=== PATIENT | female | born 1955 | race Caucasian/White ===

== ENCOUNTER 2017-10-09 14:00 | Outpatient (RCR) | payer OTHER, SELFPAY | END 2017-10-09 14:01 | disposition home or self-care (01) | LOC: PT 14:00 | PROVIDERS: Family Provider Family Medicine; Visit Provider Orthopaedic Surgery | DX: M54.2 Cervicalgia (principal) | CPT/HCPCS: 97010; 97014; 97110; 97140; G0283 ==

== ENCOUNTER → 2017-10-16 07:53 | Outpatient (CLI) | payer OTHER, SELFPAY ==
--- NOTE | 2017-10-16 08:00 | MR_ITS ---
MR cervical spine wo con, MR 3-d myelogram/MRCP HISTORY: Prior hx neck surgery X4 months. Neck pain when turning head from side to side. Loss of balance. ITS.REASON: CERVICALGIA ORDERING PHYSICIAN: Thomas Sultana PATIENT AGE: 62 years COMPARISON: 01/01/2017 TECHNIQUE: Standard multiplanar multiecho sequences are performed without contrast. 3-D MIP and myelographic images are also rendered and reviewed FINDINGS: The craniocervical junction has an unremarkable appearance. Extensive artifact is present from prior anterior cervical disc fusion from C3 to C7. There is straightening of the cervical lordosis which may be due to patient positioning or muscle spasm. There is extensive artifact on the axial images at every level. C2-C3: Unremarkable. C3-C4: Minimal bulging disc. C4-C5: Mild bulging disc with narrowing of the canal as before. No cord impingement or effacement. C5-C6: Narrowing of the canal slightly accentuated by the mild hypertrophic changes along the posterior arch of C6. Not significant change. C6-C7: Artifact. C7-T1: Unremarkable. T1-T2: Minimal bulging disc. No extruded herniated disc apparent. IMPRESSION: 1. Prior anterior cervical disc fusion from C3 to C7. The areas of diffusion are present at C3 and C4 compared to the previous exam. 2. Mild cervical spondylosis with borderline canal stenosis at C4-5 and C5-C6. No cord impingement or flattening. 3. Minimal bulging disc at T1-T2 4. No extruded herniated disc evident
== END ==
PROVIDERS: Family Provider Family Medicine; PCP Family Medicine; Visit Provider Orthopaedic Surgery
DX: M54.2 Cervicalgia (principal)
CPT/HCPCS: 72141; 76376

== ENCOUNTER → 2017-11-25 10:20 | Outpatient (POV) | payer OTHER, SELFPAY ==
[2017-11-25 10:36] VITALS: BP 131/75; PULSE 71; RESP 20; TEMP 36.8; O2SAT 99; BMI 28.0
--- NOTE | 2017-11-25 11:21 | HMH.PAINSOAP ---
[facility] Pain Management SOAP Note Subjective:: Is a pleasant 62-year-old white female who presents today for evaluation for neurostimulator. Patient had been receiving cervical epidural steroid injections from our office and then was referred to Dr. Sultana. Patient was seen by Dr. Sultana who had done cervical surgery on her. Dr. Sultana then referred her to Dr. Bonilla for neurostimulator evaluation. Patient would prefer to have her neurostimulator evaluation here. Patient states that most of her pain is in her neck radiating up into her occipital region and then radiating into her bilateral shoulders. Patient is interested in neurostimulator. Describes her pain is constant and shooting-like in nature at times. ROS General: no recent weight change, no fever, no sleep disturbances Respiratory: no cough, no shortness of air, no recurring pulmonary infections Cardiovascular/Peripheral Vascular: No chest pain, No palpitations, no edema, no shortness of breath. Gastrointestinal: no incontinence, normal bowel movements reported Genitourinary: no incontinence Musculoskeletal: Neck pain, bilateral shoulder pain, headache Psychiatric: normal mood/ affect Neurological: [denies weakness in extremities], [denies balance issues] Objective:: Physical Exam General: Alert and oriented x3, no acute distress, pleasant and cooperative, [on room air] Lungs: Resps E/U, Symmetrical chest expansion, Eyes: PERRL Musculoskeletal: Flexion and extension of cervical spine somewhat guarded secondary to pain, deep tendon reflexes normal, strength in upper and lower extremities [5/5], normal gait noted Neurological: speech clear, feltmaker equal, no gross sensory deficits Assessment:: Degenerative disc disease of the cervical spine with cervical radiculopathy and cervical postlaminectomy syndrome Plan:: We will plan on a nuvectra stimulator trial. Patient is not on any anticoagulation therapy. We will get a psychological evaluation. Patient and I had a long discussion about the trial and implantation process along with realistic goals and expectations. I believe the patient will be a good candidate for cervical neurostimulator trial. She has tried and failed physical therapy, surgery, medications, anti-inflammatories, injection therapy. This note was dictated using voice recognition software and may contain errors or omissions
--- NOTE | 2017-11-25 11:27 | P.CONS_ITS ---
[facility] Pain Management SOAP Note Subjective:: Is a pleasant 62-year-old white female who presents today for evaluation for neurostimulator. Patient had been receiving cervical epidural steroid injections from our office and then was referred to Dr. Sultana. Patient was seen by Dr. Sultana who had done cervical surgery on her. Dr. Sultana then referred her to Dr. Bonilla for neurostimulator evaluation. Patient would prefer to have her neurostimulator evaluation here. Patient states that most of her pain is in her neck radiating up into her occipital region and then radiating into her bilateral shoulders. Patient is interested in neurostimulator. Describes her pain is constant and shooting-like in nature at times. ROS General: no recent weight change, no fever, no sleep disturbances Respiratory: no cough, no shortness of air, no recurring pulmonary infections Cardiovascular/Peripheral Vascular: No chest pain, No palpitations, no edema, no shortness of breath. Gastrointestinal: no incontinence, normal bowel movements reported Genitourinary: no incontinence Musculoskeletal: Neck pain, bilateral shoulder pain, headache Psychiatric: normal mood/ affect Neurological: [denies weakness in extremities], [denies balance issues] Objective:: Physical Exam General: Alert and oriented x3, no acute distress, pleasant and cooperative, [ on room air] Lungs: Resps E/U, Symmetrical chest expansion, Eyes: PERRL Musculoskeletal: Flexion and extension of cervical spine somewhat guarded secondary to pain, deep tendon reflexes normal, strength in upper and lower extremities [5/5], normal gait noted Neurological: speech clear, multimedia engineer equal, no gross sensory deficits Assessment:: Degenerative disc disease of the cervical spine with cervical radiculopathy and cervical postlaminectomy syndrome Plan:: We will plan on a nuvectra stimulator trial. Patient is not on any anticoagulation therapy. We will get a psychological evaluation. Patient and I had a long discussion about the trial and implantation process along with realistic goals and expectations. I believe the patient will be a good candidate for cervical neurostimulator trial. She has tried and failed physical therapy, surgery, medications, anti-inflammatories, injection therapy. This note was dictated using voice recognition software and may contain errors or omissions
== END ==
PROVIDERS: Family Provider Family Medicine; PCP Family Medicine; Visit Provider Clinical Nurse Specialist Family Health
DX: M54.12 Radiculopathy, cervical region (principal)
CPT/HCPCS: 99212

== ENCOUNTER → 2017-12-11 08:56 | Outpatient (POV) | payer OTHER, SELFPAY ==
--- NOTE | 2017-12-11 09:01 | HMH.PMCON ---
Assessment and Plan - Assessment and plan all Dx Assessment and Plan for all problems:: Impression-degenerative disc disease of the cervical spine at multiple levels. Cervical radiculopathy symptoms. Cervical postlaminectomy syndrome Plan-epidural pain stimulator trial on 12/27/2017. If successful will be considered for placement permanently of an epidural pain stimulator system HPI - Data of Consult Consult date: 12/11/17 Requesting Physician: Rufus Vargas MD Primary Care Provider: Kiko Sanderson MD Family Provider: Kiko Sanderson MD - Consult Narrative Reason for consult: Degenerative disc disease of the cervical spine at multiple level History of present illness: Ms. Edgar is a 62 year old female with history of cervical disc disease. She is status post cervical disc surgery and states that her pain is worse postop. She has had multiple efforts for pain management without success. She has been seen by who has recommended a epidural pain stimulator trial. She is referred to me in anticipation of placement of an pain stimulator system CC: Rufus Vargas MD [facility] History I have reviewed the patient's past medical history: Yes Medical History: Reports:: Cancer (right breast), Coronary Artery Disease, Hyperlipidemia Denies:: Diabetes Mellitus Type 1, Diabetes Mellitus Type 2, MRSA Other Medical History: Reports: Arthritis Comment: Irregular heartbeat, coronary artery disease with one blockage, hyperlipidemia, history of right breast cancer, cervical disc disease Laterality Cases: Right: Mastectomy Other Surgeries: Yes: Cancer Surgery (right mastectomy with reconstruction), Cholecystectomy, Hysterectomy-Partial, Other (bladder/rectum repair) Amputation: No Fractures: No Comment: ACDF cervical disc surgery 2013, hysterectomy, right mastectomy with TRAM flap reconstruction, cholecystectomy, exploratory lap with removal of bowel hematoma following trauma, bladder and rectal repair - *Social History Alcohol Intake: never Occupational Status: employed - Psychiatric History Expresses thoughts of harming self/others: None Suicide Plan Description: No Plan Review of Systems - Review of Systems Review of systems:: pertinent systems reviewed and negative unless documented below Meds Home Medications Medication Instructions Recorded Confirmed Type Atorvastatin Calcium [Atorvastatin 40 mg PO DAILY 11/25/17 11/25/17 History 40mg Tab] Baclofen [Lioresal 10mg tablet] 10 mg PO Q6 11/25/17 11/25/17 History Divalproex Sodium 125 mg PO HS 11/25/17 11/25/17 History Ibuprofen [Ibuprofen 800mg Tab] 800 mg PO Q8HP PRN 11/25/17 11/25/17 History Mirtazapine 15 mg PO HS 11/25/17 11/25/17 History Montelukast Sodium [Montelukast 10 mg PO DAILY 11/25/17 11/25/17 History 10mg Tab] Omeprazole [Omeprazole 40mg 40 mg PO DAILY 11/25/17 11/25/17 History Capsule] Ropinirole HCl 0.5 mg PO HS 11/25/17 11/25/17 History Tizanidine HCl 4 mg PO Q8 11/25/17 11/25/17 History Allergies Allergy/AdvReac Type Severity Reaction Status Date / Time codeine [CODEINE] Allergy Unknown Unverified 07/09/17 14:34 hydrocodone [HYDROCODONE] Allergy Unknown Unverified 07/09/17 14:34 morphine [MORPHINE] Allergy Unknown Unverified 07/09/17 14:34 oxycodone [OXYCODONE] Allergy Unknown Unverified 07/09/17 14:34 Objective Comments: Healthy white female in no distress - *Routine Respiratory Exam Comments: Normal breath sounds - *Routine Cardiovascular Exam Present: RRR - *Routine Abdominal Exam Comments: Soft and nontender
--- NOTE | 2017-12-11 09:26 | P.CONS_ITS ---
Assessment and Plan - Assessment and plan all Dx Assessment and Plan for all problems:: Impression-degenerative disc disease of the cervical spine at multiple levels. Cervical radiculopathy symptoms. Cervical postlaminectomy syndrome Plan-epidural pain stimulator trial on 12/27/2017. If successful will be considered for placement permanently of an epidural pain stimulator system HPI - Data of Consult Consult date: 12/11/17 Requesting Physician: Rufus Vargas MD Primary Care Provider: Kiko Sanderson MD Family Provider: Kiko Sanderson MD - Consult Narrative Reason for consult: Degenerative disc disease of the cervical spine at multiple level History of present illness: Ms. Edgar is a 62 year old female with history of cervical disc disease. She is status post cervical disc surgery and states that her pain is worse postop. She has had multiple efforts for pain management without success. She has been seen by who has recommended a epidural pain stimulator trial. She is referred to me in anticipation of placement of an pain stimulator system CC: Rufus Vargas MD [facility] History I have reviewed the patient's past medical history: Yes Medical History: Reports:: Cancer (right breast), Coronary Artery Disease, Hyperlipidemia Denies:: Diabetes Mellitus Type 1, Diabetes Mellitus Type 2, MRSA Other Medical History: Reports: Arthritis Comment: Irregular heartbeat, coronary artery disease with one blockage, hyperlipidemia, history of right breast cancer, cervical disc disease Laterality Cases: Right: Mastectomy Other Surgeries: Yes: Cancer Surgery (right mastectomy with reconstruction), Cholecystectomy, Hysterectomy-Partial, Other (bladder/rectum repair) Amputation: No Fractures: No Comment: ACDF cervical disc surgery 2013, hysterectomy, right mastectomy with TRAM flap reconstruction, cholecystectomy, exploratory lap with removal of bowel hematoma following trauma, bladder and rectal repair - *Social History Alcohol Intake: never Occupational Status: employed - Psychiatric History Expresses thoughts of harming self/others: None Suicide Plan Description: No Plan Review of Systems - Review of Systems Review of systems:: pertinent systems reviewed and negative unless documented below Meds Home Medications Medication Instructions Recorded Confirmed Type Atorvastatin Calcium [Atorvastatin 40 mg PO DAILY 11/25/17 11/25/17 History 40mg Tab] Baclofen [Lioresal 10mg tablet] 10 mg PO Q6 11/25/17 11/25/17 History Divalproex Sodium 125 mg PO HS 11/25/17 11/25/17 History Ibuprofen [Ibuprofen 800mg Tab] 800 mg PO Q8HP PRN 11/25/17 11/25/17 History Mirtazapine 15 mg PO HS 11/25/17 11/25/17 History Montelukast Sodium [Montelukast 10 mg PO DAILY 11/25/17 11/25/17 History 10mg Tab] Omeprazole [Omeprazole 40mg 40 mg PO DAILY 11/25/17 11/25/17 History Capsule] Ropinirole HCl 0.5 mg PO HS 11/25/17 11/25/17 History Tizanidine HCl 4 mg PO Q8 11/25/17 11/25/17 History Allergies Allergy/AdvReac Type Severity Reaction Status Date / Time codeine [CODEINE] Allergy Unknown Unverified 07/09/17 14:34 hydrocodone [HYDROCODONE] Allergy Unknown Unverified 07/09/17 14:34 morphine [MORPHINE] Allergy Unknown Unverified 07/09/17 14:34 oxycodone [OXYCODONE] Allergy Unknown Unverified 07/09/17 14:34 Objective Comments: Healthy white female in no distress
[2017-12-11 13:16] VITALS: BP 112/78; PULSE 74; RESP 18; TEMP 36.5; O2SAT 98; BMI 28.0
== END ==
PROVIDERS: Family Provider Family Medicine; PCP Family Medicine; Visit Provider Surgery
DX: M54.12 Radiculopathy, cervical region (principal)
CPT/HCPCS: 99212

== ENCOUNTER → 2017-12-19 09:26 | Outpatient (CLI) | payer OTHER, SELFPAY ==
[2017-12-19 09:47] LABS: Basophils % 0.6 % (0.1-2.0); Eosinophils # 0.2 K/mm3 (0.0-0.4); Eosinophils % 2.9 % (0.1-12.0); Hematocrit 41.3 % (37.0-47.0); Hemoglobin 13.5 g/dL (12.2-16.2); Lymphocytes # 1.6 K/mm3 (0.7-4.5); Lymphocytes % 29.5 K/mm3 (10-50); Mean Corpuscular HGB Conc 32.7 g/dL (31.8-35.4); Mean Corpuscular Hemoglobin 31.3 pg (27.0-31.2); Mean Corpuscular Volume 95.7 fl (81-99); Mean Platelet Volume 9.1 fl (7.4-10.4); Monocytes # 0.3 K/mm3 (0.1-1.0); Monocytes % 6.1 % (1.7-9.3); Neutrophils # 3.2 K/mm3 (1.8-7.8); Neutrophils % 60.9 % (37.0-80.0); Platelet Count 235 K/mm3 (142-424); Red Blood Count 4.32 M/mm3 (4.20-5.40); Red Cell Distribution Width 12.3 % (11.5-17.5); White Blood Count 5.2 K/mm3 (4.8-10.8)
[2017-12-19 10:14] LABS: Anion Gap 13.4 mEq/L (5-15); Blood Urea Nitrogen 22 mg/dL (7-18); Carbon Dioxide 28 mmol/L (21.0-32.0); Chloride 106 mmol/L (98-107); Creatinine,Serum 0.86 mg/dL (0.55-1.02); Estimated Glomerular Filt Rate 66 ml/min (>60); GFR (African American) 80 ML/MIN (>60); Glucose 121 mg/dL (74-106); Potassium 4.4 mmoL/L (3.5-5.1); Sodium 143 mmol/L (136-145)
== END ==
PROVIDERS: Visit Provider Anesthesiology
DX: Z01.818 Encounter for other preprocedural examination (principal)
CPT/HCPCS: 36415; 80048; 85025

== ENCOUNTER → 2018-01-14 12:06 | Outpatient (POV) | payer OTHER, SELFPAY ==
[2018-01-14 12:26] VITALS: BP 126/81; PULSE 73; RESP 18; O2SAT 97; BMI 28.0
--- NOTE | 2018-01-14 12:46 | HMH.PAINSOAP ---
[facility] Pain Management SOAP Note Subjective:: Patient is a pleasant 62-year-old white female who presents today for follow-up after neurostimulator trial lead removal. Patient is doing very well at this time. Patient is being treated for pain secondary to cervical postlaminectomy syndrome and cervical radiculopathy. Patient states that the stimulator trial provided 70-80% relief of her pain symptoms. Patient did have some stiffness in her muscles however she did have an improvement as time went on. Patient will be seen Dr. Harrison for permanent implant. Patient leads were placed at C3-C4-C5-C6 vertebral bodies. Patient has pain in her neck radiating to both shoulders and some radiating into the occipital region. ROS General: no recent weight change, no fever, no sleep disturbances Respiratory: no cough, no shortness of air, no recurring pulmonary infections Cardiovascular/Peripheral Vascular: No chest pain, No palpitations, no edema, no shortness of breath. Gastrointestinal: no incontinence, normal bowel movements reported Genitourinary: no incontinence Musculoskeletal: Neck pain, arm pain Psychiatric: normal mood/ affect Neurological: [denies weakness in extremities], [denies balance issues] Objective:: Physical Exam General: Alert and oriented x3, no acute distress, pleasant and cooperative, [on room air] Lungs: Resps E/U, Symmetrical chest expansion, Eyes: PERRL Musculoskeletal: Flexion and extension of cervical spine somewhat guarded secondary to pain, deep tendon reflexes normal, strength in upper and lower extremities [5/5], normal gait noted Neurological: speech clear, drafter (cad) electronic equal, no gross sensory deficits Assessment:: Degenerative disc disease of the cervical spine with cervical radiculopathy symptoms and cervical postlaminectomy syndrome with previous ACDF Plan:: We will send the patient for consultation with Dr. Harrison patient will follow up with us after implantation. Patient has tried and failed conservative therapies and surgical options. Patient has multiple allergies to medication and is unable to take pain medicine. Patient has been instructed to call our office if she has any issues prior to her next appointment. This note was dictated using voice recognition software and may contain errors or omissions
--- NOTE | 2018-01-14 12:49 | P.CONS_ITS ---
[facility] Pain Management SOAP Note Subjective:: Patient is a pleasant 62-year-old white female who presents today for follow-up after neurostimulator trial lead removal. Patient is doing very well at this time. Patient is being treated for pain secondary to cervical postlaminectomy syndrome and cervical radiculopathy. Patient states that the stimulator trial provided 70-80% relief of her pain symptoms. Patient did have some stiffness in her muscles however she did have an improvement as time went on. Patient will be seen Dr. Harrison for permanent implant. Patient leads were placed at C3- C4-C5-C6 vertebral bodies. Patient has pain in her neck radiating to both shoulders and some radiating into the occipital region. ROS General: no recent weight change, no fever, no sleep disturbances Respiratory: no cough, no shortness of air, no recurring pulmonary infections Cardiovascular/Peripheral Vascular: No chest pain, No palpitations, no edema, no shortness of breath. Gastrointestinal: no incontinence, normal bowel movements reported Genitourinary: no incontinence Musculoskeletal: Neck pain, arm pain Psychiatric: normal mood/ affect Neurological: [denies weakness in extremities], [denies balance issues] Objective:: Physical Exam General: Alert and oriented x3, no acute distress, pleasant and cooperative, [ on room air] Lungs: Resps E/U, Symmetrical chest expansion, Eyes: PERRL Musculoskeletal: Flexion and extension of cervical spine somewhat guarded secondary to pain, deep tendon reflexes normal, strength in upper and lower extremities [5/5], normal gait noted Neurological: speech clear, industrial electrician journeyman equal, no gross sensory deficits Assessment:: Degenerative disc disease of the cervical spine with cervical radiculopathy symptoms and cervical postlaminectomy syndrome with previous ACDF Plan:: We will send the patient for consultation with Dr. Harrison patient will follow up with us after implantation. Patient has tried and failed conservative therapies and surgical options. Patient has multiple allergies to medication and is unable to take pain medicine. Patient has been instructed to call our office if she has any issues prior to her next appointment. This note was dictated using voice recognition software and may contain errors or omissions
== END ==
PROVIDERS: Family Provider Family Medicine; PCP Family Medicine; Visit Provider Clinical Nurse Specialist Family Health
DX: M54.12 Radiculopathy, cervical region (principal)
CPT/HCPCS: 99212

== ENCOUNTER → 2018-01-28 10:46 | Outpatient (POV) | payer OTHER, SELFPAY ==
[2018-01-28 10:48] VITALS: BP 149/88; PULSE 70; RESP 18; O2SAT 97; BMI 28.1
--- NOTE | 2018-01-28 11:24 | XR_ITS ---
EXAM: XR cervical spine 5V HISTORY: ITS.REASON: NECK PAIN ORDERING PHYSICIAN: Rosalina Cherry PATIENT AGE: 62 years COMPARISON: 10/16/2017, 10/19/2016 FINDINGS: There is straightening of the cervical lordosis. Extensive postsurgical changes are present. Status post anterior cervical disc fusion at C3-C4 with a bone plate anteriorly. Disc spacer is also present at this level. There is mild anterolisthesis of C3 on C4 2 mm An anterior bone plate is present at C5. A single screw is present in the right aspect of the bone plate and is directed superiorly to the inferior endplate of C4. A single screw is present on the left aspect of the bone plate and is directed inferiorly. There is an older anterior bone plate with screws in the C5, C6, and C7 vertebra with disc spacers at C5-C6 and C6-C7 Mild foraminal narrowing is noted on the right at C5-C6 and C6-C7. No acute fracture or dislocation. IMPRESSION: Extensive postsurgical changes as described above with normal alignment and straightening of the cervical lordosis with mild right-sided foraminal narrowing at C5-6 and C6-C7
--- NOTE | 2018-01-28 11:29 | HMH.PAINSOAP ---
[facility] Pain Management SOAP Note Subjective:: Patient is a pleasant 62-year-old white female who presents today for follow-up due to increased cervical pain. Patient has had a successful neurostimulator trial. Patient wanted to hold off on implantation due to a vacation coming up. Patient's being treated for pain secondary to cervical postlaminectomy syndrome and cervical radiculopathy. Patient states the week before her neurostimulator trial she fell and hit the back of her next with the garden hoe. Patient was seen by PCP last week due to increased pain and states that she was pulled on Relafen. Patient states she has no relief from this. Patient is continuing to take ibuprofen. Patient states that she feels like there is something wrong with her neck. Rates her pain 9 out of 10 today. ROS General: no recent weight change, no fever, no sleep disturbances Respiratory: no cough, no shortness of air, no recurring pulmonary infections Cardiovascular/Peripheral Vascular: No chest pain, No palpitations, no edema, no shortness of breath. Gastrointestinal: no incontinence, normal bowel movements reported Genitourinary: no incontinence Musculoskeletal:neck Pain Psychiatric: normal mood/ affect Neurological: [denies weakness in extremities], [denies balance issues] Objective:: Physical Exam General: Alert and oriented x3, no acute distress, pleasant and cooperative, [on room air] Lungs: Resps E/U, Symmetrical chest expansion, Eyes: PERRL Musculoskeletal: Flexion and extension of cervical spine somewhat guarded secondary to pain, deep tendon reflexes normal, strength in upper and lower extremities [5/5], normal gait noted Neurological: speech clear, assembler erector equal, no gross sensory deficits Assessment:: Post laminectomy syndrome of the cervical spine with degenerative disc disease of the cervical spine, cervical radiculopathy Plan:: We will call in a [employer] Dosepak for the patient. Patient has had this before with no side effects. I will get an x-ray of her cervical spine. We will follow-up with her on Saturday. This note was dictated using voice recognition software and may contain errors or omissions
--- NOTE | 2018-01-28 11:32 | P.CONS_ITS ---
[facility] Pain Management SOAP Note Subjective:: Patient is a pleasant 62-year-old white female who presents today for follow-up due to increased cervical pain. Patient has had a successful neurostimulator trial. Patient wanted to hold off on implantation due to a vacation coming up. Patient's being treated for pain secondary to cervical postlaminectomy syndrome and cervical radiculopathy. Patient states the week before her neurostimulator trial she fell and hit the back of her next with the garden hoe. Patient was seen by PCP last week due to increased pain and states that she was pulled on Relafen. Patient states she has no relief from this. Patient is continuing to take ibuprofen. Patient states that she feels like there is something wrong with her neck. Rates her pain 9 out of 10 today. ROS General: no recent weight change, no fever, no sleep disturbances Respiratory: no cough, no shortness of air, no recurring pulmonary infections Cardiovascular/Peripheral Vascular: No chest pain, No palpitations, no edema, no shortness of breath. Gastrointestinal: no incontinence, normal bowel movements reported Genitourinary: no incontinence Musculoskeletal:neck Pain Psychiatric: normal mood/ affect Neurological: [denies weakness in extremities], [denies balance issues] Objective:: Physical Exam General: Alert and oriented x3, no acute distress, pleasant and cooperative, [ on room air] Lungs: Resps E/U, Symmetrical chest expansion, Eyes: PERRL Musculoskeletal: Flexion and extension of cervical spine somewhat guarded secondary to pain, deep tendon reflexes normal, strength in upper and lower extremities [5/5], normal gait noted Neurological: speech clear, chair and couch maker equal, no gross sensory deficits Assessment:: Post laminectomy syndrome of the cervical spine with degenerative disc disease of the cervical spine, cervical radiculopathy Plan:: We will call in a [employer] Dosepak for the patient. Patient has had this before with no side effects. I will get an x-ray of her cervical spine. We will follow-up with her on Saturday. This note was dictated using voice recognition software and may contain errors or omissions
== END ==
PROVIDERS: Family Provider Family Medicine; PCP Family Medicine; Visit Provider Clinical Nurse Specialist Family Health
DX: M96.1 Postlaminectomy syndrome, not elsewhere classified (principal); M54.12 Radiculopathy, cervical region
CPT/HCPCS: 72050; 99212

== ENCOUNTER → 2018-01-31 14:44 | Outpatient (POV) | payer OTHER, SELFPAY ==
[2018-01-31 14:57] VITALS: BP 144/82; PULSE 78; RESP 18; TEMP 36.9; O2SAT 97; BMI 25.0
--- NOTE | 2018-01-31 15:01 | HMH.PAINSOAP ---
[facility] Pain Management SOAP Note Subjective:: This patient is a pleasant 62-year-old white female who presents after neurostimulator trial with increased pain in her neck since her trial. She did very well with her neurostimulator trial it was a successful trial with 80-90% relief in her pain symptoms. She had fallen and hit the back of her head prior to the trial. She did get a cervical spine x-ray after she was seen in the office by my nurse practitioner. Cervical spine x-ray was unremarkable. There did not seem to be any changes. There is no fractures or changes in hardware. I believe most of her pain is myofascial and it subjectively seems worse after she got great benefit from her spinal cord stimulator trial. I will place her on Zanaflex 4 mg 3 times a day. She was unable to take the methylprednisolone ordered by my nurse practitioner. Objective:: Alert and oriented ?3 in no acute distress. Motor strength of the upper extremities is 5/5. She does have reduced range of motion of the cervical spine. She does have tenderness over the midline of the cervical spine. Also there is myofascial pain of the cervical paraspinous muscles bilaterally. Assessment:: Degenerative disc disease of the cervical spine with cervical radiculopathy symptoms and postlaminectomy syndrome of the cervical spine Plan:: We will order her Zanaflex 4 mg 1 tablet 3 times a day. We will call this in to [facility]. She does not have to take the methylprednisolone. She is scheduled to see Dr. Harrison for permanent placement of spinal cord stimulator in February.
== END ==
PROVIDERS: Family Provider Family Medicine; PCP Family Medicine; Visit Provider Anesthesiology
DX: M54.12 Radiculopathy, cervical region (principal)
CPT/HCPCS: 99212

== ENCOUNTER → 2018-05-30 10:45 | Outpatient (POV) | payer OTHER, SELFPAY ==
[2018-05-30 11:45] VITALS: BP 124/95; PULSE 80; RESP 18; BMI 28.0
--- NOTE | 2018-05-30 15:09 | HMH.PAINSOAP ---
[facility] Pain Management SOAP Note Subjective:: Patient is a pleasant 62-year-old white female who underwent permanent placement of spinal cord stimulator by Dr. Harrison. She is almost 2 months postop. She did have some neurological issues to me 3. She was evaluated by neurology at [facility] and had a constellation of symptoms which is very confusing. She may have had some nerve root irritation with increased pain. She underwent physical therapy and occupational therapy and now she is walking with a walker however reporting some balance issues and her right leg giving way. She also does have some pain in her thumb and forefinger. We did adjust her stimulator today. I have some nerve irritation from her paddle lead. She does seem to be improving based on her physical therapy and neurological symptoms. We will have her stimulator reprogrammed today. I will also refer her to Dr. Vital for evaluation. We will also keep her off work for an additional 30 days as she is unable to go back to work at this time. She is to continue with home therapy. Objective:: Alert and oriented x3. She does have an antalgic gait. She is walking with a walker. Motor strength of the lower extremities seems to be 4 out of 5. Motor strength of the upper extremities is 5 out of 5. There is no gross sensory deficit at this time. Assessment:: Degenerative disc disease of cervical spine with cervical radiculopathy symptoms and postlaminectomy syndrome of the cervical spine with neurological issues after permanent placement of her spinal cord stimulator. Plan:: We will have her stimulator reprogrammed today. I will also refer her to Dr. Vital for evaluation. We will also keep her off work for an additional 30 days as she is unable to go back to work at this time. She is to continue with home therapy. We will follow-up with her in [address] Vital's evaluation and recommendations.
== END ==
PROVIDERS: PCP Family Medicine; Visit Provider Anesthesiology
DX: M50.10 Cervical disc disorder with radiculopathy, unspecified cervical region (principal); M96.1 Postlaminectomy syndrome, not elsewhere classified; T85.192D Other mechanical complication of implanted electronic neurostimulator of spinal cord electrode (lead), subsequent encounter
CPT/HCPCS: 99212

== ENCOUNTER → 2018-06-20 14:37 | Outpatient (CLI) | payer OTHER, SELFPAY ==
--- NOTE | 2018-06-20 14:41 | XR_ITS ---
EXAM: XR lumbar spine 2-3V HISTORY: ITS.REASON: weakness, pain ORDERING PHYSICIAN: Gayle Vital MD PATIENT AGE: 62 years COMPARISON: None FINDINGS: There is 6 mm anterolisthesis of L4 on L5. There is decrease in the disc space at L5-S1 is consistent with degenerative disc disease. Mild facet arthritic changes are present at L4-5 and L5-S1. No fracture or dislocation. There is epidural stimulator device present. The power pack overlies the left upper quadrant. IMPRESSION: Mild anterolisthesis of L4 on L5 which disc disease at L4-L5 and mild facet arthritic change at L4-L5 and L5-S1
--- NOTE | 2018-06-20 14:41 | CT_ITS ---
CT head/brain wo con HISTORY: Right-sided weakness ITS.REASON: right lower/upper extremity weakness/pain ORDERING PHYSICIAN: Gayle Vital MD PATIENT AGE: 62 years COMPARISON: 12/13/2016 TECHNIQUE: Axial images obtained without contrast. Brain and bone windows reviewed. All CT scans at the facility use one or more dose reduction, viz: automated exposure control, ma/kV adjustment per patient size (including targeted exams where dose is matched to indication, i.e. head), or iterative reconstruction technique. FINDINGS: No midline shift, mass effect, intracranial hemorrhage, hydrocephalus, or extra-axial fluid collection is evident. The calvarium has an unremarkable appearance. There is moderate opacification of the right maxillary sinus as well as opacification of the right anterior and left posterior ethmoid air cells. IMPRESSION: 1. No acute intracranial findings. 2. Paranasal sinus disease
== END ==
PROVIDERS: PCP Family Medicine; Visit Provider Specialist
DX: M79.601 Pain in right arm (principal); M79.604 Pain in right leg; R29.898 Other symptoms and signs involving the musculoskeletal system; R53.1 Weakness; Z85.3 Personal history of malignant neoplasm of breast
CPT/HCPCS: 70450; 72100

== ENCOUNTER → 2018-07-21 08:02 | Outpatient (POV) | payer OTHER, SELFPAY | PROVIDERS: Visit Provider Specialist | DX: R29.898 Other symptoms and signs involving the musculoskeletal system (principal); M79.604 Pain in right leg; M79.601 Pain in right arm; R53.1 Weakness; Z85.3 Personal history of malignant neoplasm of breast | CPT/HCPCS: 95886; 95911 ==

== ENCOUNTER 2018-07-25 10:53 | Outpatient (RCR) | payer OTHER, SELFPAY ==
--- NOTE | 2018-07-25 13:23 | HMH.OTOPEV ---
OT Inpatient Evaluation Rehab OT Outpatient Eval Start: 07/25/18 13:09 Freq: Status: Active Protocol: Document 07/25/18 13:09 TFRY (Rec: 07/25/18 13:23 TFRY [id number]) Electronically Signed By Ирина Polo OT 07/25/18 13:09 Outpatient Therapy Subjective History Subjective History This is a 62 year old left handed female referred to occupational therapy for cervical post-laminectomy syndrome and cervical radiculopathy due to degenerative joint disease of spine. Patient reports that she had a neuro stimulator placement on 04/03/18 to assist with decrease pain in her neck but when she woke up from the procedure she had right arm pain extending all the way into her hand and weakness as well as right leg weakness. 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 Work/Reading Driving Sleeping Recreation Activity Symptom Description Constant and Continuous Level of pain today (0-10) 4 Pain scale - at its best (0-10) 4 Pain scale - at its worst (0-10) 9 Shoulder/Elbow Eval Shoulder Objective Measurements Shoulder ROM Right Shoulder Abduction Active Range of WFL Motion (degrees) Shoulder Flexion Active Range of Motion WFL (degrees) Query Text: Shoulder External Rotation Active Range WFL of Motion (degrees) Shoulder Internal Rotation Active Range WFL of Motion (degrees) Shoulder Extension Active Range of WFL Motion (degrees) pain with active ROM shoulder exam right standard Shoulder MMT Shoulder Abduction Strength Grade 3+ Fair+ Shoulder Extension Strength Grade 3+ Fair+ Shoulder Flexion Strength Grade 3+ Fair+ Shoulder Horizontal Abduction Strength 3+ Fair+ Grade Shoulder Horizontal Adduction Strength
== END 2018-07-25 10:59 | disposition home or self-care (01) ==
LOC: OT 10:53
PROVIDERS: Visit Provider Family Medicine
DX: M96.1 Postlaminectomy syndrome, not elsewhere classified (principal); M47.22 Other spondylosis with radiculopathy, cervical region
CPT/HCPCS: 97166

== ENCOUNTER → 2018-09-08 14:13 | Outpatient (POV) | payer MEDICARE, OTHER, SELFPAY ==
--- NOTE | 2018-09-08 15:00 | HMH.PAINSOAP ---
[facility] Pain Management SOAP Note Subjective:: Patient is a pleasant 63-year-old white female who presents today for follow-up. Patient is doing much better. Patient underwent permanent placement of spinal cord stimulator by Dr. Harrison patient had some neurological issues postop. Patient is continuing to work with neurology area patient states that she does have a raspy hoarse voice that has never gone away she is also having some difficulty swallowing we will send her to an ENT for evaluation. Patient rates her pain a 7 out of 10. Patient has not been on any anti-inflammatories lately. She is interested in trying something different. Patient states that her right arm is what gives her most of the pain. Patient has had a recent nerve conduction study that was normal. ROS General: no recent weight change, no fever, no sleep disturbances Respiratory: no cough, no shortness of air, no recurring pulmonary infections Cardiovascular/Peripheral Vascular: No chest pain, No palpitations, no edema, no shortness of breath. Gastrointestinal: no incontinence, normal bowel movements reported Genitourinary: no incontinence Musculoskeletal: Neck pain, right arm pain Psychiatric: normal mood/ affect Neurological: [denies weakness in extremities], [denies balance issues] Objective:: Physical Exam General: Alert and oriented x3, no acute distress, pleasant and cooperative, [on room air] Lungs: Resps E/U, Symmetrical chest expansion, Eyes: PERRL Musculoskeletal: Flexion and extension of cervical spine somewhat guarded secondary to pain, deep tendon reflexes normal, strength in upper and lower extremities [5/5], slightly antalgic gait noted Neurological: speech clear, intermission coordinator equal, no gross sensory deficits Assessment:: Degenerative disc disease cervical spine with cervical radiculopathy symptoms and postlaminectomy syndrome cervical spine Plan:: We will send to the ENT for determination on her issues with swallowing along with her voice being hoarse at all times. We will also get her some compounding cream to help with any kind of irritation on her right arm. We will also call in Mobic 15 mg 1 p.o. daily to see if this is beneficial for the patient. See the patient back in 1 month and reassess her symptoms at that time. Dr. Pizarro has reviewed this note and agrees with this plan of care. This note was dictated using voice recognition software and may contain errors or omissions
[2018-09-08 15:06] VITALS: BP 117/67; PULSE 97; RESP 18; O2SAT 98; BMI 28.3
== END ==
PROVIDERS: PCP Family Medicine; Visit Provider Clinical Nurse Specialist Family Health
DX: M50.10 Cervical disc disorder with radiculopathy, unspecified cervical region (principal); M96.1 Postlaminectomy syndrome, not elsewhere classified
CPT/HCPCS: 99213

== ENCOUNTER 2018-09-09 11:00 | Outpatient (RCR) | payer MEDICARE, OTHER, SELFPAY ==
--- NOTE | 2018-07-11 10:06 | HMH.PTOPEV ---
PT Outpatient Evaluation Rehab PT Outpatient Evaluation Start: 07/11/18 09:51 Freq: Status: Active Protocol: Document 07/11/18 09:51 CONCHITA (Rec: 07/11/18 10:06 CONCHITA [id number]) Electronically Signed By Gianfranco Salas, PT 07/11/18 09:51 Outpatient Therapy Subjective History Subjective History Pt reports h/o chronic neck pain/cervical radicular s/s and underwent sx. for cervical neurostimulator placement on 04/03/18. Following procedure, pt reports inability to use R LE d/t severe weakness, severe R UE pain, levi. in R thumb and index finger. Pt reports R LE and R UE s/s have improved since sx. w/extension HHOT and HHPT. Pt presents today with ambulation using RW, reports SC w/amb. at home or no AD. Pt reports no falls since sx., however, reports R LE becomes fatigued rapidly w/ wt. bearing activities. Chief Complaint Pain Paresthesia Weakness Symptom Type Ache Throb Sharp Dull Burning Numbness Tingling Shooting Symptoms Relieved By Rest/Positioning Symptoms Aggravated By Standing Physical Activity Walking Prior Functional Limitations Reaching Lifting Housework Current Functional Limitations Reaching Lifting Housework Driving Standing Squatting Walking Stairs Balance Symptom Description Constant but Variable Level of pain today (0-10) 4 Pain scale - at its best (0-10) 3 Pain scale - at its worst (0-10) 8 Hip/Knee Eval Gait Observation General Gait Pattern Observation Ataxic Gait Assistive Device Assistive Devices Straight Cane Rolling / Wheeled Walker MMT
--- NOTE | 2018-08-13 13:36 | HMH.RHREAS ---
Rehab Reassessment Rehab OP Re-assessment Start: 08/13/18 13:26 Freq: Status: Active Protocol: Document 08/13/18 13:27 BALTANICOLEJUANITO (Rec: 08/13/18 13:35 CONCHITA [id number]) Electronically Signed By Gianfranco Salas, PT 08/13/18 13:27 Rehab Re-assessment Subjective Subjective PT REPORTS IMPROVED AMBULATION AND STRENGTH OVERALL SINCE I EVAL, REPORTS 0/10 R LE PAIN AND 6-7/10 R UE PAIN ON VAS, AND FEELS 80% BETTER OVERALL SINCE I EVAL Objective Objective Notes GAIT: PT AMBULATES 500+ FT W/O AD, INTERMITTENT LOB D/T R LE WEAKNESS, SBA TO I MMT: R HIP FLX 4/5, R KNEE EXT 4-4+/5, R KNEE FLX 4/5, R DF 4/5, R HIP IR AND ER 4/5 Assessment Progress Assessment Progressing as Expected Assessment Notes PT W/IMPROVED STRENGTH AND GAIT Patient goals met STG'S 12/26 LTG'S 09/30 Goals Not Met STG'S 07/28 LTG'S 04/02 Plan Plan PT TO CONT. W/SKILLED P.T. TO MAKE FURTHER IMPROVEMENTS IN GAIT, ENDURANCE, AND STRENGTH TO ALLOW OPTIMAL FUNCTION Frequency of Therapy 1-2X/WK Duration of therapy 3-4 WKS Time and Billing Re-Eval Time 15 Re-Eval Billing Units 1 PHYSICIAN CERTIFICATION: I certify the specified therapy services for Mago Edgar are required, authorized, and reviewed every 30 days.
== END 2018-09-09 11:05 | disposition home or self-care (01) ==
LOC: PT 11:00
PROVIDERS: Visit Provider Family Medicine
DX: R29.898 Other symptoms and signs involving the musculoskeletal system (principal); R26.89 Other abnormalities of gait and mobility
CPT/HCPCS: 97110; 97112; 97163; 97164

== ENCOUNTER → 2018-09-24 07:55 | Outpatient (CLI) | payer MEDICARE, OTHER, SELFPAY ==
--- NOTE | 2018-09-24 07:57 | CT_ITS ---
CT sinus wo con CLINICAL INDICATION: Chronic sinusitis ITS.REASON: sinusitis ORDERING PHYSICIAN: Castillo Hunt MD PATIENT AGE: 63 years COMPARISON: None TECHNIQUE:Axial images obtained with sagittal and coronal reformats. All CT scans at the facility use one or more dose reduction, viz: automated exposure control, ma/kV adjustment per patient size (including targeted exams where dose is matched to indication, i.e. head), or iterative reconstruction technique. FINDINGS: Minimal mucosal thickening ethmoid sinuses and bilateral maxillary sinuses. No air-fluid levels are evident. The right maxillary sinus smaller than the left side with a prominent Clarissa cell superiorly. The ostiomeatal complexes are patent on both sides. There is moderate leftward nasal septal deviation. The orbits have an unremarkable appearance. The TMJs are unremarkable. No mastoid effusion. Middle ears are well aerated IMPRESSION: 1. Minimal inflammatory changes in the paranasal sinuses 2. Prominent right Clarissa cell 3. Moderate leftward nasal septal deviation
--- NOTE | 2018-09-24 07:57 | FL_ITS ---
EXAM: Barium swallow/esophagram. INDICATION: Dysphagia, difficulty swallowing ITS.REASON: sinus pressure ORDERING PHYSICIAN: Castillo Hunt MD PATIENT AGE: 63 years COMPARISON: None TECHNIQUE: In the upright position the patient was observed to swallow barium in both the AP and lateral view. The cervical esophagus was examined under fluoroscopy with images obtained. The patient was then placed prone in the right anterior oblique position and was observed to swallow barium with Valsalva technique . FLUOROSCOPY TIME: 1 minute and 14 seconds FINDINGS: There are multiple bone plate present along the or cervical spine. Prior anterior cervical disc fusion with a bone plate stabilizing C3-C4 and additional bone plate at the 5 with an additional bone plate at C5-C6 and C7. There is a an epidural stimulator device present posteriorly. The esophagus has an unremarkable appearance. No annular constricting lesions, polypoid filling defects, or mucosal abnormalities are evident. No evidence of hiatal hernia. IMPRESSION: Unremarkable barium swallow. Prior anterior cervical disc fusion as described above
== END ==
PROVIDERS: PCP Family Medicine; Visit Provider Otolaryngology
DX: J32.0 Chronic maxillary sinusitis (principal); J32.2 Chronic ethmoidal sinusitis; R13.10 Dysphagia, unspecified
CPT/HCPCS: 70486; 74220

== ENCOUNTER → 2018-10-07 11:46 | Outpatient (POV) | payer MEDICARE, OTHER, SELFPAY ==
--- NOTE | 2018-10-07 12:24 | HMH.PAINSOAP ---
[facility] Pain Management SOAP Note Subjective:: She is a pleasant 63-year-old white female who presents today for follow-up. She rates her pain a 4 out of 10 which is much better than her typical. 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 Patient will be seen the packaging sales representative today for additional reprogramming. Patient was unable to take the Mobic due to side effects. ROS General: no recent weight change, no fever, no sleep disturbances Respiratory: no cough, no shortness of air, no recurring pulmonary infections Cardiovascular/Peripheral Vascular: No chest pain, No palpitations, no edema, no shortness of breath. Gastrointestinal: no incontinence, normal bowel movements reported Genitourinary: no incontinence Musculoskeletal: Neck pain, right arm pain Psychiatric: normal mood/ affect Neurological: [denies weakness in extremities], [denies balance issues] Objective:: Physical Exam General: Alert and oriented x3, no acute distress, pleasant and cooperative, [on room air] Lungs: Resps E/U, Symmetrical chest expansion, Eyes: PERRL Musculoskeletal: Flexion and extension of cervical spine somewhat guarded secondary to pain, deep tendon reflexes normal, strength in upper and lower extremities [5/5], normal gait noted Neurological: speech clear, icu registered nurse equal, no gross sensory deficits Assessment:: Degenerative disc disease cervical spine with cervical radiculopathy symptoms and postlaminectomy syndrome cervical spine Plan:: We will follow-up the patient in 1 month and reassess her symptoms at that time. She is been instructed to call the office if she has any issues prior to her next appointment. Dr. Pizarro has reviewed this note and agrees with this plan of care. This note was dictated using voice recognition software and may contain errors or omissions
--- NOTE | 2018-10-07 12:27 | P.CONS_ITS ---
[facility] Pain Management SOAP Note Subjective:: She is a pleasant 63-year-old white female who presents today for follow-up. She rates her pain a 4 out of 10 which is much better than her typical. 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 Patient will be seen the financial sales representative today for additional reprogramming. Patient was unable to take the Mobic due to side effects. ROS General: no recent weight change, no fever, no sleep disturbances Respiratory: no cough, no shortness of air, no recurring pulmonary infections Cardiovascular/Peripheral Vascular: No chest pain, No palpitations, no edema, no shortness of breath. Gastrointestinal: no incontinence, normal bowel movements reported Genitourinary: no incontinence Musculoskeletal: Neck pain, right arm pain Psychiatric: normal mood/ affect Neurological: [denies weakness in extremities], [denies balance issues] Objective:: Physical Exam General: Alert and oriented x3, no acute distress, pleasant and cooperative, [on room air] Lungs: Resps E/U, Symmetrical chest expansion, Eyes: PERRL Musculoskeletal: Flexion and extension of cervical spine somewhat guarded secondary to pain, deep tendon reflexes normal, strength in upper and lower extremities [5/5], normal gait noted Neurological: speech clear, desk operator equal, no gross sensory deficits Assessment:: Degenerative disc disease cervical spine with cervical radiculopathy symptoms and postlaminectomy syndrome cervical spine Plan:: We will follow-up the patient in 1 month and reassess her symptoms at that time. She is been instructed to call the office if she has any issues prior to her next appointment. Dr. Pizarro has reviewed this note and agrees with this plan of care. This note was dictated using voice recognition software and may contain errors or omissions
[2018-10-07 12:54] VITALS: BP 117/80; PULSE 88; RESP 18; O2SAT 98; BMI 28.1
== END ==
PROVIDERS: PCP Family Medicine; Visit Provider Clinical Nurse Specialist Family Health
DX: M50.10 Cervical disc disorder with radiculopathy, unspecified cervical region (principal); M96.1 Postlaminectomy syndrome, not elsewhere classified
CPT/HCPCS: 99213

== ENCOUNTER → 2018-10-20 13:09 | Outpatient (CLI) | payer MEDICARE, OTHER, SELFPAY | PROVIDERS: PCP Family Medicine; Visit Provider Family Medicine | DX: R06.83 Snoring (principal); R53.83 Other fatigue; G47.33 Obstructive sleep apnea (adult) (pediatric) | CPT/HCPCS: G0399 ==

== ENCOUNTER → 2018-10-30 16:03 | Outpatient (CLI) | payer MEDICARE, OTHER, SELFPAY ==
--- NOTE | 2018-10-30 16:07 | MM_ITS ---
MM Dig screening mamm BI w/CAD ORDERING PHYSICIAN : Kiko Sanderson MD PATIENT AGE: 63 years GENDER: Female COMPARISON: Left mammogram studies from March 2017, August 2015, September 2014, March 2014 HISTORY Routine screening left breast. Right breast cancer with mastectomy. No hormones no new complaints Family history: paternal grandmother age 80 TECHNIQUE. CC, axillary cc and MLO images were left breast only obtained. R2 CAD reviewed. FINDINGS: Average fibroglandular tissue. Mild heterogeneous Moderate density breast with moderate residual fibroglandular elements most evident towards deep upper outer quadrant its superior retroareolar region... No new findings of significant concern when compared to multiple studies.. No suspicious nor dominant mass. No suspicious calcifications. LEFT BREAST:The minimal density at the retroareolar region on initial cc view dissipates on axillary cc view. Tissue at the superior retroareolar region is similar to studies from 2015 IMPRESSION: Stable Left Mammogram. No new areas of significant concern on left.. (Right mastectomy) Left mammogram follow-up in one year recommended BI-RADS Category: 2 Benign Finding(s) RECOMMENDED FOLLOW-UP: 1YR 1 YEAR FOLLOW-UP (A letter has been sent to the patient regarding results of the study.)
== END ==
PROVIDERS: PCP Family Medicine; Visit Provider Family Medicine
DX: Z12.31 Encounter for screening mammogram for malignant neoplasm of breast (principal)
CPT/HCPCS: 77067

== ENCOUNTER → 2018-11-04 11:14 | Outpatient (POV) | payer MEDICARE, OTHER, SELFPAY ==
[2018-11-04 12:04] VITALS: BP 113/82; PULSE 79; RESP 18; O2SAT 98; BMI 28.3
--- NOTE | 2018-11-04 12:49 | HMH.PAINSOAP ---
[facility] Pain Management SOAP Note Subjective:: Patient is a pleasant 63-year-old white female who presents today for follow-up. She is doing well rating her pain a 4 out of 10. She states she is getting much better. Patient has been started on Cymbalta and is doing well with this. Patient utilizes her stimulator every day. ROS General: no recent weight change, no fever, no sleep disturbances Respiratory: no cough, no shortness of air, no recurring pulmonary infections Cardiovascular/Peripheral Vascular: No chest pain, No palpitations, no edema, no shortness of breath. Gastrointestinal: no incontinence, normal bowel movements reported Genitourinary: no incontinence Musculoskeletal: Neck pain, arm pain Psychiatric: normal mood/ affect Neurological: [denies weakness in extremities], [denies balance issues] Objective:: Physical Exam General: Alert and oriented x3, no acute distress, pleasant and cooperative, [on room air] Lungs: Resps E/U, Symmetrical chest expansion, Eyes: PERRL Musculoskeletal: Flexion and extension of cervical spine somewhat guarded secondary to pain, deep tendon reflexes normal, strength in upper and lower extremities [5/5], slightly antalgic gait noted Neurological: speech clear, high school business teacher 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 Patient's can call the office if she has any issues prior to her next appointment. Dr. Pizarro has reviewed this note and agrees with this plan of care. This note was dictated using voice recognition software and may contain errors or omissions
--- NOTE | 2018-11-04 12:52 | P.CONS_ITS ---
[facility] Pain Management SOAP Note Subjective:: Patient is a pleasant 63-year-old white female who presents today for follow-up. She is doing well rating her pain a 4 out of 10. She states she is getting much better. Patient has been started on Cymbalta and is doing well with this. Patient utilizes her stimulator every day. ROS General: no recent weight change, no fever, no sleep disturbances Respiratory: no cough, no shortness of air, no recurring pulmonary infections Cardiovascular/Peripheral Vascular: No chest pain, No palpitations, no edema, no shortness of breath. Gastrointestinal: no incontinence, normal bowel movements reported Genitourinary: no incontinence Musculoskeletal: Neck pain, arm pain Psychiatric: normal mood/ affect Neurological: [denies weakness in extremities], [denies balance issues] Objective:: Physical Exam General: Alert and oriented x3, no acute distress, pleasant and cooperative, [on room air] Lungs: Resps E/U, Symmetrical chest expansion, Eyes: PERRL Musculoskeletal: Flexion and extension of cervical spine somewhat guarded secondary to pain, deep tendon reflexes normal, strength in upper and lower extremities [5/5], slightly antalgic gait noted Neurological: speech clear, 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 Patient's can call the office if she has any issues prior to her next appointment. Dr. Pizarro has reviewed this note and agrees with this plan of care. This note was dictated using voice recognition software and may contain errors or omissions
== END ==
PROVIDERS: PCP Family Medicine; Visit Provider Clinical Nurse Specialist Family Health
DX: M50.10 Cervical disc disorder with radiculopathy, unspecified cervical region (principal); M96.1 Postlaminectomy syndrome, not elsewhere classified
CPT/HCPCS: 99212

== ENCOUNTER 2018-12-02 17:25 | Observation (INO) | payer MEDICARE, OTHER, SELFPAY ==
[2018-12-02] VITALS (7 sets, daily range): BP systolic 117–131; BP diastolic 67–76; PULSE 70–93; RESP 15–18; TEMP 36.6–36.8; O2SAT 92–98; BMI 28.3; BMI 28.0
--- NOTE | 2018-12-02 | CT_ITS ---
CT thoracic spine wo con INDICATION: Severe neck and upper back pain following injury/fall with injury and pain ITS.REASON: FALL ORDERING PHYSICIAN: Nakul Mcnamara MD PATIENT AGE: 63 years COMPARISON: None TECHNIQUE: Axial images are obtained without contrast. Sagittal and coronal reformatted images are reviewed as well. All CT scans at the facility use one or more dose reduction, viz: automated exposure control, ma/kV adjustment per patient size (including targeted exams where dose is matched to indication, i.e. head), or iterative reconstruction technique. FINDINGS: Normal alignment. No fracture or dislocation. There are mild degenerative changes with small anterior osteophytes in the mid and lower thoracic spine. There is mild mediastinal adenopathy with AP window node measuring up to 2 x 1.5 cm. Spinal stimulator lower cervical spine with artifact. IMPRESSION: 1. No acute fracture. 2. Thoracic spondylosis. 3. Mild mediastinal adenopathy
--- NOTE | 2018-12-02 17:51 | CT_ITS ---
CT CERVICAL SPINE WITHOUT CONTRAST CT RECONSTRUCTIONS HISTORY:Neck pain following injury, blunt trauma, ORDERING PHYSICIAN: Nakul Mcnamara MD PATIENT AGE: 63 years COMPARISON: None Technique: All CT scans at the facility use one or more dose reduction, viz: automated exposure control, ma/kV adjustment per patient size (including targeted exams where dose is matched to indication, i.e. head), or iterative reconstruction technique PROCEDURE: Axial spiral CT scanning performed of the cervical spine beginning at the base of the skull and continuing to the upper T-spine. 3-D multiplanar reconstruction with 3-D manipulation of volumetric data set in image rendering was completed by the radiologist and/or technologist with the supervision of the radiologist on independent workstation. FINDINGS: No acute fracture or dislocation. Spinal stimulator in the lower cervical spine with resultant artifact. Prior anterior cervical disc fusion from C3 to C7 also with artifact. Slight reversal of the cervical lordosis. Uncovertebral hypertrophy with right-sided foraminal narrowing at C4-C5 and C5-C6 left foraminal narrowing at C6-C7. Right paratracheal enlarged lymph node is present at 18 x 16 mm previously 15 x 13 mm. Lung apices are clear. IMPRESSION: 1. Postsurgical changes with hardware and artifact with cervical spondylosis 2. No acute fracture. 3. Mild mediastinal adenopathy
--- NOTE | 2018-12-02 17:52 | CT_ITS ---
CT facial bones wo con CLINICAL INDICATION: Pain and bruising swelling about right from trauma, blunt trauma with contusion or hematoma ITS.REASON: fall ORDERING PHYSICIAN: Nakul Mcnamara MD PATIENT AGE: 63 years COMPARISON: None TECHNIQUE:Axial images obtained with sagittal and coronal reformats. All CT scans at the facility use one or more dose reduction, viz: automated exposure control, ma/kV adjustment per patient size (including targeted exams where dose is matched to indication, i.e. head), or iterative reconstruction technique. FINDINGS: No fracture or dislocation. No sinus air-fluid level. There is moderate leftward nasal septal deviation and there is mild mucosal thickening of the ethmoid sinuses. IMPRESSION: No acute fracture
--- NOTE | 2018-12-02 17:52 | CT_ITS ---
CT head/brain wo con HISTORY: Blunt trauma, contusion or hematoma, headache, loss of consciousness, syncope ITS.REASON: fall ORDERING PHYSICIAN: Nakul Mcnamara MD PATIENT AGE: 63 years COMPARISON: None TECHNIQUE: Axial images obtained without contrast. Brain and bone windows reviewed. All CT scans at the facility use one or more dose reduction, viz: automated exposure control, ma/kV adjustment per patient size (including targeted exams where dose is matched to indication, i.e. head), or iterative reconstruction technique. FINDINGS: No midline shift, mass effect, intracranial hemorrhage, hydrocephalus, or extra-axial fluid collection is evident. The calvarium has an unremarkable appearance. No mastoid effusion. No sinus air-fluid levels.. IMPRESSION: Negative CT head without contrast. No acute finding
--- NOTE | 2018-12-02 18:54 | PC.NURSE ---
PT WITH X RAY AT THIS TIME
[2018-12-02 18:55] LABS: Basophils % 0.2 % (0.1-2.0); Eosinophils # 0.1 K/mm3 (0.0-0.4); Eosinophils % 1.1 % (0.1-12.0); Hematocrit 39.4 % (37.0-47.0); Hemoglobin 13.3 g/dL (12.2-16.2); Lymphocytes # 0.8 K/mm3 (0.7-4.5); Lymphocytes % 12.5 % (10-50); Mean Corpuscular HGB Conc 33.7 g/dL (31.8-35.4); Mean Corpuscular Hemoglobin 31.9 pg (27.0-31.2); Mean Corpuscular Volume 94.5 fl (81-99); Mean Platelet Volume 8.3 fl (7.4-10.4); Monocytes # 0.3 K/mm3 (0.1-1.0); Monocytes % 5.5 % (1.7-9.3); Neutrophils # 4.8 K/mm3 (1.8-7.8); Neutrophils % 80.7 % (37.0-80.0); Platelet Count 217 K/mm3 (142-424); Red Blood Count 4.17 M/mm3 (4.20-5.40); Red Cell Distribution Width 12.8 % (11.5-17.5)
[2018-12-02 19:01] LABS: Alanine Aminotransferase 34 U/L (12-78); Albumin Level 3.9 gm/dL (3.4-5.0); Albumin/Globulin Ratio 1.1 (1.1-1.8); Alkaline Phosphatase 102 U/L (46-116); Anion Gap 14.7 mEq/L (5-15); Aspartate Amino Transferase 15 U/L (15-37); Bilirubin,Total 0.8 mg/dL (0.2-1.0); Blood Urea Nitrogen 13 mg/dL (7-18); Calcium 8.5 mg/dL (8.5-10.1); Carbon Dioxide 24 mmol/L (21.0-32.0); Chloride 103 mmol/L (98-107); Creatinine Clearance Estimated 64 mL/min (50-200); Creatinine,Serum 0.99 mg/dL (0.55-1.02); Estimated Glomerular Filt Rate 56 ml/min (>60); GFR (African American) 68 ML/MIN (>60); Globulin 3.7 gm/dl (1.3-3.2); Glucose 125 mg/dL (74-106); Potassium 3.7 mmoL/L (3.5-5.1); Sodium 138 mmol/L (136-145); Total Protein,Serum 7.6 gm/dL (6.4-8.2)
--- NOTE | 2018-12-02 20:09 | PC.NURSE ---
Pt c/o pain at IV site, checked site, noted to be bruised, but has + blood return, and flushes well. Slowed down IVF per patient request and patient stated the site is no longer hurting. Pt also states she feels much better at this time other than neck pain, notified md.
--- NOTE | 2018-12-02 20:17 | PC.NURSE ---
spoke to patient to see if she wanted something for pain, she declined, stated that she took her home meds at home prior.
--- NOTE | 2018-12-02 20:27 | HMH.EDSYNC ---
ED Disposition Clinical Impression: Enteritis Syncope Qualifiers: Syncope type: vasovagal syncope Qualified Code(s): R55 - Syncope and collapse Concussion with loss of consciousness Qualifiers: Encounter type: initial encounter Qualified Code(s): S06.0X9A - Concussion with loss of consciousness of unspecified duration, initial encounter Facial contusion Qualifiers: Encounter type: initial encounter Qualified Code(s): S00.83XA - Contusion of other part of head, initial encounter Disposition: Admitted as Observation Condition on Discharge: Good Referrals: Kiko Sanderson MD [Primary Care Provider] - - Critical Care Critical Care Time: No Attestation: On 12/02/18, the high probability of a clinically significant, sudden or life threatening deterioration of the following system(s) required my full and direct attention, intervention and personal management. The time I documented below is in addition to time spent performing reported procedures but includes the following listed in this critical care notation. Medical Decision Making - Medical Records Medical records reviewed: Yes: I reviewed the patient's medical records. - Pj Inquiry Pt receiving controlled substance: No Vital Signs: 12/02/18 17:42 12/02/18 19:57 Temperature 97.8 F Temperature Source Oral Pulse Rate [Left Radial] 71 84 Respiratory Rate 18 15 Blood Pressure [Right Arm] 127/73 124/67 Blood Pressure Mean [Right Arm] 91 86 Blood Pressure Source [Right Arm] Automatic Cuff Blood Pressure Position [Right Arm] Sitting 02 Sat by Pulse Oximetry 98 98 Oxygen Delivery Method Room Air Room Air - Lab Data Lab results reviewed: Yes: I reviewed the patient's lab results. Lab Results 12/02/18 18:41: WBC 6.0, RBC 4.17 L, Hgb 13.3, Hct 39.4, MCV 94.5, MCH 31.9 H, MCHC 33.7, RDW 12.8, Plt Count 217, MPV 8.3, Neut % (Auto) 80.7 H, Lymph % (Auto) 12.5, Baca % (Auto) 5.5, Eos % (Auto) 1.1, Baso % (Auto) 0.2, Neut # (Auto) 4.8, Lymph # (Auto) 0.8, Baca # (Auto) 0.3, Eos # (Auto) 0.1, Baso # (Auto) 0.0 12/02/18 18:41: Sodium 138, Potassium 3.7, Chloride 103, Carbon Dioxide 24, Anion Gap 14.7, BUN 13, Creatinine 0.99, Estimated Creat Clear 64, Estimated GFR 56 L, Est GFR ( Amer) 68, Glucose 125 H, Calcium 8.5, Total Bilirubin 0.8, AST 15, ALT 34, Alkaline Phosphatase 102, Total Protein 7.6, Albumin 3.9, Globulin 3.7 H, Albumin/Globulin Ratio 1.1 Result diagrams: 12/02/18 18:41 12/02/18 18:41 Orders (Tests/Meds): ED MEDICATIONS Generic Name Dose Route Start Last Admin Trade Name Freq PRN Reason Stop Dose Admin Sodium Chloride 1,000 mls @ 999 mls/hr 12/02/18 18:00 12/02/18 18:32 Sod Chlor 0.9% 1000ml Bag IV 12/02/18 19:00 999 mls/hr .Q1H1M TORSTEN Administration ORDERS Category Date Time Status CT cervical spine wo con Stat Cat Scan 12/02/18 17:[address] facial bones wo con Stat Cat Scan 12/02/18 17:[address] head/brain wo con Stat Cat Scan 12/02/18 17:[address] thoracic spine wo con Routine Cat Scan 12/02/18 Taken - CT Data CT Scan: Head, C-Spine, T-Spine, Sinus Time Received: 20:[address] Reviewed: Yes: I have viewed the radiologist's interpretation Preliminary Findings: No Fracture Seen - ECG Data Tracing #1 Normal Sinus Rhythm: Yes Ischemic changes: non-specific ST-T wave changes - Physician Consults Physician Consulted: ghada Reason -: Admission Syncope HPI - General Chief Complaint: Fall Stated Complaint: Ao [id number] Fainted hit head Time Seen by Provider: 12/02/18 20:00 Mode of Arrival: Ambulatory Source of Information: Patient, Spouse, Medical Record Limitations: No Limitations Description of Symptoms (Recalled from ER Triage Doc. by RN): PT states she was sitting on the commond and passed out and hit the cabinet in the bathroom and woke up on the bathroom floor. c/o neck pain, states she has a neuro stimulator in her neck and hit her eye on the counter. State she thinks s
--- NOTE | 2018-12-02 21:09 | PC.NURSE ---
Called to give report - receiving nurse stated she would call me back
[2018-12-02 23:19] LABS: Campylobacter Not Detected (NotDetected); Clostridium Difficile A/B, PCR Not Detected (NotDetected); Cryptosporidium Not Detected (NotDetected); Enteroaggregative E coli Not Detected (NotDetected); Enteropathogenic E coli Not Detected (NotDetected); Enterotoxigenic E coli Not Detected (NotDetected); Plesimonas Shigalloides, PCR Not Detected (NotDetected); Shiga-like toxin E coli Not Detected (NotDetected); Shigella Enterovasive E coli Not Detected (NotDetected); Vibrio Cholerae Not Detected (NotDetected); Vibrio, PCR Not Detected (NotDetected); Yersinia Entercolitica, PCR Not Detected (NotDetected)
[2018-12-02 23:20] LABS: Adenovirus F 40/41, stool Not Detected (NotDetected); Astrovirus Not Detected (NotDetected); Cyclospora Cayetanesis Not Detected (NotDetected); Entamoeba histolytica Not Detected (NotDetected); Giardia lamblia Not Detected (NotDetected); Norovirus Not Detected (NotDetected); Rotavirus A Not Detected (NotDetected); Sapovirus Not Detected (NotDetected)
[2018-12-03] VITALS (7 sets, daily range): BP systolic 108–131; BP diastolic 62–72; PULSE 84–96; RESP 15–18; TEMP 36.7–37.1; O2SAT 95–98; BMI 27.8
[2018-12-03 01:00] LABS: Troponin I < 0.02 ng/ml (0.00-0.06)
[2018-12-03 01:10] LABS: Salmonella, PCR Detected (NotDetected)
[2018-12-03 04:09] LABS: Basophils % 0.2 % (0.1-2.0); Eosinophils # 0.1 K/mm3 (0.0-0.4); Eosinophils % 1.8 % (0.1-12.0); Hematocrit 34.8 % (37.0-47.0); Lymphocytes # 0.6 K/mm3 (0.7-4.5); Lymphocytes % 15.2 % (10-50); Mean Corpuscular HGB Conc 33.6 g/dL (31.8-35.4); Mean Corpuscular Volume 95.1 fl (81-99); Mean Platelet Volume 8.5 fl (7.4-10.4); Monocytes # 0.3 K/mm3 (0.1-1.0); Monocytes % 7.4 % (1.7-9.3); Neutrophils # 2.8 K/mm3 (1.8-7.8); Neutrophils % 75.4 % (37.0-80.0); Platelet Count 162 K/mm3 (142-424); Red Blood Count 3.66 M/mm3 (4.20-5.40); Red Cell Distribution Width 12.7 % (11.5-17.5); White Blood Count 3.6 K/mm3 (4.8-10.8)
[2018-12-03 04:16] LABS: Anion Gap 15.2 mEq/L (5-15); Blood Urea Nitrogen 11 mg/dL (7-18); Calcium 8.1 mg/dL (8.5-10.1); Carbon Dioxide 23 mmol/L (21.0-32.0); Chloride 107 mmol/L (98-107); Creatinine Clearance Estimated 63 mL/min (50-200); Creatinine,Serum 0.81 mg/dL (0.55-1.02); Estimated Glomerular Filt Rate 71 ml/min (>60); GFR (African American) 86 ML/MIN (>60); Glucose 198 mg/dL (74-106); Potassium 3.2 mmoL/L (3.5-5.1); Sodium 142 mmol/L (136-145)
[2018-12-03 04:17] LABS: Troponin I < 0.02 ng/ml (0.00-0.06)
[2018-12-03 04:20] LABS: Hemoglobin 11.8 g/dL (12.2-16.2)
--- NOTE | 2018-12-03 04:32 | PC.NURSE ---
PT CONT. TO FEEL WEAK WHEN STANDING, AND MORE SO WHEN SHE IS ON THE TOILET. EDUCATED PT ON NOT TO BEAR DOWN WHEN USING THE BATHROOM. PT DID NOT REST WELL D/T OFF AND ON NAUSEA, AND DIARRHEA. PRN MEDS ADMIN. SPOKE WITH MD GUAN WHOM IS TRANSMISSION REBUILDER ABOUT PT HAVING MORE NAUSEA. STATED AND READ ORDER BACK, PHENERGAN 12.5 IV PRN Q6H FOR NAUSEA. VSS. WILL CONT. TO MONITOR .
--- NOTE | 2018-12-03 07:22 | HMH.PHAVTE ---
[facility] Pharmacy VTE Monitoring - Patient Demographics Admission date: 12/02/18 Report Date: 12/03/18 Time: 07:22 Allergies/Adverse Reactions: Patient Allergies codeine [CODEINE] Allergy (Unknown, Verified 09/18/18 12:39) vomiting/hives hydrocodone [HYDROCODONE] Allergy (Unknown, Verified 09/18/18 12:39) vomiting/hives morphine [MORPHINE] Allergy (Unknown, Verified 09/18/18 12:39) vomiting/hives oxycodone [OXYCODONE] Allergy (Unknown, Verified 09/18/18 12:39) hives/vomiting methylprednisolone Allergy (Verified 09/18/18 12:39) tingling/weakness/anxiety Height: 1.6 m Weight: 71.214 kg Patient Problems: Current Active Problems (Updated 12/02/18 @ 20:57 by Dustin Sandhu MD) Syncope (Acute) Enteritis (Acute) Concussion with loss of consciousness (Acute) Facial contusion (Acute) - VTE Risk Labs: VTE Related Lab Results Hgb 11.8 g/dL (12.2-16.2) L D 12/03/18 03:40 Hct 34.8 % (37.0-47.0) L 12/03/18 03:40 Plt Count 162 K/mm3 (142-424) D 12/03/18 03:40 BUN 11 mg/dL (7-18) 12/03/18 03:40 Creatinine 0.81 mg/dL (0.55-1.02) 12/03/18 03:40 Estimated Creat Clear 63 mL/min (50-200) 12/03/18 03:40 Was VTE Risk Assessment Performed: Yes VTE Score: 3 VTE Risk Level: Low Risk Clinical Trial Participant: No - Prophylaxis VTE Prophylaxis Ordered?: Yes Types of VTE Prophylaxis: TEDS Knee High
--- NOTE | 2018-12-03 08:27 | HMH.HP ---
*Admission Date: 12/02/18 <Merlene Copeland 12/03/18 08:46> *Chief complaint: diarrhea, nausea, syncope <Merlene Copeland 12/03/18 08:46> *History of present illness: Ms. Edgar is a 63-year-old female who states she began having diarrhea multiple times every few hours on Saturday. She has not had anything to eat or drink and her diarrhea has continued. She states she had no vomiting but was nauseated. She tried to go to work yesterday and was only able to stay for 3 hours. She became very weak and went home. She states she was sitting on the toilet and became very sweaty and passed out. She states she hit the cabinet in the bathroom and the towel rack and ended up on the floor. She states when she woke up she was unable to move and had pain along her right orbit and all along her neck. She called her and he transported her to the emergency room. She was evaluated and admitted for further evaluation and treatment. Of note she did just have a neurostimulator placed in her neck in March 2018. She has also been having issues with balance for the past few weeks. She thinks it is d/t her sinuses and she has seen Dr. Hunt. <Merlene Copeland 12/03/18 08:46> [facility] History Medical History: Reports:: Cancer (Breast (1999)), Coronary Artery Disease, Gastroesophageal Reflux Disease(GERD), Hyperlipidemia Denies:: Diabetes Mellitus Type 1, Diabetes Mellitus Type 2, Internal Pacemaker, MRSA, Seizures <Merlene Copeland 12/03/18 08:46> *Have you ever received a pneumonia vaccine?: Yes <Merlene Copeland 12/03/18 08:46> *Have you received a flu vaccine this season?: Yes <Merlene Copeland 12/03/18 08:46> Other Medical History: Reports: Arthritis, Other (Hemorrhoids, occipital neuralgia, Cervical Disc Disease, mastoiditis). Denies: Blood Transfusion Reaction <Merlene Copeland 12/03/18 08:46> Laterality Cases: Right: Mastectomy, Bilateral: Myringotomy (Ear Tubes) <Merlene Copeland 12/03/18 08:46> Other Surgeries: Yes: Cancer Surgery, Cardiac Catheterization, Cholecystectomy, Colonoscopy, Hysterectomy-Partial, Other (Bladder/Rectal Reconstruction, Anterior Cervical Discectomy with fusion). No: Pacemaker <Merlene Copeland 12/03/18 08:46> Amputation: No <Merlene Copeland 12/03/18 08:46> Fractures: No <Merlene Copeland 12/03/18 08:46> Comment: C3-C5 discectomy with fusion, cervical spine neurostimulator <Merlene Copeland 12/03/18 08:46> - *Social History Educational Level: Attended College <Merlene Copeland 12/03/18 08:46> Smoking Status: Never smoker <Merlene Copeland 12/03/18 08:46> Alcohol Intake: never <Merlene Copeland 12/03/18 08:46> Alcohol Intake Frequency:: other <Merlene Copeland 12/03/18 08:46> Substance Use Type: denies use <Merlene Copeland 12/03/18 08:46> *Occupational Status:: employed <Merlene Copeland 12/03/18 08:46> Housing: house <Merlene Copeland 12/03/18 08:46> Household Members: spouse <Merlene Copeland 12/03/18 08:46> *Travel in the last 8 weeks: None <Merlene Copeland 12/03/18 08:46> - Psychiatric History Expresses thoughts of harming self/others: None <Merlene Copeland 12/03/18 08:46> Suicide Plan Description: No Plan <Merlene Copeland 12/03/18 08:46> Family Hx:: Coronary Artery Disease, Diabetes, Stroke, Other <Merlene Copeland 12/03/18 08:46> Review of Systems - Constitutional Reports body ache(s), Reports fatigue, Reports malaise, Reports weakness, Denies fever(s) <Merlene Copeland 12/03/18 08:46> - Eyes Denies blurry vision, Denies double vision <Merlene Copeland 12/03/18 08:46> - ENT Reports sinus pressure, Denies sore throat <Merlene Copeland 12/03/18 08:46> - *Cardiovascular Denies chest pain, Denies shortness of breath <Merlene Copeland 12/03/18 08:46> - *Respiratory Denies cough, Denies shortness of breath <Merlene Copeland 12/03/18 08:46> - *Gastrointestinal Reports abdominal pain, Reports bloating, Reports loose stools, Reports nausea, Denies vomiting <Merlene Copeland 12/03/18 08:46> - *
--- NOTE | 2018-12-03 08:32 | P.HP_ITS ---
*Admission Date: 12/02/18 <Merlene Copeland 12/03/18 08:46> *Chief complaint: diarrhea, nausea, syncope <Merlene Copeland 12/03/18 08:46> *History of present illness: Ms. Edgar is a 63-year-old female who states she began having diarrhea multiple times every few hours on Saturday. She has not had anything to eat or drink and her diarrhea has continued. She states she had no vomiting but was nauseated. She tried to go to work yesterday and was only able to stay for 3 hours. She became very weak and went home. She states she was sitting on the toilet and became very sweaty and passed out. She states she hit the cabinet in the bathroom and the towel rack and ended up on the floor. She states when she woke up she was unable to move and had pain along her right orbit and all along her neck. She called her and he transported her to the emergency room. She was evaluated and admitted for further evaluation and treatment. Of note she did just have a neurostimulator placed in her neck in March 2018. She has also been having issues with balance for the past few weeks. She thinks it is d/t her sinuses and she has seen Dr. Hunt. <Merlene Copeland 12/03/18 08:46> [facility] History Medical History: Reports:: Cancer (Breast (1999)), Coronary Artery Disease, Gastroesophageal Reflux Disease(GERD), Hyperlipidemia Denies:: Diabetes Mellitus Type 1, Diabetes Mellitus Type 2, Internal Pacemaker, MRSA, Seizures <Merlene Copeland 12/03/18 08:46> *Have you ever received a pneumonia vaccine?: Yes <Merlene Copeland 12/03/18 08:46> *Have you received a flu vaccine this season?: Yes <Merlene Copeland 12/03/18 08:46> Other Medical History: Reports: Arthritis, Other (Hemorrhoids, occipital neuralgia, Cervical Disc Disease, mastoiditis). Denies: Blood Transfusion Reaction <Merlene Copeland 12/03/18 08:46> Laterality Cases: Right: Mastectomy, Bilateral: Myringotomy (Ear Tubes) <Merlene Copeland 12/03/18 08:46> Other Surgeries: Yes: Cancer Surgery, Cardiac Catheterization, Cholecystectomy, Colonoscopy, Hysterectomy-Partial, Other (Bladder/Rectal Reconstruction, Anterior Cervical Discectomy with fusion). No: Pacemaker <Merlene Copeland 12/03/18 08:46> Amputation: No <Merlene Copeland 12/03/18 08:46> Fractures: No <Merlene Copeland 12/03/18 08:46> Comment: C3-C5 discectomy with fusion, cervical spine neurostimulator <Merlene Copeland 12/03/18 08:46> - *Social History Educational Level: Attended College <Merlene Copeland 12/03/18 08:46> Smoking Status: Never smoker <Merlene Copeland 12/03/18 08:46> Alcohol Intake: never <Merlene Copeland 12/03/18 08:46> Alcohol Intake Frequency:: other <Merlene Copeland 12/03/18 08:46> Substance Use Type: denies use <Merlene Copeland 12/03/18 08:46> *Occupational Status:: employed <Merlene Copeland 12/03/18 08:46> Housing: house <Merlene Copeland 12/03/18 08:46> Household Members: spouse <Merlene Copeland 12/03/18 08:46> *Travel in the last 8 weeks: None <Merlene Copeland 12/03/18 08:46> - Psychiatric History Expresses thoughts of harming self/others: None <Merlene Copeland 12/03/18 08:46> Suicide Plan Description: No Plan <Merlene Copeland 12/03/18 08:46> Family Hx:: Coronary Artery Disease, Diabetes, Stroke, Other <Merlene Copeland 12/03/18 08:46> Review of Systems - Constitutional Reports body ache(s), Reports fatigue, Reports malaise, Reports weakness, Denies fever(s) <Merlene Copeland 12/03/18 08:46> - Eyes Denies blurry vision, Denies double vision <Merlene Copeland 12/03/18 08:46> - ENT Reports sinus pressure, Denies sore throat <Merlene Copeland 12/03/18 08:46> - *Cardiovascular Denies chest pain, Denies shortness of breath <Robydy
--- NOTE | 2018-12-03 10:47 | HMH.PHAINT ---
HOME MEDICATION RECONCILIATION COMPLETED USING MEDICATION LIST FROM DR WOODSON'S OFFICE.
--- NOTE | 2018-12-03 15:39 | PC.NURSE ---
COURTESY ROUND; ICE WATER WAS GIVEN & TRASH WAS TAKEN OUT PATIENT ALSO ASSISTED TO BSC AT THIS TIME
--- NOTE | 2018-12-03 16:27 | PC.NURSE ---
NO ACUTE CHANGES SINCE MORNING ASSESSMENT, WEAKNESS CONTINUES, BEDSIDE IN PLACE AND PATIENT USES IT WITH ASSISTANCES, PATIENT STATED THAT SHE IS FEELING SOMEWHAT BETTER THROUGHOUT THE DAY THAN SHE DID LAST NIGHT. VSS, WILL CONTINUE TO MONITOR.
--- NOTE | 2018-12-03 16:48 | PC.NURSE ---
RN paged referral management liaison MD regarding patient wanting some medication for hemorrhoids, RN waiting for call back at this time, will continue to monitor.
--- NOTE | 2018-12-03 17:08 | PC.NURSE ---
MD ordered anusol supp prn for hemorrhoids, RN contacted pharmacy non acoustic operator for correct time frame and Farzana from pharmacy stated that it could be used, TID PRN noted. will continue to monitor.
--- NOTE | 2018-12-03 19:18 | PC.NURSE ---
report given to corinne
[2018-12-04] VITALS (7 sets, daily range): BP systolic 107–151; BP diastolic 70–80; PULSE 72–100; RESP 15–19; TEMP 36.7–37.2; O2SAT 93–97; BMI 27.4
--- NOTE | 2018-12-04 06:09 | PC.NURSE ---
PT MAINTAINED HER BASELINE ASSESSMENT THROUGHOUT MY SHIFT. PT HAD ONE COMPLAINT OF NECK/SHOULDER PAIN AT 0200 WHICH SHE RECEIVED TORADOL FOR. PTS FLUID RUNNING AND NO NEW COMPLAINTS OR CONCERNS. PT SLEPT THROUGHOUT THE NIGHT. PT NOW SLEEPING [facility] CALL [facility]U IN REACH.
[2018-12-04 08:15] LABS: Anion Gap 13.4 mEq/L (5-15); Blood Urea Nitrogen 8 mg/dL (7-18); Calcium 7.8 mg/dL (8.5-10.1); Carbon Dioxide 23 mmol/L (21.0-32.0); Chloride 111 mmol/L (98-107); Creatinine Clearance Estimated 62 mL/min (50-200); Creatinine,Serum 0.57 mg/dL (0.55-1.02); Estimated Glomerular Filt Rate 106 ml/min (>60); GFR (African American) 129 ML/MIN (>60); Glucose 120 mg/dL (74-106); Sodium 143 mmol/L (136-145)
[2018-12-04 08:17] LABS: Potassium 4.4 mmoL/L (3.5-5.1)
--- NOTE | 2018-12-04 08:28 | HMH.ACPN2 ---
<Merlene Copeland - Last Filed: 12/04/18 08:28> Internal Medicine - PN: Subj *Date: 12/04/18 *Time: 08:28 Interval history: Patient states she is feeling poorly this morning. She is continuing to have diarrhea with no warning. There is no blood in her stool. She is having diffuse abdominal pain. She is still having pain in her neck. She did try to eat some toast this morning. She is nauseated. Exam Vital signs and Labs for Last 24 Hours: Temp Pulse Resp BP Pulse Ox 98.9 F 93 H 16 107/72 L 97 12/04/18 08:00 12/04/18 08:00 12/04/18 08:00 12/04/18 08:00 12/04/18 08:00 Laboratory Results - last 24 hr 12/04/18 07:24: Sodium 143, Potassium 4.4 D, Chloride 111 H, Carbon Dioxide 23, Anion Gap 13.4, BUN 8 D, Creatinine 0.57 D, Estimated Creat Clear 62, Estimated GFR 106, Est GFR ( Amer) 129 D, Glucose 120 H, Calcium 7.8 L I & O for Last 24 hours: Intake & Output 12/01/18 12/02/18 12/03/18 12/04/18 11:59 11:59 11:59 11:59 Intake Total 2309 / 2309 1792 / 1792 Output Total 600 / 600 600 / 600 Balance 1709 / 1709 1192 / 1192 Weight 157 lb 155 lb - Constitutional no acute distress - *Routine Respiratory Exam Present: CTA bilaterally - *Routine Cardiovascular Exam Present: RRR - *Routine Abdominal Exam Present: soft, normoactive bowel sounds, tenderness (diffuse) - *Routine Extremities Exam Absent: cyanosis, clubbing, edema Assessment and Plan (1) Salmonella enteritis Current visit: Yes Status: Acute Category: Medical Code(s): A02.0 - Salmonella enteritis (2) Syncope Current visit: Yes Status: Acute Qualifiers: Syncope type: vasovagal syncope Qualified Code(s): R55 - Syncope and collapse Category: Medical Code(s): R55 - Syncope and collapse (3) Facial contusion Current visit: Yes Status: Acute Qualifiers: Encounter type: initial encounter Qualified Code(s): S00.83XA - Contusion of other part of head, initial encounter Category: Medical Code(s): S00.83XA - Contusion of other part of head, initial encounter (4) Hypokalemia Current visit: Yes Status: Acute Category: Medical Code(s): E87.6 - Hypokalemia (5) Chronic neck pain Current visit: Yes Status: Chronic Category: Medical Code(s): M54.2 - Cervicalgia; G89.29 - Other chronic pain - Assessment and plan all Dx Assessment and Plan for all problems:: Potassium has normalized. We will continue IV fluids and anti-emetics. We will get an ice pack for the patient's neck. <Kiko Sanderson - Last Filed: 12/04/18 08:45> Internal Medicine - PN: Subj *Date: 12/04/18 *Time: 08:45 Exam Vital signs and Labs for Last 24 Hours: Temp Pulse Resp BP Pulse Ox 98.9 F 93 H 16 107/72 L 97 12/04/18 08:00 12/04/18 08:00 12/04/18 08:00 12/04/18 08:00 12/04/18 08:00 Laboratory Results - last 24 hr 12/04/18 07:24: Sodium 143, Potassium 4.4 D, Chloride 111 H, Carbon Dioxide 23, Anion Gap 13.4, BUN 8 D, Creatinine 0.57 D, Estimated Creat Clear 62, Estimated GFR 106, Est GFR ( Amer) 129 D, Glucose 120 H, Calcium 7.8 L I & O for Last 24 hours: Intake & Output 12/01/18 12/02/18 12/03/18 12/04/18 23:59 23:59 23:59 23:59 Intake Total 1000 / 1000 2861 / 2861 240 / 240 Output Total 600 / 1200 600 / 600 Balance 1000 / 700 2261 / 1661 -360 / -360 Weight 158 lb 157 lb 155 lb Assessment and Plan (1) Salmonella enteritis Current visit: Yes Status: Acute Category: Medical Code(s): A02.0 - Salmonella enteritis (2) Syncope Current visit: Yes Status: Acute Qualifiers: Syncope type: vasovagal syncope Qualified Code(s): R55 - Syncope and collapse Category: Medical Code(s): R55 - Syncope and collapse (3) Facial contusion Current visit: Yes Status: Acute Qualifiers: Encounter type: initial encounter Qualified Code(s): S00.83XA - Contusion of other part of head, initial encounter Category: Med
--- NOTE | 2018-12-04 08:31 | P.PN_ITS ---
<Merlene Copeland - Last Filed: 12/04/18 08:28> Internal Medicine - PN: Subj *Date: 12/04/18 *Time: 08:28 Interval history: Patient states she is feeling poorly this morning. She is continuing to have diarrhea with no warning. There is no blood in her stool. She is having diffuse abdominal pain. She is still having pain in her neck. She did try to eat some toast this morning. She is nauseated. Exam Vital signs and Labs for Last 24 Hours: Temp Pulse Resp BP Pulse Ox 98.9 F 93 H 16 107/72 L 97 12/04/18 08:00 12/04/18 08:00 12/04/18 08:00 12/04/18 08:00 12/04/18 08:00 Laboratory Results - last 24 hr 12/04/18 07:24: Sodium 143, Potassium 4.4 D, Chloride 111 H, Carbon Dioxide 23, Anion Gap 13.4, BUN 8 D, Creatinine 0.57 D, Estimated Creat Clear 62, Estimated GFR 106, Est GFR ( Amer) 129 D, Glucose 120 H, Calcium 7.8 L I & O for Last 24 hours: Intake & Output 12/01/18 12/02/18 12/03/18 12/04/18 11:59 11:59 11:59 11:59 Intake Total 2309 / 2309 1792 / 1792 Output Total 600 / 600 600 / 600 Balance 1709 / 1709 1192 / 1192 Weight 157 lb 155 lb - Constitutional no acute distress - *Routine Respiratory Exam Present: CTA bilaterally - *Routine Cardiovascular Exam Present: RRR - *Routine Abdominal Exam Present: soft, normoactive bowel sounds, tenderness (diffuse) - *Routine Extremities Exam Absent: cyanosis, clubbing, edema Assessment and Plan (1) Salmonella enteritis Current visit: Yes Status: Acute Category: Medical Code(s): A02.0 - Salmonella enteritis (2) Syncope Current visit: Yes Status: Acute Qualifiers: Syncope type: vasovagal syncope Qualified Code(s): R55 - Syncope and collapse Category: Medical Code(s): R55 - Syncope and collapse (3) Facial contusion Current visit: Yes Status: Acute Qualifiers: Encounter type: initial encounter Qualified Code(s): S00.83XA - Contusion of other part of head, initial encounter Category: Medical Code(s): S00.83XA - Contusion of other part of head, initial encounter (4) Hypokalemia Current visit: Yes Status: Acute Category: Medical Code(s): E87.6 - Hypokalemia (5) Chronic neck pain Current visit: Yes Status: Chronic Category: Medical Code(s): M54.2 - Cervicalgia; G89.29 - Other chronic pain - Assessment and plan all Dx Assessment and Plan for all problems:: Potassium has normalized. We will continue IV fluids and anti-emetics. We will get an ice pack for the patient's neck. <Kiko Sanderson - Last Filed: 12/04/18 08:45> Internal Medicine - PN: Subj *Date: 12/04/18 *Time: 08:45 Exam Vital signs and Labs for Last 24 Hours: Temp Pulse Resp BP Pulse Ox 98.9 F 93 H 16 107/72 L 97 12/04/18 08:00 12/04/18 08:00 12/04/18 08:00 12/04/18 08:00 12/04/18 08:00 Laboratory Results - last 24 hr 12/04/18 07:24: Sodium 143, Potassium 4.4 D, Chloride 111 H, Carbon Dioxide 23, Anion Gap 13.4, BUN 8 D, Creatinine 0.57 D, Estimated Creat Clear 62, Estimated GFR 106, Est GFR ( Amer) 129 D, Glucose 120 H, Calcium 7.8 L I & O for Last 24 hours: Intake & Output 12/01/18
[2018-12-04 08:36] LABS: Basophils % 0.7 % (0.1-2.0); Eosinophils # 0.1 K/mm3 (0.0-0.4); Eosinophils % 4.1 % (0.1-12.0); Hematocrit 31.7 % (37.0-47.0); Hemoglobin 12.4 g/dL (12.2-16.2); Lymphocytes % 33.7 % (10-50); Mean Corpuscular HGB Conc 39.3 g/dL (31.8-35.4); Mean Corpuscular Hemoglobin 36.1 pg (27.0-31.2); Mean Corpuscular Volume 91.8 fl (81-99); Mean Platelet Volume 7.9 fl (7.4-10.4); Monocytes # 0.4 K/mm3 (0.1-1.0); Monocytes % 11.7 % (1.7-9.3); Neutrophils # 1.5 K/mm3 (1.8-7.8); Neutrophils % 49.8 % (37.0-80.0); Platelet Count 163 K/mm3 (142-424); Red Blood Count 3.45 M/mm3 (4.20-5.40); Red Cell Distribution Width 12.8 % (11.5-17.5); White Blood Count 3.1 K/mm3 (4.8-10.8)
[2018-12-05] VITALS (8 sets, daily range): BP systolic 112–138; BP diastolic 62–81; PULSE 75–100; RESP 16–18; TEMP 36.4–37; O2SAT 92–97; BMI 27.5
--- NOTE | 2018-12-05 05:24 | PC.NURSE ---
Pt is A&Ox4 and has ambulated OOB several times this shift, pt tolerated well with staff SBA & independently. Pt has c/o pain to head, neck, and shoulders this shift, medicated per SEP. Pt had 1 episode of nausea and abd cramping, relief noted after 1 dose of zofran. Pt has continued to have diarrhea this shift, however the frequency is decreased to just 2x this shift. Lungs CTA, no edema noted. ABD soft, tender to palpation and active BS noted. VSS, call light within reach, will continue to monitor.
--- NOTE | 2018-12-05 07:42 | SW/DCPLANNER ---
PATIENT ADMITTED TO [facility] ON 12/02 TO AN OBSERVATION STATUS WITH NAUSEA, VOMITING AND DIARRHEA....SHE STATED SHE ATE SOMETHING THAT MADE HER DEATHLY ILL...SHE WILL DISCHARGE BACK HOME ONCE MEDICALLY READY AND I DON'T THINK SHE IS GOING TO NEED ANYTHING ONCE DISCHARGED..
--- NOTE | 2018-12-05 08:32 | HMH.ACPN2 ---
<Merlene Copeland - Last Filed: 12/05/18 08:32> Internal Medicine - PN: Subj *Date: 12/05/18 *Time: 08:32 Interval history: Patient states she has a horrible headache this morning. Her diarrhea has slowed and she has not actually had a stool for the past 5 hours. Her abdominal pain is improving. She states she can eat this morning due to her headache. Exam Vital signs and Labs for Last 24 Hours: Temp Pulse Resp BP Pulse Ox 98.6 F 84 16 129/71 96 12/05/18 04:00 12/05/18 04:00 12/05/18 04:00 12/05/18 04:00 12/05/18 04:00 Laboratory Results - last 24 hr 12/04/18 08:26: WBC 3.1 L, RBC 3.45 L, Hgb 12.4, Hct 31.7 L, MCV 91.8, MCH 36.1 H, MCHC 39.3 H, RDW 12.8, Plt Count 163, MPV 7.9, Neut % (Auto) 49.8, Lymph % (Auto) 33.7, [place] % (Auto) 11.7 H, Eos % (Auto) 4.1, Baso % (Auto) 0.7, Neut # (Auto) 1.5 L, Lymph # (Auto) 1.0, [place] # (Auto) 0.4, Eos # (Auto) 0.1, Baso # (Auto) 0.0 I & O for Last 24 hours: Intake & Output 12/02/18 12/03/18 12/04/18 12/05/18 11:59 11:59 11:59 11:59 Intake Total 2309 / 2309 1792 / 1792 840 / 840 Output Total 600 / 600 600 / 600 500 / 500 Balance 1709 / 1709 1192 / 1192 340 / 340 Weight 157 lb 155 lb 155 lb 7 oz - Constitutional no acute distress - *Routine Respiratory Exam Present: CTA bilaterally - *Routine Cardiovascular Exam Present: RRR - *Routine Abdominal Exam Present: soft, normoactive bowel sounds, tenderness (diffuse) - *Routine Extremities Exam Absent: cyanosis, clubbing, edema Assessment and Plan (1) Salmonella enteritis Current visit: Yes Status: Acute Category: Medical Code(s): A02.0 - Salmonella enteritis (2) Syncope Current visit: Yes Status: Acute Qualifiers: Syncope type: vasovagal syncope Qualified Code(s): R55 - Syncope and collapse Category: Medical Code(s): R55 - Syncope and collapse (3) Facial contusion Current visit: Yes Status: Acute Qualifiers: Encounter type: initial encounter Qualified Code(s): S00.83XA - Contusion of other part of head, initial encounter Category: Medical Code(s): S00.83XA - Contusion of other part of head, initial encounter (4) Hypokalemia Current visit: Yes Status: Acute Category: Medical Code(s): E87.6 - Hypokalemia (5) Chronic neck pain Current visit: Yes Status: Chronic Category: Medical Code(s): M54.2 - Cervicalgia; G89.29 - Other chronic pain - Assessment and plan all Dx Assessment and Plan for all problems:: We will continue current treatment and increase Toradol dose today. <Kiko Sanderson - Last Filed: 12/05/18 08:37> Internal Medicine - PN: Subj *Date: 12/05/18 *Time: 08:36 Exam Vital signs and Labs for Last 24 Hours: Temp Pulse Resp BP Pulse Ox 97.8 F 80 18 130/69 94 L 12/05/18 08:00 12/05/18 08:00 12/05/18 08:00 12/05/18 08:00 12/05/18 08:00 Laboratory Results - last 24 hr 12/04/18 08:26: WBC 3.1 L, RBC 3.45 L, Hgb 12.4, Hct 31.7 L, MCV 91.8, MCH 36.1 H, MCHC 39.3 H, RDW 12.8, Plt Count 163, MPV 7.9, Neut % (Auto) 49.8, Lymph % (Auto) 33.7, [place] % (Auto) 11.7 H, Eos % (Auto) 4.1, Baso % (Auto) 0.7, Neut # (Auto) 1.5 L, Lymph # (Auto) 1.0, [place] # (Auto) 0.4, Eos # (Auto) 0.1, Baso # (Auto) 0.0 I & O for Last 24 hours: Intake & Output 12/02/18 12/03/18 12/04/18 12/05/18 23:59 23:59 23:59 23:59 Intake Total 1000 / 1000 2861 / 2861 1080 / 1080 240 / 240 Output Total 600 / 1200 600 / 1100 500 / 500 Balance 1000 / 700 2261 / 1661 480 / -20 -260 / -260 Weight 158 lb 157 lb 155 lb 155 lb 7 oz Assessment and Plan (1) Salmonella enteritis Current visit: Yes Status: Acute Category: Medical Code(s): A02.0 - Salmonella enteritis (2) Syncope Current visit: Yes Status: Acute Qualifiers: Syncope type: vasovagal syncope Qualified Code(s): R55 - Syncope and collapse Category: Medical Code(s): R55 - Syncope and collapse (3) Facial contusion Current visit: Yes St
--- NOTE | 2018-12-05 11:47 | XR_ITS ---
EXAM: XR cervical spine 2V HISTORY: ITS.REASON: acute injury, verify neurostimular lead placement ORDERING PHYSICIAN: Kiko Sanderson MD PATIENT AGE: 63 years COMPARISON: 12/02/2018 FINDINGS: There is normal alignment. Bone plate is present anteriorly at C3-C4 with a bone plate also at C5 and an additional bone plate and C6-C7 and T1. This is similar when compared to the C-spine CT of 12/02/2018. There is an epidural neurostimulator device present. The metallic markers of this device are along the dorsal epidural region at C4 C5 C6 and C7. No fracture or dislocation. IMPRESSION: Postsurgical changes with epidural stimulator device present as described above
--- NOTE | 2018-12-05 13:37 | PC.NURSE ---
1300 patient removed from isolation precautions per infection control policy. standard precautions to be followed. patient taken to radiology via wheelchair. no distress noted upon return to room
--- NOTE | 2018-12-05 14:37 | HMH.PMCON ---
Assessment and Plan (1) Salmonella enteritis Current visit: Yes Status: Acute Category: Medical Code(s): A02.0 - Salmonella enteritis (2) Syncope Current visit: Yes Status: Acute Qualifiers: Syncope type: vasovagal syncope Qualified Code(s): R55 - Syncope and collapse Category: Medical Code(s): R55 - Syncope and collapse (3) Facial contusion Current visit: Yes Status: Acute Qualifiers: Encounter type: initial encounter Qualified Code(s): S00.83XA - Contusion of other part of head, initial encounter Category: Medical Code(s): S00.83XA - Contusion of other part of head, initial encounter (4) Hypokalemia Current visit: Yes Status: Acute Category: Medical Code(s): E87.6 - Hypokalemia (5) Chronic neck pain Current visit: Yes Status: Chronic Category: Medical Code(s): M54.2 - Cervicalgia; G89.29 - Other chronic pain (6) Headache Current visit: Yes Status: Acute Category: Medical Code(s): R51 - Headache - Assessment and plan all Dx Assessment and Plan for all problems:: We have reviewed her cervical spine x-rays and all hardware seems to be in proper position. Her stimulator seems to be functioning appropriately. We have recommended that she continue using her stimulator. Her neck pain may be myofascial in origin. HPI - Data of Consult Patient: known to practice within the last 3 years Requesting Physician: Kiko Sanderson MD Primary Care Provider: Kiko Sanderson MD - Consult Narrative Reason for consult: Patient status post fall with spinal cord stimulator in place History of present illness: Ms. Edgar is a 63 year old female who has paddle leads of a cervical spinal cord stimulator for neck pain with cervical radicular symptoms. This patient had Salmonella poisoning and GI distress. She has had a recent fall. She has increasing neck pain. Her stimulator continues to be on and she has had no change in stimulation. She underwent cervical spine x-rays and all hardware seems to be in proper position. CC: Kiko Sanderson MD [facility] History I have reviewed the patient's past medical history: Yes Medical History: Reports:: Cancer (Breast (1999)), Coronary Artery Disease, Gastroesophageal Reflux Disease(GERD), Hyperlipidemia Denies:: Diabetes Mellitus Type 1, Diabetes Mellitus Type 2, Internal Pacemaker, MRSA, Seizures *Have you ever received a pneumonia vaccine?: Yes *Have you received a flu vaccine this season?: Yes Other Medical History: Reports: Arthritis, Other (Hemorrhoids, occipital neuralgia, Cervical Disc Disease, mastoiditis). Denies: Blood Transfusion Reaction Laterality Cases: Right: Mastectomy, Bilateral: Myringotomy (Ear Tubes) Other Surgeries: Yes: Cancer Surgery, Cardiac Catheterization, Cholecystectomy, Colonoscopy, Hysterectomy-Partial, Other (Bladder/Rectal Reconstruction, Anterior Cervical Discectomy with fusion). No: Pacemaker Amputation: No Fractures: No - *Social History Educational Level: Attended College Smoking Status: Never smoker Alcohol Intake: never Alcohol Intake Frequency:: other Substance Use Type: denies use *Occupational Status:: employed Housing: house Household Members: spouse *Travel in the last 8 weeks: None - Psychiatric History Expresses thoughts of harming self/others: None Suicide Plan Description: No Plan Family Hx:: Coronary Artery Disease, Diabetes, Stroke, Other Review of Systems - *Neurologic Reports dizziness, Reports lack of coordination, Reports fainting, Reports dizziness, Reports weakness, Denies abnormal speech, Denies headache(s) Meds Home Medications Medication Instructions Recorded Confirmed Type Atorvastatin Calcium [Atorvastatin 40 mg PO HS 11/25/17 12/03/18 History 40mg Tab] Ibuprofen [Ibuprofen 800mg Tab] 800 mg PO Q8HP PRN 11/25/17 12/02/18 History Montelukast Sodium [Montelukast 10 mg PO DAILY 11/25/17 12/02/18 History 10mg Tab] Omeprazole [Omeprazole 40mg 40 mg
--- NOTE | 2018-12-05 19:11 | PC.NURSE ---
report given to tj. womack
[2018-12-06] VITALS: BP 108/62; PULSE 80; PULSE 82; RESP 18; TEMP 36.7; O2SAT 94
[2018-12-06 03:51] VITALS: BP 127/86; PULSE 80; RESP 18; TEMP 36.6; O2SAT 94
--- NOTE | 2018-12-06 03:52 | PC.NURSE ---
pt rested well this shift. c/o of head and neck pain x1, in between scheduled toradol doses, prn tylenol given with relief. pt up to bsc with standby assist. tolerates well. VSS will cont to monitor
[2018-12-06 04:00] VITALS: PULSE 60
[2018-12-06 06:42] LABS: Basophils % 0.5 % (0.1-2.0); Eosinophils # 0.2 K/mm3 (0.0-0.4); Eosinophils % 5.3 % (0.1-12.0); Hematocrit 29.9 % (37.0-47.0); Lymphocytes # 1.4 K/mm3 (0.7-4.5); Lymphocytes % 42.1 % (10-50); Mean Corpuscular HGB Conc 36.8 g/dL (31.8-35.4); Mean Corpuscular Hemoglobin 33.1 pg (27.0-31.2); Mean Platelet Volume 7.7 fl (7.4-10.4); Monocytes # 0.4 K/mm3 (0.1-1.0); Monocytes % 11.3 % (1.7-9.3); Neutrophils # 1.3 K/mm3 (1.8-7.8); Neutrophils % 40.8 % (37.0-80.0); Platelet Count 193 K/mm3 (142-424); Red Blood Count 3.32 M/mm3 (4.20-5.40); Red Cell Distribution Width 12.6 % (11.5-17.5); White Blood Count 3.3 K/mm3 (4.8-10.8)
[2018-12-06 06:46] VITALS: BMI 28.5
[2018-12-06 06:58] LABS: Anion Gap 11.8 mEq/L (5-15); Blood Urea Nitrogen 7 mg/dL (7-18); Calcium 7.9 mg/dL (8.5-10.1); Carbon Dioxide 27 mmol/L (21.0-32.0); Chloride 108 mmol/L (98-107); Creatinine Clearance Estimated 65 mL/min (50-200); Creatinine,Serum 0.52 mg/dL (0.55-1.02); Estimated Glomerular Filt Rate 118 ml/min (>60); GFR (African American) 143 ML/MIN (>60); Glucose 119 mg/dL (74-106); Potassium 3.8 mmoL/L (3.5-5.1); Sodium 143 mmol/L (136-145)
[2018-12-06 08:00] VITALS: BP 130/88; PULSE 78; RESP 18; TEMP 36.6; O2SAT 99
[2018-12-06 08:10] VITALS: O2SAT 98
--- NOTE | 2018-12-06 08:29 | HMH.ACPN2 ---
Internal Medicine - PN: Subj *Date: 12/06/18 *Time: 08:29 Interval history: Pt feels better this morning, wants to go home. Exam Vital signs and Labs for Last 24 Hours: Temp Pulse Resp BP Pulse Ox 97.9 F 60 18 127/86 94 L 12/06/18 03:51 12/06/18 04:00 12/06/18 03:51 12/06/18 03:51 12/06/18 03:51 Laboratory Results - last 24 hr 12/06/18 06:36: WBC 3.3 L, RBC 3.32 L, Hgb 11.0 L, Hct 29.9 L, MCV 90.0, MCH 33.1 H, MCHC 36.8 H, RDW 12.6, Plt Count 193, MPV 7.7, Neut % (Auto) 40.8, Lymph % (Auto) 42.1, [place] % (Auto) 11.3 H, Eos % (Auto) 5.3, Baso % (Auto) 0.5, Neut # (Auto) 1.3 L, Lymph # (Auto) 1.4, [place] # (Auto) 0.4, Eos # (Auto) 0.2, Baso # (Auto) 0.0 12/06/18 06:36: Sodium 143, Potassium 3.8, Chloride 108 H, Carbon Dioxide 27, Anion Gap 11.8, BUN 7, Creatinine 0.52 L, Estimated Creat Clear 65, Estimated GFR 118, Est GFR ( Amer) 143, Glucose 119 H, Calcium 7.9 L Vital Signs - 24 hr 12/05/18 12:00 12/05/18 16:00 12/05/18 16:12 Temperature 97.8 F 97.5 F L Pulse Rate 80 80 Pulse Rate [Left Radial] 75 88 Respiratory Rate 16 18 Blood Pressure [Left Arm] 112/70 138/81 02 Sat by Pulse Oximetry 92 L 97 12/05/18 19:52 12/05/18 20:00 12/06/18 00:00 Temperature 98.1 F 98.1 F Pulse Rate 90 80 Pulse Rate [Left Radial] 92 H 82 Respiratory Rate 18 18 Blood Pressure [Left Arm] 114/62 108/62 L 02 Sat by Pulse Oximetry 97 97 94 L 12/06/18 03:51 12/06/18 04:00 Temperature 97.9 F Pulse Rate 60 Pulse Rate [Left Radial] 80 Respiratory Rate 18 Blood Pressure [Left Arm] 127/86 02 Sat by Pulse Oximetry 94 L I & O for Last 24 hours: Intake & Output 12/03/18 12/04/18 12/05/18 12/06/18 23:59 23:59 23:59 23:59 Intake Total 2861 / 2861 1080 / 1080 1576 / 1576 898 / 898 Output Total 600 / 1200 600 / 1100 950 / 950 Balance 2261 / 1661 480 / -20 626 / 626 898 / 898 Weight 157 lb 155 lb 155 lb 7 oz 161 lb - Constitutional no acute distress - *Routine HEENT Exam Head: Present: normocephalic Eye: Present: EOMI ENT: Present: mucous membranes moist - *Routine Neck Exam Present: supple. Absent: lymphadenopathy - *Routine Respiratory Exam Present: CTA bilaterally - *Routine Cardiovascular Exam Present: RRR - *Routine Abdominal Exam Present: soft, normoactive bowel sounds. Absent: tenderness - *Routine Extremities Exam Absent: cyanosis, clubbing, edema - *Routine Skin Exam Present: warm. Absent: rash - *Routine Neurological Exam Present: alert, oriented X3 Assessment and Plan (1) Salmonella enteritis Current visit: Yes Status: Acute Category: Medical Code(s): A02.0 - Salmonella enteritis (2) Syncope Current visit: Yes Status: Acute Qualifiers: Syncope type: vasovagal syncope Qualified Code(s): R55 - Syncope and collapse Category: Medical Code(s): R55 - Syncope and collapse (3) Facial contusion Current visit: Yes Status: Acute Qualifiers: Encounter type: initial encounter Qualified Code(s): S00.83XA - Contusion of other part of head, initial encounter Category: Medical Code(s): S00.83XA - Contusion of other part of head, initial encounter (4) Hypokalemia Current visit: Yes Status: Acute Category: Medical Code(s): E87.6 - Hypokalemia (5) Chronic neck pain Current visit: Yes Status: Chronic Category: Medical Code(s): M54.2 - Cervicalgia; G89.29 - Other chronic pain (6) Headache Current visit: Yes Status: Acute Category: Medical Code(s): R51 - Headache - Assessment and plan all Dx Assessment and Plan for all problems:: OK to discharge home today.
--- NOTE | 2018-12-06 09:22 | HMH.PHAINT ---
DISCHARGE COUNSELING COMPLETED ON PATIENT. ONLY NEW MEDICATION IS ZOFRAN PO EVERY 8 HOURS NEEDED FOR NAUSEA. THIS PRESCRIPTION WAS SENT TO [facility] IN [place]. PATIENT VERBALIZED UNDERSTANDING. -JOON SHAFFER, RAFYD
--- NOTE | 2018-12-06 21:42 | HMH.DCSUM ---
General - General Admission date:: 12/02/18 Discharge date: 12/06/18 HPI HPI: Ms. Edgar is a 63-year-old female who states she began having diarrhea multiple times every few hours on Saturday. She has not had anything to eat or drink and her diarrhea has continued. She states she had no vomiting but was nauseated. She tried to go to work yesterday and was only able to stay for 3 hours. She became very weak and went home. She states she was sitting on the toilet and became very sweaty and passed out. She states she hit the cabinet in the bathroom and the towel rack and ended up on the floor. She states when she woke up she was unable to move and had pain along her right orbit and all along her neck. She called her and he transported her to the emergency room. She was evaluated and admitted for further evaluation and treatment. Of note she did just have a neurostimulator placed in her neck in March 2018. She has also been having issues with balance for the past few weeks. She thinks it is d/t her sinuses and she has seen Dr. Hunt. Hospital Course Hospital Course: The patient's imaging all showed nothing acute. Her diarrhea panel was positive for Salmonella. It is not recommended to treat Salmonella with antibiotics, therefore the patient was kept for monitoring and hydration as well as antiemetics. Most of her home medications were restarted. She was also started on potassium due to hypokalemia. Her potassium normalized. Her diarrhea began slowing and her abdominal pain started improving, but she developed a very bad headache. She was started on toradol, which helped, and an x-ray was ordered of the neck. Dr. Pizarro was also consulted. The x-ray showed nothing acute and the spinal stimulator was in place. Dr. Pizarro also felt all the hardware seemed to be in proper position. The patient began feeling better and wanted to be discharged home. Objective Vital signs: Temp Pulse Resp BP Pulse Ox 97.9 F 78 18 130/88 98 12/06/18 08:00 12/06/18 08:00 12/06/18 08:00 12/06/18 08:00 12/06/18 08:10 Narrative: - Constitutional Comments: Does not appear to feel well - *Routine HEENT Exam Head: Present: normocephalic Eye: Present: EOMI, PERRL, periorbital tenderness (on the right) ENT: Present: mucous membranes dry - *Routine Neck Exam Present: supple, tenderness (along trapezius muscle on the right). Absent: lymphadenopathy - *Routine Respiratory Exam Present: CTA bilaterally - *Routine Cardiovascular Exam Present: RRR - *Routine Abdominal Exam Present: soft, normoactive bowel sounds. Absent: tenderness - *Routine Extremities Exam Absent: cyanosis, clubbing, edema - *Routine Skin Exam Present: warm. Absent: rash - *Routine Neurological Exam Present: alert, oriented X3 Results Labs on day of discharge: Labs from last 24 hours 12/06/18 12/06/18 06:36 06:36 WBC 3.3 L RBC 3.32 L Hgb 11.0 L Hct 29.9 L MCV 90.0 MCH 33.1 H MCHC 36.8 H RDW 12.6 Plt Count 193 MPV 7.7 Neut % (Auto) 40.8 Lymph % (Auto) 42.1 [place] % (Auto) 11.3 H Eos % (Auto) 5.3 Baso % (Auto) 0.5 Neut # (Auto) 1.3 L Lymph # (Auto) 1.4 [place] # (Auto) 0.4 Eos # (Auto) 0.2 Baso # (Auto) 0.0 Sodium 143 Potassium 3.8 Chloride 108 H Carbon Dioxide 27 Anion Gap 11.8 BUN 7 Creatinine 0.52 L Estimated Creat Clear 65 Estimated GFR 118 Est GFR ( Amer) 143 Glucose 119 H Calcium 7.9 L DS: Diagnosis - Discharge Diagnosis (1) Salmonella enteritis Status: Acute (2) Syncope Status: Acute (3) Facial contusion Status: Acute (4) Hypokalemia Status: Acute (5) Chronic neck pain Status: Chronic (6) Headache Status: Acute Discharge Plan - Patient Discharge Instructions ACTIVITY: Continue current activity Patient Instructions: DI for Concussion, DI for Syncope in A
--- NOTE | 2018-12-06 21:46 | P.DS_ITS ---
General - General Admission date:: 12/02/18 Discharge date: 12/06/18 HPI HPI: Ms. Edgar is a 63-year-old female who states she began having diarrhea multiple times every few hours on Saturday. She has not had anything to eat or drink and her diarrhea has continued. She states she had no vomiting but was nauseated. She tried to go to work yesterday and was only able to stay for 3 hours. She became very weak and went home. She states she was sitting on the toilet and became very sweaty and passed out. She states she hit the cabinet in the bathroom and the towel rack and ended up on the floor. She states when she woke up she was unable to move and had pain along her right orbit and all along her neck. She called her and he transported her to the emergency room. She was evaluated and admitted for further evaluation and treatment. Of note she did just have a neurostimulator placed in her neck in March 2018. She has also been having issues with balance for the past few weeks. She thinks it is d/t her sinuses and she has seen Dr. Hunt. Hospital Course Hospital Course: The patient's imaging all showed nothing acute. Her diarrhea panel was positive for Salmonella. It is not recommended to treat Salmonella with antibiotics, therefore the patient was kept for monitoring and hydration as well as antiemetics. Most of her home medications were restarted. She was also started on potassium due to hypokalemia. Her potassium normalized. Her diarrhea began slowing and her abdominal pain started improving, but she developed a very bad headache. She was started on toradol, which helped, and an x-ray was ordered of the neck. Dr. Pizarro was also consulted. The x-ray showed nothing acute and the spinal stimulator was in place. Dr. Pizarro also felt all the hardware seemed to be in proper position. The patient began feeling better and wanted to be discharged home. Objective Vital signs: Temp Pulse Resp BP Pulse Ox 97.9 F 78 18 130/88 98 12/06/18 08:00 12/06/18 08:00 12/06/18 08:00 12/06/18 08:00 12/06/18 08:10 Narrative: - Constitutional Comments: Does not appear to feel well - *Routine HEENT Exam Head: Present: normocephalic Eye: Present: EOMI, PERRL, periorbital tenderness (on the right) ENT: Present: mucous membranes dry - *Routine Neck Exam Present: supple, tenderness (along trapezius muscle on the right). Absent: lymphadenopathy - *Routine Respiratory Exam Present: CTA bilaterally - *Routine Cardiovascular Exam Present: RRR - *Routine Abdominal Exam Present: soft, normoactive bowel sounds. Absent: tenderness - *Routine Extremities Exam Absent: cyanosis, clubbing, edema - *Routine Skin Exam Present: warm. Absent: rash - *Routine Neurological Exam Present: alert, oriented X3 Results Labs on day of discharge: Labs from last 24 hours 12/06/18 12/06/18 06:36 06:36 WBC 3.3 L RBC 3.32 L Hgb 11.0 L Hct 29.9 L MCV 90.0 MCH 33.1 H MCHC 36.8 H RDW 12.6 Plt Count 193 MPV 7.7 Neut % (Auto) 40.8 Lymph % (Auto) 42.1 [place] % (Auto) 11.3 H Eos % (Auto) 5.3 Baso % (Auto) 0.5 Neut # (Auto) 1.3 L Lymph # (Auto) 1.4 [place] # (Auto) 0.4 Eos # (Auto) 0.2
== END 2018-12-06 10:15 | disposition home or self-care (01) ==
LOC: ER 18:01 → 2ND 20:57
PROVIDERS: Emergency Medicine; Admitting Provider Family Medicine; Emergency Provider Emergency Medicine; PCP Family Medicine; Visit Provider Family Medicine
DX: A02.0 Salmonella enteritis (principal); R55 Syncope and collapse; S06.0X9A Concussion with loss of consciousness of unspecified duration, initial encounter; W18.12XA Fall from or off toilet with subsequent striking against object, initial encounter; Y93.E8 Activity, other personal hygiene; Y92.002 Bathroom of unspecified non-institutional (private) residence as the place of occurrence of the external cause; I25.10 Atherosclerotic heart disease of native coronary artery without angina pectoris; E78.5 Hyperlipidemia, unspecified; K21.9 Gastro-esophageal reflux disease without esophagitis; S00.83XA Contusion of other part of head, initial encounter; E87.6 Hypokalemia; G89.29 Other chronic pain; M54.2 Cervicalgia; R51 Headache; Z98.1 Arthrodesis status; Z85.3 Personal history of malignant neoplasm of breast; Z90.13 Acquired absence of bilateral breasts and nipples; Z90.710 Acquired absence of both cervix and uterus; Z90.49 Acquired absence of other specified parts of digestive tract; Z80.9 Family history of malignant neoplasm, unspecified; Z83.3 Family history of diabetes mellitus; Z82.49 Family history of ischemic heart disease and other diseases of the circulatory system; Z82.3 Family history of stroke; Z96.89 Presence of other specified functional implants; Z79.82 Long term (current) use of aspirin; Z79.899 Other long term (current) drug therapy; Z88.5 Allergy status to narcotic agent; Z88.8 Allergy status to other drugs, medicaments and biological substances
CPT/HCPCS: 36415; 70450; 70486; 72040; 72125; 72128; 80048; 80053; 84484; 85025; 87507; 93005; 96365; 99284; G0378; J2405

== ENCOUNTER → 2019-01-16 10:26 | Outpatient (CLI) | payer MEDICARE, OTHER, SELFPAY ==
[2019-01-16 15:17] LABS: Ferritin 76 ng/mL (8-388)
== END ==
PROVIDERS: Visit Provider Specialist
DX: E83.10 Disorder of iron metabolism, unspecified (principal); G47.33 Obstructive sleep apnea (adult) (pediatric)
CPT/HCPCS: 36415; 82728

== ENCOUNTER → 2019-01-26 11:12 | Outpatient (POV) | payer MEDICARE, OTHER, SELFPAY ==
[2019-01-26 11:38] VITALS: BP 120/78; PULSE 78; RESP 18; O2SAT 98; BMI 27.6
--- NOTE | 2019-01-26 13:03 | P.CONS_ITS ---
[facility] Pain Management SOAP Note Subjective:: Patient is a pleasant 63-year-old white female who presents today for follow-up. Patient has nerve stimulator which she states is not helping at this time. She rates her pain a 9 out of 10 exacerbated after recent fall due to dehydration. She was hospitalized for Salmonella poisoning. Patient's been on gabapentin however she is noticing that she is starting to develop a tremor in her hands patient's been seen by neurology and had a negative nerve conduction studies. Patient and I discussed changing her gabapentin. ROS General: no recent weight change, no fever, no sleep disturbances Respiratory: no cough, no shortness of air, no recurring pulmonary infections Cardiovascular/Peripheral Vascular: No chest pain, No palpitations, no edema, no shortness of breath. Gastrointestinal: no incontinence, normal bowel movements reported Genitourinary: no incontinence Musculoskeletal: Neck pain, arm pain Psychiatric: normal mood/ affect Neurological: [denies weakness in extremities], [denies balance issues] Objective:: Physical Exam General: Alert and oriented x3, no acute distress, pleasant and cooperative, [on room air] Lungs: Resps E/U, Symmetrical chest expansion, Eyes: PERRL Musculoskeletal: Flexion and extension of cervical spine somewhat guarded secondary to pain, deep tendon reflexes normal, strength in upper and lower extremities [5/5], [abnormal gait noted] Neurological: speech clear, academic support coordinator equal, no gross sensory deficits Assessment:: 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 daily and take her off of her gabapentin and see if this is beneficial I also discussed with her turning off her stimulator for several days to help with any possible irritation. When she turns on her stimulator she needs to turn it back on him on the lowest setting we discussed this. Patient's been instructed to call the office if she has any issues prior to her next appointment I will see her back in [address] Pizarro has reviewed this note and agrees with this plan of care. This note was dictated using voice recognition software and may contain errors or omissions
== END ==
PROVIDERS: PCP Family Medicine; Visit Provider Clinical Nurse Specialist Family Health
DX: M50.10 Cervical disc disorder with radiculopathy, unspecified cervical region (principal)
CPT/HCPCS: 99212

== ENCOUNTER → 2019-02-17 08:56 | Outpatient (POV) | payer MEDICARE, OTHER, SELFPAY ==
[2019-02-17 09:18] VITALS: BP 122/72; PULSE 77; RESP 18; O2SAT 98; BMI 28.0
--- NOTE | 2019-02-17 09:27 | P.CONS_ITS ---
[facility] Pain Management SOAP Note Subjective:: Patient is a pleasant 63-year-old white female who presents today for follow-up. Patient is doing better today rating her pain a 4 out of 10. She is turned off her stimulator and has stated she is done much better. I recommended she keep it turned off at this time. Patient wants to come off of her Lyrica and her gabapentin. We discussed a weaning protocol for this. Patient's only complaint really today is right arm pain and right shoulder pain. She states that she does have some muscle cramps in this area. We did talk about magnesium supplements she may look into this. ROS General: no recent weight change, no fever, no sleep disturbances Respiratory: no cough, no shortness of air, no recurring pulmonary infections Cardiovascular/Peripheral Vascular: No chest pain, No palpitations, no edema, no shortness of breath. Gastrointestinal: no incontinence, normal bowel movements reported Genitourinary: no incontinence Musculoskeletal: Neck pain, arm pain Psychiatric: normal mood/ affect Neurological: [denies weakness in extremities], [denies balance issues] Objective:: Physical Exam General: Alert and oriented x3, no acute distress, pleasant and cooperative, [on room air] Lungs: Resps E/U, Symmetrical chest expansion, Eyes: PERRL Musculoskeletal: Flexion and extension of cervical spine somewhat guarded secondary to pain, deep tendon reflexes normal, strength in upper and lower extremities [5/5], normal gait noted Neurological: speech clear, boat ride operator equal, no gross sensory deficits Assessment:: Degenerative disc disease cervical spinal cervical radiculopathy, postlaminectomy syndrome Plan:: We will see the patient back in 2 months reassess her symptoms at that time she is been instructed to call the office if she has any issues prior to her next appointment. Dr. Pizarro has reviewed this note and agrees with this plan of care. This note was dictated using voice recognition software and may contain errors or omissions
== END ==
PROVIDERS: PCP Family Medicine; Visit Provider Clinical Nurse Specialist Family Health
DX: M50.10 Cervical disc disorder with radiculopathy, unspecified cervical region (principal); M96.1 Postlaminectomy syndrome, not elsewhere classified
CPT/HCPCS: 99212

== ENCOUNTER → 2019-03-02 20:04 | Outpatient (CLI) | payer MEDICARE, OTHER, SELFPAY | PROVIDERS: PCP Family Medicine; Visit Provider Specialist | DX: G47.33 Obstructive sleep apnea (adult) (pediatric) (principal) | CPT/HCPCS: 95811 ==

== ENCOUNTER → 2019-03-27 14:28 | Outpatient (POV) | payer MEDICARE, OTHER, SELFPAY ==
[2019-03-27 15:39] VITALS: BP 133/77; PULSE 81; RESP 20; O2SAT 97; BMI 27.1
--- NOTE | 2019-03-27 15:55 | HMH.PAINSOAP ---
[facility] Pain Management SOAP Note Subjective:: Patient is a pleasant 63-year-old white female who currently has a surgically placed paddle lead in the cervical spine with a Nuvectra stimulator. Since her surgery she is continued to have issues. All of her pain is on her right side with now worsening pain down her right arm. She has some numbness in her right hand. She goes through periods of time where she is doing well in periods where she is not doing so well. Her pain has worsened all in her right side. Her right arm pain is bothering her the most today. She previously had evaluation by Dr. Vital which was unremarkable. Given that most of her symptoms started after placement of her stimulator I would like her to be evaluated for either revision or removal of her spinal cord stimulator system. We will send her to Dr. Klever Lawrence at the [facility] for evaluation. I will also send her to a neurologist in [place] most likely at the [facility] again for evaluation and a second opinion. Objective:: Alert and oriented x3 in no acute distress. Motor strength of the right upper extremity is 4 out of 5. The right lower extremity is 4 out of 5. Motor strength of the left upper extremity and lower extremities 5 out of 5. She does have some significant numbness of her right hand. No other significant sensory deficits. Assessment:: Degenerative disc disease of the cervical spine with cervical radiculopathy symptoms and postlaminectomy syndrome. Plan:: We will send her to Dr. Klever Lawrence at the [facility] for evaluation. I will also send her to a neurologist in [place] most likely at the [facility] again for evaluation and a second opinion. Pain Management Hx Components *Have you ever received a pneumonia vaccine?: No *Have you received a flu vaccine this season?: No - *Social History *Occupational Status:: employed *Travel in the last 8 weeks: None
--- NOTE | 2019-03-27 15:58 | P.CONS_ITS ---
[facility] Pain Management SOAP Note Subjective:: Patient is a pleasant 63-year-old white female who currently has a surgically placed paddle lead in the cervical spine with a Nuvectra stimulator. Since her surgery she is continued to have issues. All of her pain is on her right side with now worsening pain down her right arm. She has some numbness in her right hand. She goes through periods of time where she is doing well in periods where she is not doing so well. Her pain has worsened all in her right side. Her right arm pain is bothering her the most today. She previously had evaluation by Dr. Vital which was unremarkable. Given that most of her symptoms started after placement of her stimulator I would like her to be evaluated for either revision or removal of her spinal cord stimulator system. We will send her to Dr. Klever Lawrence at the [facility] for evaluation. I will also send her to a neurologist in [place] most likely at the [facility] again for evaluation and a second opinion. Objective:: Alert and oriented x3 in no acute distress. Motor strength of the right upper extremity is 4 out of 5. The right lower extremity is 4 out of 5. Motor strength of the left upper extremity and lower extremities 5 out of 5. She does have some significant numbness of her right hand. No other significant sensory deficits. Assessment:: Degenerative disc disease of the cervical spine with cervical radiculopathy symptoms and postlaminectomy syndrome. Plan:: We will send her to Dr. Klever Lawrence at the [facility] for evaluation. I will also send her to a neurologist in [place] most likely at the [facility] again for evaluation and a second opinion. Pain Management Hx Components *Have you ever received a pneumonia vaccine?: No *Have you received a flu vaccine this season?: No - *Social History *Occupational Status:: employed *Travel in the last 8 weeks: None
== END ==
PROVIDERS: PCP Family Medicine; Visit Provider Anesthesiology
DX: M50.10 Cervical disc disorder with radiculopathy, unspecified cervical region (principal); M96.1 Postlaminectomy syndrome, not elsewhere classified
CPT/HCPCS: 99212

== ENCOUNTER → 2019-04-08 10:54 | Outpatient (CLI) | payer SELFPAY ==
--- NOTE | 2019-04-08 11:02 | CT_ITS ---
PROCEDURE: CT HEART W CALCIUM SCORE CLINICAL HISTORY: SCREENING NUERO STEM IN NECK COMPARISON: No exams were available for comparison TECHNIQUE: Axial images obtained with sagittal and coronal reformats. All CT scans at the facility use one or more dose reduction, viz: automated exposure control, ma/kV adjustment per patient size (including targeted exams where dose is matched to indication, i.e. head), or iterative reconstruction technique. FINDINGS: Coronary artery calcium score is 0 with no identifiable atherosclerotic plaque indicating very low cardiovascular disease risk. There is a small aortopulmonic lymph node incompletely image measuring 11 mm. Partially calcified nodes are present in the right hilum IMPRESSION: No identifiable calcified plaque with very low cardiovascular disease risk Dictated by: James Moser MD 04/09/2019 18:19 Electronically signed by James Moser MD in [place] 04/09/2019 18:19
== END ==
PROVIDERS: PCP Family Medicine; Visit Provider Internal Medicine Cardiovascular Disease
DX: Z13.6 Encounter for screening for cardiovascular disorders (principal)
CPT/HCPCS: 75571

== ENCOUNTER → 2019-11-05 09:15 | Outpatient (CLI) | payer MEDICARE, OTHER, SELFPAY ==
--- NOTE | 2019-11-05 09:21 | XR_ITS ---
PROCEDURE: XR CERVICAL SPINE 3V CLINICAL INDICATION: POST OP CARE Follow-up cervical spine surgery COMPARISON: [id number] XR cervical spine 5V from 01/28/2018 FINDINGS: There are postsurgical changes. There has been revision of the anterior bone plates within the cervical spine. There is now an anterior bone plate spanning from C3 to the C6 level. There has been laminectomy at C5 and C6. There is good alignment. The bone plate appears intact. No acute finding evident. Disc spacer devices are present at C6-C7 and C5-C6 IMPRESSION: Good alignment status post cervical spine bone plate revision Dictated by: James Moser MD 11/05/2019 12:15 Electronically signed by James Moser MD in [place] 11/05/2019 12:15
== END ==
PROVIDERS: PCP Family Medicine; Visit Provider Neurological Surgery
DX: Z48.89 Encounter for other specified surgical aftercare (principal); M54.2 Cervicalgia
CPT/HCPCS: 72040

== ENCOUNTER → 2020-01-01 12:03 | Outpatient (CLI) | payer MEDICARE, OTHER, SELFPAY ==
--- NOTE | 2020-01-01 12:15 | XR_ITS ---
PROCEDURE: XR CHEST 2V CLINICAL HISTORY: COUGH COMPARISON: CXR1 CHEST-PORTABLE from 04/24/2013 CXR2 CHEST-AP VIEW ONLY from 12/13/2016 FINDINGS: The cardiomediastinal silhouette and pulmonary vascularity are within normal limits. The lungs are clear without infiltrates, suspicious nodules, or pleural effusions. Calcified granuloma right lower lobe. No acute bony findings. IMPRESSION: No acute findings. Dictated by: James Moser MD 01/01/2020 12:29 Electronically signed by James Moser MD in [place] 01/01/2020 12:29
== END ==
PROVIDERS: PCP Family Medicine; Visit Provider Family Medicine
DX: R05 Cough (principal)
CPT/HCPCS: 71046

== ENCOUNTER → 2020-01-29 10:23 | Outpatient (CLI) | payer MEDICARE, OTHER, SELFPAY ==
--- NOTE | 2020-01-29 10:34 | MM_ITS ---
PROCEDURE: MM DIG SCREENING MAMM BI W/CAD Digital Breast Tomosynthesis Included CLINICAL INDICATION: SCREENING History of breast cancer with left breast pain COMPARISON: DMDB DIG MAMM-DX SO from 08/23/2015 DMSUL DIG MAMM-SCREEN UNI-LT W/CAD from 04/08/2017 [facility] MM Dig screening mamm BI w/CAD from 10/30/2018 TECHNIQUE: Standard CC and MLO images and 3D Tomosynthesis was obtained. R2 CAD reviewed. FINDINGS: Average fibroglandular tissue. No malignant appearing mass or malignant-appearing microcalcification with no significant change IMPRESSION: BI-RAD Category: 1 Negative FOLLOW-UP: 1YR 1 Year Follow-up (A letter has been sent to the patient regarding results of the study.) Dictated by: James Moser MD 01/29/2020 13:35 Electronically signed by James Moser MD in [place] 01/29/2020 13:35
== END ==
PROVIDERS: PCP Family Medicine; Visit Provider Family Medicine
DX: Z12.31 Encounter for screening mammogram for malignant neoplasm of breast (principal)
CPT/HCPCS: 77063; 77067

== ENCOUNTER → 2020-02-18 11:01 | Outpatient (CLI) | payer MEDICARE, OTHER, SELFPAY ==
[2020-02-18 14:23] LABS: Basophils % 0.4 % (0.1-2.0); Eosinophils # 0.2 K/mm3 (0.0-0.4); Eosinophils % 3.2 % (0.1-12.0); Hemoglobin 14.6 g/dL (12.2-16.2); Lymphocytes # 1.6 K/mm3 (0.7-4.5); Lymphocytes % 33.4 % (10-50); Mean Corpuscular HGB Conc 36.5 g/dL (31.8-35.4); Mean Corpuscular Hemoglobin 33.7 pg (27.0-31.2); Mean Corpuscular Volume 92.5 fl (81-99); Mean Platelet Volume 8.8 fl (7.4-10.4); Monocytes # 0.4 K/mm3 (0.1-1.0); Monocytes % 8.6 % (1.7-9.3); Neutrophils # 2.6 K/mm3 (1.8-7.8); Neutrophils % 54.4 % (37.0-80.0); Platelet Count 198 K/mm3 (142-424); Red Blood Count 4.32 M/mm3 (4.20-5.40); Red Cell Distribution Width 13.2 % (11.5-17.5); White Blood Count 4.8 K/mm3 (4.8-10.8)
[2020-02-18 16:58] LABS: Coronavirus 19 IgG Antibody Negative (Negative); Coronavirus 19 IgM Antibody Negative (Negative)
[2020-02-19 12:39] LABS: Covid-19 Nasal PCR Sendout Lex Not Detected
== END ==
PROVIDERS: PCP Family Medicine; Referring Provider Family Medicine; Visit Provider Family Medicine
DX: Z03.818 Encounter for observation for suspected exposure to other biological agents ruled out (principal); J06.9 Acute upper respiratory infection, unspecified
CPT/HCPCS: 36415; 85025; 86328; U0004

== ENCOUNTER 2020-04-25 09:20 | Emergency (ER) | payer MEDICARE, OTHER, SELFPAY ==
[2020-04-25 09:30] VITALS: BP 128/80; PULSE 80; RESP 18; TEMP 36.5; O2SAT 98; BMI 27.6
--- NOTE | 2020-04-25 09:30 | PC.NURSE ---
Lab notified of patient for covid test
--- NOTE | 2020-04-25 09:50 | PC.NURSE ---
SPOKE WITH ЕКАТЕРИНА FROM LAB FOR UPDATE ON COVID SWAB. SHE STATES ZOHAIB IS ON HER WAY TO SWAB PATIENT BUT HAD SEVERAL STOPS ALONG THE WAY
--- NOTE | 2020-04-25 10:18 | HMH.EDUTC ---
[facility] Disposition Clinical Impression: Exposure to COVID-19 virus Disposition: Home, Self-Care Condition on Discharge: Good Instructions: Preventing the Spread of Coronavirus Discharge Instructions Additional Instructions: Drink plenty of fluids. Take tylenol or ibuprofen for pain or fever. Follow up with your regular doctor. GO TO THE ER FOR ANY WORSENING SYMPTOMS FOLLOW THE DIRECTIONS ON THE COVID-19 HAND OUT THAT WE GAVE YOU REGARDING SELF-ISOLATION UNTIL YOU KNOW YOUR COVID-19 RESULTS Referrals: Kiko Sanderson MD [Primary Care Provider] - Time of Disposition: 10:23 Medical Decision Making - Medical Records Medical records reviewed: No: I reviewed the patient's medical records. - Pj Inquiry Pt receiving controlled substance: No Vital Signs: 04/25/20 09:30 04/25/20 10:33 Temperature 97.7 F 97.7 F Temperature Source Oral Pulse Rate 80 Pulse Rate [Left Brachial] 80 Respiratory Rate 18 18 Blood Pressure 128/80 Blood Pressure [Left Arm] 128/80 Blood Pressure Mean [Left Arm] 96 Blood Pressure Source [Left Arm] Automatic Cuff Blood Pressure Position [Left Arm] Sitting 02 Sat by Pulse Oximetry 98 Oxygen Delivery Method Room Air [facility] HPI - General Stated complaint: covid exposure Time Seen by Provider: 04/25/20 09:30 Mode of Arrival: Ambulatory Source of Information: Patient Limitations: No Limitations Description of Symptoms (Recalled from Triage Doc. by RN): PATIENT REQUESTING COVID TEST. STATES SHE WAS EXPOSED TO SOMEONE WHO WAS POSITIVE 1 WEEK AGO; SHE HAS BEEN SELF-QUARANTINING SINCE. DENIES ANY SYMPTOMS HEENT Symptoms (Recalled from RN notes): No Resp Symptoms (Recalled from RN notes): No Skin Symptoms (Recalled from RN notes): No MS Symptoms (Recalled from RN notes): No Functional Status (Recalled from RN notes): WNL - History of Present Illness Provider Complaint: She states that her grand daughter tested positive for COVID-19 yesterday. She has been around her grand daughter a lot. She denies any symptoms so far, but her if chronically ill so she wants to be very careful about possibly being exposed. - Related Data Home Medications Medication Instructions Recorded Confirmed Atorvastatin Calcium [Lipitor 40mg 40 mg PO HS 11/25/17 03/29/20 Tab] Montelukast Sodium [Montelukast 10 mg PO DAILY 11/25/17 03/29/20 10mg Tab] Omeprazole [Omeprazole 40mg 40 mg PO DAILY 11/25/17 03/29/20 Capsule] Calcium Carb,Gluc/Mag Ox,Gluc 1 each PO DAILY 01/07/18 03/29/20 [Calcium Magnesium Caplet] Cholecalciferol (Vitamin D3) 1,000 unit PO DAILY 01/07/18 03/29/20 [Vitamin D3 1,000 Unit Cap] Fluticasone Propionate [Flonase 1 spr NS DAILY 01/07/18 03/29/20 50mcg nasal spray 16gm] duloxetine 60 mg capsule,delayed 120 mg PO DAILY 30 Days #30 cap 06/09/18 03/29/20 release baclofen 10 mg tablet 20 mg PO Q6HP PRN tab 10/13/18 03/29/20 gabapentin 300 mg capsule 300 mg PO DAILY cap 03/29/20 03/29/20 quetiapine 50 mg tablet 50 mg PO ONCE HS tab 03/29/20 03/29/20 Allergies Allergy/AdvReac Type Severity Reaction Status Date / Time codeine [CODEINE] Allergy Unknown vomiting/hi Verified 03/29/20 09:07 ves hydrocodone [HYDROCODONE] Allergy Unknown vomiting/hi Verified 03/29/20 09:07 ves morphine [MORPHINE] Allergy Unknown vomiting/hi Verified 03/29/20 09:07 ves oxycodone [OXYCODONE] Allergy Unknown hives/vomit Verified 03/29/20 09:07 ing methylprednisolone Allergy tingling/we Verified 03/29/20 09:07 akness/anxi ety - Worker's Comp Is this a Worker's Comp case?: No H History - Hepatitis A Screen Drug use history?: No High risk sexual behaviors?: No History of sexually transmitted infection?: No Currently employed?: No Childcare worker?: No Do you have indoor plumbing?: Yes Do you have electricity?: Yes Attestation statement:: This patient has been screened for Hepatitis A risk factors. I alina
--- NOTE | 2020-04-25 10:29 | PC.NURSE ---
LAB AT BEDSIDE
[2020-04-25 10:33] VITALS: BP 128/80; PULSE 80; RESP 18; TEMP 36.5; O2SAT 98
== END 2020-04-25 10:35 | disposition home or self-care (01) ==
PROVIDERS: Emergency Provider Nurse Practitioner Family; PCP Family Medicine
DX: Z20.828 Contact with and (suspected) exposure to other viral communicable diseases (principal); F41.8 Other specified anxiety disorders; I25.10 Atherosclerotic heart disease of native coronary artery without angina pectoris; K21.9 Gastro-esophageal reflux disease without esophagitis; E78.5 Hyperlipidemia, unspecified; M54.2 Cervicalgia; Z88.5 Allergy status to narcotic agent; Z79.899 Other long term (current) drug therapy; Z90.11 Acquired absence of right breast and nipple; Z90.79 Acquired absence of other genital organ(s); Z90.49 Acquired absence of other specified parts of digestive tract
CPT/HCPCS: G0463; 99201; U0003

== ENCOUNTER 2020-10-04 09:58 | Emergency (ER) | payer MEDICARE, OTHER, SELFPAY ==
[2020-10-04 10:00] VITALS: BP 116/72; PULSE 89; RESP 20; TEMP 36.8; O2SAT 100; BMI 27.6
--- NOTE | 2020-10-04 10:26 | HMH.EDUTC ---
[facility] [facility] Disposition Clinical Impression: Sinusitis Qualifiers: Sinusitis location: unspecified location Chronicity: unspecified Qualified Code(s): J32.9 - Chronic sinusitis, unspecified Disposition: Home, Self-Care Condition on Discharge: Good Instructions: DI for Sinusitis, Sinusitis, Benzonatate Additional Instructions: *Monitor Temp, Over the counter Motrin or Tylenol as directed/as needed Tylenol every 4 hours and Motrin every 6 hours (as long as your family doctor has told you that you can take it) for fever or pain. and straight to ER if unable to lower temp less than 101.0 after medication given *Warm salt water gargles may help to soothe the throat *Throat Lozenges *Warm fluids like tea with honey may help to soothe the throat *Sleep elevated *Humidifier/Vaporizer Start antibiotic. Sinus infections may take 2-3 days to notice much improvement so be sure to use conservative measures as discussed for symptoms Flonase 2 spray in each nostril daily to help with nasal congestion, sinus an ear pressure/inflammation Lots of Fluids Sleep elevated Augmentin can cause GI effects. Probiotics may help to prevent these symptoms Follow up with family doctor if no improvement or any worsening of symptoms Follow up IMMEDIATELY for new or worsening symptoms or no Noticeable improvement over the next 48-72 hours. 911 for difficulty breathing or swallowing Prescriptions: Amoxicillin/Potassium Clav [Augmentin 875-125 Tablet] 1 tab PO Q12H 7 Days #14 tab Transmission Status: Pending to [id number] Benzonatate [Tessalon Perle 100mg Cap*] 100 mg PO TID PRN #30 cap PRN Reason: Cough Transmission Status: Pending to [id number] Referrals: Kiko Sanderson MD [Primary Care Provider] - As needed Medical Decision Making - Pj Inquiry Pt receiving controlled substance: No Pj was queried for this patient: No Vital Signs: 10/04/20 10:00 Temperature 98.3 F Temperature Source Oral Pulse Rate [Right Brachial] 89 Respiratory Rate 20 Blood Pressure [Right Arm] 116/72 Blood Pressure Mean [Right Arm] 86 Blood Pressure Source [Right Arm] Automatic Cuff Blood Pressure Position [Right Arm] Sitting 02 Sat by Pulse Oximetry 100 Oxygen Delivery Method Room Air Medical Decision Narrative: Patient reports that she has taken augmentin without complication or reactions [facility] [place] HPI - General Stated complaint: sinus issues Time Seen by Provider: 10/04/20 10:26 Mode of Arrival: Ambulatory Source of Information: Patient Limitations: No Limitations Description of Symptoms (Recalled from Triage Doc. by RN): PATIENT C/O SINUS PRESSURE AND COUGH SINCE APPROX NOON YESTERDAY HEENT Symptoms (Recalled from RN notes): Yes Resp Symptoms (Recalled from RN notes): Yes Skin Symptoms (Recalled from RN notes): No MS Symptoms (Recalled from RN notes): No Functional Status (Recalled from RN notes): WNL - History of Present Illness Provider Complaint: Patient states that she gets a sinus infection about this time every year States that she has felt it coming on for over a week but yesterday the pressure got worse and she started having drainage in the back of her throat and cough States that she has not been exposed to COVID but wants to get tested also due to grandchildren coming in - Related Data Home Medications Medication Instructions Recorded Confirmed Atorvastatin Calcium [Lipitor 40mg 40 mg PO HS 11/25/17 03/29/20 Tab] Montelukast Sodium [Montelukast 10 mg PO DAILY 11/25/17 03/29/20 10mg Tab] Omeprazole [Omeprazole 40mg 40 mg PO DAILY 11/25/17 03/29/20 Capsule] Calcium Carb,Gluc/Mag Ox,Gluc 1 each PO DAILY 01/07/18 03/29/20 [Calcium Magnesium Caplet] Cholecalciferol (Vitamin D3) 1,000 unit PO DAILY 01/07/18 03/29/20 [Vitamin D3 1,000 Unit Cap] Fluticasone Propionate [Flonase 1 spr NS DAILY 01/07/18 03/29/20 50mcg nasal spray 16gm] duloxetine 60 mg capsule,delayed 120 mg PO DAILY 30 Days #3
[2020-10-04 10:36] VITALS: BP 116/72; PULSE 89; RESP 20; TEMP 36.8; O2SAT 100
== END 2020-10-04 10:41 | disposition home or self-care (01) ==
PROVIDERS: Emergency Provider Nurse Practitioner; PCP Family Medicine
DX: Z20.822 Contact with and (suspected) exposure to COVID-19 (principal); J32.9 Chronic sinusitis, unspecified; F41.8 Other specified anxiety disorders; K21.9 Gastro-esophageal reflux disease without esophagitis; I25.10 Atherosclerotic heart disease of native coronary artery without angina pectoris; Z88.5 Allergy status to narcotic agent; Z90.11 Acquired absence of right breast and nipple; Z90.49 Acquired absence of other specified parts of digestive tract; Z90.79 Acquired absence of other genital organ(s); Z79.899 Other long term (current) drug therapy
CPT/HCPCS: G0463; 99202; U0003

== ENCOUNTER → 2021-01-25 12:15 | Outpatient (CLI) | payer MEDICARE, OTHER, SELFPAY ==
--- NOTE | 2021-01-25 12:28 | XR_ITS ---
PROCEDURE: XR HIP LT 2-3V W/PELVIS CLINICAL INDICATION: LT HIP PAIN COMPARISON: No exams were available for comparison FINDINGS: No fracture or dislocation is evident. No significant degenerative change. No lytic or blastic change. Unremarkable soft tissues. There are a few surgical clips projecting over the medial acetabular region on the left. IMPRESSION: No acute findings. Dictated by: James Moser MD 01/25/2021 13:12 James Moser MD in [place] 01/25/2021 13:12
== END ==
PROVIDERS: PCP Family Medicine; Visit Provider Family Medicine
DX: M25.552 Pain in left hip (principal)
CPT/HCPCS: 73502

== ENCOUNTER → 2021-03-20 13:32 | Outpatient (CLI) | payer MEDICARE, OTHER, SELFPAY ==
--- NOTE | 2021-03-20 13:35 | MM_ITS ---
PROCEDURE: MM DIG SC MAMM UNILAT LT CAD Digital Breast Tomosynthesis Included CLINICAL INDICATION: h/o rt breast cancer COMPARISON: MG DMSUL DIG MAMM-SCREEN UNI-LT W/CAD from 04/08/2017 [facility] MM Dig screening mamm BI w/CAD from 10/30/2018 MG MM DIG SCREENING MAMM BI W/CAD from 01/29/2020 TECHNIQUE: Standard CC and MLO images and 3D Tomosynthesis was obtained. R2 CAD reviewed. FINDINGS: There are scattered areas of fibroglandular density. No malignant appearing mass or malignant-appearing microcalcification. Status post right mastectomy. Benign-appearing calcification. No significant change IMPRESSION: No significant change with no evidence of malignancy BI-RAD Category: 2 Benign Finding FOLLOW-UP: 1 YR 1 Year Follow-up (A letter has been sent to the patient regarding results of the study.) Dictated by: James Moser MD 03/28/2021 15:15 James Moser MD in [facility] 03/28/2021 15:15
== END ==
PROVIDERS: PCP Family Medicine; Visit Provider Family Medicine
DX: Z12.31 Encounter for screening mammogram for malignant neoplasm of breast (principal)
CPT/HCPCS: 77063; 77067

== ENCOUNTER → 2021-04-14 10:13 | Outpatient (CLI) | payer MEDICARE, OTHER, SELFPAY | PROVIDERS: Visit Provider Nurse Practitioner Family | DX: Z20.822 Contact with and (suspected) exposure to COVID-19 (principal) | CPT/HCPCS: U0003 ==

== ENCOUNTER → 2021-05-06 13:09 | Outpatient (CLI) | payer MEDICARE, OTHER, SELFPAY | PROVIDERS: PCP Family Medicine; Visit Provider Nurse Practitioner Family | DX: Z20.822 Contact with and (suspected) exposure to COVID-19 (principal) | CPT/HCPCS: C9803; U0003; U0005 ==

== ENCOUNTER 2021-06-22 09:27 | Emergency (ER) | payer MEDICARE, OTHER, SELFPAY ==
[2021-06-22 10:00] VITALS: BP 131/88; PULSE 74; RESP 19; TEMP 36.8; O2SAT 98; BMI 26.9
--- NOTE | 2021-06-22 10:34 | HMH.EDUTC ---
[facility] Disposition Clinical Impression: Sinusitis Qualifiers: Sinusitis location: unspecified location Chronicity: unspecified Qualified Code(s): J32.9 - Chronic sinusitis, unspecified Disposition: Home, Self-Care Condition on Discharge: Good Instructions: Sinusitis, DI for Sinusitis, Amoxicillin and Clavulanic Acid Additional Instructions: *Monitor Temp, Over the counter Motrin or Tylenol as directed/as needed Tylenol every 4 hours and Motrin every 6 hours (as long as your family doctor has told you that you can take it) for fever or pain. and straight to ER if unable to lower temp less than 101.0 after medication given *Warm salt water gargles may help to soothe the throat *Throat Lozenges *Warm fluids like tea with honey may help to soothe the throat *Sleep elevated *Humidifier/Vaporizer *Flonase 2 sprays in each nostril daily but be aware that it may take 2-3 days before you notice improvement Follow up IMMEDIATELY for new or worsening symptoms or no Noticeable improvement over the next 48-72 hours. 911 for difficulty breathing or swallowing You were tested for today for COVID19 your test result should be back in the next 24-48 hours, you may Check your results on the [facility] my health Portal if you have trouble logging on you may call for assistance, if you are positive you will get a call from someone here at the hospital to inform you of your positive result You was given a handout with instructions for Self Quarantine and Self isolation for while you wait on test results and what to do if they are positive If you are positive the Health Dept will be contacting you also Make sure to take your Vitamins Vit. C Vit D and Zinc if you can take them Prescriptions: Benzonatate [Benzonatate 100mg cap] 100 mg PO Q8HP PRN #15 cap PRN Reason: Cough Transmission Status: Pending to [facility] Amoxicillin/Potassium Clav [Augmentin 875-125 Tablet] 1 tab PO Q12H 7 Days #14 tab [facility]: [facility] Referrals: Kiko Sanderson MD [Primary Care Provider] - As needed Time of Disposition: 10:51 Medical Decision Making - Pj Inquiry Pt receiving controlled substance: No Pj was queried for this patient: No Vital Signs: 12/02/21 10:00 Temperature 98.3 F Temperature Source Oral Pulse Rate [Right Brachial] 74 Respiratory Rate 19 Blood Pressure [Right Arm] 131/88 Blood Pressure Mean [Right Arm] 102 Blood Pressure Source [Right Arm] Automatic Cuff Blood Pressure Position [Right Arm] Sitting 02 Sat by Pulse Oximetry 98 Oxygen Delivery Method Room Air [facility] HPI - General Stated complaint: sore throat, cough,runny nose Time Seen by Provider: 06/22/21 10:35 Mode of Arrival: Ambulatory Source of Information: Patient Limitations: No Limitations Description of Symptoms (Recalled from Triage Doc. by RN): PATIENT C/O SORE THROAT, HEADACHE, COUGH, RUNNY NOSE, AND DIZZINESS X 2 DAYS. RECENTLY TRAVELED OUT OF STATE. WANTS TESTED FOR COVID HEENT Symptoms (Recalled from RN notes): Yes Resp Symptoms (Recalled from RN notes): Yes Skin Symptoms (Recalled from RN notes): No MS Symptoms (Recalled from RN notes): No Functional Status (Recalled from RN notes): WNL - History of Present Illness Provider Complaint: Patient states that she has been having sinus congestion and pressure behind her eyes with sore throat, cough, and feeling pressure in her ears and has got dizzy a time or two when she has turned her head too quickly and feels like she may have fluid in her ears State that she did recenlty travel and thinks it is just a sinus infection but she wanted to get tested for COVID to be safe for her family - Related Data Home Medications Medication Instructions Recorded Confirmed Atorvastatin Calcium [Lipitor 40mg 40 mg PO HS 11/25/17 03/29/21 Tab] Montelukast Sodium [Montelukast 10 mg PO DAILY 11/25/17 03/29/21 10mg Tab] Omeprazole [Omeprazole 40mg 40 mg PO DAILY
[2021-06-22 10:50] VITALS: BP 131/88; PULSE 74; RESP 19; TEMP 36.8; O2SAT 98
== END 2021-06-22 10:54 | disposition home or self-care (01) ==
PROVIDERS: Emergency Provider Nurse Practitioner; PCP Family Medicine
DX: J32.9 Chronic sinusitis, unspecified (principal); Z20.822 Contact with and (suspected) exposure to COVID-19; F41.8 Other specified anxiety disorders; I25.10 Atherosclerotic heart disease of native coronary artery without angina pectoris; K21.9 Gastro-esophageal reflux disease without esophagitis; E78.5 Hyperlipidemia, unspecified
CPT/HCPCS: G0463; 99202; C9803; U0003; U0005

== ENCOUNTER → 2021-07-10 16:46 | Outpatient (CLI) | payer MEDICARE, OTHER, SELFPAY ==
--- NOTE | 2021-07-10 16:49 | CT_ITS ---
PROCEDURE INFORMATION: Exam: CT Abdomen And Pelvis Without Contrast Exam date and time: 07/10/2021 4:49 PM Age: 65 years old Clinical indication: Abdominal pain; Flank; Left; Additional info: Hematuria, hematuria, kidney area pain and lower abdomen // previously had hysterectomy and gallbladder surgery TECHNIQUE: Imaging protocol: Computed tomography of the abdomen and pelvis without contrast. Radiation optimization: All CT scans at this facility use at least one of these dose optimization techniques: automated exposure control; mA and/or kV adjustment per patient size (includes targeted exams where dose is matched to clinical indication); or iterative reconstruction. COMPARISON: CR XR HIP LT 2-3V W/PELVIS 01/25/2021 12:38 PM FINDINGS: Tubes, catheters and devices: Metallic clips at the left inguinal region. Lungs: Calcified granuloma at the right lower lobe. Liver: There are calcified granulomas involving the liver. Hepatomegaly measures 18.4 cm. Gallbladder and bile ducts: Previous cholecystectomy. Pancreas: Normal. No ductal dilation. Spleen: There are calcified granulomas involving the spleen. Adrenal glands: Normal. No mass. Kidneys and ureters: Normal. No hydronephrosis. Stomach and bowel: Unremarkable. No obstruction. No mucosal thickening. Appendix: No evidence of appendicitis. Intraperitoneal space: Unremarkable. No free air. No significant fluid collection. Vasculature: Vascular calcification. There are several phleboliths within the pelvis. Lymph nodes: Unremarkable. No enlarged lymph nodes. Urinary bladder: Unremarkable as visualized. Reproductive: Previous hysterectomy. Bones/joints: Unremarkable. No acute fracture. Soft tissues: Unremarkable. IMPRESSION: 1. No acute abnormality involving the abdomen or pelvis. 2. Non emergent findings as above.
== END ==
PROVIDERS: PCP Family Medicine; Visit Provider Family Medicine
DX: R31.9 Hematuria, unspecified (principal)
CPT/HCPCS: 74176

== ENCOUNTER → 2021-07-20 15:27 | Outpatient (CLI) | payer MEDICARE, OTHER, SELFPAY | PROVIDERS: Visit Provider Family Medicine | DX: N39.0 Urinary tract infection, site not specified (principal) | CPT/HCPCS: 87086 ==

== ENCOUNTER → 2021-10-27 09:18 | Outpatient (CLI) | payer MEDICARE, OTHER, SELFPAY ==
--- NOTE | 2021-10-27 09:23 | XR_ITS ---
FINAL REPORT CLINICAL HISTORY: LT hip pain FINDINGS: LEFT HIP Two views of the left hip including an AP pelvis demonstrate no acute fracture or dislocation. The joint spaces appear normal. The visualized bony structures are well aligned. No soft tissue abnormality is seen. There are postoperative changes in the left pelvis. IMPRESSION: No acute bony abnormality. Reviewed, Interpreted and Dictated by Saud Arias III, MD Transcribed by Deidre Singh Authenticated by Saud Arias III, MD on 10/27/2021 10:37:52 AM [facility]
== END ==
PROVIDERS: PCP Family Medicine; Visit Provider Orthopaedic Surgery
DX: M25.552 Pain in left hip (principal)
CPT/HCPCS: 73502

== ENCOUNTER → 2022-05-24 10:45 | Outpatient (CLI) | payer MEDICARE, OTHER, SELFPAY ==
--- NOTE | 2022-05-24 10:48 | MM_ITS ---
PROCEDURE INFORMATION: Exam: MG Left Screening 3D Mammography Exam date and time: 05/24/2022 10:42 AM Age: 66 years old Clinical indication: Screening mammogram. Right mastectomy for carcinoma TECHNIQUE: Imaging protocol: Left Screening tomosynthesis and 2D mammography including computer-aided detection (CAD) when performed. COMPARISON: 1. MG MM DIG SC MAMM UNILAT LT CAD 03/20/2021 1:39 PM 2. MG MM DIG SCREENING MAMM BI W/CAD 01/29/2020 10:39 AM 3. MG SCBI MM Dig screening mamm BI w/CAD 10/30/2018 4:14 PM 4. MG DMSUL DIG MAMM-SCREEN UNI-LT W/CAD 04/08/2017 9:10 AM FINDINGS: MAMMOGRAPHY: Breast composition: There are scattered areas of fibroglandular density. Mass: None. Architectural distortion: No new or suspicious architectural distortion. Calcifications: No new or suspicious calcifications are present Asymmetric density: No new or suspicious asymmetric density is present Skin thickening: None. Axillary adenopathy: None. IMPRESSION: No mammographic evidence of malignancy. Recommend annual screening mammography unless otherwise clinically indicated. ASSESSMENT: BI-RADS category 1: Negative
== END ==
PROVIDERS: PCP Family Medicine; Visit Provider Family Medicine
DX: Z12.31 Encounter for screening mammogram for malignant neoplasm of breast (principal)
CPT/HCPCS: 77063; 77067

== ENCOUNTER → 2022-10-16 10:26 | Outpatient (CLI) | payer MEDICARE, OTHER, SELFPAY ==
--- NOTE | 2022-10-16 10:31 | CT_ITS ---
FINAL REPORT TECHNIQUE: Thin section axial images were obtained through the paranasal sinuses without contrast. CLINICAL HISTORY: CHRONIC SINUSITIS FINDINGS: There is mild mucoperiosteal thickening in the right maxillary sinus. There is mucus and debris in the right maxillary sinus but no air-fluid level. The remaining paranasal sinuses are clear. The bilateral ethmoid infundibulum are patent. There is left nasal septal deviation. There is no acute osseous abnormality. There is bilateral allison bullosa of the middle turbinates. Mastoids are clear. Remaining soft tissues are within normal limits. IMPRESSION: 1. Findings in the right maxillary sinus is favored to be related to chronic sinusitis. 2. Left nasal septal deviation. 3. Anatomic variance as above. Reviewed, Interpreted and Dictated by Yennifer Herring MD Transcribed by Deidre Singh Authenticated and [facility]
== END ==
PROVIDERS: PCP Family Medicine; Visit Provider Allergy & Immunology
DX: J32.9 Chronic sinusitis, unspecified (principal)
CPT/HCPCS: 70486

== ENCOUNTER → 2022-11-27 15:00 | Outpatient (CLI) | payer MEDICARE, OTHER, SELFPAY ==
--- NOTE | 2022-11-27 15:09 | MR_ITS ---
FINAL REPORT TECHNIQUE: Multiplanar MR without contrast CLINICAL HISTORY: RIGHT KNEE PAIN swelling in knee, pops grinding and crunching pain worse when going up steps knee gives out x 2 weeks FINDINGS: Articular cartilage: Grade 4 chondromalacia of the patella. Moderate degenerative change of the medial and lateral compartments. Marrow signal: Scattered degenerative related areas of subchondral marrow edema greatest in the anterior aspect of the lateral femoral condyle. Joint fluid: Small joint effusion. Small Daly cyst. Menisci: Normal morphology without tear Ligaments: Collateral and cruciate ligaments intact IMPRESSION: Moderate degenerative change with grade 4 chondromalacia of the patella. Scattered areas of degenerative subchondral marrow edema. Reviewed, Interpreted and Dictated by Marta Moraes MD Transcribed by Rohan Godfrey Authenticated and . [facility]
== END ==
PROVIDERS: PCP Family Medicine; Visit Provider Nurse Practitioner Family
DX: M25.561 Pain in right knee (principal)
CPT/HCPCS: 73721

== ENCOUNTER → 2023-03-07 08:07 | Outpatient (CLI) | payer MEDICARE, OTHER, SELFPAY ==
[2023-03-07 08:33] LABS: Basophils % 0.8 % (0.1-2.0); Eosinophils # 0.3 K/mm3 (0.0-0.4); Eosinophils % 5.7 % (0.1-12.0); Hematocrit 43.6 % (37.0-47.0); Hemoglobin 14.4 g/dL (12.2-16.2); Lymphocytes # 1.6 K/mm3 (0.7-4.5); Lymphocytes % 33.2 % (10-50); Mean Corpuscular Hemoglobin 32.6 pg (27.0-31.2); Mean Corpuscular Volume 98.9 fl (81-99); Mean Platelet Volume 8.3 fl (7.4-10.4); Monocytes # 0.4 K/mm3 (0.1-1.0); Monocytes % 8.7 % (1.7-9.3); Neutrophils # 2.4 K/mm3 (1.8-7.8); Neutrophils % 51.5 % (37.0-80.0); Platelet Count 234 K/mm3 (142-424); Red Blood Count 4.41 M/mm3 (4.20-5.40); Red Cell Distribution Width 12.9 % (11.5-17.5); White Blood Count 4.7 K/mm3 (4.8-10.8)
[2023-03-07 08:50] LABS: Hemoglobin A1C 5.9 % (4.0-6.0)
[2023-03-07 09:11] LABS: Alanine Aminotransferase 28 U/L (12-78); Albumin/Globulin Ratio 1.5 (1.1-1.8); Alkaline Phosphatase 96 U/L (38-126); Anion Gap 9.4 mEq/L (5-15); Aspartate Amino Transferase 28 U/L (14-36); Bilirubin,Total 0.4 mg/dl (0.2-1.3); Blood Urea Nitrogen 19 mg/dl (7-17); Calcium 9.2 mg/dl (8.4-10.2); Carbon Dioxide 33 mmol/L (22.0-30.0); Chloride 105 mmol/L (98-107); Cholesterol 145 mg/dl (140-200); Estimated Glomerular Filt Rate 71 ml/min (>60); GFR (African American) 86 ML/MIN (>60); Globulin 2.6 g/dL (1.3-3.2); Glucose 132 mg/dl (74-100); HDL Cholesterol 48 mg/dl (40-60); Potassium 4.4 mmoL/L (3.5-5.1); Sodium 143 mmol/L (136-145); Total Protein,Serum 6.6 g/dl (6.3-8.2); Triglycerides 151 mg/dl (30-150); Uric Acid 5.2 mg/dl (2.5-6.2); VLDL Cholesterol 30 mg/dL (0-40)
[2023-03-07 09:23] LABS: Direct LDL Cholesterol 59.77 mg/dL (100-129)
[2023-03-07 09:41] LABS: Thyroid Stimulating Hormone 1.93 uIU/mL (0.465-4.68)
[2023-03-07 11:06] LABS: Creatinine,Urine Random 78 mg/dL (Not Estab.); Microalbumin < 6.000 mg/L (0-16.7)
== END ==
PROVIDERS: PCP Family Medicine; Visit Provider Family Medicine
DX: E78.2 Mixed hyperlipidemia (principal); R73.01 Impaired fasting glucose; E55.9 Vitamin D deficiency, unspecified; I10 Essential (primary) hypertension
CPT/HCPCS: 36415; 80053; 80061; 82043; 82306; 82570; 83036; 84443; 84550; 85025

== ENCOUNTER → 2023-03-21 12:50 | Outpatient (CLI) | payer MEDICARE, OTHER, SELFPAY ==
--- NOTE | 2023-03-21 12:54 | CT_ITS ---
FINAL REPORT TECHNIQUE: Thin section axial CT images with coronal and sagittal reformats were performed after the administration of IV contrast. This study was performed with techniques to keep radiation doses as low as reasonably achievable (ALARA). Individualized dose reduction techniques using automated exposure control or adjustment of mA and/or kV according to the patient's size were employed. CLINICAL HISTORY: NEOPLASM OF NECK, right side, lymph node swollen x 4 months. bb placed on palpable area. FINDINGS: There is long segment fusion from C3-C6 with an orthopedic plate and screws anteriorly. This includes the C6-7 disc level. The metallic implants create some degree of streak artifact somewhat limiting overall exam quality. No focal cervical nodes are identified. There are multiple enlarged mediastinal nodes measuring up to 2.3 cm, which are incompletely visualized.. Salivary glands are normal. Larynx is unremarkable. There is a left lower pole thyroid nodule, measuring 11 mm in size. IMPRESSION Long segment anterior cervical fusion identified from C3-C6 including the C6-7 level which results in streak artifact slightly limiting overall image quality. Multiple enlarged mediastinal nodes measuring up to 2.3 cm, incompletely visualized. Would recommend dedicated CT scan of the chest with contrast for further evaluation. Left thyroid nodule measuring 11 mm in the lower pole. Would recommend thyroid ultrasound for further evaluation. Reviewed, Interpreted and Dictated by Jaime Arreguin MD Transcribed by Tala Selby Authenticated and [facility]
== END ==
PROVIDERS: PCP Family Medicine; Visit Provider Family Medicine
DX: D48.7 Neoplasm of uncertain behavior of other specified sites; E04.1 Nontoxic single thyroid nodule
CPT/HCPCS: 70491; Q9967

== ENCOUNTER → 2023-03-29 08:11 | Outpatient (CLI) | payer MEDICARE, OTHER, SELFPAY ==
[2023-03-29 09:01] LABS: Blood Urea Nitrogen 22 mg/dl (7-17); Estimated Glomerular Filt Rate 71 ml/min (>60); GFR (African American) 86 ML/MIN (>60)
== END ==
PROVIDERS: PCP Family Medicine; Visit Provider Family Medicine
DX: R59.0 Localized enlarged lymph nodes (principal)
CPT/HCPCS: 36415; 82565; 84520

== ENCOUNTER → 2023-04-01 13:18 | Outpatient (CLI) | payer MEDICARE, OTHER, SELFPAY ==
--- NOTE | 2023-04-01 13:21 | US_ITS ---
FINAL REPORT CLINICAL HISTORY: THYROID NODULE COMPARISON: None FINDINGS: THYROID ULTRASOUND: The right lobe of the thyroid gland measures 5.1 x 1.4 x 1.4 cm in size, somewhat enlarged. There are 2 nodules visualized in the right thyroid lobe, the first measuring 4 x 4 x 2 mm in size, spongiform, a TI-RADS 1 nodule by categorization. The second nodule on the right side measures 4 x 5 x 3 cm in size, is solid, isoechoic, and a TI-RADS 3 category nodule. The left lobe of the thyroid is also somewhat enlarged measuring 5 x 1.1 x 1.3 cm in size. There is a 9 x 10 x 8 mm spongiform nodule present, a TI-RADS 1 category nodule. The isthmus is unremarkable in appearance and measures 2 mm in thickness. IMPRESSION: The overall size of the thyroid gland is somewhat enlarged, with 3 focal nodules seen. By TI-RADS criteria none of these nodules require follow-up at this time. Reviewed, Interpreted and Dictated by Saud Arias III, MD Transcribed by Tala Selby Authenticated and . [facility]
== END ==
PROVIDERS: PCP Family Medicine; Visit Provider Family Medicine
DX: E04.1 Nontoxic single thyroid nodule (principal)
CPT/HCPCS: 76536

== ENCOUNTER → 2023-04-08 10:00 | Outpatient (CLI) | payer MEDICARE, OTHER, SELFPAY ==
--- NOTE | 2023-04-08 10:26 | US_ITS ---
FINAL REPORT TECHNIQUE: Real-time grayscale and color ultrasound of the soft tissues of the neck was performed. CLINICAL HISTORY: NECK PAIN COMPARISON: None FINDINGS: Ultrasound images of the area of concern in the right lateral side of the neck were obtained. Color Doppler images were submitted. Submandibular and parotid glands are within normal limits. No abnormality identified. IMPRESSION: No acute findings. Reviewed, Interpreted and Dictated by Jaime Arreguin MD Transcribed by Dulce Rebollar Authenticated and [facility]
== END ==
PROVIDERS: PCP Family Medicine; Visit Provider Family Medicine
DX: M54.2 Cervicalgia (principal)
CPT/HCPCS: 76536

== ENCOUNTER → 2023-04-10 13:57 | Outpatient (CLI) | payer MEDICARE, OTHER, SELFPAY ==
--- NOTE | 2023-04-10 14:00 | CT_ITS ---
FINAL REPORT TECHNIQUE: Routine axial images were obtained from the lung apices to below the diaphragm following IV contrast administration. Individualized dose reduction techniques using automated exposure control or adjustment of the mA and/or kV according to the patient size were employed. CLINICAL HISTORY: LYMPHADENOPATHY COMPARISON: None FINDINGS: There is a noncalcified nodule in the right suprahilar region measuring 7 mm in diameter best seen on image 27 of series 2. No pleural or pericardial effusion is seen. There is moderate diffuse mediastinal adenopathy. A subcarinal lymph node measures up to 2.7 x 1.6 cm. There are calcified right hilar lymph nodes. There is dicr-kg-ffaopiin anterior osteophyte formation in the midthoracic spine. IMPRESSION: Moderate mediastinal and hilar adenopathy of uncertain significance. This could be reactive or neoplastic. There is no prior for comparison to assess interval change. 7 mm noncalcified nodule right suprahilar region. Per Fleischner criteria, follow-up recommended in 6-12 months. Reviewed, Interpreted and Dictated by Jaime Arreguin MD Transcribed by Dulce Rebollar Authenticated and [facility]
== END ==
PROVIDERS: PCP Family Medicine; Visit Provider Family Medicine
DX: R59.0 Localized enlarged lymph nodes (principal)
CPT/HCPCS: 71260; Q9967

== ENCOUNTER → 2023-04-18 09:03 | Outpatient (CLI) | payer MEDICARE, OTHER, SELFPAY ==
--- NOTE | 2023-04-18 09:07 | XR_ITS ---
FINAL REPORT CLINICAL HISTORY: left hip pain FINDINGS: An AP view of the pelvis and a frog leg views of the left hip were obtained. There is no prior exam for comparison. There is no acute fracture or dislocation. There is degenerative joint disease bilaterally, asymmetric to the right. Remaining osseous pelvis is within normal limits. No acute soft tissue abnormality. IMPRESSION: No acute osseous abnormality of the left hip. If pain persists, consider MR. Authenticated and [facility]
== END ==
PROVIDERS: PCP Family Medicine; Visit Provider Orthopaedic Surgery
DX: M25.552 Pain in left hip (principal)
CPT/HCPCS: 73502

== ENCOUNTER → 2023-05-23 10:54 | Outpatient (CLI) | payer MEDICARE, OTHER, SELFPAY ==
--- NOTE | 2023-05-23 10:54 | CT_ITS ---
FINAL REPORT TECHNIQUE: Thin section axial CT images of the facial bones and sinuses were obtained without contrast. Coronal and sagittal reformatted images were also obtained. This study was performed with techniques to keep radiation doses as low as reasonably achievable, (ALARA). Individualized dose reduction techniques using automated exposure control or adjustment of mA and/or kV according to the patient's size were employed. CLINICAL HISTORY: Allergic Rhinitis/Chronic Sinusitis COMPARISON: 10/16/2022 FINDINGS: There is mild mucosal thickening in the right maxillary sinus, with debris similar to the prior of uncertain etiology. No fluid levels are identified. The ostiomeatal units have an unremarkable appearance. Mild nasal septal deviation is again present. Bilateral allison bullosa are identified in the middle turbinates. No fracture or acute bony abnormality is identified. IMPRESSION: Mild mucosal thickening of the right maxillary sinus, with debris present, and fungal sinusitis cannot be excluded. The debris may be a mycetoma. Follow-up is suggested as clinically indicated. No significant change identified since the prior CT of the sinuses dated September 2022 Reviewed, Interpreted and Dictated by Saud Arias III, MD Transcribed by Tala Selby Authenticated and [facility]
== END ==
PROVIDERS: PCP Family Medicine; Visit Provider Nurse Practitioner
DX: J30.9 Allergic rhinitis, unspecified (principal); J32.9 Chronic sinusitis, unspecified
CPT/HCPCS: 70486

== ENCOUNTER → 2023-06-06 13:54 | Outpatient (CLI) | payer MEDICARE, OTHER, SELFPAY ==
--- NOTE | 2023-06-06 14:06 | XR_ITS ---
FINAL REPORT CLINICAL HISTORY: right knee pain/swelling. Cyst in posterior right knee. COMPARISON: None FINDINGS: RIGHT KNEE 3 views of the right knee were obtained. There is no acute fracture or dislocation. There is mild narrowing of the medial compartment joint space. There is marked narrowing of the patellofemoral joint space. There are osteophytes along the undersurface of the patella. Soft tissues are unremarkable. 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 Reviewed, Interpreted and Dictated by Jaime Arreguin MD Transcribed by Dulce Rebollar Authenticated and [facility]
== END ==
PROVIDERS: PCP Family Medicine; Visit Provider Orthopaedic Surgery
DX: M25.561 Pain in right knee (principal)
CPT/HCPCS: 73562

== ENCOUNTER → 2023-07-01 10:46 | Outpatient (CLI) | payer MEDICARE, OTHER, SELFPAY ==
--- NOTE | 2023-07-01 10:47 | MR_ITS ---
FINAL REPORT CLINICAL HISTORY: Low Back Pain. LEFT HIP AND LEG PAIN. SYMPTOMS XYEARS. FINDINGS: Multiplanar MR imaging of the lumbar spine was performed without contrast. On the sagittal T2-weighted images, decreased signal seen throughout. The vertebral alignment is normal. There is no evidence of fracture. No bony mass is identified. The conus is seen at approximately the L1 level and has an unremarkable appearance. L1-2: There is no significant canal stenosis or neural foraminal narrowing. L2-3: There is no significant canal stenosis or neural foraminal narrowing. L3-4: Mild diffuse disc bulge with a left posterolateral disc protrusion. There is mild to moderate left neuroforaminal narrowing. L4-5: Mild diffuse disc bulge with left posterolateral disc protrusion. There is moderate left and mild right neuroforaminal narrowing. L5-S1: Moderate diffuse disc bulge with endplate hypertrophy and moderate to high-grade bilateral neuroforaminal narrowing. IMPRESSION: Multilevel degenerative disc disease with high-grade bilateral neuroforaminal narrowing at L5-S1. Reviewed, Interpreted and Dictated by Jaime Arreguin MD Transcribed by Argelia Temple Authenticated and [facility]
== END ==
PROVIDERS: PCP Family Medicine; Visit Provider Orthopaedic Surgery
DX: M54.50 Low back pain, unspecified (principal)
CPT/HCPCS: 72148; 76376

== ENCOUNTER 2023-07-06 09:09 | Emergency (ER) | payer MEDICARE, OTHER, SELFPAY ==
--- NOTE | 2023-07-06 10:01 | EXP.UTC ---
Discharge Plan Disposition Patient Disposition: Home, Self-Care Condition: Good Prescriptions Prescriptions: New benzonatate [benzonatate] 100 mg capsule 100 mg PO TIDP PRN (Reason: Cough) Qty: 30 0RF ondansetron 4 mg Tablet,Disintegrating 4 mg PO Q8H PRN (Reason: Nausea) Qty: 12 0RF No Action losartan 25 mg tablet 25 mg PO DAILY Patient Comments: TAKE 1 TABLET BY MOUTH ONCE DAILY duloxetine 60 mg capsule,delayed release(DR/EC) 120 mg PO DAILY 30 Days Qty: 30 atorvastatin 40 MG tablet 40 mg PO HS omeprazole 40 MG capsule,delayed release(DR/EC) 40 mg PO DAILY montelukast 10 MG tablet 10 mg PO DAILY Referrals Follow up/Referrals: Kiko Sanderson MD [Primary Care Provider] - See instructions Activity Restrictions/Add. Instructions Additional Instructions/Restrictions: Drink plenty of fluids. Take tylenol or ibuprofen for pain or fever. Follow up with your regular doctor. GO TO THE ER FOR ANY WORSENING SYMPTOMS Clinical Impressions Clinical Impression: Acute viral syndrome Instructions Patient Instructions: Coronavirus Disease 2019, Preventing the Spread of Coronavirus Discharge Instructions Discharge ED Provider: Александр Lobato [facility] HPI General Stated complaint: positive covid test 07/06, congestion, h/a, cough Time Seen by Provider: 07/06/23 10:01 History of Present Illness Provider Complaint: She states that she began having symptoms yesterday morning. She tested positive for covid-19 last night on a home test. She came in today to have a pcr covid-19 test. She denies any shortness of breath or significant cough. Related Data Home Medications Medication Instructions Recorded Confirmed atorvastatin 40 mg tablet 40 mg PO HS Cholesterol 11/25/17 07/06/23 montelukast 10 mg tablet 10 mg PO DAILY ALLERGIES 11/25/17 07/06/23 omeprazole 40 mg capsule,delayed 40 mg PO DAILY Heartburn 11/25/17 07/06/23 release duloxetine 60 mg capsule,delayed 120 mg PO DAILY mood 30 days #30 06/09/18 07/06/23 release caps losartan 25 mg tablet 25 mg PO DAILY 05/09/23 07/06/23 Previous Rx's Medication Instructions Recorded benzonatate 100 mg capsule 100 mg PO TIDP PRN Cough #30 caps 07/06/23 ondansetron 4 mg disintegrating 4 mg PO Q8H PRN Nausea #12 tabs 07/06/23 tablet Allergies Allergy/AdvReac Type Severity Reaction Status Date / Time codeine [CODEINE] Allergy Unknown vomiting/hi Verified 07/04/23 14:14 ves hydrocodone [HYDROCODONE] Allergy Unknown vomiting/hi Verified 07/04/23 14:14 ves morphine [MORPHINE] Allergy Unknown vomiting/hi Verified 07/04/23 14:14 ves oxycodone [OXYCODONE] Allergy Unknown hives/vomit Verified 07/04/23 14:14 ing methylprednisolone Allergy tingling/we Verified 07/04/23 14:14 akness/anxi ety PFSH PFSH Disclaimer: The information contained in this section may have been updated after the patient was seen, as this information can be updated by other users. Medical History Allergic rhinitis Chronic sinusitis Deviated nasal septum Social History Smoking Status: Never smoker alcohol intake: never substance use type: denies use current occupational status: other Travel in the last 8 weeks: None household members: none housing: apartment current occupation: [employer] current occupational exposures/hazards: No caffeine: Yes ROS Obtained: Yes All systems reviewed & no additional complaints except as documented Constitutional Constitutional: Reports chills and Reports fever(s) Eyes Eyes: Denies eye discharge ENT Ears, Nose, Mouth, and Throat: Reports as per HPI Cardiovascular Cardiovascular: Denies chest pain Respiratory Respiratory: Denies chest congestion and Reports cough Gastrointestinal Gastrointestingal: Reports nausea; Denie
[2023-07-06 10:05] VITALS: BP 141/84; PULSE 82; RESP 20; TEMP 37.7; O2SAT 98; BMI 27.4
[2023-07-06 10:22] VITALS: BP 141/84; PULSE 82; RESP 20; TEMP 37.8; O2SAT 98
== END 2023-07-06 10:28 | disposition home or self-care (01) ==
PROVIDERS: Emergency Provider Nurse Practitioner Family; PCP Family Medicine
DX: U07.1 COVID-19 (principal); R51.9 Headache, unspecified; R50.9 Fever, unspecified; R11.0 Nausea; R09.81 Nasal congestion; R09.89 Other specified symptoms and signs involving the circulatory and respiratory systems; J30.9 Allergic rhinitis, unspecified; K21.9 Gastro-esophageal reflux disease without esophagitis; I10 Essential (primary) hypertension; E78.5 Hyperlipidemia, unspecified
CPT/HCPCS: 87635; 99212; 99214; G0463

== ENCOUNTER 2023-07-23 16:22 | Outpatient (CLI) | payer MEDICARE, OTHER, SELFPAY ==
--- NOTE | 2023-07-23 16:28 | MM_ITS ---
PROCEDURE INFORMATION: Exam: MG Left Screening 3D Mammography Exam date and time: 07/23/2023 4:16 PM Age: 67 years old Clinical indication: Screening left mammogram. Right mastectomy for carcinoma TECHNIQUE: Imaging protocol: Left Screening tomosynthesis and 2D mammography including computer-aided detection (CAD) when performed. COMPARISON: 1. MG MM DIG SC MAMM UNILAT LT CAD 05/24/2022 10:42 AM 2. MG MM DIG SC MAMM UNILAT LT CAD 03/20/2021 1:39 PM 3. MG MM DIG SCREENING MAMM BI W/CAD 01/29/2020 10:39 AM 4. MG SCBI MM Dig screening mamm BI w/CAD 10/30/2018 4:14 PM FINDINGS: MAMMOGRAPHY: Breast composition: There are scattered areas of fibroglandular density. Mass: None. Architectural distortion: No new or suspicious architectural distortion. Calcifications: No new or suspicious calcifications are present Asymmetric density: No new or suspicious asymmetric density is present Skin thickening: None. Axillary adenopathy: None. IMPRESSION: No mammographic evidence of malignancy. Recommend annual screening mammography unless otherwise clinically indicated. ASSESSMENT: BI-RADS category 1: Negative
== END 2023-07-23 23:59 ==
LOC: RAD 16:23
PROVIDERS: PCP Family Medicine; Visit Provider Family Medicine
DX: Z12.31 Encounter for screening mammogram for malignant neoplasm of breast (principal)
CPT/HCPCS: 77063; 77067

== ENCOUNTER 2023-08-06 10:23 | Outpatient (CLI) | payer MEDICARE, OTHER, SELFPAY ==
--- NOTE | 2023-08-06 10:33 | ECG_ITS ---
APPROVED REPORT Exam: Resting ECG HR:84 bpm ECG Measurements Heart Rate [address] 158 P 52 QRSd 88 QRS 4 QT 341 T 68 QTc 383 Conclusion SINUS RHYTHM POSSIBLE ANTERIOR MYOCARDIAL INFARCTION , PROBABLY OLD [30 ms Q WAVE IN V3/V4, OR R < 0.2 mV IN V4] BORDERLINE ECG UNCONFIRMED REPORT Electronically signed by : Brent Patton MD 08/07/2023 08:37:41
[2023-08-06 10:48] LABS: Basophils % 0.4 % (0.1-2.0); Eosinophils # 0.3 K/mm3 (0.0-0.4); Hematocrit 44.5 % (37.0-47.0); Hemoglobin 14.4 g/dL (12.2-16.2); Lymphocytes % 22.7 % (10-50); Mean Corpuscular HGB Conc 32.4 g/dL (31.8-35.4); Mean Corpuscular Hemoglobin 31.8 pg (27.0-31.2); Mean Corpuscular Volume 98.1 fl (81-99); Mean Platelet Volume 7.9 fl (7.4-10.4); Monocytes # 0.5 K/mm3 (0.1-1.0); Monocytes % 5.4 % (1.7-9.3); Neutrophils # 5.9 K/mm3 (1.8-7.8); Neutrophils % 68.5 % (37.0-80.0); Platelet Count 265 K/mm3 (142-424); Red Blood Count 4.54 M/mm3 (4.20-5.40); Red Cell Distribution Width 12.8 % (11.5-17.5); White Blood Count 8.6 K/mm3 (4.8-10.8)
[2023-08-06 11:14] LABS: Alanine Aminotransferase 24 U/L (12-78); Albumin Level 4.2 g/dl (3.5-5.0); Albumin/Globulin Ratio 1.8 (1.1-1.8); Alkaline Phosphatase 77 U/L (38-126); Anion Gap 10.9 mEq/L (5-15); Aspartate Amino Transferase 26 U/L (14-36); Bilirubin,Total 0.6 mg/dl (0.2-1.3); Blood Urea Nitrogen 13 mg/dl (7-17); Calcium 8.5 mg/dl (8.4-10.2); Carbon Dioxide 30 mmol/L (22.0-30.0); Chloride 103 mmol/L (98-107); Estimated Glomerular Filt Rate 83 ml/min (>60); GFR (African American) 100 ML/MIN (>60); Globulin 2.3 g/dL (1.3-3.2); Glucose 132 mg/dl (74-100); Potassium 3.9 mmoL/L (3.5-5.1); Sodium 140 mmol/L (136-145); Total Protein,Serum 6.5 g/dl (6.3-8.2)
== END 2023-08-06 23:59 ==
LOC: LAB 10:25
PROVIDERS: PCP Family Medicine; Visit Provider Otolaryngology
DX: J32.0 Chronic maxillary sinusitis (principal); Z01.818 Encounter for other preprocedural examination
CPT/HCPCS: 36415; 80053; 85025; 93005

== ENCOUNTER 2023-08-06 10:30 | Outpatient (POV) | payer MEDICARE, OTHER, SELFPAY | END 2023-08-06 23:59 | disposition home or self-care (01) | LOC: SC 10:31 | PROVIDERS: PCP Family Medicine; Visit Provider Dermatology | DX: Z00.00 Encounter for general adult medical examination without abnormal findings (principal) ==

== ENCOUNTER 2023-08-14 09:41 | Day surgery (SDC) | payer MEDICARE, OTHER, SELFPAY ==
[2023-08-14] VITALS (10 sets, daily range): BP systolic 136–177; BP diastolic 77–102; PULSE 82–100; RESP 12–18; TEMP 36.5–43; O2SAT 92–98; BMI 27.1
[2023-08-14] MEDS: LACTATED RINGERS 1000ML 1,000 ML 100 ML IV (10:14)
[2023-08-14] MEDS: CEFAZOLIN SODIUM 1 GM in 0.9 % SODIUM CHLORIDE 50 ML IV (13:05)
--- NOTE | 2023-08-14 13:25 | P.PNANES_ITS ---
[facility] Disclaimer: The information contained in this section may have been updated after the patient was seen, as this information can be updated by other users. Medical History Allergic rhinitis Breast cancer Chronic sinusitis Deviated nasal septum History of cataract History of thromboembolism Hypertension Surgical History History of cholecystectomy History of partial hysterectomy History of right mastectomy Family History Other Family history of cancer Family history of diabetes mellitus type II Family history of hypertension Family history of myocardial infarction Social History Smoking Status: Never smoker alcohol intake: never substance use type: denies use current occupational status: other Travel in the last 8 weeks: None household members: none housing: apartment current occupation: [employer] current occupational exposures/hazards: No caffeine: Yes [facility] Anesthesia Checklist Patient Identification Patient Identification: Arm Band Structural Data Admitted From: Home Planned Operative Procedure/s: Right FESS Consent for Planned Operative Procedure(s) Verified: Yes Verified Documents: Surgical Consent and History and Physical NPO Status Verified Time NPO: 00:00 Additional verifications Anesthesia Reactions: Yes (PONV) Hx Blood Transfusions: No Blood Transfusion Reaction: No Airway Assessment Mallampati Score:: Class II C-Spine Mobility Assessed: Yes TMJ Mobility Assessed: Yes Dentition: Good Dentition Neurological Assessment Level of Consciousness: Awake and Alert Anesthesia Plan Anesthesia Risk discussed: Yes Anesthesia Plan: Verified ASA Class: II Anesthesia Type: General
[2023-08-14] MEDS: LIDOCAINE 1% W/EPI 1:100,000 20ML VIAL 40 ML (13:30)
[2023-08-14] MEDS: 0.9 % SODIUM CHLORIDE 1000ML 1,000 ML 100 ML IV (13:31)
--- NOTE | 2023-08-14 13:59 | P.OP_ITS ---
Date of procedure: 08/14/23 Pre-op Diagnosis:: Chronic right maxillary sinusitis, chronic right ethmoid sinusitis Post-op Diagnosis:: Chronic right maxillary sinusitis, chronic right ethmoid sinusitis Procedure performed:: Functional endoscopic sinus surgery with right nasal endoscopy and partial ethmoidectomy, nasal endoscopy and right maxillary antrostomy and removal of antral mucosa disease Surgeon:: Arsenio Malone MD INVENTORY COORDINATOR:: Chandu Feeyoly Anesthesia: GETA Estimated blood loss (mL): 20 Operative findings:: Anterior ethmoid and maxillary sinusitis on the right side with [facility] obstruction and mucoid material obstructing the anterior ethmoid and maxillary sinus Operative note:: The patient was brought to the operating room and after adequate general anesthesia the nose was draped in the usual sterile fashion and 1% lidocaine with epinephrine used to locally infiltrate the right middle meatus. Using a 0 degree sinus endoscope the right millimeters was visualized and then the middle turbinate medialized and then uncinectomy performed with a pediatric backbiter and microdebrider clearing the nasofrontal tract and infundibulum anterior ethmoidectomy was then performed working through the ethmoid bulla to clear disease polypoid mucosa in the anterior ethmoid while sparing all mucosa posteriorly the natural ostium of the maxillary sinus was then enlarged and cleared of obstructing inflammatory polypoid disease to the maxillary sinus was well aerated mucoid material partially filled the maxillary sinus and this was suctioned and irrigated clear. Hemostasis was established with topical Afrin and then nova pack was placed in the right middle meatus and the procedure concluded. All counts correct and blood loss minimal Condition: stable Disposition: PACU Complications:: No complication
--- NOTE | 2023-08-14 14:13 | EXP.ANES.I ---
[facility] Anesthesia Record Part I Anesthesia Record I Intake, IV Amount: 500 Hydration: Adequate Estimated blood loss (mL): 10 Urine output (mL): 0 Blood Products used (#): none Blood Pressure: 177/102 SaO2: 94 Pulse Rate: 100 Airway Patency: Patent Respiratory Rate: 16 Temperature: 97.7 F Patient is:: Drowsy and Stable Stable to PACU at:: 14:10
[2023-08-14] MEDS: KETOROLAC 30MG/ML VIAL 15 MG IV (14:15)
--- NOTE | 2023-08-15 07:12 | P.PNANES_ITS ---
[facility] [place] Anesthesia Record Part II Anesthesia Record Part II Discharge Time: 14:40 Destination: Surgical Day Care (OP Surgery) PACU nurse assessment reviewed?: Yes Patient Condition:: Good Anesthesia Complications:: None Swallowing reflex intact?: Yes Airway Patency: Patent Cyanosis?: No Blood Pressure: 144/94 SaO2: 98 Respiratory Rate: 16 Pulse Rate: 85 Temperature: 97.7 F Mental Status: Alert & Oriented Pain level:: 0 Nausea and/or vomitting:: None Intake, IV Amount: 0 Hydration: Adequate
[2023-08-15 07:14] VITALS: BP 144/94; PULSE 85; RESP 16; TEMP 36.5; O2SAT 98
== END 2023-08-14 15:11 | disposition home or self-care (01) ==
PROVIDERS: PCP Family Medicine; Visit Provider Otolaryngology
PROC: (CPT 31254; principal; 2023-08-14 11:15)
DX: J32.0 Chronic maxillary sinusitis (principal); J32.2 Chronic ethmoidal sinusitis
CPT/HCPCS: 31254; 31267; 96374; J3490; J2405

== ENCOUNTER 2023-10-16 08:04 | Outpatient (CLI) | payer MEDICARE, OTHER, SELFPAY | END 2023-10-16 23:59 | disposition home or self-care (01) | LOC: LAB.DROPOF 12-13 08:07 | PROVIDERS: PCP Family Medicine; Visit Provider Otolaryngology | DX: Z98.890 Other specified postprocedural states (principal); R09.81 Nasal congestion; B95.7 Other staphylococcus as the cause of diseases classified elsewhere | CPT/HCPCS: 87070 ==

== ENCOUNTER 2023-10-23 10:00 | Outpatient (RCR) | payer MEDICARE, OTHER, SELFPAY | END 2023-10-23 11:20 | disposition home or self-care (01) | LOC: PT 10:00 | PROVIDERS: Visit Provider Neurological Surgery | DX: M54.16 Radiculopathy, lumbar region (principal) | CPT/HCPCS: 97010; 97012; 97014; 97110; 97140; 97163; 97164; 97530; G0283 ==

== ENCOUNTER 2023-10-30 10:56 | Observation (INO) | payer MEDICARE, OTHER, SELFPAY ==
[2023-10-30] VITALS (12 sets, daily range): BP systolic 121–150; BP diastolic 69–88; PULSE 70–86; RESP 13–22; TEMP 36.1–36.6; O2SAT 92–97; BMI 24.2
--- NOTE | 2023-10-30 10:54 | ECG_ITS ---
APPROVED REPORT Exam: Resting ECG HR:87 bpm ECG Measurements Heart Rate 87 AXES MD 164 P 68 QRSd 95 QRS -18 QT 343 T 70 QTc 388 Conclusion SINUS RHYTHM LOW QRS VOLTAGE IN PRECORDIAL LEADS [QRS DEFLECTION < 1.0 mV IN CHEST LEADS] PATTERN CONSISTENT WITH PULMONARY DISEASE ABNORMAL ECG Electronically signed by : ADRIAN ORDOÑEZ, 10/30/2023 23:12:44
--- NOTE | 2023-10-30 11:04 | XR_ITS ---
FINAL REPORT CLINICAL HISTORY: cp history of GERD, hypertension, hyperlipidemia, CAD, strong family history of coronary artery disease FINDINGS: SINGLE-VIEW CHEST The heart size is normal. The mediastinum is normal. There is mild right base atelectasis or scar. There is no pneumothorax. IMPRESSION: Right base atelectasis versus scar. Reviewed, Interpreted and Dictated by Saud Arias III, MD Transcribed by Gabbi Blevins Authenticated and . [facility]
[2023-10-30 11:13] LABS: Basophils # 0.1 K/mm3 (0-0.2); Basophils % 1.1 % (0.1-2.0); Chloride 107 mmol/L (98-107); Eosinophils # 0.2 K/mm3 (0.0-0.4); Eosinophils % 2.7 % (0.1-12.0); Hematocrit 43.9 % (37.0-47.0); Hemoglobin 14.4 g/dL (12.2-16.2); Lymphocytes % 33.8 % (10-50); Mean Corpuscular HGB Conc 32.8 g/dL (31.8-35.4); Mean Corpuscular Hemoglobin 33.4 pg (27.0-31.2); Mean Platelet Volume 8.4 fl (7.4-10.4); Monocytes # 0.4 K/mm3 (0.1-1.0); Monocytes % 6.6 % (1.7-9.3); Neutrophils # 3.3 K/mm3 (1.8-7.8); Neutrophils % 55.7 % (37.0-80.0); Platelet Count 250 K/mm3 (142-424); Red Cell Distribution Width 13.1 % (11.5-17.5); White Blood Count 5.9 K/mm3 (4.8-10.8)
[2023-10-30 11:14] LABS: Sodium 140 mmol/L (136-145)
[2023-10-30 11:16] LABS: Alanine Aminotransferase 41 U/L (12-78); Alkaline Phosphatase 114 U/L (38-126); Aspartate Amino Transferase 38 U/L (14-36); Bilirubin,Total 0.6 mg/dl (0.2-1.3); Blood Urea Nitrogen 16 mg/dl (7-17); Carbon Dioxide 33 mmol/L (22.0-30.0); Estimated Glomerular Filt Rate 99 ml/min (>60); GFR (African American) 120 ML/MIN (>60)
[2023-10-30 11:17] LABS: Albumin Level 4.1 g/dl (3.5-5.0); Albumin/Globulin Ratio 1.5 (1.1-1.8); Globulin 2.7 g/dL (1.3-3.2); Glucose 141 mg/dl (74-100); Magnesium 1.8 mg/dl (1.6-2.3); Total Protein,Serum 6.8 g/dl (6.3-8.2)
--- NOTE | 2023-10-30 11:22 | HMH.EDCP ---
Discharge Plan Disposition Patient Disposition: Admitted Chief Complaint: Chest Pain Clinical Impressions Clinical Impression: Atypical angina Discharge ED Provider: Adolfo Garnett HPI General Chief Complaint: Chest Pain Stated Complaint: cp Time Seen by Provider: 10/30/23 11:04 History of Present Illness HPI narrative: 68-year-old female history of GERD, hypertension, hyperlipidemia, CAD, strong family history of coronary artery disease and early cardiac presenting with chest pain. Patient states that for the past couple of days she has been having substernal chest pain. It is sharp, only lasts for few seconds to a minute, does not radiate. Not associated with shortness of breath, nausea or vomiting, diaphoresis, exertion, food intake, position, or any other factors she has noticed. Due to family history, came in for further evaluation. Last cardiac catheterization was in 2012 and patient states that she did have coronary disease. Please note that above description of symptoms, in this electronic medical record under categorization of recalled from ER triage doctor by RN are reflective of an initial nursing assessment, however, is not reflective of my full history and physical exam that was personally taken and clarified. Consequentially, this preceding description of symptoms, which may include the patient's categorized chief complaint in the EMR, do not reflect my personal clinical impression, and the ultimate description of history of present illness and patient stated complaints should be deferred to this section of the note. Unless stated otherwise or congruent with this section of the note, additional signs, symptoms, or incongruence should be interpreted as inaccurate with my clinical impression. Related Data Home Medications Medication Instructions Recorded Confirmed atorvastatin 40 mg tablet 40 mg PO HS 11/25/17 10/30/23 montelukast 10 mg tablet 10 mg PO DAILY 11/25/17 10/30/23 omeprazole 40 mg capsule,delayed 40 mg PO DAILY 11/25/17 10/30/23 release duloxetine 60 mg capsule,delayed 120 mg PO DAILY 30 days #30 caps 06/09/18 10/30/23 release losartan 25 mg tablet 25 mg PO DAILY 05/09/23 10/30/23 ascorbic acid (vitamin C) 500 mg 500 mg PO DAILY 08/14/23 10/30/23 tablet (Vitamin C) aspirin 81 mg tablet,delayed 81 mg PO DAILY 08/14/23 10/30/23 release cholecalciferol (vitamin D3) 50 50 mcg PO DAILY 08/14/23 10/30/23 mcg (2,000 unit) capsule (Vitamin D3) cinnamon bark 500 mg capsule 500 mg PO DAILY 08/14/23 10/30/23 (Cinnamon) vitamin B12 500 mcg-folic acid 400 1 tab PO DAILY 08/14/23 10/30/23 mcg tablet cyanocobalamin (vitamin B-12) 250 250 mcg PO DAILY 10/30/23 10/30/23 mcg tablet (Vitamin B-12) methocarbamol 500 mg tablet 500 mg PO QID PRN MUSCLE SPASMS 10/30/23 10/30/23 multivitamin 1 tab PO DAILY 10/30/23 10/30/23 Previous Rx's Medication Instructions Recorded amoxicillin 500 mg capsule 500 mg PO BID Sinus infection 10 10/28/23 days #20 caps Allergies Allergy/AdvReac Type Severity Reaction Status Date / Time codeine [CODEINE] Allergy Unknown vomiting/hi Verified 10/16/23 16:33 ves hydrocodone [HYDROCODONE] Allergy Unknown vomiting/hi Verified 10/16/23 16:33 ves morphine [MORPHINE] Allergy Unknown vomiting/hi Verified 10/16/23 16:33 ves oxycodone [OXYCODONE] Allergy Unknown hives/vomit Verified 10/16/23 16:33 ing methylprednisolone Allergy tingling/we Verified 10/16/23 16:33 akness/anxi ety [facility] Disclaimer: The information contained in this section may have been updated after the patient was seen, as this information can be updated by other users. Medical History (Updated 10/30/23 @ 15:02 by Adolfo Garnett MD) Prediabetes Hyperlipidemia Coronary artery disease Unstable angina History of thromboembolism History of cataract Breast cancer Hypertension Deviated nasal septum Chronic sinusitis Allergic rhinitis Surgical History (Updated 10/16/23 @ 16:36 by PARTHA Gould) H/O sinus surgery History of partial hysterectomy History of cholecystectomy History of right mastectomy Family History (Updated 10/30/23 @ 14:49 by Sarahi Nicole APRN) Father Coronary artery disease Brother Coronary artery disease Mother Coronary artery disease Sister Coronary artery disease Other Family history of cancer Family history of diabetes mellitus type II Family history of hypertension Family history of myocardial infarction Social History Smoking Status: Never smoker alcohol intake: never substance use type: denies use current occupational status: other Travel in the last 8 weeks: None household members: none housing: apartment current occupation: [employer] current occupational exposures/hazards: No caffeine: Yes ROS Obtained: Yes All systems reviewed & no additional complaints except as documented Physical Exam General General appearance: alert Neck Neck exam: Present trachea midline Chest Chest inspection: Present normal inspection and symmetric chest wall rise Respiratory Respiratory exam: Present normal lung sounds bilaterally; Absent respiratory distress, wheezes, stridor, accessory muscle use or prolonged expiratory phase Cardiovascular Cardiovascular exam: Present regular rate, normal rhythm and systolic murmur (RUSB) Extremities Exam Extremities exam: Absent edema Neurological Exam Neurological exam: Present alert, oriented X3 and CN II-XII intact Skin Skin exam: Present warm and dry; Absent cyanosis, diaphoresis or pallor HEART Score HEART Score HEART Score assessment performed?: Yes History (anamnesis): Slightly suspicious ECG: Normal Age: >65 years Risk factors: 1-2 risk factors Troponin: </= normal limit HEART Score: 3 Critical Care Critical Care Time Critical Care Time: No Medical Decision Making Medical Records Medical records reviewed: Yes I reviewed the patient's medical records. Pj Inquiry Pt receiving controlled substance: No Pj was queried for this patient: No Vital Signs Vital Signs: 10/30/23 11:00 10/30/23 11:04 10/30/23 11:30 Temperature 97.9 F Temperature Source Oral Pulse Rate 78 75 Pulse Rate [Right Radial] 86 Respiratory Rate 18 22 21 Blood Pressure 135/73 149/78 H Blood Pressure [Right Arm] 149/78 H Blood Pressure Mean [Right Arm] 101 02 Sat by Pulse Oximetry 97 97 96 Oxygen Delivery Method Room Air 10/30/23 12:00 10/30/23 12:30 10/30/23 13:00 Temperature Temperature Source Pulse Rate 73 71 76 Pulse Rate [Right Radial] Respiratory Rate 18 13 13 Blood Pressure 150/78 H 150/75 H 145/81 H Blood Pressure [Right Arm] Blood Pressure Mean [Right Arm] 02 Sat by Pulse Oximetry 92 L 96 96 Oxygen Delivery Method Room Air Room Air Room Air 10/30/23 13:30 10/30/23 14:00 Temperature Temperature Source Pulse Rate 78 73 Pulse Rate [Right Radial] Respiratory Rate 21 21 Blood Pressure 146/88 H 149/78 H Blood Pressure [Right Arm] Blood Pressure Mean [Right Arm] 02 Sat by Pulse Oximetry 96 94 L Oxygen Delivery Method Room Air Lab Data Labs: Lab Results 10/30/23 11:05: WBC 5.9, RBC 4.30, Hgb 14.4, Hct 43.9, MCV 102.0 H, MCH 33.4 H, MCHC 32.8, RDW 13.1, Plt Count 250, MPV 8.4, Neut % (Auto) 55.7, Lymph % (Auto) 33.8, Roosevelt % (Auto) 6.6, Eos % (Auto) 2.7, Baso % (Auto) 1.1, Neut # (Auto) 3.3, Lymph # (Auto) 2.0, Roosevelt # (Auto) 0.4, Eos # (Auto) 0.2, Baso # (Auto) 0.1, D-Dimer 0.44, Sodium 140, Potassium 4.0, Chloride 107, Carbon Dioxide 33 H, Anion Gap 4.0 L, BUN 16, Creatinine 0.60, Estimated GFR 99, Est GFR ( Amer) 120, Glucose 141 H, Calcium 9.0, Magnesium 1.8, Total Bilirubin 0.6, AST 38 H, ALT 41, Alkaline Phosphatase 114, Troponin I < 0.01, NT-Pro-B Natriuret Pep 86.7, Total Protein 6.8, Albumin 4.1, Globulin 2.7, Albumin/Globulin Ratio 1.5, Lipase 71 10/30/23 13:45: Troponin I < 0.01 10/30/23 11:05 10/30/23 11:05 Response Orders (Tests/Meds): ED MEDICATIONS Generic Name Dose Route Start Last Admin Trade Name Srinivasq PRN Reason Stop Dose Admin Aspirin 81 mg 10/31/23 09:00 Aspirin Ec 81mg Tablet PO 11/30/23 08:59 DAILY [facility] Atorvastatin Calcium 40 mg 10/30/23 21:00 Atorvastatin 40mg Tablet PO 11/29/23 20:59 HS [facility] Diphenhydramine HCl 50 mg 10/31/23 08:30 Diphenhydramine 50mg/Ml Vial IV 10/31/23 08:31 ONCE ONE Irbesartan 37.5 mg 10/31/23 09:00 Irbesartan 75mg Tablet PO 11/30/23 08:59 DAILY [facility] Metoprolol Succinate 25 mg 10/30/23 15:00 Metoprolol Succinate Xl 25mg Tablet PO 11/29/23 14:59 DAILY [facility] Pantoprazole Sodium 40 mg 10/30/23 21:00 Pantoprazole 40mg Tablet PO 11/29/23 20:59 HS [facility] Discontinued Medications Generic Name Dose Route Start Last Admin Trade Name Srinivasq PRN Reason Stop Dose Admin Aspirin 324 mg 10/30/23 11:24 10/30/23 11:27 Aspirin 81mg Chewable Tablet PO 10/30/23 11:25 324 mg ONCE ONE Administration Belladonna Alkaloids 60 ml 10/30/23 13:15 10/30/23 13:20 Belladonna Alkaloids 60 Ml Ml PO 10/30/23 13:16 60 ml ONCE ONE Administration ORDERS Category Date Time Status CXR --portable [XR chest portable] Stat Exams 10/30/23 11:04 Taken CBC w/Auto Diff [Complete Blood Count Auto Diff] Stat Lab 10/30/23 11:05 Completed CMP [Comprehensive Metabolic Panel] Stat Lab 10/30/23 11:05 Completed D-Dimer Stat Lab 10/30/23 11:05 Completed Lipase Stat Lab 10/30/23 11:05 Completed Magnesium Stat Lab 10/30/23 11:05 Completed NT Pro Brain Natriuretic Pep. Stat Lab 10/30/23 11:05 Completed Trop I [Troponin I] Stat Lab 10/30/23 11:05 Completed Troponin I Q3H Lab 10/30/23 13:45 Completed Troponin I Q3H Lab 10/30/23 17:15 Ordered CA echo doppler complete Stat Y 10/30/23 14:01 Completed MDM Narrative Medical Decision Narrative: 68-year-old female history of GERD, hypertension, hyperlipidemia, CAD, strong family history of coronary artery disease and early cardiac presenting with chest pain. Patient states that for the past couple of days she has been having substernal chest pain. It is sharp, only lasts for few seconds to a minute, does not radiate. Not associated with shortness of breath, nausea or vomiting, diaphoresis, exertion, food intake, position, or any other factors she has noticed. Due to family history, came in for further evaluation. Last cardiac catheterization was in 2012 and patient states that she did have coronary disease. History was obtained via conversation with patient. On arrival, patient hemodynamically stable, alert, oriented x4, appropriate, GCS 15, moving all extremities spontaneously, pupils equal and reactive to light. Full physical exam performed and significant for very well-appearing woman in no acute distress. Nontachycardic, normotensive, pulses are equal and symmetric. 2 out of 6 right upper sternal border murmur, otherwise normal cardiac exam. Lungs are clear to auscultation bilaterally. No JVD. Neuro intact. Differential includes microvascular coronary artery disease, CHF, ACS, MS, coronary artery dissection, pneumothorax, PE, dissection, pericarditis, myocarditis, pneumothorax, aortic aneurysm, pneumonia, bronchitis, among others. Patient was given 324 mg aspirin for symptomatic management and correction of underlying abnormalities. Workup independently interpreted and significant for nonactionable CBC or chemistry. Initial troponin negative. BNP negative. Chest x-ray without acute concern for cardiopulmonary airspace disease. See radiology read for full review of final results. Independent interpretation of EKG shows sinus rhythm 87 beats a minute no ST or T wave changes concerning for acute ischemia. VT, QRS, QT intervals within normal limits. Patient placed on continuous cardiac monitoring and continuous pulse ox with initial blood pressure 135/73, heart rate 80, saturation 100% on room air. Heart score 3. Cardiology was contacted prior to second troponin, given patient's strong family history of numerous immediate relatives dying at young age due to cardiac history, her current symptoms, and continuing/intermittent pain here in the emergency department, patient be admitted for expedited catheterization for atypical angina. Because patient high risk for clinical decompensation, deemed appropriate for inpatient admission. Results were relayed to patient who voiced understanding and patient was agreeable to inpatient admission and management. Patient was admitted to the hospital for further definitive management.
[2023-10-30] MEDS: ASPIRIN 81MG CHEWABLE TABLET 324 MG PO (11:27)
[2023-10-30 11:31] LABS: Troponin I < 0.01 ng/ml (0.00-0.034)
[2023-10-30 11:43] LABS: Lipase 71 U/L (23-300)
[2023-10-30 11:53] LABS: NT Pro Brain Natriuretic Pep. 86.7 pg/mL (0-125)
--- NOTE | 2023-10-30 12:37 | ECG_ITS ---
APPROVED REPORT Exam: Resting ECG HR:70 bpm ECG Measurements Heart Rate 70 AXES PA 165 P 57 QRSd 104 QRS -30 QT 389 T 49 QTc 409 Conclusion SINUS RHYTHM BORDERLINE LEFT AXIS DEVIATION [QRS AXIS < -20] LOW QRS VOLTAGE IN PRECORDIAL LEADS [QRS DEFLECTION < 1.0 mV IN CHEST LEADS] PATTERN CONSISTENT WITH PULMONARY DISEASE ABNORMAL ECG Electronically signed by : ADRIAN ORDOÑEZ, 10/30/2023 23:11:57
--- NOTE | 2023-10-30 12:39 | PC.NURSE ---
Pt c/o increasing chest pain, completed repeat ekg and gave to
[2023-10-30 13:00] LABS: D-Dimer 0.44 ug/mL (0.0-0.5)
--- NOTE | 2023-10-30 13:07 | PC.NURSE ---
JEREMI ROUNDING ON PTS
[2023-10-30] MEDS: BELLADONNA ALKALOIDS 60 ML ML PO (13:20)
--- NOTE | 2023-10-30 14:01 | CA_ITS ---
APPROVED REPORT EXAM: Comprehensive 2D, Doppler, and color-flow Echocardiogram Entertainment Usher: Kristine Jackson RVT Ht: 5 ft 6 in Wt: 150lbs BSA: 1.77 BP: 135/73 mmHg Indications: CP,CAD,HTN,HLD TDS-PRIOR BREAST SURGERY LIMITED WINDOWS 2D Dimensions LA Volume 45.80 mL LA Volume Index 25.88 mL/m2 (M/F) 16-34 M-Mode Dimensions RVDd 1.79 cm (0.9-2.6) LA Diam 3.07 cm (1.9-4.0) LVDd 5.02 cm (3.5-5.7) LVDs 3.53 cm (3.5-5.7) IVSd 0.68 cm (0.6-1.1) PWd 0.46 cm (0.6-1.1) EF (Teich) 56.50% FS 29.70% EDV (Teich) 119.30 mL ESV (Teich) 51.90 mL LV Diastology E Decel Time 150 (160-240 msec) E/A Ratio 0.6 Aortic Valve SANDY Index 1.87 cm2/m2 AoV Peak Alexander. 110.0 (50-130 cm/s) AO Peak GR. 4.80 mmHg AO Mean GR. 2.20 (<5 mmHg) AO VTI 19.8 (18-25 cm) SANDY (VTI) 3.39 (2.5-4.5 cm2) Mitral Valve MV E Max Alexander. 52.0 (40-130 cm/s) MV A Velocity 83.0 (40-130 cm/s) E/A Ratio 0.63 MV PHT 44.0 ms Pulmonary Valve PV Peak Velocity 93.0 (50-150 cm/s) Left Ventricle The left ventricle is normal size. The left ventricular systolic function is normal. The left ventricular ejection fraction is within the normal range. Proximal septal thickening is present. The septum is asynchronous. Transmitral Doppler flow pattern suggests impaired LV relaxation. LVEF is 50-55%. Right Ventricle The right ventricle is mildly dilated. The right ventricular systolic function is normal. Atria The left atrium size is normal. The right atrium size is normal. The interatrial septum is not well-visualized. Aortic Valve The aortic valve is mildly thickened. There is no aortic valvular stenosis. Trace aortic regurgitation. Mitral Valve The mitral valve leaflets are mildly thickened. No evidence of mitral valve stenosis. Trace mitral regurgitation. Tricuspid Valve The tricuspid valve leaflets are thin and pliable. Trace tricuspid regurgitation. There is insufficient TR jet to estimate RVSP. Pulmonic Valve The pulmonary valve is normal in structure. Trace pulmonic regurgitation. Great Vessels The aortic root is normal in size. The ascending aorta is normal in size. The IVC is not well-visualized. Pericardium There is no pericardial effusion. Conclusion Low normal LV systolic function (LVEF 50-55%). Asynchronous septum. Mild RV dilation with normal RV function. No significant valvular stenosis or regurgitation. Electronically signed by : Rosibel Cherry MD 10/30/2023 23:54:40
[2023-10-30 14:15] LABS: Troponin I < 0.01 ng/ml (0.00-0.034)
--- NOTE | 2023-10-30 14:16 | PC.NURSE ---
supervisor paper machine notified of admission, bed request order placed.
--- NOTE | 2023-10-30 14:26 | PC.NURSE ---
Called report to Leann Chan RN on Med Surg. residential gas heat technician currently at bedside
--- NOTE | 2023-10-30 14:29 | HMH.PHAINT1 ---
Pharmacy Intervention Comments: HOME MEDICATION LIST VERIFIED VIA OUTSIDE PHARMACY AND OFFICE VISIT LIST.
--- NOTE | 2023-10-30 14:39 | P.CONCA_ITS ---
History of Present Illness History of Present Illness Consult date: 10/30/23 Requesting physician: Adolfo Garnett Consult reason: chest pain Chief complaint: chest pain History of present illness: This is a 68-year-old white female who presented to the emergency department with complaints of chest pain. She does have a past medical history of CAD, hypertension, hyperlipidemia, GERD and prediabetes. The patient states that yesterday while she was at rest watching TV she had sudden onset of right arm pain. She states that this is not unusual for her to have pain in her right arm sometimes because of a lot of her neck issues. Then she had sudden onset of substernal chest pain. She describes this as a sharp sensation and states that yesterday the pain did not radiate. It lasted for several seconds and then resolved. She states the chest pain with did come back about every 30 minutes. She rates the pain a 9-10 out of 10 in intensity. The patient states that she took a shower and then laid in bed. She states that she continued to have the chest pain after she got in bed but then it subsided. She went on to sleep. She got up this morning and got ready for work and when she got to work she started to have recurrence of the substernal chest pain. She states that today it did start radiating to her back. It was still a 9-10 out of 10 in intensity. The patient states that she does have a significant family history of coronary artery disease and has known coronary artery disease herself by left cardiac catheterization in 2012 so she decided to come to the emergency department. Her initial troponin is negative. However given her symptoms, known disease and family history the patient will be admitted to the hospital for further evaluation of her unstable angina. She denies any shortness of breath or edema. She denies any fever, chills, nausea, vomiting, diarrhea, PND or orthopnea. [facility] Disclaimer: The information contained in this section may have been updated after the patient was seen, as this information can be updated by other users. Medical History (Updated 10/30/23 @ 14:44 by Sarahi Nicole APRN) Prediabetes Hyperlipidemia Coronary artery disease Unstable angina History of thromboembolism History of cataract Breast cancer Hypertension Deviated nasal septum Chronic sinusitis Allergic rhinitis Surgical History (Updated 10/16/23 @ 16:36 by PARTHA Gould) H/O sinus surgery History of partial hysterectomy History of cholecystectomy History of right mastectomy Family History (Updated 10/30/23 @ 14:49 by Sarahi Nicole APRN) Father Coronary artery disease Brother Coronary artery disease Mother Coronary artery disease Sister Coronary artery disease Other Family history of cancer Family history of diabetes mellitus type II Family history of hypertension Family history of myocardial infarction Social History Smoking Status: Never smoker alcohol intake: never substance use type: denies use current occupational status: other Travel in the last 8 weeks: None household members: none housing: apartment current occupation: [employer] current occupational exposures/hazards: No caffeine: Yes Review of Systems Review of Systems Review of systems:: pertinent systems reviewed and negative unless documented below Constitutional Constitutional: Reports system reviewed and no additional complaints, except as documented Eyes Eyes: Reports system reviewed and no additional complaints, except as documented ENT Ears, Nose, Mouth, and Throat: Reports system reviewed and no additional complaints, except as documented *Cardiovascular Cardiovascular: Reports system reviewed and no additional complaints, except as documented, Reports chest pain, Reports chest pain at rest, Reports chest pain with activity, Denies dyspnea and Reports radiating jaw, neck or arm pain (Right arm and back) *Respiratory Respiratory: Reports system reviewed and no additional complaints, except as documented and Denies dyspnea *Gastrointestinal Gastrointestinal: Reports system reviewed and no additional complaints, except as documented *Musculoskeletal Musculoskeletal: Reports system reviewed and no additional complaints, except as documented Integumentary/Breasts Skin/Breast: Reports system reviewed and no additional complaints, except as documented *Neurologic Neurologic: Reports system reviewed and no additional complaints, except as documented Psychiatric Psychiatric: Reports system reviewed and no additional complaints, except as documented Endocrine Endocrine: Reports system reviewed and no additional complaints, except as doc umented Hematologic/Lymphatic Hematologic/Lymphatic: Reports system reviewed and no additional complaints, except as documented Allergic/Immunologic Allergic/Immunologic: Reports system reviewed and no additional complaints, except as documented Exam Data for Last 24 hours Vital signs and Labs for Last 24 Hours: Temp Pulse Resp BP Pulse Ox O2 Del Method 97.9 F 73 21 149/78 H 94 L Room Air 10/30/23 11:00 10/30/23 14:00 10/30/23 14:00 10/30/23 14:00 10/30/23 14:00 10/30/23 14:00 Laboratory Results - last 24 hr 10/30/23 11:05: WBC 5.9, RBC 4.30, Hgb 14.4, Hct 43.9, MCV 102.0 H, MCH 33.4 H, MCHC 32.8, RDW 13.1, Plt Count 250, MPV 8.4, Neut % (Auto) 55.7, Lymph % (Auto) 33.8, [place] % (Auto) 6.6, Eos % (Auto) 2.7, Baso % (Auto) 1.1, Neut # (Auto) 3.3, Lymph # (Auto) 2.0, [place] # (Auto) 0.4, Eos # (Auto) 0.2, Baso # (Auto) 0.1, D- Dimer 0.44, Sodium 140, Potassium 4.0, Chloride 107, Carbon Dioxide 33 H, Anion Gap 4.0 L, BUN 16, Creatinine 0.60, Estimated GFR 99, Est GFR ( Amer) 120, Glucose 141 H, Calcium 9.0, Magnesium 1.8, Total Bilirubin 0.6, AST 38 H, ALT 41, Alkaline Phosphatase 114, Troponin I < 0.01, NT-Pro-B Natriuret Pep 86.7, Total Protein 6.8, Albumin 4.1, Globulin 2.7, Albumin/Globulin Ratio 1.5, Lipase 71 10/30/23 13:45: Troponin I < 0.01 I & O for Last 24 hours: Intake & Output 10/27/23 10/28/23 10/29/23 10/30/23 23:59 23:59 23:59 23:59 Weight 150 lb Constitutional Constitutional: no acute distress and average body habitus *Routine HEENT Exam Head: Present normocephalic and atraumatic ENT: Present mucous membranes moist *Routine Neck Exam Neck: Present supple, full ROM and normal carotid upstroke; Absent JVD, carotid bruit or lymphadenopathy *Routine Respiratory Exam Respiratory: Present CTA bilaterally, normal respiratory effort, able to speak in complete sentences and symmetric chest movement *Routine Cardiovascular Exam Cardiovascular: Present RRR, Normal S1, Normal S2 and murmur (2/6); Absent gallop *Routine Abdominal Exam Abdominal: Present soft and normoactive bowel sounds; Absent tenderness, distended or organomegaly *Routine Extremities Exam Extremities: Present full ROM, pulses intact and normal capillary refill; Absent cyanosis, clubbing or edema *Routine Skin Exam Skin: Present intact and warm; Absent erythema *Routine Neurological Exam Neurological: Present alert, oriented X3 and CN II-XII intact; Absent sensory deficit or motor deficit Routine Psychiatric Exam Psychiatric: Present normal affect Meds Home Medications and Allergies Home Medications Medication Instructions Recorded Confirmed Type atorvastatin 40 mg tablet 40 mg PO HS 11/25/17 10/30/23 History montelukast 10 mg tablet 10 mg PO DAILY 11/25/17 10/30/23 History omeprazole 40 mg capsule,delayed 40 mg PO DAILY 11/25/17 10/30/23 History release duloxetine 60 mg capsule,delayed 120 mg PO DAILY 30 days #30 caps 06/09/18 10/30/23 History release losartan 25 mg tablet 25 mg PO DAILY 05/09/23 10/30/23 History ascorbic acid (vitamin C) 500 mg 500 mg PO DAILY 08/14/23 10/30/23 History tablet (Vitamin C) aspirin 81 mg tablet,delayed 81 mg PO DAILY 08/14/23 10/30/23 History release cholecalciferol (vitamin D3) 50 50 mcg PO DAILY 08/14/23 10/30/23 History mcg (2,000 unit) capsule (Vitamin D3) cinnamon bark 500 mg capsule 500 mg PO DAILY 08/14/23 10/30/23 History (Cinnamon) vitamin B12 500 mcg-folic acid 400 1 tab PO DAILY 08/14/23 10/30/23 History mcg tablet amoxicillin 500 mg capsule 500 mg PO BID Sinus infection 10/28/23 10/30/23 Rx days #20 caps cyanocobalamin (vitamin B-12) 250 250 mcg PO DAILY 10/30/23 10/30/23 History mcg tablet (Vitamin B-12) methocarbamol 500 mg tablet 500 mg PO QID PRN MUSCLE SPASMS 10/30/23 10/30/23 History multivitamin 1 tab PO DAILY 10/30/23 10/30/23 History New Prescriptions to Start Prescriptions: Allergies Allergy/AdvReac Type Severity Reaction Status Date / Time codeine [CODEINE] Allergy Unknown vomiting/hi Verified 10/16/23 16:33 ves hydrocodone [HYDROCODONE] Allergy Unknown vomiting/hi Verified 10/16/23 16:33 ves morphine [MORPHINE] Allergy Unknown vomiting/hi Verified 10/16/23 16:33 ves oxycodone [OXYCODONE] Allergy Unknown hives/vomit Verified 10/16/23 16:33 ing methylprednisolone Allergy tingling/we Verified 10/16/23 16:33 akness/anxi ety Assessment and Plan *Assessment and plan (1) Unstable angina: Status: Acute Category: Medical Code(s): I20.0 - Unstable angina (2) Coronary artery disease: Status: Acute Qualifiers: Coronary Disease-Associated Artery/Lesion type: [place] artery [place] vs. transplanted heart: [place] heart Associated angina: with unstable angina Qualified Code(s): I25.110 - Atherosclerotic heart disease of [place] coronary artery with unstable angina pectoris Category: Medical Code(s): I25.10 - Atherosclerotic heart disease of [place] coronary artery without angina pectoris (3) Hyperlipidemia: Status: Acute Qualifiers: Hyperlipidemia type: mixed hyperlipidemia Qualified Code(s): E78.2 - Mixed hyperlipidemia Category: Medical Code(s): E78.5 - Hyperlipidemia, unspecified (4) Hypertension: Status: Acute Qualifiers: Hypertension type: primary hypertension Qualified Code(s): I10 - Essential (primary) hypertension Category: Medical Code(s): I10 - Essential (primary) hypertension (5) Prediabetes: Status: Acute Category: Medical Code(s): R73.03 - Prediabetes Plan Plan: 1. The patient was admitted to the hospital for symptoms consistent with unstable angina. Will plan to proceed with left cardiac catheterization tomorrow to evaluate her coronary artery disease. The patient has known underlying coronary artery disease with heart cath in 2012 which showed disease to her LAD. She has not had any cardiac workup since that time. The patient does have a significant family history of coronary artery disease. Her father had CABG at age 50 and in his 60s from heart disease. She has a brother who had CABG. Her sister had CABG in her 60s. Her mother had heart disease with multiple cardiac stents placed. Due to the patient's unstable angina, known CAD and significant family history of CAD we will plan to proceed with left cardiac catheterization tomorrow to evaluate her coronary artery disease. 2. The patient has been educated the risk and benefits of proceeding with left cardiac catheterization. The patient verbalized understanding and is agreeable in proceeding with the procedure. 3. The patient will be n.p.o. after midnight in preparation for left cardiac catheterization. 4. Coronary artery disease is present. Continue aspirin 81 mg daily. 5. We will obtain an echocardiogram to evaluate her LV function due to her unstable angina and heart murmur noted on exam. 6. Her blood pressure is acceptable. Will continue losartan. 7. Her LDL goal is less than 55. She is on a statin. Will get a lipid panel in the morning. 8. Will start Toprol-XL 25 mg p.o. daily due to her coronary artery disease as the patient is not currently on a beta-ciro. 9. Further recommendations will be made pending the patient's response to treatment and results of her left cardiac catheterization tomorrow. Thank you for the opportunity to help participate in the care of this patient. All recommendations and orders are per Dr. Cherry.
--- NOTE | 2023-10-30 14:55 | PC.NURSE ---
Registration packet brought back now. Pt in wheelchair and being taken to Med/Surg by ER staff
--- NOTE | 2023-10-30 14:57 | PC.NURSE ---
arrived by w/c from ED
[2023-10-30] MEDS: METOPROLOL SUCCINATE XL 25MG TABLET 25 MG PO (16:23)
--- NOTE | 2023-10-30 17:10 | PC.NURSE ---
Pt is sitting up in bed eating dinner. NPO at midnight. Consent for Heart cath signed and on chart. No complaints stated at this time. Call light within reach.
[2023-10-30 18:37] LABS: Troponin I < 0.01 ng/ml (0.00-0.034)
--- NOTE | 2023-10-30 18:48 | EXP.ACUTE.PN ---
Subjective *Date: 10/30/23 *Time: 18:48 Interval history: Patient presented to [facility] ER today complaining of non exertion substernal chest pain that radiates to her right arm. Patient has a strong family history of CAD. She had a left heart cath in 2012, which showed minimal non obstructive coronary disease. Today the ER doctor called [facility] cardiology, who saw patient in the ER and want to do a left heart cath tomorrow. She states she has had nasal congestion and productive cough for several weeks. She was started on Amoxicillin yesterday by the [facility] ENT clinic for an upper respiratory infection. Medical Exam Vital signs and Labs for Last 24 Hours: Vital Signs Temp Pulse Pulse Resp BP BP Pulse Ox 10/30/23 17:00 10/30/23 16:00 80 10/30/23 16:00 97 F L 78 18 145/84 H 10/30/23 15:07 80 10/30/23 15:00 10/30/23 15:00 10/30/23 14:45 97.9 F 77 17 148/81 H 10/30/23 14:00 73 21 149/78 H 94 L 10/30/23 13:30 78 21 146/88 H 96 10/30/23 13:00 76 13 145/81 H 96 10/30/23 12:30 71 13 150/75 H 96 10/30/23 12:00 73 18 150/78 H 92 L 10/30/23 11:30 75 21 149/78 H 96 10/30/23 11:04 78 22 135/73 97 10/30/23 11:00 97.9 F 86 18 149/78 H 97 O2 Del Method 10/30/23 17:00 Room Air 10/30/23 16:00 10/30/23 16:00 Room Air 10/30/23 15:07 10/30/23 15:00 Room Air 10/30/23 15:00 Room Air 10/30/23 14:45 Room Air 10/30/23 14:00 Room Air 10/30/23 13:30 10/30/23 13:00 Room Air 10/30/23 12:30 Room Air 10/30/23 12:00 Room Air 10/30/23 11:30 10/30/23 11:04 10/30/23 11:00 Room Air Intake and Output 10/30/23 10/30/23 10/30/23 07:59 15:59 23:59 Intake Total 480 / 480 Balance 480 / 480 Intake: Intake, Oral Amount 480 / 480 Other: Weight 150 lb Patient Weight 10/30/23 23:59 Weight 150 lb Laboratory Results - last 24 hr 10/30/23 11:05: WBC 5.9, RBC 4.30, Hgb 14.4, Hct 43.9, MCV 102.0 H, MCH 33.4 H, MCHC 32.8, RDW 13.1, Plt Count 250, MPV 8.4, Neut % (Auto) 55.7, Lymph % (Auto) 33.8, [place] % (Auto) 6.6, Eos % (Auto) 2.7, Baso % (Auto) 1.1, Neut # (Auto) 3.3, Lymph # (Auto) 2.0, [place] # (Auto) 0.4, Eos # (Auto) 0.2, Baso # (Auto) 0.1, D-Dimer 0.44, Sodium 140, Potassium 4.0, Chloride 107, Carbon Dioxide 33 H, Anion Gap 4.0 L, BUN 16, Creatinine 0.60, Estimated GFR 99, Est GFR ( Amer) 120, Glucose 141 H, Calcium 9.0, Magnesium 1.8, Total Bilirubin 0.6, AST 38 H, ALT 41, Alkaline Phosphatase 114, Troponin I < 0.01, NT-Pro-B Natriuret Pep 86.7, Total Protein 6.8, Albumin 4.1, Globulin 2.7, Albumin/Globulin Ratio 1.5, Lipase 71 10/30/23 13:45: Troponin I < 0.01 10/30/23 17:50: Troponin I < 0.01 I & O for Labs for Last 24 Hours: Intake & Output 10/27/23 10/28/23 10/29/23 10/30/23 23:59 23:59 23:59 23:59 Intake Total 480 / 480 Balance 480 / 480 Weight 150 lb Constitutional: Present no acute distress Respiratory: Present normal respiratory effort Cardiac: Present Reg Rate and Rhythm GI: Present normal bowel sounds; Absent tenderness Extremities: Present normal inspection and full ROM Skin: Present intact; Absent erythema Neuro: Present Grossly Intact and moves all extremities Assessment and Plan *Assessment and plan (1) Atypical angina: Status: Acute Category: Medical Code(s): I20.89 - Other forms of angina pectoris (2) URI (upper respiratory infection): Status: Acute Category: Medical Code(s): J06.9 - Acute upper respiratory infection, unspecified Plan Check rapid covid and flu test now, heart cath per cardiology.
--- NOTE | 2023-10-30 19:16 | PC.NURSE ---
Dr. Sanderson paged at this time.
--- NOTE | 2023-10-30 19:25 | PC.NURSE ---
Dr. Sanderson called back at this time. discussed plans for antibiotics and ordered to wait for pending test results to continue current prescription.
[2023-10-30] MEDS: ENOXAPARIN 40MG/0.4ML SYRINGE 40 MG SQ (19:31)
[2023-10-30 19:42] LABS: Coronavirus 19, PCR Not Detected (NotDetected); Influenza A, PCR Not Detected (NotDetected); Influenza B, PCR Not Detected (NotDetected)
[2023-10-30] MEDS: ATORVASTATIN 40MG TABLET 40 MG PO (20:10)
[2023-10-30] MEDS: PANTOPRAZOLE 40MG TABLET 40 MG PO (20:10)
[2023-10-31] VITALS (22 sets, daily range): BP systolic 92–150; BP diastolic 50–88; PULSE 61–81; RESP 17–19; TEMP 36.6–36.9; O2SAT 92–98; BMI 25.9
--- NOTE | 2023-10-31 04:15 | PC.NURSE ---
Pt is alert and oriented x4 and currently tolerating RA well. Pt is extremely pleasant and voices no needs. Pt has been NPO since 0000. Pt has been prepped for heart cath and consents are signed. Pt remains on tele and has a NSR
[2023-10-31 06:34] LABS: Basophils # 0.1 K/mm3 (0-0.2); Basophils % 0.9 % (0.1-2.0); Eosinophils # 0.2 K/mm3 (0.0-0.4); Eosinophils % 2.7 % (0.1-12.0); Hematocrit 40.9 % (37.0-47.0); Lymphocytes # 1.7 K/mm3 (0.7-4.5); Lymphocytes % 29.9 % (10-50); Mean Corpuscular HGB Conc 31.9 g/dL (31.8-35.4); Mean Corpuscular Hemoglobin 32.2 pg (27.0-31.2); Mean Corpuscular Volume 100.7 fl (81-99); Mean Platelet Volume 8.8 fl (7.4-10.4); Monocytes # 0.4 K/mm3 (0.1-1.0); Monocytes % 7.5 % (1.7-9.3); Neutrophils # 3.4 K/mm3 (1.8-7.8); Platelet Count 242 K/mm3 (142-424); Red Blood Count 4.06 M/mm3 (4.20-5.40); Red Cell Distribution Width 13.2 % (11.5-17.5); White Blood Count 5.8 K/mm3 (4.8-10.8)
[2023-10-31 06:35] LABS: Chloride 110 mmol/L (98-107); Potassium 4.3 mmoL/L (3.5-5.1); Sodium 140 mmol/L (136-145)
[2023-10-31 06:38] LABS: Alanine Aminotransferase 32 U/L (12-78); Albumin Level 3.5 g/dl (3.5-5.0); Alkaline Phosphatase 100 U/L (38-126); Anion Gap 6.3 mEq/L (5-15); Aspartate Amino Transferase 30 U/L (14-36); Bilirubin,Direct 0.2 mg/dl (0.0-0.4); Bilirubin,Indirect 0.2 mg/dL (0.0-0.9); Bilirubin,Total 0.4 mg/dl (0.2-1.3); Bilirubin,Unconjugated 0.2 mg/dL (0.0-1.1); Blood Urea Nitrogen 19 mg/dl (7-17); Calcium 8.9 mg/dl (8.4-10.2); Carbon Dioxide 28 mmol/L (22.0-30.0); Cholesterol 140 mg/dl (140-200); Creatinine Clearance Estimated 60 mL/min (50-200); Estimated Glomerular Filt Rate 71 ml/min (>60); GFR (African American) 86 ML/MIN (>60); Glucose 141 mg/dl (74-100); Total Protein,Serum 5.8 g/dl (6.3-8.2); Triglycerides 141 mg/dl (30-150); VLDL Cholesterol 28 mg/dL (0-40)
[2023-10-31 06:39] LABS: Chol/HDL Ratio 3.5 (1-3.5); HDL Cholesterol 40 mg/dl (40-60)
--- NOTE | 2023-10-31 07:07 | IR_ITS ---
APPROVED REPORT Patient Location: Inpatient PROCEDURES Left heart catheterization Left ventriculogram Selective coronary angiogram INDICATION Purportedly known coronary artery disease, Unstable angina Informed consent was obtained prior to the procedure. COMPLICATIONS NONE Estimated Blood Loss: LESS THAN 10 ML TECHNIQUE One percent lidocaine used to anesthetize the right anterior aspect of the wrist. The right radial artery was accessed via the Seldinger technique. A 6 Hebrew sheath was placed in the right radial artery. 2.5 mg of Verapamil, 800 mcg of nitroglycerin, 1mg Lidocaine and 5000 U Heparin were given through the arterial sheath. The papa catheter was also used to perform left heart catheterization, left ventriculogram and selective coronary angiogram. At the end of the procedure the sheath was removed good hemostasis was achieved using Traclet band, patient was transferred to the postop holding area in stable condition. ANGIOGRAPHIC RESULTS The left main artery Normal The left anterior descending artery Normal The circumflex artery Normal The right coronary artery Dominant normal The [place] ventriculogram reveals Normal 65% The left ventricular end-diastolic pressure 10 mmHg IMPRESSION Normal coronary arteries Normal ejection fraction Normal LVEDP PLAN 1. Evaluation of noncardiac symptoms Electronically signed by : Jone Sarkar MD 10/31/2023 13:46:23
--- NOTE | 2023-10-31 08:17 | P.HP_ITS ---
History of Present Illness *Admission Date: 10/30/23 *Reason for visit:: chest pain *History of present illness: Patient presented to [facility] ER today complaining of non exertion substernal chest pain that radiates to her right arm. Patient has a strong family history of CAD. She had a left heart cath in 2012, which showed minimal non obstructive coronary disease. Today the ER doctor called [facility] cardiology, who saw patient in the ER and want to do a left heart cath tomorrow. She states she has had nasal congestion and productive cough for several weeks. She was started on Amoxicillin yesterday by the [facility] ENT clinic for an upper respiratory infection. (above as per Dr. Sanderson) Patient states she has had chest pain off and on throughout the night but is currently pain free other than neck pain which is chronic. She continues with a cough and nasal congestion. [facility] Disclaimer: The information contained in this section may have been updated after the patient was seen, as this information can be updated by other users. Medical History Anxiety Depression Prediabetes Hyperlipidemia Coronary artery disease Unstable angina History of thromboembolism History of cataract Breast cancer Hypertension Deviated nasal septum Chronic sinusitis Allergic rhinitis Surgical History H/O sinus surgery History of partial hysterectomy History of cholecystectomy History of right mastectomy Family History Family history of cancer Coronary artery disease Father Brother Mother Sister Family history of hypertension Family history of diabetes mellitus type II Family history of myocardial infarction Social History Smoking Status: Never smoker alcohol intake: never substance use type: denies use current occupational status: other Travel in the last 8 weeks: None household members: none housing: apartment current occupation: [employer] current occupational exposures/hazards: No caffeine: Yes Review of Systems Constitutional Constitutional: Denies fatigue and Denies weakness Eyes Eyes: Denies blurry vision and Denies diplopia ENT Ears, Nose, Mouth, and Throat: Reports nasal congestion, Reports neck pain, Reports sore throat and Denies vertigo *Cardiovascular Cardiovascular: Reports chest pain, Denies dyspnea and Denies leg edema *Respiratory Respiratory: Reports cough and Denies dyspnea *Gastrointestinal Gastrointestinal: Reports abdominal pain (epigastric), Reports heartburn, Denies loose stools, Denies nausea and Denies vomiting *Genitourinary Genitourinary: Denies difficulty voiding and Denies dysuria *Musculoskeletal Musculoskeletal: Denies arthralgias, Denies myalgias and Reports neck pain *Neurologic Neurologic: Denies vertigo and Denies weakness Endocrine Endocrine: Denies fatigue Meds Home Medications and Allergies Home Medications Medication Instructions Recorded Confirmed Type atorvastatin 40 mg tablet 40 mg PO HS 11/25/17 10/30/23 History montelukast 10 mg tablet 10 mg PO DAILY 11/25/17 10/30/23 History omeprazole 40 mg capsule,delayed 40 mg PO DAILY 11/25/17 10/30/23 History release duloxetine 60 mg capsule,delayed 120 mg PO DAILY 30 days #30 caps 06/09/18 10/30/23 History release losartan 25 mg tablet 25 mg PO DAILY 05/09/23 10/30/23 History ascorbic acid (vitamin C) 500 mg 500 mg PO DAILY 08/14/23 10/30/23 History tablet (Vitamin C) aspirin 81 mg tablet,delayed 81 mg PO DAILY 08/14/23 10/30/23 History release cholecalciferol (vitamin D3) 50 50 mcg PO DAILY 08/14/23 10/30/23 History mcg (2,000 unit) capsule (Vitamin D3) cinnamon bark 500 mg capsule 500 mg PO DAILY 08/14/23 10/30/23 History (Cinnamon) vitamin B12 500 mcg-folic acid 400 1 tab PO DAILY 08/14/23 10/30/23 History mcg tablet amoxicillin 500 mg capsule 500 mg PO BID Sinus infection 10/28/23 10/30/23 Rx days #20 caps cyanocobalamin (vitamin B-12) 250 250 mcg PO DAILY 10/30/23 10/30/23 History mcg tablet (Vitamin B-12) methocarbamol 500 mg tablet 500 mg PO QID PRN MUSCLE SPASMS 10/30/23 10/30/23 History multivitamin 1 tab PO DAILY 10/30/23 10/30/23 History New Prescriptions to Start Prescriptions: Allergies Allergy/AdvReac Type Severity Reaction Status Date / Time codeine [CODEINE] Allergy Unknown vomiting/hi Verified 10/16/23 16:33 ves hydrocodone [HYDROCODONE] Allergy Unknown vomiting/hi Verified 10/16/23 16:33 ves morphine [MORPHINE] Allergy Unknown vomiting/hi Verified 10/16/23 16:33 ves oxycodone [OXYCODONE] Allergy Unknown hives/vomit Verified 10/16/23 16:33 ing methylprednisolone Allergy tingling/we Verified 10/16/23 16:33 akness/anxi ety Exam Data for Last 24 hours Vital signs and Labs for Last 24 Hours: Temp Pulse Resp BP Pulse Ox O2 Del Method 98.1 F 68 17 127/74 96 Room Air 10/31/23 07:21 10/31/23 07:21 10/31/23 07:21 10/31/23 07:21 10/31/23 07:21 10/31/23 07:21 Laboratory Results - last 24 hr 10/30/23 11:05: WBC 5.9, RBC 4.30, Hgb 14.4, Hct 43.9, MCV 102.0 H, MCH 33.4 H, MCHC 32.8, RDW 13.1, Plt Count 250, MPV 8.4, Neut % (Auto) 55.7, Lymph % (Auto) 33.8, [place] % (Auto) 6.6, Eos % (Auto) 2.7, Baso % (Auto) 1.1, Neut # (Auto) 3.3, Lymph # (Auto) 2.0, [place] # (Auto) 0.4, Eos # (Auto) 0.2, Baso # (Auto) 0.1, D- Dimer 0.44, Sodium 140, Potassium 4.0, Chloride 107, Carbon Dioxide 33 H, Anion Gap 4.0 L, BUN 16, Creatinine 0.60, Estimated GFR 99, Est GFR ( Amer) 120, Glucose 141 H, Calcium 9.0, Magnesium 1.8, Total Bilirubin 0.6, AST 38 H, ALT 41, Alkaline Phosphatase 114, Troponin I < 0.01, NT-Pro-B Natriuret Pep 86.7, Total Protein 6.8, Albumin 4.1, Globulin 2.7, Albumin/Globulin Ratio 1.5, Lipase 71 10/30/23 13:45: Troponin I < 0.01 10/30/23 17:50: Troponin I < 0.01 10/30/23 19:30: SARS-CoV-2 (PCR) Not detected, Influenza A Untype (PCR) Not detected, Influenza Type B (PCR) Not detected 10/31/23 05:59: WBC 5.8, RBC 4.06 L, Hgb 13.0, Hct 40.9, MCV 100.7 H, MCH 32.2 H , MCHC 31.9, RDW 13.2, Plt Count 242, MPV 8.8, Neut % (Auto) 59.0, Lymph % (Auto) 29.9, [place] % (Auto) 7.5, Eos % (Auto) 2.7, Baso % (Auto) 0.9, Neut # (Auto) 3.4, Lymph # (Auto) 1.7, [place] # (Auto) 0.4, Eos # (Auto) 0.2, Baso # (Auto) 0.1, Sodium 140, Potassium 4.3, Chloride 110 H, Carbon Dioxide 28, Anion Gap 6.3, BUN 19 H, Creatinine 0.80 D, Estimated Creat Clear 60, Estimated GFR 71, Est GFR ( Amer) 86 D, Glucose 141 H, Calcium 8.9, Total Bilirubin 0.4, Direct Bilirubin 0.2, Conjugated Bilirubin 0.0, Indirect Bilirubin 0.2, Unconjugated Bilirubin 0.2, AST 30, ALT 32, Alkaline Phosphatase 100, Total Protein 5.8 L, Albumin 3.5 D, Triglycerides 141, Cholesterol 140, LDL Cholesterol Direct 57.80 L, VLDL Cholesterol 28, HDL Cholesterol 40, Cholesterol/HDL Ratio 3.5 I & O for Last 24 hours: Intake & Output 10/28/23 10/29/23 10/30/23 10/31/23 11:59 11:59 11:59 11:59 Intake Total 840 / 840 Output Total 0 / 0 Balance 840 / 840 Weight 150 lb 161 lb Constitutional Constitutional: no acute distress *Routine HEENT Exam Head: Present normocephalic and atraumatic Eye: Present EOMI and PERRL ENT: Present mucous membranes moist *Routine Neck Exam Neck: Present supple and full ROM *Routine Respiratory Exam Respiratory: Present CTA bilaterally *Routine Cardiovascular Exam Cardiovascular: Present RRR *Routine Abdominal Exam Abdominal: Present soft and normoactive bowel sounds; Absent tenderness *Routine Rectal Exam Rectal:: deferred *Routine Genitalia Exam Genitalia:: deferred *Routine Extremities Exam Extremities: Absent cyanosis, clubbing or edema *Routine Skin Exam Skin: Present intact; Absent erythema *Routine Neurological Exam Neurological: Present alert and oriented X3 H&P: Result Impressions Echo - Low normal LV systolic function (LVEF 50-55%). Asynchronous septum. Mild RV dilation with normal RV function. No significant valvular stenosis or regurgitation. Assessment and Plan *Assessment and plan (1) Unstable angina: Status: Acute Category: Medical Code(s): I20.0 - Unstable angina (2) Coronary artery disease: Status: Acute Qualifiers: Associated angina: with unstable angina Coronary Disease-Associated Artery/Lesion type: [place] artery [place] vs. transplanted heart: [place] heart Qualified Code(s): I25.110 - Atherosclerotic heart disease of [place] coronary artery with unstable angina pectoris Category: Medical Code(s): I25.10 - Atherosclerotic heart disease of [place] coronary artery without angina pectoris (3) Hyperlipidemia: Status: Acute Qualifiers: Hyperlipidemia type: mixed hyperlipidemia Qualified Code(s): E78.2 - Mixed hyperlipidemia Category: Medical Code(s): E78.5 - Hyperlipidemia, unspecified (4) Hypertension: Status: Acute Qualifiers: Hypertension type: primary hypertension Qualified Code(s): I10 - Essential (primary) hypertension Category: Medical Code(s): I10 - Essential (primary) hypertension (5) Prediabetes: Status: Acute Category: Medical Code(s): R73.03 - Prediabetes (6) URI (upper respiratory infection): Status: Acute Category: Medical Code(s): J06.9 - Acute upper respiratory infection, unspecified (7) Chronic neck pain: Status: Chronic Category: Medical Code(s): M54.2 - Cervicalgia; G89.29 - Other chronic pain Plan The patient has known underlying CAD from a heart cath in 2012 which showed disease to her LAD. She has not had any cardiac workup since that time. The patient does have a significant family history of coronary artery disease. Cardiology plans for a heart cath today. Her covid/flu were negative. She will likely need to be started back on antibiotics for her URI. Will discuss further care wtih Dr. Sanderson. Dr. Sanderson entry - Saw patient, agree with above note. Plan is for left heart cath today.
[2023-10-31] MEDS: IRBESARTAN 75MG TABLET 37.5 MG PO (08:20)
[2023-10-31] MEDS: METOPROLOL SUCCINATE XL 25MG TABLET 25 MG PO (08:20)
[2023-10-31] MEDS: ASPIRIN EC 81MG TABLET 81 MG PO (08:21)
[2023-10-31] MEDS: 0.9 % SODIUM CHLORIDE 500 ML 25 ML IV (10:38)
[2023-10-31] MEDS: diphenhydrAMINE 50MG/ML VIAL 50 MG IV (10:38)
[2023-10-31] MEDS: HEPARIN 1,000 UNITS/500ML NS (CATH LAB) 3000 UNIT IV (10:38)
[2023-10-31] MEDS: HEPARIN 1,000 UNITS/ML 10ML VIAL (CATH LAB) 10000 UNIT IV (10:38)
[2023-10-31] MEDS: LIDOCAINE 1% 10ML MDV 20 ML IJ (10:38)
[2023-10-31] MEDS: VERAPAMIL 2.5MG/ML 2ML VIAL 2.5 MG IV (10:39)
[2023-10-31] MEDS: NITROGLYCERIN 800MCG/8ML SYR (CATH LAB) 800 MCG IA (10:43)
--- NOTE | 2023-10-31 10:43 | EXP.CARD.PN ---
Subjective Subjective Date: 10/31/23 Time: 08:30 Principal diagnosis: unstable angina, CAD Interval history: This is a 68-year-old white female who presented to the emergency department complaints of chest pain. She states that she has continued to have pain intermittently throughout the night as well. She describes this as a sharp sensation in the substernal aspect of her chest radiating through to her back. She states that it lasts several minutes still and rates it a 9-10 out of 10 in intensity. She denies any shortness of breath or edema. She denies any fever, chills, nausea, vomiting, diarrhea, PND or orthopnea. Exam Data for Last 24 hours Vital signs and Labs for Last 24 Hours: Temp Pulse Resp BP Pulse Ox O2 Del Method 98.1 F 75 17 127/74 96 Room Air 10/31/23 07:21 10/31/23 08:00 10/31/23 07:21 10/31/23 07:21 10/31/23 08:00 10/31/23 09:00 Laboratory Results - last 24 hr 10/30/23 11:05: WBC 5.9, RBC 4.30, Hgb 14.4, Hct 43.9, MCV 102.0 H, MCH 33.4 H, MCHC 32.8, RDW 13.1, Plt Count 250, MPV 8.4, Neut % (Auto) 55.7, Lymph % (Auto) 33.8, [place] % (Auto) 6.6, Eos % (Auto) 2.7, Baso % (Auto) 1.1, Neut # (Auto) 3.3, Lymph # (Auto) 2.0, [place] # (Auto) 0.4, Eos # (Auto) 0.2, Baso # (Auto) 0.1, D-Dimer 0.44, Sodium 140, Potassium 4.0, Chloride 107, Carbon Dioxide 33 H, Anion Gap 4.0 L, BUN 16, Creatinine 0.60, Estimated GFR 99, Est GFR ( Amer) 120, Glucose 141 H, Calcium 9.0, Magnesium 1.8, Total Bilirubin 0.6, AST 38 H, ALT 41, Alkaline Phosphatase 114, Troponin I < 0.01, NT-Pro-B Natriuret Pep 86.7, Total Protein 6.8, Albumin 4.1, Globulin 2.7, Albumin/Globulin Ratio 1.5, Lipase 71 10/30/23 13:45: Troponin I < 0.01 10/30/23 17:50: Troponin I < 0.01 10/30/23 19:30: SARS-CoV-2 (PCR) Not detected, Influenza A Untype (PCR) Not detected, Influenza Type B (PCR) Not detected 10/31/23 05:59: WBC 5.8, RBC 4.06 L, Hgb 13.0, Hct 40.9, MCV 100.7 H, MCH 32.2 H, MCHC 31.9, RDW 13.2, Plt Count 242, MPV 8.8, Neut % (Auto) 59.0, Lymph % (Auto) 29.9, [place] % (Auto) 7.5, Eos % (Auto) 2.7, Baso % (Auto) 0.9, Neut # (Auto) 3.4, Lymph # (Auto) 1.7, [place] # (Auto) 0.4, Eos # (Auto) 0.2, Baso # (Auto) 0.1, Sodium 140, Potassium 4.3, Chloride 110 H, Carbon Dioxide 28, Anion Gap 6.3, BUN 19 H, Creatinine 0.80 D, Estimated Creat Clear 60, Estimated GFR 71, Est GFR ( Amer) 86 D, Glucose 141 H, Calcium 8.9, Total Bilirubin 0.4, Direct Bilirubin 0.2, Conjugated Bilirubin 0.0, Indirect Bilirubin 0.2, Unconjugated Bilirubin 0.2, AST 30, ALT 32, Alkaline Phosphatase 100, Total Protein 5.8 L, Albumin 3.5 D, Triglycerides 141, Cholesterol 140, LDL Cholesterol Direct 57.80 L, VLDL Cholesterol 28, HDL Cholesterol 40, Cholesterol/HDL Ratio 3.5 I & O for Last 24 hours: Intake & Output 10/28/23 10/29/23 10/30/23 10/31/23 23:59 23:59 23:59 23:59 Intake Total 480 / 840 360 / 360 Output Total 0 / 0 Balance 480 / 840 360 / 360 Weight 150 lb 161 lb Constitutional Constitutional: no acute distress and average body habitus *Routine HEENT Exam Head: Present normocephalic and atraumatic ENT: Present mucous membranes moist *Routine Neck Exam Neck: Present supple, full ROM and normal carotid upstroke; Absent JVD, carotid bruit or lymphadenopathy *Routine Respiratory Exam Respiratory: Present CTA bilaterally, normal respiratory effort, able to speak in complete sentences and symmetric chest movement *Routine Cardiovascular Exam Cardiovascular: Present RRR, Normal S1, Normal S2 and murmur (2/6); Absent gallop *Routine Abdominal Exam Abdominal: Present soft and normoactive bowel sounds; Absent tenderness, distended or organomegaly *Routine Extremities Exam Extremities: Present full ROM, pulses intact and normal capillary refill; Absent cyanosis, clubbing or edema *Routine Skin Exam Skin: Present intact and warm; Absent erythema *Routine Neurological Exam Neurological: Present alert, oriented X3 and CN II-XII intact; Absent sensory deficit or motor deficit Routine Psychiatric Exam Psychiatric: Present normal affect Progress Note: A&P Assessment and plan (1) Unstable angina: Status: Acute (2) Coronary artery disease: Status: Acute (3) Hyperlipidemia: Status: Acute (4) Hypertension: Status: Acute (5) Prediabetes: Status: Acute Assessment and Plan Assessment and Plan for All Diagnoses:: Plan: 1. The patient was admitted to the hospital with unstable angina. She will undergo a left cardiac catheterization today. 2. The patient has been educated risk and benefits of proceeding with left cardiac catheterization. The patient verbalized understanding and is agreeable to proceeding with the procedure. 3. The patient will remain n.p.o. in preparation for left cardiac catheterization. 4. Coronary artery disease is present. She has been started on aspirin 81 mg daily. 5. Continue metoprolol and losartan for unstable angina and CAD. 6. Her blood pressure is well-controlled. 7. Her LDL goal is less than 55. Her LDL is 57. She is on a statin. 8. Her ejection fraction is preserved at 50 to 55% with an asynchronous septum and mild RV dilation. 9. Further recommendations will be made pending the patient's response to treatment and the results of her left cardiac catheterization today. Thank you for the opportunity to help participate in the care of this patient. All recommendations and orders are per Dr. Cherry. Addendum: [facility] shows: The left main artery Normal The left anterior descending artery Normal The circumflex artery Normal The right coronary artery Dominant normal The [place] ventriculogram reveals Normal 65% The left ventricular end-diastolic pressure 10 mmHg IMPRESSION Normal coronary arteries Normal ejection fraction Normal LVEDP PLAN 1. Evaluation of noncardiac symptoms The patient is having noncardiac chest pain. She is stable for discharge home today from a cardiac standpoint. She can follow-up in cardiology clinic in 2 weeks on an outpatient basis.
[2023-10-31] MEDS: ONDANSETRON 4MG/2ML VIAL 4 MG IV (10:44)
[2023-10-31] MEDS: MIDAZOLAM HCL 1MG/1ML 5ML VIAL 1 MG IV (11:01)
[2023-10-31] MEDS: ACETAMINOPHEN 325MG TAB 650 MG PO (11:23)
[2023-10-31] MEDS: IOPAMIDOL-370 (76%);100ML BOTTLE 40 ML IV (11:30)
--- NOTE | 2023-11-01 14:35 | CARE MANAGER ---
Contacted patient related to hospital discharge. She is getting her Metoprolol today and has appointments with PCP and cardiology. Denies questions or concerns at this time. CECI Bailey
--- NOTE | 2023-11-05 07:45 | EXP.DC.SUM ---
General Admission date:: 10/30/23 Discharge date: 10/31/23 HPI HPI HPI: Patient presented to [facility] ER today complaining of non exertion substernal chest pain that radiates to her right arm. Patient has a strong family history of CAD. She had a left heart cath in 2012, which showed minimal non obstructive coronary disease. Today the ER doctor called [facility] cardiology, who saw patient in the ER and want to do a left heart cath tomorrow. She states she has had nasal congestion and productive cough for several weeks. She was started on Amoxicillin yesterday by the [facility] ENT clinic for an upper respiratory infection. (above as per Dr. Sanderson) Patient states she has had chest pain off and on throughout the night but is currently pain free other than neck pain which is chronic. She continues with a cough and nasal congestion. Hospital Course Hospital Course Hospital Course: Left heart cath was normal. She did have some chest discomfort on and off throughout the night after admission. After negative heart cath she was okay to be discharged home with a low-dose of metoprolol daily. She was to follow-up with cardiology in [address] Sanderson in 1 week. Exam Data for Last 24 hours Vital signs and Labs for Last 24 Hours: Temp Pulse Resp BP Pulse Ox O2 Del Method 97.8 F 69 18 116/68 96 Room Air 10/31/23 11:35 10/31/23 18:20 10/31/23 18:20 10/31/23 18:20 10/31/23 18:20 10/31/23 16:43 Narrative: Exam Data for Last 24 hours Vital signs and Labs for Last 24 Hours: Temp Pulse Resp BP Pulse Ox O2 Del Method 98.1 F 68 17 127/74 96 Room Air 10/31/23 07:21 10/31/23 07:21 10/31/23 07:21 10/31/23 07:21 10/31/23 07:21 10/31/23 07:21 Laboratory Results - last 24 hr 10/30/23 11:05: WBC 5.9, RBC 4.30, Hgb 14.4, Hct 43.9, MCV 102.0 H, MCH 33.4 H, MCHC 32.8, RDW 13.1, Plt Count 250, MPV 8.4, Neut % (Auto) 55.7, Lymph % (Auto) 33.8, [place] % (Auto) 6.6, Eos % (Auto) 2.7, Baso % (Auto) 1.1, Neut # (Auto) 3.3, Lymph # (Auto) 2.0, [place] # (Auto) 0.4, Eos # (Auto) 0.2, Baso # (Auto) 0.1, D-Dimer 0.44, Sodium 140, Potassium 4.0, Chloride 107, Carbon Dioxide 33 H, Anion Gap 4.0 L, BUN 16, Creatinine 0.60, Estimated GFR 99, Est GFR ( Amer) 120, Glucose 141 H, Calcium 9.0, Magnesium 1.8, Total Bilirubin 0.6, AST 38 H, ALT 41, Alkaline Phosphatase 114, Troponin I < 0.01, NT-Pro-B Natriuret Pep 86.7, Total Protein 6.8, Albumin 4.1, Globulin 2.7, Albumin/Globulin Ratio 1.5, Lipase 71 10/30/23 13:45: Troponin I < 0.01 10/30/23 17:50: Troponin I < 0.01 10/30/23 19:30: SARS-CoV-2 (PCR) Not detected, Influenza A Untype (PCR) Not detected, Influenza Type B (PCR) Not detected 10/31/23 05:59: WBC 5.8, RBC 4.06 L, Hgb 13.0, Hct 40.9, MCV 100.7 H, MCH 32.2 H, MCHC 31.9, RDW 13.2, Plt Count 242, MPV 8.8, Neut % (Auto) 59.0, Lymph % (Auto) 29.9, [place] % (Auto) 7.5, Eos % (Auto) 2.7, Baso % (Auto) 0.9, Neut # (Auto) 3.4, Lymph # (Auto) 1.7, [place] # (Auto) 0.4, Eos # (Auto) 0.2, Baso # (Auto) 0.1, Sodium 140, Potassium 4.3, Chloride 110 H, Carbon Dioxide 28, Anion Gap 6.3, BUN 19 H, Creatinine 0.80 D, Estimated Creat Clear 60, Estimated GFR 71, Est GFR ( Amer) 86 D, Glucose 141 H, Calcium 8.9, Total Bilirubin 0.4, Direct Bilirubin 0.2, Conjugated Bilirubin 0.0, Indirect Bilirubin 0.2, Unconjugated Bilirubin 0.2, AST 30, ALT 32, Alkaline Phosphatase 100, Total Protein 5.8 L, Albumin 3.5 D, Triglycerides 141, Cholesterol 140, LDL Cholesterol Direct 57.80 L, VLDL Cholesterol 28, HDL Cholesterol 40, Cholesterol/HDL Ratio 3.5 I & O for Last 24 hours: Intake & Output 10/28/23 10/29/23 10/30/23 10/31/23 11:59 11:59 11:59 11:59 Intake Total 840 / 840 Output Total 0 / 0 Balance 840 / 840 Weight 150 lb 161 lb Constitutional Constitutional: no acute distress *Routine HEENT Exam Head: Present normocephalic and atraumatic Eye: Present EOMI and PERRL ENT: Present mucous membranes moist *Routine Neck Exam Neck: Present supple and full ROM *Routine Respiratory Exam Respiratory: Present CTA bilaterally *Routine Cardiovascular Exam Cardiovascular: Present RRR *Routine Abdominal Exam Abdominal: Present soft and normoactive bowel sounds; Absent tenderness *Routine Rectal Exam Rectal:: deferred *Routine Genitalia Exam Genitalia:: deferred *Routine Extremities Exam Extremities: Absent cyanosis, clubbing or edema *Routine Skin Exam Skin: Present intact; Absent erythema *Routine Neurological Exam Neurological: Present alert and oriented X3 Results Data Completed and Pending Completed studies during hospitalization [Text1]: 10/30/2023 cardiac cath ANGIOGRAPHIC RESULTS The left main artery Normal The left anterior descending artery Normal The circumflex artery Normal The right coronary artery Dominant normal The [place] ventriculogram reveals Normal 65% The left ventricular end-diastolic pressure 10 mmHg IMPRESSION Normal coronary arteries Normal ejection fraction Normal LVEDP 10/30/2023 ECHO Conclusion Low normal LV systolic function (LVEF 50-55%). Asynchronous septum. Mild RV dilation with normal RV function. No significant valvular stenosis or regurgitation. CXR 10/30/2023 FINDINGS: SINGLE-VIEW CHEST The heart size is normal. The mediastinum is normal. There is mild right base atelectasis or scar. There is no pneumothorax. IMPRESSION: Right base atelectasis versus scar. DS: Diagnosis Discharge Diagnosis (1) Unstable angina: Status: Acute Code(s): I20.0 - Unstable angina (2) Coronary artery disease: Status: Acute Code(s): I25.10 - Atherosclerotic heart disease of [place] coronary artery without angina pectoris Qualifiers: Coronary Disease-Associated Artery/Lesion type: [place] artery [place] vs. transplanted heart: [place] heart Associated angina: with unstable angina Qualified Code(s): I25.110 - Atherosclerotic heart disease of [place] coronary artery with unstable angina pectoris (3) Hyperlipidemia: Status: Acute Code(s): E78.5 - Hyperlipidemia, unspecified Qualifiers: Hyperlipidemia type: mixed hyperlipidemia Qualified Code(s): E78.2 - Mixed hyperlipidemia (4) Hypertension: Status: Acute Code(s): I10 - Essential (primary) hypertension Qualifiers: Hypertension type: primary hypertension Qualified Code(s): I10 - Essential (primary) hypertension (5) Prediabetes: Status: Acute Code(s): R73.03 - Prediabetes Meds Home Medications and Allergies Home Medications Medication Instructions Recorded Confirmed Type atorvastatin 40 mg tablet 40 mg PO HS 11/25/17 10/30/23 History montelukast 10 mg tablet 10 mg PO DAILY 11/25/17 10/30/23 History omeprazole 40 mg capsule,delayed 40 mg PO DAILY 11/25/17 10/30/23 History release duloxetine 60 mg capsule,delayed 120 mg PO DAILY 30 days #30 caps 06/09/18 10/30/23 History release losartan 25 mg tablet 25 mg PO DAILY 05/09/23 10/30/23 History ascorbic acid (vitamin C) 500 mg 500 mg PO DAILY 08/14/23 10/30/23 History tablet (Vitamin C) aspirin 81 mg tablet,delayed 81 mg PO DAILY 08/14/23 10/30/23 History release cholecalciferol (vitamin D3) 50 50 mcg PO DAILY 08/14/23 10/30/23 History mcg (2,000 unit) capsule (Vitamin D3) cinnamon bark 500 mg capsule 500 mg PO DAILY 08/14/23 10/30/23 History (Cinnamon) vitamin B12 500 mcg-folic acid 400 1 tab PO DAILY 08/14/23 10/30/23 History mcg tablet amoxicillin 500 mg capsule 500 mg PO BID Sinus infection 10/28/23 10/30/23 Rx days #20 caps cyanocobalamin (vitamin B-12) 250 250 mcg PO DAILY 10/30/23 10/30/23 History mcg tablet (Vitamin B-12) methocarbamol 500 mg tablet 500 mg PO QID PRN muscle spasms 10/30/23 10/30/23 History multivitamin 1 tab PO DAILY 10/30/23 10/30/23 History metoprolol succinate 25 mg 25 mg PO DAILY #30 tabs 10/31/23 Rx tablet,extended release 24 hr New Prescriptions to Start Prescriptions: metoprolol succinate Kkio Sanderson Allergies Allergy/AdvReac Type Severity Reaction Status Date / Time codeine [CODEINE] Allergy Unknown vomiting/hi Verified 10/16/23 16:33 ves hydrocodone [HYDROCODONE] Allergy Unknown vomiting/hi Verified 10/16/23 16:33 ves morphine [MORPHINE] Allergy Unknown vomiting/hi Verified 10/16/23 16:33 ves oxycodone [OXYCODONE] Allergy Unknown hives/vomit Verified 10/16/23 16:33 ing methylprednisolone Allergy tingling/we Verified 10/16/23 16:33 akness/anxi ety Discharge Plan Disposition Patient Disposition: Home, Self-Care Condition: Good Follow up Plan Follow up with: Kiko Sanderson MD [Primary Care Provider] - 11/06/23 () Jone Sarkar MD [Staff Physician] - 2 weeks Prescriptions/Medication Reconciliation: New metoprolol succinate 25 mg Tablet Extended Release 24 Hr 25 mg PO DAILY Qty: 30 0RF Continued losartan 25 mg tablet 25 mg PO DAILY Patient Comments: TAKE 1 TABLET BY MOUTH ONCE DAILY duloxetine 60 mg capsule,delayed release(DR/EC) 120 mg PO DAILY 30 Days Qty: 30 amoxicillin 500 mg capsule 500 mg PO BID 10 Days Qty: 20 0RF atorvastatin 40 MG tablet 40 mg PO HS omeprazole 40 MG capsule,delayed release(DR/EC) 40 mg PO DAILY montelukast 10 MG tablet 10 mg PO DAILY aspirin 81 mg Tablet,Delayed Release (Dr/Ec) 81 mg PO DAILY ascorbic acid (vitamin C) [Vitamin C] 500 mg Tablet 500 mg PO DAILY cinnamon bark [Cinnamon] 500 mg Capsule 500 mg PO DAILY cholecalciferol (vitamin D3) [Vitamin D3] 50 mcg (2,000 unit) Capsule 50 mcg PO DAILY vitamin [id number] acid 500-400 mcg Tablet 1 tab PO DAILY Rx Instructions: administer with a meal multivitamin Tablet 1 tab PO DAILY methocarbamol 500 mg Tablet 500 mg PO QID PRN (Reason: muscle spasms) cyanocobalamin (vitamin B-12) [Vitamin B-12] 250 mcg Tablet 250 mcg PO DAILY Problem Reconciliation Problems Reviewed?: Yes Patient Discharge Instructions ACTIVITY: Limited activity DIET: continue same diet Patient Instructions: DI for Cardiac Catheterization, DI for Surgical Site Infection Providers Primary Care Provider: Kiko Sanderson Admit Provider: Kiko Sanderson Attending Provider: Kiko Sanderson
== END 2023-10-31 18:55 | disposition home or self-care (01) ==
LOC: ER 11:29 → 2ND 14:22
PROVIDERS: Internal Medicine; Nurse Practitioner Family; Admitting Provider Family Medicine; Emergency Provider Emergency Medicine; PCP Family Medicine; Visit Provider Family Medicine
DX: J06.9 Acute upper respiratory infection, unspecified; I25.110 Atherosclerotic heart disease of native coronary artery with unstable angina pectoris; E78.2 Mixed hyperlipidemia; I10 Essential (primary) hypertension; R73.03 Prediabetes; M54.2 Cervicalgia; G89.29 Other chronic pain; Z82.49 Family history of ischemic heart disease and other diseases of the circulatory system; Z79.899 Other long term (current) drug therapy
CPT/HCPCS: 36415; 71045; 80048; 80053; 80061; 80076; 83690; 83735; 83880; 84484; 85025; 85378; 87636; 93005; 93306; 93458; 99152; 99285; C1725; C1769; G0378; J1644; J2405; Q9967

== ENCOUNTER 2023-11-11 12:54 | Outpatient (CLI) | payer MEDICARE, OTHER, SELFPAY ==
--- NOTE | 2023-11-11 12:58 | CT_ITS ---
FINAL REPORT TECHNIQUE: Routine axial images were obtained from the lung apices to below the diaphragm following IV contrast administration. Individualized dose reduction techniques using automated exposure control or adjustment of the mA and/or kV according to the patient size were employed. CLINICAL HISTORY: LUNG NODULE COMPARISON: 04/10/2023 FINDINGS: Again noted is fairly extensive mediastinal adenopathy in the right paratracheal, prevascular, subcarinal, and hilar regions. The nodes are unchanged in size. For example subcarinal node again measures 2.8 x 1.6 cm and a right paratracheal node again measures up to 1.8 cm. On the lung windows, there is a noncalcified nodule in the medial right upper lobe again seen measuring 7 mm and stable best seen on image 24 series 2. There are calcified granulomas at the right lung base. IMPRESSION: Stable medial right upper lobe nodule. Stable extensive mediastinal adenopathy. Reviewed, Interpreted and Dictated by Jaime Arreguin MD Transcribed by Dulce Rebollar Authenticated and [facility]
[2023-11-11] MEDS: SODIUM CHLORIDE 0.9% 10ML SYR (RAD ONLY) 10 ML IV (13:18)
[2023-11-11] MEDS: IOPAMIDOL-370 (76%);100ML BOTTLE 75 ML IV (13:18)
== END 2023-11-11 23:59 | disposition home or self-care (01) ==
LOC: RAD 12:54
PROVIDERS: PCP Family Medicine; Visit Provider Family Medicine
DX: R91.1 Solitary pulmonary nodule (principal)
CPT/HCPCS: 71260; Q9967

== ENCOUNTER 2024-03-18 23:52 | Emergency (ER) | payer MEDICARE, OTHER, SELFPAY ==
[2024-03-18 23:54] VITALS: BP 140/90; PULSE 105; RESP 22; TEMP 36.7; O2SAT 98; BMI 27.1
--- NOTE | 2024-03-19 00:40 | HMH.EDGENADL ---
Discharge Plan Disposition Patient Disposition: Home, Self-Care Condition: Good Prescriptions Prescriptions: No Action losartan 25 mg tablet 25 mg PO DAILY Patient Comments: TAKE 1 TABLET BY MOUTH ONCE DAILY duloxetine 60 mg capsule,delayed release(DR/EC) 120 mg PO DAILY 30 Days Qty: 30 atorvastatin 40 MG tablet 40 mg PO HS omeprazole 40 MG capsule,delayed release(DR/EC) 40 mg PO DAILY montelukast 10 MG tablet 10 mg PO DAILY aspirin 81 mg Tablet,Delayed Release (Dr/Ec) 81 mg PO DAILY ascorbic acid (vitamin C) [Vitamin C] 500 mg Tablet 500 mg PO DAILY cinnamon bark [Cinnamon] 500 mg Capsule 500 mg PO DAILY cholecalciferol (vitamin D3) [Vitamin D3] 50 mcg (2,000 unit) Capsule 50 mcg PO DAILY vitamin [id number] acid 500-400 mcg Tablet 1 tab PO DAILY Rx Instructions: administer with a meal multivitamin Tablet 1 tab PO DAILY cyanocobalamin (vitamin B-12) [Vitamin B-12] 250 mcg Tablet 250 mcg PO DAILY metoprolol succinate 25 mg Tablet Extended Release 24 Hr 25 mg PO DAILY Qty: 30 0RF methocarbamol 500 mg tablet 500 mg PO QID PRN (Reason: muscle spasms) Referrals Follow up/Referrals: Kiko Sanderson MD [Primary Care Provider] - See instructions Activity Restrictions/Add. Instructions Additional Instructions/Restrictions: You were evaluated in the ER and are appropriate for discharge at this time. Take your home medications as prescribed. Make an appoint with your primary care physician for reevaluation in a few days. Return to the ER with new, worsening, or otherwise concerning symptoms. Clinical Impressions Clinical Impression: Choking episode Print Language Print Language: Welsh Discharge ED Provider: Viviane Toure Adult HPI General Chief complaint: Recheck/Abnormal Lab/Rx Stated complaint: inhaled medication Time Seen by Provider: 03/19/24 00:26 Mode of Arrival: Ambulatory Source of Information: Patient Limitations: No Limitations Description of Symptoms (Recalled from ER Triage Doc. by RN): patient report she was taking her night time medications when she aspirated in some of medications, she was able to cough them up but they had begun dissolving and was worried. patient also reports having surgery on her neck 03/10. History of Present Illness HPI narrative: 68-year-old female presents to the ER for complaints of choking on one of her home medications, she states it was a multivitamin. Patient states she was able to cough up the pill but when she got up she realized it had started to dissolve and was worried about what could be left in her lung. Patient reports she had cervical fusion with decompression on 03/10. She states her pain is at baseline. She is not complaining of any new neurologic deficits. She has had no fevers, no difficulty breathing, no chest pain, no difficulty swallowing. She is tolerating oral intake. ROS otherwise negative. Related Data Home Medications ?Medication ?Instructions ?Recorded ?Confirmed atorvastatin 40 mg tablet 40 mg PO HS 11/25/17 11/14/23 montelukast 10 mg tablet 10 mg PO DAILY 11/25/17 11/14/23 omeprazole 40 mg capsule,delayed 40 mg PO DAILY 11/25/17 11/14/23 release duloxetine 60 mg capsule,delayed 120 mg PO DAILY 30 days #30 caps 06/09/18 11/14/23 release losartan 25 mg tablet 25 mg PO DAILY 05/09/23 11/14/23 ascorbic acid (vitamin C) 500 mg 500 mg PO DAILY 08/14/23 11/14/23 tablet (Vitamin C) aspirin 81 mg tablet,delayed 81 mg PO DAILY 08/14/23 11/14/23 release cholecalciferol (vitamin D3) 50 50 mcg PO DAILY 08/14/23 11/14/23 mcg (2,000 unit) capsule (Vitamin D3) cinnamon bark 500 mg capsule 500 mg PO DAILY 08/14/23 11/14/23 (Cinnamon) vitamin B12 500 mcg-folic acid 400 1 tab PO DAILY 08/14/23 11/14/23 mcg tablet cyanocobalamin (vitamin B-12) 250 250 mcg PO DAILY 10/30/23 11/14/23 mcg tablet (Vitamin B-12) multivitamin 1
[2024-03-19 00:42] VITALS: BP 130/83; PULSE 106; RESP 16; TEMP 36.7; O2SAT 95
--- OUTSIDE RECORDS SUMMARY | 2024-03-24 11:55 | XMS_ITS ---
Author Organization [facility] Address [address] [facility] [address] [place] [id number] Care Team Providers Care [place] Coiling Machine Setter Name Role Phone Kiko Sanderson Primary Care Provider Veronica Urrutia Unavailable [phone] Merlene Copeland Unavailable [phone] REASON FOR VISIT Message MEDICATIONS Medication SIG (Take, Route, Frequency, Duration) Notes Start Date End Date Status Solifenacin Succinate 5 MG 1 tablet Oral ly Once a day for 30 day(s) 03/11/2024 Active Encounters Encounter Location Date Provider Diagnosis [facility] [address] [facility] [address] [place] [id number] 03/09/2024 Merlene Copeland PLAN OF TREATMENT Medication Medication Name Sig Start Date Stop Date Notes Solifenacin Succinate 5 MG 1 tablet Oral ly Once a day for 30 day(s) 03/11/2024
--- OUTSIDE RECORDS SUMMARY | 2024-03-24 11:55 | XMS_ITS ---
[facility] Address [address] [place] [id number] Care Team Providers Care Tax Assistant Name Role Phone Kiko Sanderson Primary Care Provider Veronica Urrutia Unavailable [phone] Merlene Copeland Unavailable [phone] ALLERGIES Allergen (clinical drug ingredient) Drug/Non Drug Allergy documented on EMR Reaction Allergy Type Onset Date Status Steroids STEROIDS (uncoded) Anxiety Allergy A ctive codeine Codeine Vomiting and hives Drug Allergy Active morphine Morphine Vomiting and hives Drug Allergy Active REASON FOR VISIT wants to talk about medication MEDICATIONS Medication SIG (Take, Route, Frequency, Duration) Notes Start Date End Date Status Metoprolol Succinate ER 25 MG 1 tablet Orally Once a day for 90 days 11/26/2023 Active Losartan Potassium 25 MG 1 tablet Orally Once a day for 90 days 03/06/2023 Active DULoxetine HCl 60 MG 2 cap(s) orally onc e a day for 90 days Active Atorvastatin Calcium 40 MG 1 tab(s) oral ly once a day (at bedtime) for 90 days Active Silvadene 1 % 1 application Raw Sampler ally Once a day 01/30/2024 Active Macrobid 100 MG 1 capsule with food
--- OUTSIDE RECORDS SUMMARY | 2024-03-24 11:55 | XMS_ITS ---
Author Organization [facility] Address [address] [facility] [address] [place] [id number] Care Team Providers Care Fiberglass Boat Builder Name Role Phone Kiko Sanderson Primary Care Provider [phone] Veronica Urrutia Unavailable [phone] REASON FOR VISIT Refills MEDICATIONS Medication SIG (Take, Route, Frequency, Duration) Notes Start Date End Date Status Losartan Potassium 25 MG 1 tablet Orally Once a day for 90 days 03/06/2023 Active Metoprolol Succinate ER 25 MG 1 tablet Orally Once a day for 90 days 11/26/2023 Active Encounters Encounter Location Date Provider Diagnosis [facility] [address] [facility] [address] [place] [id number] 02/07/2024 Kiko Sanderson Primary hypertension I10 ASSESSMENTS Encounter Date Diagnosis Assessment Notes Treatment Notes Treatment Clinical Notes 02/07/2024 Primary hypertension (ICD-10 - I10) PLAN OF TREATMENT Medication Medication Name Sig Start Date Stop Date Notes Losartan Potassium 25 MG 1 tablet Orally Once a day for 90 days 03/06/2023 Metoprolol Succinate ER 25 MG 1 tablet O rally Once a day for 90 days 11/26/2023
--- OUTSIDE RECORDS SUMMARY | 2024-03-24 11:55 | XMS_ITS | Patient Health Record ---
Author Organization [facility] Address [address] [place] [id number] Care Team Providers Care Family Practice Nurse Practitioner Name Role Phone Kiko Sanderson Primary Care Provider [phone] Veronica Urrutia Unavailable [phone] Merlene Copeland Unavailable [phone] ALLERGIES Allergen (clinical drug ingredient) Drug/Non Drug Allergy documented on EMR Reaction Allergy Type Onset Date Status Steroids STEROIDS (uncoded) Anxiety Allergy A ctive codeine Codeine Vomiting and hives Drug Allergy Active morphine Morphine Vomiting and hives Drug Allergy Active RESULTS Component Value Reference Range Notes Urinalysis - Inhouse Reviewed date:08/06/2023 10:12:50 AM Interpretation: Performing Lab: Notes/Report: Color/Clarity yellow/cloudy Leuk 3+ Nitrite neg Urobili 16 Protein neg pH 7.0 Blood 2+ Sp. Gr. 1.015 Ketone neg Bili neg Gluc neg bacteria WBC RBC
== END 2024-03-19 00:47 | disposition home or self-care (01) ==
PROVIDERS: Emergency Provider Emergency Medicine; PCP Family Medicine
DX: R09.89 Other specified symptoms and signs involving the circulatory and respiratory systems (principal)
CPT/HCPCS: 99282

== ENCOUNTER 2024-05-01 07:44 | Outpatient (CLI) | payer MEDICARE, OTHER, SELFPAY ==
--- NOTE | 2024-05-01 07:44 | FL_ITS ---
FINAL REPORT CLINICAL HISTORY: .difficulty swallowing, aspirate on solids FINDINGS: ESOPHAGRAM HISTORY: Difficulty swallowing PROCEDURE: The patient ingested barium. Effervescent crystals were also administered. Spot and overhead films were obtained. FINDINGS: The esophagus is normal in caliber. Extensive cervical thoracic fusion hardware is present but does not appear to obstruct the esophagus. There was penetration into the airway with both thick and thin consistency barium. There is no hiatal hernia. There is no gastroesophageal reflux. Peristalsis is normal. A 13 mm barium tablet passes throughout the esophagus without delay. IMPRESSION: Penetration of barium into the airway with both thick and thin consistency. Otherwise, unremarkable esophagram. Fluoroscopy time: 1 minute to seconds Fluoro dose: 284 DAP in [employer] Films reviewed , interpreted and dictated by Dr. Arias Transcribed by Guy Trujillo PA-C. Reviewed, Interpreted and Dictated by Saud Arias III, MD Transcribed by JEANNIE Mishra Authenticated and [facility]
[2024-05-01] MEDS: BARIUM SULFATE(LIQUID E-Z-PAQUE);355ML BOTTLE 355 ML PO (08:16)
[2024-05-01] MEDS: BARIUM SULFATE (E-Z-HD 340GM);135ML BOTTLE 135 ML PO (08:17)
== END 2024-05-01 23:59 | disposition home or self-care (01) ==
LOC: RAD 07:44
PROVIDERS: PCP Family Medicine; Visit Provider Nurse Practitioner
DX: R13.10 Dysphagia, unspecified (principal); R09.89 Other specified symptoms and signs involving the circulatory and respiratory systems
CPT/HCPCS: 74220

== ENCOUNTER 2024-05-04 08:45 | Day surgery (SDC) | payer MEDICARE, OTHER, SELFPAY ==
[2024-05-04] MEDS: LACTATED RINGERS 1000ML 1,000 ML 25 ML IV (08:59)
[2024-05-04 09:04] VITALS: BP 133/82; PULSE 79; RESP 18; TEMP 36.9; O2SAT 96; BMI 26.1
--- NOTE | 2024-05-04 09:13 | P.PNANES_ITS ---
[facility] Disclaimer: The information contained in this section may have been updated after the patient was seen, as this information can be updated by other users. Medical History Difficulty swallowing URI (upper respiratory infection) Lumbar radicular syndrome Acute viral syndrome Benign paroxysmal positional vertigo Osteoarthritis of left knee Osteoarthritis of right knee Greater trochanteric bursitis of left hip Arthritis of knee, right Sinusitis Exposure to COVID-19 virus Headache Salmonella enteritis Facial contusion Concussion with loss of consciousness Syncope Anxiety Depression Prediabetes Hyperlipidemia Coronary artery disease Unstable angina History of thromboembolism History of cataract Breast cancer Hypertension Deviated nasal septum Chronic sinusitis Allergic rhinitis Surgical History History of intestinal surgery History of neck surgery H/O sinus surgery History of partial hysterectomy History of cholecystectomy History of right mastectomy Family History Father Coronary artery disease Father had CABG at age 50 and from heart disease at age 60 Brother Coronary artery disease Brother had CABG Mother Coronary artery disease Mother had heart disease with stenting. She had a cholesterol shower following stent placement. Sister Coronary artery disease Sister had CABG in her 60s. Other Family history of cancer Family history of diabetes mellitus type II Family history of hypertension Family history of myocardial infarction Social History (Updated 05/04/24 @ 09:02 by Michael Aparicio RN) Smoking Status: Never smoker alcohol intake: never substance use type: denies use current occupational status: retired Travel in the last 8 weeks: None household members: none housing: apartment current occupation: [employer] current occupational exposures/hazards: No caffeine: Yes [facility] Anesthesia Checklist Patient Identification Patient Identification: Arm Band and Verbal (Name & ) Structural Data Admitted From: Home Planned Operative Procedure/s: colonoscopy Verified Documents: Surgical Consent and History and Physical NPO Status Verified Time NPO: 05:00 Chart Verification Results Verified: CBC, BMP, ECG and Chest Xray Additional verifications Patient : No Anesthesia Reactions: Yes (PONV) Hx Blood Transfusions: No Blood Transfusion Reaction: No Cardiovascular Assessment Heart Sounds: S1 & S2 Pulse Rhythm: Irregular Peripheral Edema: No Airway Assessment Mallampati Score:: Class II C-Spine Mobility Assessed: Yes (Limited movement d/t rigid C-collar in place) TMJ Mobility Assessed: Yes Dentition: Good Dentition (Nothing loose per pt.) Neurological Assessment Level of Consciousness: Awake, Alert, Appropriate and Follows Commands Hx Seizures: No Numbness or tingling in extremities: Yes (SO UE) Anesthesia Plan Anesthesia Risk discussed: Yes Anesthesia Plan: Verified ASA Class: III Anesthesia Type: MAC
--- NOTE | 2024-05-04 09:36 | EXP.HP ---
History of Present Illness *Admission Date: 05/04/24 *Reason for visit:: Screening *History of present illness: Mrs. Centeno is a 68-year-old female who is here for screening colonoscopy. The examination is deemed medically necessary for screening. The patient has been seen, interviewed and examined prior to the procedure by both myself and the anesthesia provider. [facility] Disclaimer: The information contained in this section may have been updated after the patient was seen, as this information can be updated by other users. Medical History (Updated 05/04/24 @ 09:46 by Da Stack II, MD) Difficulty swallowing URI (upper respiratory infection) Lumbar radicular syndrome Acute viral syndrome Benign paroxysmal positional vertigo Osteoarthritis of left knee Osteoarthritis of right knee Greater trochanteric bursitis of left hip Arthritis of knee, right Sinusitis Exposure to COVID-19 virus Headache Salmonella enteritis Facial contusion Concussion with loss of consciousness Syncope Anxiety Depression Prediabetes Hyperlipidemia Coronary artery disease Unstable angina History of thromboembolism History of cataract Breast cancer Hypertension Deviated nasal septum Chronic sinusitis Allergic rhinitis Surgical History History of intestinal surgery History of neck surgery H/O sinus surgery History of partial hysterectomy History of cholecystectomy History of right mastectomy Family History Father Coronary artery disease Father had CABG at age 50 and from heart disease at age 60 Brother Coronary artery disease Brother had CABG Mother Coronary artery disease Mother had heart disease with stenting. She had a cholesterol shower following stent placement. Sister Coronary artery disease Sister had CABG in her 60s. Other Family history of cancer Family history of diabetes mellitus type II Family history of hypertension Family history of myocardial infarction Social History (Updated 05/04/24 @ 09:02 by Michael Aparicio RN) Smoking Status: Never smoker alcohol intake: never substance use type: denies use current occupational status: retired Travel in the last 8 weeks: None household members: none housing: apartment current occupation: [employer] current occupational exposures/hazards: No caffeine: Yes Other Medical History Have you received the Flu Vaccine for this season: No Have you received the Pneumonia Vaccine: Yes Review of Systems Review of Systems Review of systems (narrative): Negative *Cardiovascular Comments: Negative *Gastrointestinal Comments: Negative *Genitourinary Comments: Negative *Musculoskeletal Comments: Negative *Neurologic Comments: Negative Meds Home Medications and Allergies Home Medications ?Medication ?Instructions ?Recorded ?Confirmed ?Type atorvastatin 40 mg tablet 40 mg PO HS 11/25/17 05/04/24 History montelukast 10 mg tablet 10 mg PO DAILY 11/25/17 05/04/24 History omeprazole 40 mg capsule,delayed 40 mg PO DAILY 11/25/17 05/04/24 History release duloxetine 60 mg capsule,delayed 120 mg PO DAILY 30 days #30 caps 06/09/18 05/04/24 History release losartan 25 mg tablet 25 mg PO DAILY 05/09/23 05/04/24 History ascorbic acid (vitamin C) 500 mg 500 mg PO DAILY 08/14/23 05/04/24 History tablet (Vitamin C) cholecalciferol (vitamin D3) 50 50 mcg PO DAILY 08/14/23 05/04/24 History mcg (2,000 unit) capsule (Vitamin D3) cinnamon bark 500 mg capsule 500 mg PO DAILY 08/14/23 05/04/24 History (Cinnamon) vitamin B12 500 mcg-folic acid 400 1 tab PO DAILY 08/14/23 05/04/24 History mcg tablet cyanocobalamin (vitamin B-12) 250 250 mcg PO DAILY 10/30/23 05/04/24 History mcg tablet (Vitamin B-12) multivitamin 1 tab PO DAILY 10/30/23 05/04/24 History metoprolol succinate 25 mg 25 mg PO DAILY #30 tabs 10/31/23 05/04/24 Rx tablet,extended release 24 hr methocarbamol 500 mg tablet 500 mg PO QID PRN muscle spasms 11/14/23 05/04/24 History sodium,potassium,mag sulfates 17.5 See Rx Instructions PO .COMPLEX 04/24/24 05/04/24 Rx gram-3.13 gram-1.6 gram oral soln #354 mL (Suprep Bowel Prep Kit) New Prescriptions to Start Prescriptions: Allergies Allergy/AdvReac Type Severity Reaction Status Date / Time codeine [CODEINE] Allergy Unknown vomiting/hi Verified 05/04/24 09:02 ves hydrocodone [HYDROCODONE] Allergy Unknown vomiting/hi Verified 05/04/24 09:02 ves morphine [MORPHINE] Allergy Unknown vomiting/hi Verified 05/04/24 09:02 ves oxycodone [OXYCODONE] Allergy Unknown hives/vomit Verified 05/04/24 09:02 ing methylprednisolone Allergy tingling/we Verified 05/04/24 09:02 akness/anxi ety Exam Data for Last 24 hours Vital signs and Labs for Last 24 Hours: Temp Pulse Resp BP Pulse Ox O2 Del Method 98.5 F 79 18 133/82 96 Room Air 05/04/24 09:04 05/04/24 09:04 05/04/24 09:04 05/04/24 09:04 05/04/24 09:04 05/04/24 09:04 I & O for Last 24 hours: Intake & Output 05/01/24 05/02/24 05/03/24 05/04/24 23:59 23:59 23:59 23:59 Weight 152 lb *Routine HEENT Exam Head: Present normocephalic Eye: Present EOMI and PERRL ENT: Present mucous membranes moist *Routine Neck Exam Neck: Present supple *Routine Respiratory Exam Respiratory: Present CTA bilaterally *Routine Cardiovascular Exam Cardiovascular: Present RRR *Routine Abdominal Exam Abdominal: Present soft and normoactive bowel sounds; Absent tenderness *Routine Rectal Exam Rectal:: deferred *Routine Genitalia Exam Genitalia:: deferred *Routine Extremities Exam Extremities: Absent cyanosis, clubbing or edema *Routine Skin Exam Skin: Present warm; Absent rash *Routine Neurological Exam Neurological: Present alert and oriented X3 Assessment and Plan *Assessment and plan (1) Screening for colon cancer: Status: Acute Category: Medical Code(s): Z12.11 - Encounter for screening for malignant neoplasm of colon Plan A/P: 1. Screening for colon cancer is the preprocedural diagnosis. The patient will be anesthetized/sedated using MAC sedation. The patient has been seen and examined. Cardiac and lung assessment prior to the examination is stable. Proceed with planned colonoscopy
[2024-05-04 09:41] VITALS: O2SAT 99
--- NOTE | 2024-05-04 09:46 | HMH.PROCNOTE ---
[facility] Procedure Note Date: 05/04/24 Time: 10:04 Procedure Note:: Colonoscopy Procedure Report: Colonoscopy with cold snare polypectomy Endoscopist: Da Stack II, MD Referring physician: Kiko Sanderson MD Date of Procedure: May 04, 2024 Equipment: Olympus 190 variable stiffness pediatric colonoscope Sedation: MAC sedation Indication: Mrs. Centeno is a 68-year-old female who is here for follow-up screening/surveillance colonoscopy. Her last colonoscopy was 8 to 10 years ago (with me). She does have some chronic constipation and may go up to 2 weeks without a bowel movement. She reports no rectal bleeding, abdominal pain, weight loss or family history of colon cancer. Procedure: Prior to the procedure, a history and physical exam was performed, and patient's medications and allergies were reviewed. The risks, benefits and alternatives of the sedation and procedure were discussed with the patient. All questions were answered and informed consent was obtained. The patient was brought to the procedure room. Patient identification and proposed procedure were verified by the physician and the nurse. The patient was placed in a left lateral decubitus position and the scope was passed under direct vision. Throughout the procedure, the patient's blood pressure, pulse, and oxygen saturations were monitored continuously. The colonoscopy was accomplished without difficulty. The patient tolerated the procedure well. Findings: On digital rectal examination there was normal rectal tone. There were no external hemorrhoids. The colonoscope was introduced through the anal canal to the rectum and advanced to the cecum. The ileocecal valve and appendiceal orifice were identified. The scope was advanced a short distance into the ileum which appeared grossly normal. The scope was then withdrawn into the colon. The cecum, ascending and transverse colon and mucosa were grossly normal. There was a single 5 mm polyp in the descending colon removed via cold snare polypectomy. There were scattered diverticuli throughout the descending and sigmoid colon (LEFT colon). The rectum itself was normal. Upon retroflexion within the rectum there were grade 1-2 internal hemorrhoids. The preparation was excellent throughout with [place] Preparation Score of 9. The cecal time was 12 minutes. Impression: 1. Diminutive 5 mm descending colon polyp 2. Left-sided diverticulosis 3. Grade 1-2 internal hemorrhoids Plan: I will follow-up the polyp histology and recommend repeat surveillance colonoscopy again in 7 years if the polyp is adenomatous. I would encourage a fiber bowel regimen (combined MiraLAX plus Citrucel) on a long-term daily maintenance basis.
[2024-05-04 10:05] VITALS: BP 134/63; PULSE 85; RESP 16; TEMP 36.6; O2SAT 94
[2024-05-04 10:15] VITALS: BP 149/61; PULSE 75; RESP 16; O2SAT 100
[2024-05-04 10:25] VITALS: BP 169/83; PULSE 90; RESP 16; O2SAT 97
[2024-05-04 10:35] VITALS: BP 159/70; PULSE 65; RESP 16; TEMP 36.6; O2SAT 98
== END 2024-05-04 10:35 | disposition home or self-care (01) ==
LOC: CATHLAB 08:46 → OR 08:52
PROVIDERS: PCP Family Medicine; Visit Provider Internal Medicine Gastroenterology
PROC: (CPT 45385; principal; 2024-05-04 09:30)
DX: Z12.11 Encounter for screening for malignant neoplasm of colon (principal); K59.09 Other constipation; D12.4 Benign neoplasm of descending colon; K57.30 Diverticulosis of large intestine without perforation or abscess without bleeding; K64.8 Other hemorrhoids
CPT/HCPCS: 45385; 88305; J7120

== ENCOUNTER 2024-07-13 08:00 | Outpatient (RCR) | payer MEDICARE, OTHER, SELFPAY | END 2024-07-13 23:59 | disposition home or self-care (01) | LOC: PT 08:00 | PROVIDERS: PCP Family Medicine; Visit Provider Neurological Surgery | DX: M54.12 Radiculopathy, cervical region (principal) | CPT/HCPCS: 97010; 97014; 97110; 97140; 97163; 97530; G0283 ==

== ENCOUNTER 2024-07-23 09:00 | Outpatient (RCR) | payer MEDICARE, OTHER, SELFPAY | END 2024-07-23 23:59 | disposition home or self-care (01) | LOC: PT 09:00 | PROVIDERS: PCP Family Medicine; Visit Provider Neurological Surgery | DX: M54.12 Radiculopathy, cervical region (principal) | CPT/HCPCS: 97014; 97110; 97140; G0283 ==

== ENCOUNTER 2024-08-03 10:39 | Day surgery (SDC) | payer MEDICARE, SELFPAY ==
[2024-07-31 08:36] VITALS: BMI 26.6
[2024-08-03] MEDS: LACTATED RINGERS 1000ML 1,000 ML 25 ML IV (10:57)
--- NOTE | 2024-08-03 10:58 | EXP.ANES.CKL ---
[facility] Disclaimer: The information contained in this section may have been updated after the patient was seen, as this information can be updated by other users. Medical History Difficulty swallowing URI (upper respiratory infection) Lumbar radicular syndrome Acute viral syndrome Benign paroxysmal positional vertigo Osteoarthritis of left knee Osteoarthritis of right knee Greater trochanteric bursitis of left hip Arthritis of knee, right Sinusitis Exposure to COVID-19 virus Headache Salmonella enteritis Facial contusion Concussion with loss of consciousness Syncope Anxiety Depression Prediabetes Hyperlipidemia Coronary artery disease Unstable angina History of thromboembolism History of cataract Breast cancer Hypertension Deviated nasal septum Chronic sinusitis Allergic rhinitis Surgical History History of intestinal surgery History of neck surgery H/O sinus surgery History of partial hysterectomy History of cholecystectomy History of right mastectomy Family History Father Coronary artery disease Brother Coronary artery disease Mother Coronary artery disease Sister Coronary artery disease Other Family history of cancer Family history of diabetes mellitus type II Family history of hypertension Family history of myocardial infarction Social History Smoking Status: Never smoker alcohol intake: never substance use type: denies use current occupational status: retired Travel in the last 8 weeks: None household members: none housing: apartment current occupation: [employer] current occupational exposures/hazards: No caffeine: Yes Have you lived/traveled outside [place] in past 30 days?: No Contact w/someone who lives/traveled outside US past 30 days?: No Exposure to someone with infectious disease in past 14 days?: No Do you have a fever (greater than 100.4 F or 38 C)?: No Have you tested positive for COVID-19: No Exposed to someone with COVID-19 in past 14 days?: No Do you have a sore throat?: No Do you have a cough?: No Do you have any weakness?: No Do you have any diarrhea?: No Are you experiencing any unusual bleeding?: No Do you have any muscle aches/pain?: No Do you have any abdominal pain?: No Are you experiencing loss of taste or smell?: No [facility] Anesthesia Checklist Patient Identification Patient Identification: Arm Band and Verbal (Name & ) Structural Data Admitted From: Home Planned Operative Procedure/s: Colonoscopy Consent for Planned Operative Procedure(s) Verified: Yes Verified Documents: Surgical Consent and History and Physical NPO Status Verified Time NPO: 00:00 Additional verifications Anesthesia Reactions: Yes (PONV) Hx Blood Transfusions: No Blood Transfusion Reaction: No Airway Assessment Mallampati Score:: Class II C-Spine Mobility Assessed: Yes TMJ Mobility Assessed: Yes Dentition: Good Dentition Neurological Assessment Level of Consciousness: Awake Hx Seizures: No Numbness or tingling in extremities: No Anesthesia Plan Anesthesia Risk discussed: Yes Anesthesia Plan: Verified ASA Class: III Anesthesia Type: MAC
[2024-08-03 11:06] VITALS: BP 118/73; PULSE 73; RESP 18; TEMP 36.2; O2SAT 98
[2024-08-03 11:40] VITALS: O2SAT 98
--- NOTE | 2024-08-03 11:45 | P.HP_ITS ---
History of Present Illness *Admission Date: 08/03/24 *Reason for visit:: Dysphagia *History of present illness: Mrs. Centeno is a 68-year-old female who is here for dysphagia and choking. She does have some heartburn but reports no reflux. She is on omeprazole twice daily. The examination is deemed medically necessary for EGD. The patient has been seen, interviewed and examined prior to the procedure by both myself and the anesthesia provider. [facility] Disclaimer: The information contained in this section may have been updated after the patient was seen, as this information can be updated by other users. Medical History Difficulty swallowing URI (upper respiratory infection) Lumbar radicular syndrome Acute viral syndrome Benign paroxysmal positional vertigo Osteoarthritis of left knee Osteoarthritis of right knee Greater trochanteric bursitis of left hip Arthritis of knee, right Sinusitis Exposure to COVID-19 virus Headache Salmonella enteritis Facial contusion Concussion with loss of consciousness Syncope Anxiety Depression Prediabetes Hyperlipidemia Coronary artery disease Unstable angina History of thromboembolism History of cataract Breast cancer Hypertension Deviated nasal septum Chronic sinusitis Allergic rhinitis Surgical History History of intestinal surgery History of neck surgery H/O sinus surgery History of partial hysterectomy History of cholecystectomy History of right mastectomy Family History Father Coronary artery disease Brother Coronary artery disease Mother Coronary artery disease Sister Coronary artery disease Other Family history of cancer Family history of diabetes mellitus type II Family history of hypertension Family history of myocardial infarction Social History Smoking Status: Never smoker alcohol intake: never substance use type: denies use current occupational status: retired Travel in the last 8 weeks: None household members: none housing: apartment current occupation: [employer] current occupational exposures/hazards: No caffeine: Yes Have you lived/traveled outside US in past 30 days?: No Contact w/someone who lives/traveled outside US past 30 days?: No Exposure to someone with infectious disease in past 14 days?: No Do you have a fever (greater than 100.4 F or 38 C)?: No Have you tested positive for COVID-19: No Exposed to someone with COVID-19 in past 14 days?: No Do you have a sore throat?: No Do you have a cough?: No Do you have any weakness?: No Do you have any diarrhea?: No Are you experiencing any unusual bleeding?: No Do you have any muscle aches/pain?: No Do you have any abdominal pain?: No Are you experiencing loss of taste or smell?: No Other Medical History Have you received the Flu Vaccine for this season: No Have you received the Pneumonia Vaccine: Yes Review of Systems Review of Systems Review of systems (narrative): Negative *Cardiovascular Comments: Negative *Gastrointestinal Comments: Negative *Genitourinary Comments: Negative *Musculoskeletal Comments: Negative *Neurologic Comments: Negative Meds Home Medications and Allergies Home Medications ?Medication ?Instructions ?Recorded ?Confirmed ?Type atorvastatin 40 mg tablet 40 mg PO HS 11/25/17 07/31/24 History montelukast 10 mg tablet 10 mg PO DAILY 11/25/17 07/31/24 History omeprazole 40 mg capsule,delayed 40 mg PO DAILY 11/25/17 07/31/24 History release duloxetine 60 mg capsule,delayed 120 mg PO DAILY 30 days #30 caps 06/09/18 07/31/24 History release losartan 25 mg tablet 25 mg PO DAILY 05/09/23 07/31/24 History bisoprolol fumarate 5 mg tablet 5 mg PO DAILY 08/03/24 08/03/24 History New Prescriptions to Start Prescriptions: Allergies Allergy/AdvReac Type Severity Reaction Status Date / Time codeine (CODEINE) Allergy Unknown vomiting/hi Verified 07/31/24 08:38 ves hydrocodone (HYDROCODONE) Allergy Unknown vomiting/hi Verified 07/31/24 08:38 ves morphine (MORPHINE) Allergy Unknown vomiting/hi Verified 07/31/24 08:38 ves oxycodone (OXYCODONE) Allergy Unknown hives/vomit Verified 07/31/24 08:38 ing methylprednisolone Allergy tingling/we Verified 07/31/24 08:38 akness/anxi ety Exam Data for Last 24 hours Vital signs and Labs for Last 24 Hours: Temp Pulse Resp BP Pulse Ox O2 Del Method O2 Flow Rate 97.2 F L 73 18 118/73 98 Nasal Cannula 5 08/03/24 11:06 08/03/24 11:06 08/03/24 11:06 08/03/24 11:06 08/03/24 11:06 08/03/24 11:40 08/03/24 11:40 I & O for Last 24 hours: Intake & Output 07/31/24 08/01/24 08/02/24 08/03/24 23:59 23:59 23:59 23:59 Weight 155 lb *Routine HEENT Exam Head: Present normocephalic Eye: Present EOMI and PERRL ENT: Present mucous membranes moist *Routine Neck Exam Neck: Present supple *Routine Respiratory Exam Respiratory: Present CTA bilaterally *Routine Cardiovascular Exam Cardiovascular: Present RRR *Routine Abdominal Exam Abdominal: Present soft and normoactive bowel sounds; Absent tenderness *Routine Rectal Exam Rectal:: deferred *Routine Genitalia Exam Genitalia:: deferred *Routine Extremities Exam Extremities: Absent cyanosis, clubbing or edema *Routine Skin Exam Skin: Present warm; Absent rash *Routine Neurological Exam Neurological: Present alert and oriented X3 Assessment and Plan *Assessment and plan (1) Dysphagia: Status: Acute Category: Medical Code(s): R13.10 - Dysphagia, unspecified (2) Choking episode: Status: Acute Category: Medical Code(s): R09.89 - Other specified symptoms and signs involving the circulatory and respiratory systems (3) Heartburn: Status: Acute Category: Medical Code(s): R12 - Heartburn Plan A/P: 1. Dysphagia/choking with heartburn is the preprocedural diagnosis. The patient will be anesthetized/sedated using MAC sedation. The patient has been seen and examined. Cardiac and lung assessment prior to the examination is stable. Proceed with planned diagnostic EGD
--- NOTE | 2024-08-03 11:50 | HMH.PROCNOTE ---
[facility] Procedure Note Date: 08/03/24 Time: 12:03 Procedure Note:: Upper Endoscopy Procedure Report: Esophagogastroduodenoscopy with cold biopsy and TTS balloon dilation Endoscopost: Da Stack II, MD Referring Physician: Kiko Sanderson MD Date of Procedure: August 03, 2024 Equipment: Olympus GIF 190 standard upper endoscope Sedation: MAC sedation Indications: Mrs. Centeno is a 68-year-old female who has struggled some with dysphagia. She often has to drink a lot of fluids to wash solid foods down. She has never had a food impaction. The patient has had 3 anterior cervical neck surgeries and 1 larger posterior cervical neck surgery. She does report some heartburn and takes omeprazole 40 mg by mouth twice daily. She does report bloating and constipation. She gets some belching and intermittent globus sensation. She also reports some chest pain but this is not related to exercise. This is her first upper endoscopy. She is on the fiber bowel regimen (combined MiraLAX plus Citrucel) which is not helping with her obstipation but does result in a lot of gassiness. Procedure: Prior to the procedure, a history and physical exam was performed, and patient's medications and allergies were reviewed. The risks, benefits and alternatives of the sedation and procedure were discussed with the patient. All questions were answered and informed consent was obtained. The patient was brought to the procedure room. Patient identification and proposed procedure were verified by the physician and the nurse. The patient was placed in a left lateral decubitus position and the scope was passed under direct vision. Throughout the procedure, the patient's blood pressure, pulse, and oxygen saturations were monitored continuously. The upper GI endoscopy was accomplished without difficulty. The patient tolerated the procedure well. Findings: The scope was passed directly into the upper esophagus and advanced to the third portion of the duodenum. There was a duodenal lymphangiectasia in the second portion that was biopsied. The remainder of the the post bulbar duodenum and duodenal bulb were otherwise normal with normal mucosa and conniventes. The scope was withdrawn through a normal duodenal bulb and pylorus into the stomach. There was bile reflux with linear reactive gastropathy of the antrum and distal body of the stomach. There is very minimal chronic gastritis of the body and fundus. Biopsies were taken from the antrum. Upon retroflexion there was no hiatal hernia. The scope was then withdrawn into the esophagus. There was a serrated Z-line with a single short tongue of salmon-colored mucosa that was biopsied to rule out intestinal metaplasia. There was some evidence of mild to moderate esophageal dysmotility. There was no evidence of reflux esophagitis. There was no Schatzki's ring, furrowing, corrugation or strictures. There was no proximal esophageal inlet patch. The entire esophagus was dilated to 60 [place]/20 mm with a TTS hydrostatic balloon with minimal resistance. The remainder of the esophageal mucosa was normal. Impression: 1. Nonerosive GERD with mild to moderate esophageal dysmotility 2. Bile reflux with mild to moderate linear reactive gastropathy 3. Duodenal lymphangiectasia Plan: I will follow-up the biopsies. I do feel that her dysphagia/swallowing difficulty is related to her esophageal dysmotility and functional GERD. This is also possibly related to the anterior neck surgeries. Dysphagia is a common complication of anterior surgery of the cervical spine. The incidence of post-operative dysphagia may be as high as 71% within the first two weeks after surgery, but gradually decreases during the following months. However, 12% to 14% of patients may have some persistent dysphagia one year after the procedure. Risk factors include multilevel surgery, longer operating time and severe pre-operative neck pain. Although the etiology remains unclear and is probably multifactorial, proposed causes include esophageal retraction, prominence of the cervical plate and prevertebral swelling. We will discuss additional treatment options.
[2024-08-03 12:06] VITALS: BP 117/70; PULSE 82; RESP 16; TEMP 36.4; O2SAT 93
[2024-08-03 12:16] VITALS: BP 126/87; PULSE 79; RESP 18; O2SAT 95
[2024-08-03 12:26] VITALS: BP 127/73; PULSE 79; RESP 18; O2SAT 98
[2024-08-03 12:36] VITALS: BP 128/71; PULSE 78; RESP 18; O2SAT 98
== END 2024-08-03 12:36 | disposition home or self-care (01) ==
PROVIDERS: PCP Family Medicine; Visit Provider Internal Medicine Gastroenterology
PROC: 0DJ08ZZ Inspection of Upper Intestinal Tract, Via Natural or Artificial Opening Endoscopic (ICD-10-PCS; CPT 43239; principal; 2024-08-03 13:00)
DX: R13.10 Dysphagia, unspecified (principal); R09.89 Other specified symptoms and signs involving the circulatory and respiratory systems; R12 Heartburn; K59.04 Chronic idiopathic constipation; K29.70 Gastritis, unspecified, without bleeding; K63.89 Other specified diseases of intestine; K31.9 Disease of stomach and duodenum, unspecified; K22.4 Dyskinesia of esophagus; K21.9 Gastro-esophageal reflux disease without esophagitis
CPT/HCPCS: 43239; 43249; C1726; J7120

== ENCOUNTER 2024-08-12 09:28 | Emergency (ER) | payer MEDICARE, SELFPAY ==
[2024-08-12] VITALS (12 sets, daily range): BP systolic 100–130; BP diastolic 58–74; PULSE 61–80; RESP 16–19; TEMP 36.8; O2SAT 84–95; BMI 26.6
--- NOTE | 2024-08-12 09:46 | CT_ITS ---
FINAL REPORT TECHNIQUE: Axial images through the pelvis were performed by computed tomography. Reconstructed images were obtained and reviewed. This study was performed with techniques to keep radiation doses as low as reasonably achievable, (ALARA). Individualized dose reduction techniques using automated exposure control or adjustment of mA and/or kV according to the patient's size were employed. CLINICAL HISTORY: trauma, critical injury suspected FINDINGS: There is moderate facet hypertrophy in the lower lumbar spine. There are hypertrophic changes of degenerative disc disease at L5-S1 with high-grade bilateral neuroforaminal narrowing. No fracture is identified. The hip joint spaces are well-preserved. IMPRESSION: Advanced degenerative disc disease at L5-S1. No acute bony abnormality. Reviewed, Interpreted and Dictated by Jaime Arreguin MD Transcribed by Gabbi Blevins Authenticated and . [facility]
--- NOTE | 2024-08-12 09:46 | CT_ITS ---
FINAL REPORT TECHNIQUE: Axial images were obtained of the lumbar spine by computed tomography. Coronal and sagittal reconstruction process performed. This study was performed with techniques to keep radiation doses as low as reasonably achievable (ALARA). Individualized dose reduction techniques using automated exposure control or adjustment of mA and/or kV according to the patient''s size were employed. CLINICAL HISTORY: trauma, critical injury suspected FINDINGS: There is moderate disc space narrowing at L5-S1 with endplate hypertrophy. The vertebral bodies demonstrate normal height. There is no malalignment. L1-2: No significant disc bulge or protrusion. L2-3: No significant disc bulge or protrusion. L3-4: No significant disc bulge or protrusion. L4-5: Moderate diffuse disc bulge. Bilateral facet hypertrophy. Mild spinal and moderate bilateral neuroforaminal narrowing. L5-S1: Diffuse disc bulge with endplate hypertrophy and prominent facet hypertrophy. High-grade bilateral neuroforaminal narrowing. IMPRESSION: No acute fracture. Reviewed, Interpreted and Dictated by Jaime Arreguin MD Transcribed by Gabbi Blevins Authenticated and [facility]
--- NOTE | 2024-08-12 09:46 | CT_ITS ---
FINAL REPORT TECHNIQUE: Axial images were obtained of the cervical spine by computed tomography. Coronal and sagittal reconstruction process performed. This study was performed with techniques to keep radiation doses as low as reasonably achievable (ALARA). Individualized dose reduction techniques using automated exposure control or adjustment of mA and/or kV according to the patient''s size were employed. CLINICAL HISTORY: trauma, critical injury suspected FINDINGS: There is anterior and interbody fusion hardware bridging C3-4, C4-5, and C5-6. There is posterior fusion hardware bridging C2-T3. Posterior laminectomy defect is seen at the C5 and C6 levels. No fracture is identified. IMPRESSION: Multilevel surgical changes without acute bony abnormality. Reviewed, Interpreted and Dictated by Jaime Arreguin MD Transcribed by Gabbi Blevins Authenticated and [facility]
--- NOTE | 2024-08-12 09:46 | CT_ITS ---
FINAL REPORT TECHNIQUE: thin section axial CT with and without IV contrast supplemented with multiplanar 3-D reconstruction of the head. This study was performed with techniques to keep radiation doses as low as reasonably achievable, (ALARA)individualized dose reduction techniques using automated exposure control or adjustment of mA and/or kV according to the patient's size were employed. CLINICAL HISTORY: trauma, critical injury suspected FINDINGS: The cranial circulation is unremarkable. There is no significant stenosis, aneurysm or occlusion. IMPRESSION: No evidence of stenosis or major branch occlusion. Reviewed, Interpreted and Dictated by Jaime Arreguin MD Transcribed by Gabbi Blevins Authenticated and [facility]
--- NOTE | 2024-08-12 09:46 | CT_ITS ---
FINAL REPORT TECHNIQUE: NASCET technique utilized for stenosis evaluation. This study was performed with techniques to keep radiation doses as low as reasonably achievable, (ALARA). Individualized dose reduction techniques using automated exposure control or adjustment of mA and/or kV according to the patient's size were employed. CLINICAL HISTORY: trauma, critical injury suspected FINDINGS: RIGHT CAROTID: No significant stenosis is seen of the cervical common or internal carotid artery. LEFT CAROTID: No significant stenosis seen of the cervical common or internal carotid artery. VERTEBRALS: The left vertebral artery is dominant. No significant stenosis is present. IMPRESSION: No significant arterial abnormality. Reviewed, Interpreted and Dictated by Jaime Arreguin MD Transcribed by Gabbi Blevins Authenticated and [facility]
--- NOTE | 2024-08-12 09:46 | CT_ITS ---
FINAL REPORT TECHNIQUE: Axial images were obtained of the thoracic spine by computed tomography. Coronal and sagittal reconstruction process performed. This study was performed with techniques to keep radiation doses as low as reasonably achievable (ALARA). Individualized dose reduction techniques using automated exposure control or adjustment of mA and/or kV according to the patient's size were employed. CLINICAL HISTORY: trauma, critical injury suspected FINDINGS: There is moderate anterior osteophyte formation in the mid thoracic spine. The vertebral bodies demonstrate normal height. There is no malalignment. IMPRESSION: No acute fracture. Reviewed, Interpreted and Dictated by Jaime Arreguin MD Transcribed by Gabbi Blevins Authenticated and . [facility]
--- NOTE | 2024-08-12 09:46 | CT_ITS ---
FINAL REPORT TECHNIQUE: Pre-and postcontrast images of the abdomen through the pelvis were performed by computed tomography. Extensive 3-D reconstruction images were performed. A CTA was performed. This study was performed with techniques to keep radiation doses as low as reasonably achievable (ALARA). Individualized dose reduction techniques using automated exposure control or adjustment of mA and/or kV according to the patient's size were employed. CLINICAL HISTORY: trauma, critical injury suspected COMPARISON: None FINDINGS: ABDOMEN: Precontrast images demonstrate no evidence of nephrolithiasis. The liver is homogeneous. There is a small focus of irregular calcification adjacent to the emilio hepatis. The gallbladder is surgically absent. Calcified granulomas are seen within the spleen. The pancreas and adrenal glands are unremarkable. The common duct is mildly enlarged measuring up to 10 mm. There is a large amount of stool throughout the colon. PELVIS: No pelvic free fluid is seen. The urinary bladder is normal in size and configuration. There is moderate disc space narrowing at the L5-S1 disc level. CTA: The abdominal aorta is proper caliber. The SMA, celiac axis, and DORIAN are patent. There is no significant stenosis or calcification. There are patent single renal arteries. The iliac arteries are patent bilaterally. IMPRESSION: No acute findings. Reviewed, Interpreted and Dictated by Jaime Arreguin MD Transcribed by Dulce Rebollar Authenticated and [facility]
--- NOTE | 2024-08-12 09:46 | CT_ITS ---
FINAL REPORT TECHNIQUE: The patient was injected with IV contrast. Axial images were obtained through the chest in a PE protocol. 3-D reconstruction images were also performed. Individualized dose reduction techniques using automated exposure control or adjustment of the MA and/or KV according to patient's size were employed. CLINICAL HISTORY: trauma, critical injury suspected COMPARISON: CT chest 11/11/2019 FINDINGS: There is streak artifact arising from fusion hardware in the upper thoracic spine. Incidental note is made of an 11 mm nodule in the left lobe of the thyroid. Mediastinal vasculature is adequately opacified. No pulmonary artery filling defects are identified to suggest PE. There is no aortic dissection. There are few small scattered mediastinal and right hilar lymph nodes. A subcarinal lymph node measures up to 2.2 cm in greatest dimension. There may be mild mediastinal adenopathy in the right paratracheal and subcarinal regions, indeterminate but favored to be reactive. Aggregate right paratracheal nodes measure up to 2 cm in diameter, well-seen on image 29 of series 5. The heart size is normal. There is no pericardial or pleural effusion. No suspicious infiltrate or nodule is identified. There is a calcified granuloma in the right lung base. Mild dependent edema is noted at the lung bases. IMPRESSION: No pulmonary embolus or dissection. Mild mediastinal adenopathy favored to be reactive. 11 mm left thyroid nodule. Recommend ultrasound to further characterize. Reviewed, Interpreted and Dictated by Jaime Arreguin MD Transcribed by Dulce Rebollar Authenticated and [facility]
--- NOTE | 2024-08-12 09:46 | CT_ITS ---
FINAL REPORT TECHNIQUE: multiple axial CT images were performed from the foramen magnum to the vertex without enhancement. This study was performed with techniques to keep radiation doses as low as reasonably achievable, (ALARA). Individualized dose reduction techniques using automated exposure control or adjustment of mA and/or kV according to the patient's size were employed. CLINICAL HISTORY: trauma, critical injury suspected COMPARISON: 12/07/2018 FINDINGS: There is mild atrophy. The ventricles are normal. There is no evidence of hemorrhage. No masses are identified. No extra-axial fluid is seen. There is deviation of the nasal septum to the left. There is mild mucoperiosteal thickening in the right maxillary sinus. No air-fluid levels identified. IMPRESSION: No acute intracranial abnormality. Reviewed, Interpreted and Dictated by Jaime Arreguin MD Transcribed by Gabbi Blevins Authenticated and [facility]
--- NOTE | 2024-08-12 09:47 | XR_ITS ---
FINAL REPORT CLINICAL HISTORY: fall, pain COMPARISON: None FINDINGS: LEFT ELBOW 3 views were obtained. There is no acute fracture or dislocation. There is no joint effusion. The joint spaces are intact. An IV is present in the left antecubital fossa. There is no soft tissue abnormality. IMPRESSION: No acute bony abnormality. Reviewed, Interpreted and Dictated by Jaime Arreguin MD Transcribed by Dulce Rebollar Authenticated and [facility]
--- NOTE | 2024-08-12 09:47 | XR_ITS ---
FINAL REPORT CLINICAL HISTORY: fall, pain COMPARISON: None FINDINGS: Two views of the left humerus were obtained. There is no acute fracture or dislocation. There are mild hypertrophic changes at the AC joint. There is no acute soft tissue abnormality. IMPRESSION: No acute abnormality identified. Reviewed, Interpreted and Dictated by Jaime Arreguin MD Transcribed by Dulce Rebollar Authenticated and [facility]
--- NOTE | 2024-08-12 09:47 | XR_ITS ---
FINAL REPORT CLINICAL HISTORY: fall, pain COMPARISON: None FINDINGS: 2 views of the left forearm were obtained. There is no acute fracture or dislocation. The joints are intact. An IV is present in the antecubital fossa. There are no soft tissue abnormalities. IMPRESSION: No acute process. Reviewed, Interpreted and Dictated by Jaime Arreguin MD Transcribed by Dulce Rebollar Authenticated and [facility]
[2024-08-12] MEDS: HYDROMORPHONE 2MG/ML SYRINGE 0.5 MG IV ×2 (09:51→11:02)
[2024-08-12] MEDS: ACETAMINOPHEN 1,000MG/100ML VIAL 1000 MG IV (09:52)
[2024-08-12] MEDS: ONDANSETRON 4MG/2ML VIAL 4 MG IV ×2 (09:52→13:31)
[2024-08-12 09:54] LABS: Basophils % 0.5 % (0.1-2.0); Eosinophils # 0.2 K/mm3 (0.0-0.4); Eosinophils % 2.7 % (0.1-12.0); Hematocrit 40.5 % (37.0-47.0); Hemoglobin 13.8 g/dL (12.2-16.2); Lymphocytes # 2.7 K/mm3 (0.7-4.5); Lymphocytes % 34.8 % (10-50); Mean Corpuscular HGB Conc 34.1 g/dL (31.8-35.4); Mean Corpuscular Hemoglobin 31.6 pg (27.0-31.2); Mean Corpuscular Volume 92.7 fl (81-99); Mean Platelet Volume 10.6 fl (7.4-10.4); Monocytes # 0.7 K/mm3 (0.1-1.0); Monocytes % 8.8 % (1.7-9.3); Neutrophils # 4.1 K/mm3 (1.8-7.8); Neutrophils % 52.7 % (37.0-80.0); Platelet Count 241 K/mm3 (142-424); Red Blood Count 4.37 M/mm3 (4.20-5.40); Red Cell Distribution Width 12.2 % (11.5-17.5); White Blood Count 7.8 K/mm3 (4.8-10.8)
[2024-08-12 10:04] LABS: Albumin Level 4.1 g/dl (3.5-5.0); Chloride 102 mmol/L (98-107); Sodium 133 mmol/L (136-145)
[2024-08-12 10:05] LABS: Potassium 4.1 mmoL/L (3.5-5.1)
[2024-08-12 10:07] LABS: Alanine Aminotransferase 28 U/L (12-78); Albumin/Globulin Ratio 1.5 (1.1-1.8); Alkaline Phosphatase 95 U/L (38-126); Anion Gap 11.1 mEq/L (5-15); Aspartate Amino Transferase 32 U/L (14-36); Bilirubin,Total 0.8 mg/dl (0.2-1.3); Blood Urea Nitrogen 15 mg/dl (7-17); Carbon Dioxide 24 mmol/L (22.0-30.0); Creatinine Clearance Estimated 58 mL/min (50-200); Estimated Glomerular Filt Rate 83 ml/min (>60); GFR (African American) 100 ML/MIN (>60); Globulin 2.7 g/dL (1.3-3.2); Total Protein,Serum 6.8 g/dl (6.3-8.2)
[2024-08-12 10:08] LABS: Activated Partial Thrombo Time 22.4 seconds (22.5-28.5); Calcium 9.1 mg/dl (8.4-10.2); Glucose 131 mg/dl (74-100); INR 0.91 (0.9-1.1); Prothrombin Time 10.1 seconds (9.2-12.1)
[2024-08-12] MEDS: IOPAMIDOL-370 (76%);100ML BOTTLE 100 ML IV (10:16)
[2024-08-12] MEDS: SODIUM CHLORIDE 0.9% 10ML SYR (RAD ONLY) 10 ML IV (10:16)
[2024-08-12] MEDS: 0.9 % SODIUM CHLORIDE 50 ML VIAL IV ×2 (10:16)
[2024-08-12] MEDS: IOPAMIDOL-370 (76%);100ML BOTTLE 60 ML IV (10:16)
--- NOTE | 2024-08-12 10:27 | HMH.EDGENADL ---
Discharge Plan Disposition Patient Disposition: Home, Self-Care Condition: Good Prescriptions Prescriptions: New methocarbamol 750 mg tablet 750 mg PO Q8H PRN (Reason: pain) Qty: 20 0RF naproxen 500 mg tablet 500 mg PO BID Qty: 20 0RF meclizine 25 mg tablet 25 mg PO QID PRN (Reason: dizziness) Qty: 20 0RF No Action losartan 25 mg tablet 25 mg PO DAILY Patient Comments: TAKE 1 TABLET BY MOUTH ONCE DAILY duloxetine 60 mg capsule,delayed release(DR/EC) 120 mg PO DAILY 30 Days Qty: 30 atorvastatin 40 MG tablet 40 mg PO HS omeprazole 40 MG capsule,delayed release(DR/EC) 40 mg PO DAILY montelukast 10 MG tablet 10 mg PO DAILY bisoprolol fumarate 5 mg Tablet 5 mg PO DAILY Linzess 290 mcg capsule 290 mcg PO DAILY Qty: 30 12RF Rx Instructions: Please take 1 capsule p.o. every morning (30 to 60 minutes prior to breakfast) Referrals Follow up/Referrals: Kiko Sanderson MD [Primary Care Provider] - See instructions Activity Restrictions/Add. Instructions Additional Instructions/Restrictions: You were evaluated in the emergency department today. At this time, imaging is reassuring and it does not look like you have any acute fractures or severe traumatic injuries. Please order picker/assembler your prescriptions at the pharmacy and take them as needed for symptoms. Please also take Tylenol every 4-6 hours as needed for pain. Use heat or ice as needed to help alleviate symptoms, and I also recommend [id number] lidocaine patches to help with your pain. Please follow-up closely with your primary care provider over the next 3 days. I also recommend contacting your spine surgeon right away and letting them know about your fall and acute pain. Return to the emergency department right away for new or worsening symptoms Clinical Impressions Clinical Impression: Fall, Acute neck pain, Contusion of elbow, left, Low back pain, Thyroid nodule, Vertigo Stand Alone Forms Stand Alone Forms: Work/School Release Instructions Patient Instructions: DI for Low Back Pain, DI for Vertigo, DI for Elbow Pain, DI for Neck Pain Print Language Print Language: Georgian Discharge ED Provider: Larissa Powers General Adult HPI General Chief complaint: Fall Stated complaint: Back Pain from a fall Time Seen by Provider: 08/12/24 09:28 Mode of Arrival: EMS Source of Information: Patient Limitations: No Limitations Description of Symptoms (Recalled from ER Triage Doc. by RN): pt presents to ED with c/o fall. pt was at [employer]. she got out of her car to pump gas and fell on a sheet of black ice. pt does have hx of cerical surgeries. pt reports pain in tailbone, right leg, left elbow, headache, dizziness. pt arrived on backboard and c collar in place History of Present Illness HPI narrative: This patient is a 68-year-old female with a history of hypertension, hyperlipidemia, prediabetes, extensive neck surgery back in February, and lymphedema of the right upper extremity presenting to the emergency department for evaluation with concern for fall. Patient reports that she got out of the car to pump gas when she fell initiated black ice. She states that her legs flew up in the air and she came down hard on her head and back. She did not lose consciousness despite hitting her head. She complains of significant neck pain, tailbone pain, and left elbow pain. She also complains of headache and dizziness. She notes that she feels numb and tingly in her fingertips. She was well prior to the fall. She denies use of aspirin or blood thinners. No chest or abdominal pain noted currently. She arrives by EMS who noted that she was hemodynamically stable en route. They placed a c-collar prior to arrival Related Data Home Medications ?Medication ?Instructions ?Recorded ?Confirmed atorvastatin 40 mg tablet 40 mg PO HS 11/25/17 07/31/24 montelukast 10 mg tablet 10 mg PO DAILY 11/25/17 07/31/24 omeprazole 40 mg capsule,delayed 40 mg PO DAILY 11/25/17 07/31/24 release duloxetine 60 mg capsule,delayed 120 mg PO DAILY 30 days #30 caps 06/09/18 07/31/24 release losartan 25 mg tablet 25 mg PO DAILY 05/09/23 07/31/24 bisoprolol fumarate 5 mg tablet 5 mg PO DAILY 08/03/24 08/03/24 Previous Rx's ?Medication ?Instructions ?Recorded linaclotide 290 mcg capsule 290 mcg PO DAILY #30 caps 08/03/24 (Linzess) meclizine 25 mg tablet 25 mg PO QID PRN dizziness #20 tabs 08/12/24 methocarbamol 750 mg tablet 750 mg PO Q8H PRN pain #20 tabs 08/12/24 naproxen 500 mg tablet 500 mg PO BID #20 tabs 08/12/24 Allergies Allergy/AdvReac Type Severity Reaction Status Date / Time codeine (CODEINE) Allergy Unknown vomiting/hi Verified 07/31/24 08:38 ves hydrocodone (HYDROCODONE) Allergy Unknown vomiting/hi Verified 07/31/24 08:38 ves morphine (MORPHINE) Allergy Unknown vomiting/hi Verified 07/31/24 08:38 ves oxycodone (OXYCODONE) Allergy Unknown hives/vomit Verified 07/31/24 08:38 ing methylprednisolone Allergy tingling/we Verified 07/31/24 08:38 akness/anxi ety PFSH PFS Disclaimer: The information contained in this section may have been updated after the patient was seen, as this information can be updated by other users. Medical History Difficulty swallowing URI (upper respiratory infection) Lumbar radicular syndrome Acute viral syndrome Benign paroxysmal positional vertigo Osteoarthritis of left knee Osteoarthritis of right knee Greater trochanteric bursitis of left hip Arthritis of knee, right Sinusitis Exposure to COVID-19 virus Headache Salmonella enteritis Facial contusion Concussion with loss of consciousness Syncope Anxiety Depression Prediabetes Hyperlipidemia Coronary artery disease Unstable angina History of thromboembolism History of cataract Breast cancer Hypertension Deviated nasal septum Chronic sinusitis Allergic rhinitis Surgical History History of intestinal surgery History of neck surgery H/O sinus surgery History of partial hysterectomy History of cholecystectomy History of right mastectomy Family History Father Coronary artery disease Brother Coronary artery disease Mother Coronary artery disease Sister Coronary artery disease Other Family history of cancer Family history of diabetes mellitus type II Family history of hypertension Family history of myocardial infarction Social History Smoking Status: Never smoker alcohol intake: never substance use type: denies use current occupational status: retired Travel in the last 8 weeks: None household members: none housing: apartment current occupation: [employer] current occupational exposures/hazards: No caffeine: Yes Have you lived/traveled outside [place] in past 30 days?: No Contact w/someone who lives/traveled outside US past 30 days?: No Exposure to someone with infectious disease in past 14 days?: No Do you have a fever (greater than 100.4 F or 38 C)?: No Have you tested positive for COVID-19: No Exposed to someone with COVID-19 in past 14 days?: No Do you have a sore throat?: No Do you have a cough?: No Do you have any weakness?: No Do you have any diarrhea?: No Are you experiencing any unusual bleeding?: No Do you have any muscle aches/pain?: No Do you have any abdominal pain?: No Are you experiencing loss of taste or smell?: No Other Medical History Have you received the Flu Vaccine for this season: No Have you received the Pneumonia Vaccine: Yes ROS Obtained: Yes All systems reviewed & no additional complaints except as documented Physical Exam General General appearance: alert Comment: Uncomfortable appearing Head Head exam: atraumatic and normocephalic Eye Eye exam: Present normal appearance, PERRL and EOMI ENT ENT exam: Present normal exam, normal oropharynx, mucous membranes moist and normal external ear exam Neck Neck exam: Present trachea midline, tenderness and other (C-collar in place) Chest Chest inspection: Present normal inspection and symmetric chest wall rise; Absent tenderness Respiratory Respiratory exam: Present normal lung sounds bilaterally; Absent respiratory distress, wheezes, stridor or accessory muscle use Cardiovascular Cardiovascular exam: Present regular rate and normal rhythm Abdominal Exam Abdominal exam: Present soft; Absent distention, tenderness, guarding or rebound Extremities Exam Extremities exam: Present tenderness (Left elbow at the side of a contusion. No open wounds), normal capillary refill and other (Neurovascularly intact distally); Absent full ROM (Limited range of motion of left elbow secondary to pain) or edema Back Exam Back exam: Present tenderness Back 1 view image: 1. Significant bony tenderness Neurological Exam Neurological exam: Present alert, oriented X3 and CN II-XII intact; Absent motor sensory deficit Psychiatric Psychiatric exam: Present normal affect and normal mood Skin Skin exam: Present warm and dry Medical Decision Making Medical Records Medical records reviewed: Yes I reviewed the patient's medical records. Screening: Per USPSTF and CDC recommendations, given the prevalence of disease in our region, it is our hospital?s policy to screen for HIV and viral Hepatitis for all patients aged 18 and over and those with ongoing risk factors. Pj Inquiry Pt receiving controlled substance: No Vital Signs: 08/12/24 09:28 08/12/24 09:38 08/12/24 09:45 Temperature 98.2 F Temperature Source Oral Pulse Rate 62 61 Pulse Rate [Left Radial] 69 Respiratory Rate 19 Blood Pressure Blood Pressure [Right Arm] 130/64 Blood Pressure Mean Blood Pressure Mean [Right Arm] 86 02 Sat by Pulse Oximetry 95 84 L 88 L Oxygen Delivery Method Room Air 08/12/24 10:27 08/12/24 10:33 08/12/24 10:34 Temperature Temperature Source Pulse Rate 80 70 Pulse Rate [Left Radial] Respiratory Rate Blood Pressure 122/74 Blood Pressure [Right Arm] Blood Pressure Mean Blood Pressure Mean [Right Arm] 02 Sat by Pulse Oximetry 95 89 L 91 L Oxygen Delivery Method 08/12/24 10:45 08/12/24 11:00 08/12/24 11:30 Temperature Temperature Source Pulse Rate 76 70 70 Pulse Rate [Left Radial] Respiratory Rate Blood Pressure 118/73 116/70 Blood Pressure [Right Arm] Blood Pressure Mean 84 Blood Pressure Mean [Right Arm] 02 Sat by Pulse Oximetry 91 L 95 95 Oxygen Delivery Method Room Air Room Air 08/12/24 13:20 08/12/24 13:59 08/12/24 14:39 Temperature 98.2 F Temperature Source Pulse Rate 76 69 65 Pulse Rate [Left Radial] Respiratory Rate 16 Blood Pressure 114/68 100/58 L 100/58 L Blood Pressure [Right Arm] Blood Pressure Mean 81 Blood Pressure Mean [Right Arm] 02 Sat by Pulse Oximetry 95 95 Oxygen Delivery Method Room Air Room Air Lab Data Lab results reviewed: Yes I reviewed the patient's lab results. Lab Results 08/12/24 09:40: WBC 7.8, RBC 4.37, Hgb 13.8, Hct 40.5, MCV 92.7, MCH 31.6 H, MCHC 34.1, RDW 12.2, Plt Count 241, MPV 10.6 H, Neut % (Auto) 52.7, Lymph % (Auto) 34.8, [place] % (Auto) 8.8, Eos % (Auto) 2.7, Baso % (Auto) 0.5, Neut # (Auto) 4.1, Lymph # (Auto) 2.7, [place] # (Auto) 0.7, Eos # (Auto) 0.2, Baso # (Auto) 0.0, PT 10.1, INR 0.91, APTT 22.4 L, Sodium 133 L, Potassium 4.1, Chloride 102, Carbon Dioxide 24, Anion Gap 11.1, BUN 15, Creatinine 0.70, Estimated Creat Clear 58, Estimated GFR 83, Est GFR ( Amer) 100, Glucose 131 H, Calcium 9.1, Total Bilirubin 0.8, AST 32, ALT 28, Alkaline Phosphatase 95, Total Protein 6.8, Albumin 4.1, Globulin 2.7, Albumin/Globulin Ratio 1.5, HCV Ab MIR w/Rflx PCR Qn Negative, HIV Ag/Ab Combo Qual Negative 08/12/24 09:40 08/12/24 09:40 Orders (Tests/Meds): ED MEDICATIONS Discontinued Medications Generic Name Dose Route Start Last Admin Trade Name Freq PRN Reason Stop Dose Admin Acetaminophen 1,000 mg 08/12/24 09:46 08/12/24 09:52 Acetaminophen 1,000mg/100ml Vial IV 08/12/24 09:47 1,000 mg ONCE ONE Administration Diazepam 2.5 mg 08/12/24 13:54 08/12/24 14:00 Diazepam 10mg/2ml Syringe IV 08/12/24 13:55 2.5 mg ONCE ONE Administration Hydromorphone HCl 0.5 mg 08/12/24 09:46 08/12/24 09:51 Hydromorphone 2mg/Ml Syringe IV 08/12/24 09:47 0.5 mg ONCE ONE Administration Hydromorphone HCl 0.5 mg 08/12/24 10:50 08/12/24 11:02 Hydromorphone 2mg/Ml Syringe IV 08/12/24 10:51 0.5 mg ONCE ONE Administration Iopamidol 100 ml 08/12/24 10:15 08/12/24 10:16 Iopamidol-370 (76%);100ml Bottle IV 08/12/24 10:16 100 ml ONCE ONE Administration Iopamidol 60 ml 08/12/24 10:15 08/12/24 10:16 Iopamidol-370 (76%);100ml Bottle IV 08/12/24 10:16 60 ml ONCE ONE Administration Ketorolac Tromethamine 15 mg 08/12/24 11:27 08/12/24 13:09 Ketorolac 30mg/Ml Vial IV 08/12/24 11:28 15 mg ONCE ONE Administration Meclizine HCl 25 mg 08/12/24 14:07 08/12/24 14:16 Meclizine 25mg Tablet PO 08/12/24 14:08 25 mg ONCE ONE Administration Ondansetron HCl 4 mg 08/12/24 09:46 08/12/24 09:52 Ondansetron 4mg/2ml Vial IV 08/12/24 09:47 4 mg ONCE ONE Administration Ondansetron HCl 4 mg 08/12/24 13:16 08/12/24 13:31 Ondansetron 4mg/2ml Vial IV 08/12/24 13:17 4 mg ONCE ONE Administration Sodium Chloride 50 ml 08/12/24 10:15 08/12/24 10:16 0.9 % Sodium Chloride 50 Ml Vial IV 08/12/24 10:16 50 ml ONCE ONE Administration Sodium Chloride 10 ml 08/12/24 10:15 08/12/24 10:16 Sodium Chloride 0.9% 10ml Syr (Rad Only) IV 08/12/24 10:16 10 ml ONCE ONE Administration Sodium Chloride 50 ml 08/12/24 10:15 08/12/24 10:16 0.9 % Sodium Chloride 50 Ml Vial IV 08/12/24 10:16 50 ml ONCE ONE Administration ORDERS Category Date Time Status CT angio abdomen pelvis Stat Cat Scan 08/12/24 09:[address] angio chest - dissection Stat Cat Scan 08/12/24 09:[address] angio head Stat Cat Scan 08/12/24 09:[address] angio neck Stat Cat Scan 08/12/24 09:[address] bony pelvis Stat Cat Scan 08/12/24 09:[address] cervical spine wo con Stat Cat Scan 08/12/24 09:[address] head/brain wo con Stat Cat Scan 08/12/24 09:[address] lumbar spine wo con Stat Cat Scan 08/12/24 09:[address] thoracic spine wo con Stat Cat Scan 08/12/24 09:46 Completed Elbow XR left mininum 3 views [XR elbow LT min 3V] Stat Exams 08/12/24 09:47 Completed Forearm XR left 2 views [XR forearm LT 2V] Stat Exams 08/12/24 09:47 Completed Humerus XR left [XR humerus LT] Stat Exams 08/12/24 09:47 Completed CBC w/Auto Diff [Complete Blood Count Auto Diff] Stat Lab 08/12/24 09:40 Completed CMP [Comprehensive Metabolic Panel] Stat Lab 08/12/24 09:40 Completed HIV Combo Stat Lab 08/12/24 09:40 Completed Hepatitis C Ab Qual. W/ RFX Stat Lab 08/12/24 09:40 Completed PT INR [Prothrombin Time INR] Stat Lab 08/12/24 09:40 Completed PTT [Activated Partial Thrombo Time] Stat Lab 08/12/24 09:40 Completed Medical Decision Narrative: In summary, this patient is a 68-year-old female presenting to the Emergency Department for evaluation of traumatic injuries from a mechanical ground-level fall. Differential diagnoses considered include but are not limited to polytrauma, spine fracture, musculoskeletal strain/sprain, intracranial hemorrhage, vascular injury. Ruling out the most morbid conditions drove assessment. It should be noted patient's history includes hypertension, hyperlipidemia, prediabetes, and prior neck surgery which may or may not be at goal therapy. This complicates all aspects of care by increasing patient's risk for morbidity. I reviewed patient's past medical records and noted previous evaluation by gastroenterology with concern for GERD and dysphagia as well. On exam, the patient is uncomfortable appearing. She is lying in bed in no acute distress on a long spine board with c-collar in place. She was logrolled to remove her from the lungs on board. She has significant lumbosacral spinal tenderness as well as neck tenderness. She has left elbow tenderness with contusion. She is neurovascularly intact in all 4 extremities. Workup included CBC, CMP, coags, and full trauma CT scans with IV contrast as well as x-rays of the injured left upper extremity. She was given IV Dilaudid, Zofran, and acetaminophen for symptomatic improvement. I independently interpreted CT scans prior to the radiologist read and noted no obvious acute displaced fracture, no head bleed. Please see their read for final interpretation. Labs were obtained that demonstrated reassuring CBC with no significant leukocytosis, reassuring chemistry with mild hyponatremia but otherwise nonactionable. On reassessment, patient had some improvement after administration of interventions above, but she continues to have pain. Given this, she is given second dose of IV Dilaudid. I tried to clear C-spine's with physical examination, however she has significant midline tenderness over the C7/T1 region at the spinous process, so I do not feel that I can clear C-spine. After shared decision-making with the patient and family, she is agreeable to obtain MRI of the C and T-spine here in the emergency department to evaluate for occult injury potentially missed on CT scan. MRIs were obtained and did not demonstrate any acute concerns either. On reassessment, I was able to remove the c-collar based on negative MRI, set the patient up, and see how she is doing. She is feeling little bit better being able to get up, but she states she is now having a flareup of her vertigo, which she gets often. I gave her Valium for muscle relaxation as well as to treat vertigo, which did help. I also gave her IV Toradol. She is able to ambulate and is able to tolerate oral intake, so at this time given that we have excluded acute life-threatening traumatic injury, I feel she is appropriate for discharge with close follow-up with her primary care provider and spine provider. I advised her of an incidental thyroid nodule, and she states that she is already aware of this. She is given prescriptions for meclizine, Robaxin, and naproxen. She was given very strict return precautions should she develop any new symptoms. She was discharged after all questions were answered. Critical Care Critical Care Time Critical Care Time: No
--- NOTE | 2024-08-12 10:30 | PC.NURSE ---
pt still in scan at this time; family at BS
--- NOTE | 2024-08-12 10:33 | PC.NURSE ---
pt returned from scan via stretcher.
[2024-08-12 11:06] LABS: HIV Combo NEGATIVE (Negative)
[2024-08-12 11:14] LABS: Hepatitis C Ab Qual. W/ RFX NEGATIVE (Negative)
--- NOTE | 2024-08-12 11:27 | MR_ITS ---
FINAL REPORT CLINICAL HISTORY: fall, trauma, neg CT, persistent pain, h/o surgery COMPARISON: None FINDINGS: Multi planar MR imaging was obtained of the cervical spine. There is magnetic artifact from anterior and interbody fusion hardware bridging C3-4, C4-5, and C5-6. Posterior fusion hardware is seen ridging C2 through T3. The vertebrae are normal in height. Magnetic artifact obscures optimal visualization. No definite marrow edema or compression deformities are seen. On the axial images, there is no evidence of significant spinal canal or neural foraminal compromise. IMPRESSION: Long segment anterior and posterior fusion with associated artifact. No definite acute abnormality identified. Reviewed, Interpreted and Dictated by Jaime Arreguin MD Transcribed by Dulce Rebollar Authenticated and [facility]
--- NOTE | 2024-08-12 11:27 | MR_ITS ---
FINAL REPORT CLINICAL HISTORY: fall, trauma, neg CT, persistent pain, h/o surgery COMPARISON: None FINDINGS: Multiplanar MR imaging of the thoracic spine was performed without contrast. On the sagittal T2-weighted images, there is mild decreased signal throughout the thoracic discs. The vertebrae are normal in height. There is no malalignment. No bony mass is identified. The thoracic spinal cord has an unremarkable appearance without evidence of mass, edema or syrinx. There is no evidence of canal stenosis or cord compression. On the axial images, no significant disc bulge or protrusion is seen. There is no evidence of significant canal stenosis. No paraspinous soft tissue abnormality is seen. IMPRESSION: Unremarkable thoracic spine without evidence of acute bony abnormality, disc protrusion or canal stenosis. Reviewed, Interpreted and Dictated by Jaime Arreguin MD Transcribed by Dulce Rebollar Authenticated and [facility]
--- NOTE | 2024-08-12 11:31 | PC.NURSE ---
Rosaura in MRI has been notified that Care Management okay'd MRI to be done. Dr. Powers put in the orders.
--- NOTE | 2024-08-12 12:07 | PC.NURSE ---
Addendum entered by Heather Hdz 08/12/24 12:07: Pt in MRI Original Note: PT in CT
[2024-08-12] MEDS: KETOROLAC 30MG/ML VIAL 15 MG IV (13:09)
[2024-08-12] MEDS: diazePAM 10MG/2ML SYRINGE 2.5 MG IV (14:00)
[2024-08-12] MEDS: MECLIZINE 25MG TABLET 25 MG PO (14:16)
--- NOTE | 2024-08-12 14:26 | PC.NURSE ---
Walked the patient up the strong.
== END 2024-08-12 14:41 | disposition home or self-care (01) ==
PROVIDERS: Emergency Provider Emergency Medicine; PCP Family Medicine
DX: R42 Dizziness and giddiness (principal); M54.2 Cervicalgia; M54.50 Low back pain, unspecified; S50.02XA Contusion of left elbow, initial encounter; E04.1 Nontoxic single thyroid nodule; M79.604 Pain in right leg; M25.522 Pain in left elbow; R51.9 Headache, unspecified; R20.2 Paresthesia of skin; M53.3 Sacrococcygeal disorders, not elsewhere classified; W00.0XXA Fall on same level due to ice and snow, initial encounter; Y93.89 Activity, other specified; Y92.524 Gas station as the place of occurrence of the external cause
CPT/HCPCS: 70450; 70496; 70498; 71275; 72125; 72128; 72131; 72141; 72146; 72192; 73060; 73080; 73090; 74174; 80053; 85025; 85610; 85730; 86803; 87389; 96374; 96375; 99285; J0131; J1171; J1885; J2405; J3360; Q9967

== ENCOUNTER 2024-10-21 09:49 | Outpatient (CLI) | payer MEDICARE, SELFPAY ==
--- NOTE | 2024-10-21 09:52 | MM_ITS ---
PROCEDURE INFORMATION: Exam: MG Left Screening 3D Mammography Exam date and time: 10/21/2024 10:20 AM Age: 69 years old Clinical indication: Screening examination; Personal history of right breast cancer status post mastectomy. TECHNIQUE: Imaging protocol: Left Screening tomosynthesis and 2D mammography including computer-aided detection (CAD) when performed. COMPARISON: 1. MG MM DIG SC MAMM UNILAT LT CAD 07/23/2023 4:16 PM 2. MG MM DIG SC MAMM UNILAT LT CAD 05/24/2022 10:42 AM FINDINGS: MAMMOGRAPHY: Breast composition: There are scattered areas of fibroglandular density. Mass: No suspicious masses. Architectural distortion: None. Calcifications: No suspicious calcifications. Asymmetric density: None. Skin thickening: None. Axillary adenopathy: None. IMPRESSION: No mammographic evidence of malignancy. Annual screening is recommended unless otherwise clinically indicated. ASSESSMENT: BI-RADS Category 1: Negative.
== END 2024-10-21 23:59 | disposition home or self-care (01) ==
LOC: RAD 09:49
PROVIDERS: PCP Family Medicine; Visit Provider Family Medicine
DX: Z12.31 Encounter for screening mammogram for malignant neoplasm of breast (principal); Z85.3 Personal history of malignant neoplasm of breast
CPT/HCPCS: 77063; 77067

== ENCOUNTER 2024-12-29 08:48 | Outpatient (CLI) | payer MEDICARE, SELFPAY ==
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
--- OUTSIDE RECORDS SUMMARY | 2024-12-29 08:52 | XMS_ITS | Encounter Summary ---
Author Organization [employer] Address [address] [place] [address] Care Team Providers Care Field Operations Farm Manager Name Role Phone Kiko Sanderson MD Primary Care Provider + [phone] Encounter Details Date Type Department Care Team (Late st Contact Info) Description 10/09/2019 Transcribed Document [facility] [place] Family Medicine [address] [place] [address] ProviderNitish MD [address] [place] [address] Social History Tobacco Use Types Packs/Day Years Used Date Smoking Tobacco: Never Assessed Comments Unknown Sex and Gender Information Value Date Recorded Sex Assigned at Not on file Legal Sex Female 4:18 PM CDT Gender Identity Not on file Sexual Orientation Not on file documented as of this encounter Miscellaneous Notes * Cerner Conversion Note - Historical ProviderMD - 10/09/2019 1:06 PM CDT Discharge Summary, PT Entered On: 10/09/2019 13:09 EDT Performed On: 10/09/2019 13:06 EDT by SKYE LAO, PT Discharge Summary Discharge Summary Provider Notified : Nursing, Physical Therapy Reason for Discharge : Discharged from hospital Discharged to, Therapy : Home, with family care Discharge Summary Comment, PT : Pt was evaluated by PTx yesterday and declined PTx session this morning due to being dressed and ready to go home as soon as family gets here. She states she has been up moving in the room by herself. She declines the need for further PTx while here. SKYE LAO, PT - 10/09/2019 13:06 EDT Gravure Press Set Up Operator Goals Mobility/Bed Mobility LTG PT Grid Goal #1 Goal #2 Activity : Supine to sit Sit to stand Assist : Independent, complete Independent, modified Date to Meet : 10/22/2019 EDT 10/22/2019 EDT Goal Status : Not met Not met SKYE LAO, PT - 10/09/2019 13:06 EDT SKYE LAO, PT - 10/09/2019 13:06 EDT Ambulation LTG Grid Goal #1 Device : Walker, front wheel Distance : 300' Assist : Independent, modified Date to Meet : 10/22/2019 EDT Goal Status : Not met SKYE LAO, PT - 10/09/2019 13:06 EDT Stairs LTG Grid Goal #1 Number of Steps : 4 Assist : Independent, complete Date to Meet : 10/22/2019 EDT Goal Status : Not met SKYE LAO, PT - 10/09/2019 13:06 EDT Electronically signed by [facility] Conversion Cabinetmaker Maintenance Cerner at 11/09/2022 5:00 PM CDT documented in this encounter Plan of Treatment Not on file documented as of this encounter Visit Diagnoses Not on filedocumented in this encounter Care Teams Field Operations Farm Manager Relationship Specialty Start Date End Date Kiko Sanderson MD [address] [facility] [address] [place] [id number] PCP - General Family Medicine 03/10/24 documented as of this encounter
--- OUTSIDE RECORDS SUMMARY | 2024-12-29 08:52 | XMS_ITS | Encounter Summary ---
Author Organization [employer] Address [address] [place] [address] Care Team Providers Care Food Safety Manager Name Role Phone Kiko Sanderson MD Primary Care Provider + [phone] Encounter Details Date Type Department Care Team (Late st Contact Info) Description 05/08/2019 Transcribed Document [facility] Family Medicine [address] [place] [address] ProviderNitish MD [address] [place] [address] Social History Tobacco Use Types Packs/Day Years Used Date Smoking Tobacco: Never Assessed Comments Unknown Sex and Gender Information Value Date Recorded Sex Assigned at Not on file Legal Sex Female 4:18 PM CDT Gender Identity Not on file Sexual Orientation Not on file documented as of this encounter Miscellaneous Notes * Cerner Conversion Note - Historical ProviderMD - 05/08/2019 1:06 PM CDT Nursing Discharge Summary Entered On: 05/08/2019 13:06 EDT Performed On: 05/08/2019 13:06 EDT by FLY MENG RN Discharge Documentation Discharge Date/Time : 05/08/2019 13:45 EDT Transporter Signature : FLY MENG RN TOWLES, TAMMY L, RN - 05/08/2019 13:47 EDT Patient Disposition, General : Discharge Discharge To : Home with ambulatory/outpatient follow-up Mode Of Departure, General Discharge : Private vehicle Accompanied By, Discharge : Spouse IV Discontinued : Not applicable Personal Belongings With Patient : Yes Discharge Instructions Reviewed With, Opportunity For Questions Given : Patient, Spouse Patient Education Completed : Yes Teaching Method : Explanation Teaching Evaluation : Returns demonstration, Verbalizes understanding FLY MENG RN - 05/08/2019 13:06 EDT Electronically signed by Valentina, [facility] Conversion Envelope Sealer Operator Cerner at 11/09/2022 5:01 PM CDT documented in this encounter Plan of Treatment Not on file documented as of this encounter Visit Diagnoses Not on filedocumented in this encounter Care Teams Food Safety Manager Relationship Specialty Start Date End Date Kiko Sanderson MD [address] [facility] [address] [place] [address] PCP - General Family Medicine 03/10/24 documented as of this encounter
--- OUTSIDE RECORDS SUMMARY | 2024-12-29 08:52 | XMS_ITS | Encounter Summary ---
Author Organization [employer] Address [address] [place] [address] Care Team Providers Care Commercial Mortgage Broker Name Role Phone Kiko Sanderson MD Primary Care Provider + [phone] Encounter Details Date Type Department Care Team (Late st Contact Info) Description 10/09/2019 Transcribed Document [facility] [place] [address] [place] [address] ProviderNitish MD [address], [place] [id number] Social History Tobacco Use Types Packs/Day Years Used Date Smoking Tobacco: Never Assessed Comments Unknown Sex and Gender Information Value Date Recorded Sex Assigned at Not on file Legal Sex Female 4:18 PM CDT Gender Identity Not on file Sexual Orientation Not on file documented as of this encounter Miscellaneous Notes * Cerner Conversion Note - Historical ProviderMD - 10/09/2019 9:57 AM CDT Stroke/Warfarin Instructions Entered On: 10/09/2019 9:57 EDT Performed On: 10/09/2019 9:57 EDT by TERENCE SAL RN Stroke/Warfarin Instructions Stroke/TIA Discharge Ins : N/A Warfarin Discharge Ins : N/A TERENCE SAL RN - 10/09/2019 9:57 EDT documented in this encounter Plan of Treatment Not on file documented as of this encounter Visit Diagnoses Not on filedocumented in this encounter Care Teams Commercial Mortgage Broker Relationship Specialty Start Date End Date Kiko Sanderson MD [address] [place] [facility] [address] [place] [id number] PCP - General Family Medicine 03/10/24 documented as of this encounter
--- OUTSIDE RECORDS SUMMARY | 2024-12-29 08:53 | XMS_ITS | Encounter Summary ---
Author Organization [employer] Address [address] [place] [address] Care Team Providers Care Sharepoint Net Developer Name Role Phone Kiko Sanderson MD Primary Care Provider + [phone] Encounter Details Date Type Department Care Team (Late st Contact Info) Description 10/08/2019 Transcribed Document [facility] Neurology - [facility] [address] [address] Jone Rodriguez MD [address] [place] [address] Social History Tobacco Use Types Packs/Day Years Used Date Smoking Tobacco: Never Assessed Comments Unknown Sex and Gender Information Value Date Recorded Sex Assigned at Not on file Legal Sex Female 4:18 PM CDT Gender Identity Not on file Sexual Orientation Not on file documented as of this encounter Miscellaneous Notes * Cerner Conversion Note - Jone Rodriguez MD - 10/08/2019 9:37 AM EDT Patient: MAGO BULLOCK Age: 64 Years Sex: Female : 1955 Assessment/Plan POD 1 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 with postop urinary retention -start bethanechol 10mg tid, voiding trial this afternoon, if fails may need outpatient urology followup -keep yobani through today, dc this afternoon -pt/ot eval, don collar when up and about -sqh dvt ppx -pain control -likely dc to home this afternoon Subjective postop pain improved tolerating liquids has had history of postop urinary retention, pt required joshua reanchor last night preop leg pain better Vital Signs T: 36.7 ??C TMIN: 36.2 ??C TMAX: 37 ??C HR: 95(Monitored) RR: 18 BP: 118/52 SpO2: 100% HT: 160.02 cm WT: 73.59 kg BMI: 28.7 Physical Exam nad facially symmetric normal speech nonlabored breathing no edema incision cdi, flat, appropriately tender yobani to suction 130/80 bloody joshua cyu maew appropriate documented in this encounter Plan of Treatment Not on file documented as of this encounter Visit Diagnoses Not on filedocumented in this encounter Care Teams Sharepoint Net Developer Relationship Specialty Start Date End Date Kiko Sanderson MD [address] [place] [facility] [address] [place] [phone] PCP - General Family Medicine 03/10/24 documented as of this encounter
--- OUTSIDE RECORDS SUMMARY | 2024-12-29 08:53 | XMS_ITS | Encounter Summary ---
Author Organization [employer] Address [address] [place] [address] Care Team Providers Care Child Life Therapist Name Role Phone Kiko Sanderson MD Primary Care Provider + [phone] Encounter Details Date Type Department Care Team (Late st Contact Info) Description 08/10/2019 Transcribed Document [facility] [place] Family Medicine [address] [place] [address] ProviderNitish MD [address] [place], [place] [address] Social History Tobacco Use Types Packs/Day Years Used Date Smoking Tobacco: Never Assessed Comments Unknown Sex and Gender Information Value Date Recorded Sex Assigned at Not on file Legal Sex Female 4:18 PM CDT Gender Identity Not on file Sexual Orientation Not on file documented as of this encounter Miscellaneous Notes * Cerner Conversion Note - Historical ProviderMD - 08/10/2019 10:20 AM RECONCILIATION ACCOUNTANT PAT Adult Entered On: 08/10/2019 10:51 EST Performed On: 08/10/2019 10:20 EST by LUIS GOMEZ RN Vital Measurements Temperature Source : Temporal artery scanning Temperature Mode : Fahrenheit Temperature, Fahrenheit : 98.6 Deg F Clinical Temperature, C : 37 Deg C Peripheral Pulse Rate : 72 bpm Respiratory Rate : 16 Breaths/Min Blood Pressure Location : Arm, left upper Blood Pressure Source : Non-Invasive BP Device Systolic Blood Pressure : 130 mmHg Diastolic Blood Pressure : 81 mmHg Oxygen Saturation : 100 % Oxygen Therapy Mode : Room air LUIS GOMEZ RN - 08/10/2019 10:20 EST Pain Assessment Pain Scale Goal : 4 LUIS GOMEZ RN - 08/10/2019 10:20 EST Height and Weight, Clinical Dosing Height Source : Measured Height Entry Format : [place] Height, Feet : 0 ft(Converted to: 0 cm, 0 Inch) Height, Inches : 63 Inch(Converted to: 5 ft 3 Inch, 160.02 cm) Clinical Height : 160.02 cm Weight Source : Standing scale Weight Entry Format : [place] Clinical Dosing Weight : 72.82 kg Weight, Pounds : 160.2 lb Body Surface Area (BSA) : 1.76 m2 Body Mass Index : 28.4 kg/m2 (HI) [place] Body Weight : 52 kg LUIS GOMEZ RN - 08/10/2019 10:20 EST Health Histories Smoking Status : Never (less than 100 in lifetime; none in last 30 days) Smokeless Tobacco Status : Never LUIS GOMEZ RN - 08/10/2019 10:20 EST Social History (As Of: 08/10/2019 10:51:06 EST) Tobacco: Use in Last 12 Months: No. Second Hand Smoke Exposure: Yes. (Last Updated: 04/28/2014 10:31:38 EDT by SHASHANK GAMBINO RN) Alcohol: Alcohol Use History Yes. Alcohol Use Frequency Socially. (Last Updated: 03/26/2018 12:45:08 EDT by ARTHUR MERIDA, CECI) Substance Abuse: Drug Use Hx: No. Use in Last 12 Months: No. (Last Updated: 04/28/2014 10:31:45 EDT by SHASHANK GAMBINO RN) Nutrition/Health: Regular (Last Updated: 03/26/2018 12:45:20 EDT by ARTHUR MERIDA, CECI) Home/Environment: Lives with Spouse. Living situation: Home/Independent. Alcohol abuse in household: No. Substance abuse in household: No. Smoker in household: No. Injuries/Abuse/Neglect in household: No. Feels unsafe at home: No. Family/Friends available for support: Yes. 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 (Last Updated: 03/26/2018 12:45:53 EDT by ARTHUR MERIDA RN) Infectious Disease History Physical contact outside [place] in the last 30 days : No Infectious Disease History : Chicken pox/Shingles, Influenza, Measles, Mumps, Pertussis (Whooping cough) Tuberculosis Symptoms : None LUIS GOMEZ RN - 08/10/2019 10:20 EST Anesthesia/Transfusion History Family History of Anesthesia Reaction : No prior transfusion(s) Transfusion History : Prior anesthesia reaction Type of Anesthesia Reaction : Excessive nausea/vomiting, Other: has woken up with low blood pressure, shallow breathing, and vomitting, Family History of Anesthesia Reaction : None LUIS GOMEZ RN - 08/10/2019 10:20 EST Functional Assessment Functional ADL Evaluation Index EBN Bathing : Independent (2) Dressing : Independent (2) Toileting : Independent (2) Transferring Bed or Chair : Independent (2) Continence : Requires assistance (1) (Comment: wears a pad [LUIS GOMEZ RN - 08/10/2019 10:20 EST] ) LUIS GOMEZ RN - 08/10/2019 10:20 EST Advance Directive Patient has Advance Directive *Q : Yes, Advance Directive not with the patient Advance Directive Type : Living will, Medical durable power of filter press operator (proxy) Copy Advance Directive Verified/on Chart : No Advance Directive Comment : will bring day of surgery LUIS GOMEZ RN - 08/10/2019 10:20 EST Spiritual/Cultural Needs Any Spiritual/Cultural Needs or Requests : No LUIS GOMEZ RN - 08/10/2019 10:20 EST [place] Suicide Severity Rating Scale (C-SSRS) CSSRS Past Month Wish to be : No CSSRS Past Month Suicidal Thoughts : No CSSRS Lifetime Suicide Behavior : No Suicide Severity Rating Score : 0 Suicide Severity Rating : No Additional Care Required at this time LUIS GOMEZ RN - 08/10/2019 10:20 EST Psychosocial History Do You Have a History of the Following? : Anxiety Currently in Unsafe Situation : No LUIS GOMEZ RN - 08/10/2019 10:20 EST Teaching/Learning Assessment Individuals Taught : Patient Readiness to Learn : Cooperative Readiness to Learn : Explanation, Printed materials LUIS GOMEZ RN - 08/10/2019 10:20 EST Education Topics, Periop Preadmission Perioperative Education Grid Arrival Time/Place : Verbalizes understanding CHG Preoperative Bathing/Cloths : Verbalizes understanding Incentive Spirometry : Verbalizes understanding Infection Control : Verbalizes understanding IV's : Verbalizes understanding NPO Status/Directions : Verbalizes understanding Pain Management : Verbalizes understanding Preprocedure Preparations : Verbalizes understanding Preprocedure Tests/Labs : Verbalizes understanding Remove Body Piercings : Verbalizes understanding Responsible Adult : Verbalizes understanding Take/Hold Medications Pre-Procedure : Verbalizes understanding Other : Verbalizes understanding (Comment: use of bactroban nasal ointment [LUIS GOMEZ, RN - 08/10/2019 10:20 EST] ) Responsible Adult Contact Information : Errol Edgar, spouse, cell Ivette Fitzgerald, daughter, cell LUIS GOMEZ RN - 08/10/2019 10:20 EST General Info Preferred Name : Mago Support Person/Patient Mold Hoister : Yes Support Person/Pt Rep Name : lai Linda Support Person/Pt Rep Contact Information : [phone] cell Want Family/Rep/Phys Notified of Admit : No Emergency Contact #1 : Jailene Fitzgerald Emergency Contact #1 cell Emergency Contact #1 Relationship : daughter Emergency Contact #2 : Errolfederico Edgar Emergency Contact #2 cell Emergency Contact #2 Relationship : spouse Information Obtained From : Patient Primary Language : Mongolian Preferred Communication Mode : Verbal Communication Barrier : None Objects to Sharing Info w Family : No LUIS GOMEZ RN - 08/10/2019 10:20 EST Fabio Scale Fabio Sensory Perception : Slightly limited (Comment: wears glasses/contracts [LUIS GOMEZ RN - 08/10/2019 10:20 EST] ) Fabio Moisture : Occasionally moist Fabio Activity : Walks frequently Fabio Mobility : Slightly limited Fabio Nutrition : Adequate Fabio Friction and Shear : Potential problem Fabio Score : 18 LUIS GOMEZ RN - 08/10/2019 10:20 EST Sleep Apnea Risk Assmt BiPAP/CPAP Ordered for Home Use : Yes Hx of Obstructive Sleep Apnea Diagnosis : Yes BiPAP/CPAP Used at Home : Yes Age over 50 Years Old : Yes Gender Male : No Sleep Apnea Risk Comment : Setting = 8 LUIS GOMEZ RN - 08/10/2019 10:20 EST Electronically signed by [facility] Conversion Node Js Developer Cerner at 11/09/2022 5:04 PM CDT documented in this encounter Plan of Treatment Not on file documented as of this encounter Visit Diagnoses Not on filedocumented in this encounter Care Teams Child Life Therapist Relationship Specialty Start Date End Date Kiko Sanderson MD [address] [facility] [address] [place] [address] PCP - General Family Medicine 03/10/24 documented as of this encounter
--- OUTSIDE RECORDS SUMMARY | 2024-12-29 08:53 | XMS_ITS | Encounter Summary ---
Author Organization [employer] Address [address] [place] [address] Care Team Providers Care Perfumer Name Role Phone Kiko Sanderson MD Primary Care Provider + [phone] Encounter Details Date Type Department Care Team (Late st Contact Info) Description 05/08/2019 Transcribed Document [facility] Family Medicine [address] [place] [address] ProviderNitish MD [address] [place] [address] Social History Tobacco Use Types Packs/Day Years Used Date Smoking Tobacco: Never Assessed Comments Unknown Sex and Gender Information Value Date Recorded Sex Assigned at Not on file Legal Sex Female 4:18 PM CDT Gender Identity Not on file Sexual Orientation Not on file documented as of this encounter Miscellaneous Notes * Cerner Conversion Note - Nitish ProviderMD - 05/08/2019 1:08 PM CDT [facility] MICHELLE Bustos [id number] MAGO BULLOCK :1955 Visit Time:05/08/2019 Your Visit Summary Your Care Team Admitting Physician - BRADEN SNYDER MD-AZAEL Attending Physician - BRADEN SNYDER MD-AZAEL Primary Care Physician - KIKO SANDERSON (REF)MD-[facility] Referring Physician - BRADEN SNYDER MD-SNU Your Diagnosis Cervicalgia, Cervicalgia Discharge Vitals Temperature 35.9 ??C Heart Rate (Monitored) 70 Blood Pressure 150/72 What to do next Instructions From Your Care Team Diet after Discharge: Resume usual diet as tolerated, Activity after Discharge: As tolerated, do not lift greater than 10 pounds for 12 hours Driving after Discharge: Do not drive for 12 hours post procedure Showering/Bathing: May shower, Wound/Incision Care after Discharge: Keep operative site/wound site clean and dry, Follow-Up Appointments Follow Up with CLAUDIOBRADEN MD-SNU When Comments Follow-up as instructed Where: [address] [place] [address] [address] [place] [id number]- Medications What How Much When Instructions Next Dose aspirin (aspirin 81 mg oral tablet) 1 Tablet(s) Oral Every Evening atorvastatin (Lipitor) 40 Milligram(s) Oral Every Evening baclofen (baclofen 10 mg oral tablet) 1 Tablet(s) Oral Every 6 Hours as needed for as needed for muscle spasm cholecalciferol (Vitamin D3) 2,000 International Units Oral Every Day cyanocobalamin (Vitamin B-12) DULoxetine (Cymbalta 60 mg oral delayed release capsule) 2 Capsule(s) Oral Every Day fluticasone nasal (Flonase) 1 [place](s) Nostrils Both Every Day gabapentin (gabapentin 300 mg oral capsule) 3 Capsule(s) Oral Three Times A Day ibuprofen 800 Milligram(s) Three Times A Day montelukast (Singulair 10 mg oral tablet) 1 Tablet(s) Oral Every Day multivitamin with minerals (Calcium, Magnesium and Zinc oral tablet) 3 Tablet(s) Oral Every Day omeprazole (omeprazole 40 mg oral delayed release capsule) 1 Capsule(s) Oral Every Day Take your medications faithfully. Do NOT skip medication. Do NOT stop taking medications without the direction of a physician. Carry a list of your medications with you at all times, and take this medication list with you to your first follow up visit. Report any side effects. Avoid herbal remedies unless discussed with your physician. As part of your treatment plan, your physician may have prescribed a limited course of a controlled substance. This medication may be given to help people with moderate or severe pain or for other medical conditions, but there are risks involved with treatment. Common side effects may include nausea, constipation, drowsiness, sweating, itching, dry mouth, and rash. More serious side effects may include cognitive and motor impairment, like problems with thinking, concentrating, alertness, and movement (e.g. slowed reflexes), and driving and operating heavy machinery can be dangerous. It is important for you to talk to your physician if you have these side effects or questions. These controlled substances can produce physical dependence and be habit-forming if taken for an extended period of time, which means that the body has gotten used to them and may experience withdrawal symptoms if they are abruptly stopped. Withdrawal symptoms can include runny nose, sweating, goose bumps, diarrhea, abdominal cramping, rapid heartbeat, difficulty sleeping, and nervousness. Please dispose of unused and medications per your retail pharmacy guidance. Allergies Adhesive Bandage (Rash) HYDROcodone (vomitting, hives) MethylPREDNISolone Dose Pack (Lack of awareness, Shakiness, Dizziness, Arm numbness, Facial numbness, Stroke-like symptoms) codeine (vomitting, hives) iodine topical (Rash) morphine (Hives, Vomiting, vomitting, hives) Immunizations This Visit No Immunizations Found Education Materials Myelogram A myelogram is an imaging test. This test looks at: ??? Your spinal cord. ??? The places where nerves attach to your spinal cord (nerve roots). A dye (contrast material) is put into your spine before the x-ray. This provides a clearer image for your doctor to see. You may need this test if you have a spinal cord problem that cannot be diagnosed with other imaging tests. You may also have this test to check your spine after surgery. What happens before the procedure? Follow instructions from your doctor about what you cannot eat or drink. You may be asked to drink more fluids. ??? Ask your doctor about changing or stopping your normal medicines. This is important if you take diabetes medicines or blood thinners. ??? Plan to have someone take you home after the test. ??? If you will be going home right after the test, plan to have someone with you for 24 hours. What happens during the procedure? You will lie face down on a table. ??? Your doctor will find the best injection site on your spine. This is most often in the lower back. ??? This area will be washed with soap. ??? You will be given a medicine to numb the area (local anesthetic). ??? Your doctor will place a long needle into the space around your spinal cord (subarachnoid space). ??? A sample of spinal fluid may be taken. This may be sent to the laboratory for testing. ??? The dye will be injected into the space around your spinal cord. ??? The exam table may be tilted. This helps the dye flow up or down your spine. ??? The x-ray will take images of your spinal cord. ??? A bandage (dressing) may be placed over where the dye was injected. The procedure may vary among doctors and hospitals. What happens after the procedure? Your blood pressure, heart rate, breathing rate, and blood oxygen level may be checked often until the medicines you were given have worn off. ??? Lie flat with your head raised (elevated). This lowers the risk of headache. ??? It is your responsibility to get the results of your test. Ask your doctor or the department doing the test when your results will be ready. This information is not intended to replace advice given to you by your health care provider. Make sure you discuss any questions you have with your health care provider. Document Released: 04/16/2009 Document Revised: 11/20/2016 Document Reviewed: 04/19/2016 [employer] Patient Education ?? 2019 [employer] Emergency Awareness and Preventative Care STROKE is an EMERGENCY Every Minute Counts Act FAST and Check for these signs: FACE Does the face look uneven? ARM Does one arm drift down? SPEECH Does their speech sound strange? TIME Call at any sign of stroke Stroke Risk Factors Atrial Fibrillation (irregular heartbeat) Diabetes Family history of stroke Heart Disease Heavy alcohol use High Blood Pressure High Cholesterol Physical inactivity and obesity Smoking Cigarette Smoking The facts are clear, cigarette smoking will shorten your life. Smoking can cause many illnesses along the way. As a healthcare provider, we recommend that you stop smoking. Assistance with quitting is available by contacting 9-950-TGYB-NOW. This is a free resource providing counseling, support, and referral. Or you may contact your personal physician. National Suicide Prevention Lifeline: The National Suicide Prevention Lifeline is a national network of local crisis centers that provides free and confidential emotional support to people in suicidal crisis or emotional distress 24 hours a day, 7 days a week. Don't Wait! Stop a Heart Attack Before it Starts What is a heart attack? A heart attack is damage or to a part of the heart from severely decreased or lack of blood flow to the heart. Over time, arteries can become narrow from the buildup of fat and cholesterol, which is called plaque. The plaque can rupture causing a blood clot to form. When the blood clot forms, the artery can become severely narrowed or completely blocked, causing a heart attack. Heart attack is the leading cause of in the [place]. 85% of muscle damage occurs within the first 2 hours. Delay in the recognition of heart attack symptoms increases the chances of . Know the early symptoms of a heart attack: Nausea Feeling of fullness in chest Jaw Pain Pain that travels down one or both arms Fatigue/being tired Anxiety Back Pain Chest pressure, squeezing, or discomfort Shortness of breath Sweating, or a cold sweat Feeling of impending doom There are unusual signs of a heart attack, too! Women, the elderly, and diabetics may present with atypical symptoms: Fainting/dizziness Weakness Confusion Risk Factors for a Heart Attack Some heart disease risk factors, such as age and family history, cannot be changed. Others, like smoking and lack of exercise, can be changed. Smoking High Cholesterol High Blood Pressure Family History Obesity Age Gender (Males are at higher risk) Lack of Exercise Diabetes Diet Stress Excessive Alcohol Intake If you or someone you know is experiencing the signs and symptoms of a heart attack, DON???T DELAY. Call immediately and seek help. If someone collapses, perform CPR! Do not attempt to drive if you are having symptoms of heart attack. Hands-Only CPR Why Hands-Only CPR? Hands-Only CPR has been shown to be as effective as conventional CPR for cardiac arrests that occur outside of a hospital. Survival depends on immediately receiving CPR from someone nearby. How do you perform Hands-Only CPR? There are two easy steps: Call if you see a teen or adult collapse Push hard and fast in the center of the chest at a beat of 100 beats per minute. Save a life! 4 WAYS TO GET AHEAD OF SEPSIS SEPSIS is a MEDICAL EMERGENCY. Time matters! Infections put you and your family at risk for a life-threatening condition called sepsis. Sepsis is the body's extreme response to an infection. It is life-threatening, and without timely treatment, sepsis can rapidly lead to tissue damage, organ failure, and . Sepsis happens when an infection you already have-in your skin, lungs, urinary tract or somewhere else-triggers a chain reaction throughout your body. 1 PREVENT INFECTIONS Take good care of chronic conditions. Talk to your doctor about getting the recommended vaccines. 2 PRACTICE GOOD HYGIENE Wash your hands frequently. Keep cuts or open sores clean and covered until they are healed. 3 KNOW THE SYMPTOMS Confusion or disorientation Shortness of breath High heart rate Fever, shivering, or feeling very cold Extreme pain or discomfort Clammy or sweaty skin 4 ACT FAST Get medical care IMMEDIATELY if you suspect sepsis or if you have an infection that is not getting better or is getting worse. To learn more about sepsis and how to prevent infections, visit www.cdc.gov/sepsis. Test Results Laboratory or Other Results This Visit (last charted value for your 05/08/2019 visit) No Laboratory or Other Results This Visit Patient Name:JUNITO BULLOCKORALeesa CARBAJAL I have received and understand this information and was given the opportunity to ask questions. Patient/Paid Intern Name: Patient/Paid Intern Signature: Relationship to Patient: Clinician/Hospital Paid Intern Signature: Date: Electronically signed by Valentina, [facility] Conversion Machine Stone Polisher Apprentice Cerner at 11/09/2022 5:12 PM CDT documented in this encounter Plan of Treatment Not on file documented as of this encounter Visit Diagnoses Not on filedocumented in this encounter Care Teams Perfumer Relationship Specialty Start Date End Date Kiko Sanderson MD [address] [place] [id number] PCP - General Family Medicine 03/10/24 documented as of this encounter
--- OUTSIDE RECORDS SUMMARY | 2024-12-29 08:53 | XMS_ITS | Encounter Summary ---
Author Organization [employer] Address [address] [place] [address] Care Team Providers Care Supervisor Contact Lens Name Role Phone Kiko Sanderson MD Primary Care Provider + [phone] Encounter Details Date Type Department Care Team (Late st Contact Info) Description 08/11/2019 Transcribed Document [facility] Family Medicine [address] [place] [address] ProviderNitish MD [address] [place] [address] Social History Tobacco Use Types Packs/Day Years Used Date Smoking Tobacco: Never Assessed Comments Unknown Sex and Gender Information Value Date Recorded Sex Assigned at Not on file Legal Sex Female 4:18 PM CDT Gender Identity Not on file Sexual Orientation Not on file documented as of this encounter Miscellaneous Notes * Cerner Conversion Note - Historical ProviderMD - 08/11/2019 4:43 PM [facility] MICHELLE Bustos [id number] MAGO BULLOCK :1955 Visit Time:08/11/2019 What to do next Your Diagnosis Spinal stenosis, cervical region, Spinal stenosis, cervical region Instructions From Your Care Team Diet after Discharge: Resume usual diet as tolerated, Do not drink any alcoholic beverages, Drink at least 8-10 glasses of water per day Activity after Discharge: As tolerated, Rest and relax today, No strenuous activity Lifting Restrictions: No heavy lifting over 10 pounds, change positions frequently Weight Bearing: Full weight bearing Driving after Discharge: Do not drive until 24 hours after no longer taking pain medications May Return to Work/School: Showering/Bathing: May shower in 3 days sooner if cover with plastic wrap, No tub bathing, soaking or swimming Notify Provider of: signs of infection, fever greater then 101, sever swelling, pain and /or bleeding. call with any yellow/green drainage. Wound/Incision Care after Discharge: Keep operative site/wound site clean and dry, _ may use ice on incision while awake. no longer then 10 minutes at a time. Follow-Up Appointments Follow Up with BRADEN SNYDER When 09/14/2019 01:00 PM EST Comments Appointment has been made Where: [address] [place] [address] [address] [place] [address] Business (1) Medications What How Much When Instructions Next Dose ondansetron (Zofran 4 mg oral tablet) 1 Tablet(s) Oral Every 6 Hours as needed for Nausea Printed Prescription acetaminophen (Tylenol) 1,000 Milligram(s) Oral As needed for as needed for pain atorvastatin (Lipitor) 40 Milligram(s) Oral Every Evening baclofen (baclofen 10 mg oral tablet) 2 Tablet(s) Oral Three Times A Day as needed for as needed for muscle spasm cholecalciferol (Vitamin D3) 2,000 International Units Oral Every Day cyanocobalamin (Vitamin B-12) DULoxetine (Cymbalta 60 mg oral delayed release capsule) 2 Capsule(s) Oral Every Day fluticasone nasal (Flonase) 1 [place](s) Nostrils Both Every Day gabapentin (gabapentin 300 mg oral capsule) 1 Capsule(s) Oral Three Times A Day ibuprofen 800 Milligram(s) Three Times A Day montelukast (Singulair 10 mg oral tablet) 1 Tablet(s) Oral Every Day multivitamin with minerals (Calcium, Magnesium and Zinc oral tablet) 3 Tablet(s) Oral Every Day Non Formulary (Non Formulary med) 2 caps Oral Every Day Non Formulary (Non Formulary med) 3 tabs Oral Every Day omeprazole (omeprazole 40 mg [...] Please dispose of unused and medications per pharmacy guidance. Education Materials Outpatient Surgery, Adult, Care After These instructions provide you with information about caring for yourself after your procedure. Your health care provider may also give you more specific instructions. Your treatment has been planned according to current medical practices, but problems sometimes occur. Call your health care provider if you have any problems or questions after your procedure. What can I expect after the procedure? After the procedure, it is common to have: ??? Tenderness and numbness at the surgical site. ??? Swelling and bruising around the surgical site. ??? Nausea. Follow these instructions at home: For at least 24 hours after the procedure: ??? Have a responsible adult stay with you. It is important to have someone help care for you until you are awake and alert. ??? Rest as needed. ??? Do not: ? Participate in activities in which you could fall or become injured. ? Drive. ? Use heavy machinery. ? Drink alcohol. ? Take sleeping pills or medicines that cause drowsiness. ? Make important decisions or sign legal documents. ? Take care of children on your own. Activity ??? Return to your normal activities as told by your health care provider. Ask your health care provider what activities are safe for you. ??? Do not lift anything that is heavier than 10 lb (4.5 kg), or the limit that your health care provider tells you, until your health care provider says it is okay. ??? Do not play contact sports until your health care provider says it is okay. Incision care ??? Follow instructions from your health care provider about how to take care of an incision, if you have one. Make sure you: ? Wash your hands with soap and water before you change your bandage (dressing). If soap and water are not available, use hand continuous pickling line pickler. ? Change your dressing as told by your health care provider. ? Leave stitches (sutures), skin glue, or adhesive strips in place. These skin closures may need to stay in place for 2 weeks or longer. If adhesive strip edges start to loosen and curl up, you may trim the loose edges. Do not remove adhesive strips completely unless your health care provider tells you to do that. ??? Check your incision area every day for signs of infection. Check for: ? More redness, swelling, or pain. ? More fluid or blood. ? Warmth. ? Pus or a bad smell. Medicines ??? Take [id number] and prescription medicines only as told by your health care provider. ??? Do not drive or use heavy machinery while taking prescription pain medicines. Eating and drinking ??? Follow the diet recommended by your health care provider. ??? When you are hungry, begin eating light and bland foods such as toast. Gradually return to your regular diet. ??? If you vomit: ? Drink water, juice, or soup when you can drink without vomiting. ? Make sure you have little or no nausea before eating solid foods. General instructions ??? If you have sleep apnea, surgery and certain medicines can increase your risk for breathing problems. Follow instructions from your HCP about wearing your sleep device: ? Anytime you are sleeping, including during daytime naps. ? While taking prescription pain medicines, sleeping medicines, or medicines that make you drowsy. ??? Do not use any tobacco products, such as cigarettes, chewing tobacco, and e-cigarettes, for as long as possible. ??? If you smoke, do not smoke without supervision. ??? Keep all follow-up visits as told by your health care provider. This is important. Contact a health care provider if: ??? You have more redness, swelling, or pain around your incision. ??? You have more fluid or blood coming from your incision. ??? Your incision feels warm to the touch. ??? You have pus or a bad smell coming from your incision. ??? You have a fever. ??? You feel light-headed or you faint. ??? You develop a rash. ??? You keep feeling nauseous or keep vomiting. ??? You have very bad pain, even after taking the medicines your health care provider has prescribed or recommended. ??? You have constipation. Get help right away if: ??? You are unable to pass urine. ??? You have trouble breathing. Summary ??? Have a responsible adult stay with you for at least 24 hours after the procedure. ??? Nausea is common after a procedure. Make sure you have little or no nausea before eating solid foods. Follow the diet recommended by your health care provider. ??? Ask your health care provider what activities are safe for you. This information is not intended to replace advice given to you by your health care provider. Make sure you discuss any questions you have with your health care provider. Document Released: 10/28/2016 Document Revised: 02/13/2018 Document Reviewed: 10/28/2016 [employer] Patient Education ?? 2019 [employer] Emergency Awareness and Preventative Care STROKE [...] Assistance with quitting is available by contacting 2-631-FCER-NOW. This is a free resource providing counseling, [...] This Visit (last charted value for your 08/11/2019 visit) Hematology 08/10/2019 10:57 AM WBC: 4.3 K/uL -- Normal range between ( 4.5 and 10.5 ) RBC: 4.19 Million/uL -- Normal range between ( 3.93 and 5.22 ) Hct: 40.8 % -- Normal range between ( 34.1 and 44.9 ) Hgb: 13.8 g/dL -- Normal range between ( 11.2 and 15.7 ) Platelet Count: 247 K/uL -- Normal range between ( 163 and 369 ) MCH: 32.9 pg -- Normal range between ( 25.6 and 32.2 ) MCHC: 33.8 Gram/dL -- Normal range between ( 32.2 and 36.5 ) MCV: 97.4 fL -- Normal range between ( 79.0 and 94.8 ) Slide Review: No RDW: 12.1 % -- Normal range between ( 11.7 and 14.9 ) MPV: 11.0 fL -- Normal range between ( 9.4 and 12.4 ) Urinalysis 08/10/2019 10:57 AM Urine Nitrite: Negative Urine Leukocyte Esterase: Moderate Urine Appearance: Clear Urine Glucose Dipstick: Negative Urine Blood Dipstick: Negative Urine Type: U CleanCatch Urine Urobilinogen Dipstick: 0.2 EU/dL Urine Protein Dipstick: Negative Urine Color: Yellow Urine Ketones Dipstick: Negative Urine pH Dipstick: 7.0 -- Normal range between ( 6.0 and 8.0 ) Urine Bilirubin Dipstick: Negative Urine Specific [place]: 1.012 -- Normal range between ( 1.005 and 1.030 ) General Chemistry 08/10/2019 10:57 AM Creatinine Level: 0.70 mg/dL -- Normal range between ( 0.55 and 1.02 ) Sodium Level: 141 mmol/L -- Normal range between ( 136 and 146 ) Potassium Level: 3.5 mmol/L -- Normal range between ( 3.5 and 5.1 ) Chloride Level: 105 mmol/L -- Normal range between ( 102 and 112 ) Carbon Dioxide Level: 32 mmol/L -- Normal range between ( 21 and 32 ) Anion Gap: 8 -- Normal range between ( 9 and 20 ) Bun/Creatinine: 20.0 -- Normal range between ( 8.0 and 20.0 ) Calcium Level: 9.0 mg/dL -- Normal range between ( 8.4 and 10.1 ) eGFR : >60 mL/min/1.73m2 eGFR NonAfrican: >60 mL/min/1.73m2 Glucose Level: 118 mg/dL -- Normal range between ( 74 and 106 ) Blood Urea Nitrogen: 14 mg/dL -- Normal range between ( 7 and 22 ) Patient Name:MAGO BULLOCK I have received this information and was given the opportunity to ask questions. Patient/Pumping Station Engineer Name: Patient/Pumping Station Engineer Signature: Relationship to Patient: Clinician/Hospital Pumping Station Engineer Signature: Date: Electronically signed by Interface, [facility] Conversion English Language Arts Teacher Cerner at 11/09/2022 5:07 PM CDT documented in this encounter Plan of Treatment Not on file documented as of this encounter Visit Diagnoses Not on filedocumented in this encounter Care Teams Supervisor Contact Lens Relationship Specialty Start Date End Date Kiko Sanderson MD [address] [place] [facility] [address] [place] [phone] PCP - General Family Medicine 03/10/24 documented as of this encounter
--- OUTSIDE RECORDS SUMMARY | 2024-12-29 08:53 | XMS_ITS | Encounter Summary ---
Author Organization 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 Name Role Phone Kiko Sanderson MD Primary Care Provider + [phone] Encounter Details Date Type Department Care Team (Late st Contact Info) Description 10/09/2019 Transcribed Document [facility] [place] [facility] [address] [place] [address] ProviderNitish MD [address], [place] [id number] Social History Tobacco Use Types Packs/Day Years Used Date Smoking Tobacco: Never Assessed Comments Unknown Sex and Gender Information Value Date Recorded Sex Assigned at Not on file Legal Sex Female 4:18 PM CDT Gender Identity Not on file Sexual Orientation Not on file documented as of this encounter Miscellaneous Notes * Cerner Conversion Note - Nitish ProviderMD - 10/09/2019 10:09 AM CDT Patient Education Materials Follows: Acute Urinary Retention, Female Acute urinary retention is a condition in which a person is unable to pass urine. This can last for a short time or for a long time. If left untreated, it can result in kidney damage or other serious complications. What are the causes? This condition may be caused by: ??? Obstruction or narrowing of the tube that drains the bladder (urethra). This may be caused by surgery or problems with nearby organs, which can press or squeeze the urethra. ??? Problems with the nerves in the bladder. These can be caused by diseases, such as multiple sclerosis, or by spinal cord injuries. ??? Certain medicines. ??? Tumors in the area of the pelvis, bladder, or urethra. ??? Degenerative cognitive conditions such as delirium or dementia. ??? Diabetes. ??? Vaginal childbirth. ??? Bladder or urinary tract infection. ??? Constipation. ??? Blood in the urine (hematuria). ??? Injury to the bladder or urethra. ??? Psychological (psychogenic) conditions. Someone may hold her urine due to trauma or because she does not want to use the bathroom. What are the signs or symptoms? Symptoms of this condition include: ??? Trouble urinating. ??? Pain in the lower abdomen. How is this diagnosed? This condition is diagnosed based on a physical exam and a medical history. You may also have other tests, including: ??? An ultrasound of the bladder or kidneys or both. ??? Blood tests. ??? A urine analysis. ??? Additional tests may be needed such as an MRI, kidney, or bladder function tests. How is this treated? Treatment for this condition may include: ??? Medicines. ??? Placing a thin, sterile tube (catheter) into the bladder to drain urine out of the body. This is called an indwelling urinary catheter. After being inserted, the catheter is held in place with a small balloon that is filled with sterile water. Urine drains from the catheter into a collection bag outside of the body. ??? Behavioral therapy. ??? Treatment for any underlying conditions. ??? If needed, you may be treated in the hospital for kidney function problems or to manage other complications. Follow these instructions at home: ??? Take cnri-onx-bnkokiq and prescription medicines only as told by your health care provider. Avoid certain medicines, such as decongestants, antihistamines, and some prescription medicines. Do not take any medicine unless your health care provider has approved. ??? If you were given an indwelling urinary catheter, take care of it as told by your health care provider. ??? Drink enough fluid to keep your urine clear or pale yellow. ??? If you were prescribed an antibiotic, take it as told by your health care provider. Do not stop taking the antibiotic even if you start to feel better. ??? Do not use any products that contain nicotine or tobacco, such as cigarettes and e-cigarettes. If you need help quitting, ask your health care provider. ??? Monitor any changes in your symptoms. Tell your health care provider about any changes. ??? If instructed, monitor your blood pressure at home. Report changes as told by your health care provider. ??? Keep all follow-up visits as told by your health care provider. This is important. Contact a health care provider if: ??? You have uncomfortable bladder contractions that you cannot control (spasms) or you leak urine with the spasms. Get help right away if: ??? You have chills or fever. ??? You have blood in your urine. ??? You have a catheter and: ? Your catheter stops draining urine. ? Your catheter falls out. Summary ??? Acute urinary retention is a condition in which a person is unable to pass urine. If left untreated, it can result in kidney damage or other serious complications. ??? This condition may be caused by surgery or problems with nearby organs, which can press or squeeze the urethra. ??? Treatment may include medicines and placement of an indwelling urinary catheter. ??? Monitor any changes in your symptoms. Tell your health care provider about any changes. This information is not intended to replace advice given to you by your health care provider. Make sure you discuss any questions you have with your health care provider. Document Released: 07/07/2007 Document Revised: 08/09/2017 Document Reviewed: 08/09/2017 [employer] Interactive Patient Education ? 2019 [employer] Indwelling Urinary Catheter Care, Adult An indwelling urinary catheter is a thin, flexible, germ-free (sterile) tube that is placed into the bladder to help drain urine out of the body. The catheter is inserted into the part of the body that drains urine from the bladder (urethra). Urine drains from the catheter into a drainage bag outside of the body. Taking good care of your catheter will keep it working properly and help to prevent problems from developing. What are the risks? Bacteria may get into your bladder and cause a urinary tract infection. ??? Urine flow can become blocked. This can happen if the catheter is not working correctly, or if you have sediment or a blood clot in your bladder or the catheter. ??? Tissue near the catheter may become irritated and bleed. How to wear your catheter and your drainage bag Supplies needed ??? Adhesive tape or a leg strap. ??? Alcohol wipe or soap and water (if you use tape). ??? A clean towel (if you use tape). ??? Overnight drainage bag. ??? Smaller drainage bag (leg bag). Wearing your catheter and bag Use adhesive tape or a leg strap to attach your catheter to your leg. ??? Make sure the catheter is not pulled tight. ??? If a leg strap gets wet, replace it with a dry one. ??? If you use adhesive tape: 1. Use an alcohol wipe or soap and water to wash off any stickiness on your skin where you had tape before. 2. Use a clean towel to pat-dry the area. 3. Apply the new tape. You should have received a large overnight drainage bag and a smaller leg bag that fits underneath clothing. ??? You may wear the overnight bag at any time, but you should not wear the leg bag at night. ??? Always wear the leg bag below your knee. ??? Make sure the overnight drainage bag is always lower than the level of your bladder, but do not let it touch the floor. Before you go to sleep, hang the bag inside a wastebasket that is covered by a clean plastic bag. How to care for your skin around the catheter Supplies needed ??? A clean washcloth. ??? Water and mild soap. ??? A clean towel. Caring for your skin and catheter ??? Every day, use a clean washcloth and soapy water to clean the skin around your catheter. 1. Wash your hands with soap and water. 2. Wet a washcloth in warm water and mild soap. 3. Clean the skin around your urethra. ? If you are female: ? Use one hand to gently spread the folds of skin around your vagina (labia). ? With the washcloth in your other hand, wipe the inner side of your labia on each side. Do this in a gowmr-as-kbis direction. ? If you are male: ? Use one hand to pull back any skin that covers the end of your penis (foreskin). ? With the washcloth in your other hand, wipe your penis in small circles. Start wiping at the tip of your penis, then move outward from the catheter. 4. With your free hand, hold the catheter close to where it enters your body. Keep holding the catheter during cleaning so it does not get pulled out. 5. Use your other hand to clean the catheter with the washcloth. ? Only wipe downward on the catheter. ? Do not wipe upward toward your body, because that may push bacteria into your urethra and cause infection. 6. Use a clean towel to pat-dry the catheter and the skin around it. Make sure to wipe off all soap. 7. Wash your hands with soap and water. ??? Shower every day. Do not take baths. ??? Do not use cream, ointment, or lotion on the area where the catheter enters your body, unless your health care provider tells you to do that. ??? Do not use powders, sprays, or lotions on your genital area. ??? Check your skin around the catheter every day for signs of infection. Check for: ? Redness, swelling, or pain. ? Fluid or blood. ? Warmth. ? Pus or a bad smell. How to empty the drainage bag Supplies needed ??? Rubbing alcohol. ??? Gauze pad or cotton ball. ??? Adhesive tape or a leg strap. Emptying the bag Empty your drainage bag (your overnight drainage bag or your leg bag) when it is ??? full, or at least 2?3 times a day. Clean the drainage bag according to the ethanol operator's instructions or as told by your health care provider. 1. Wash your hands with soap and water. 2. Detach the drainage bag from your leg. 3. Hold the drainage bag over the toilet or a clean container. Make sure the drainage bag is lower than your hips and bladder. This stops urine from going back into the tubing and into your bladder. 4. Open the pour spout at the bottom of the bag. 5. Empty the urine into the toilet or container. Do not let the pour spout touch any surface. This precaution is important to prevent bacteria from getting in the bag and causing infection. 6. Apply rubbing alcohol to a gauze pad or cotton ball. 7. Use the gauze pad or cotton ball to clean the pour spout. 8. Close the pour spout. 9. Attach the bag to your leg with adhesive tape or a leg strap. 10. Wash your hands with soap and water. How to change the drainage bag Supplies needed: ??? Alcohol wipes. ??? A clean drainage bag. ??? Adhesive tape or a leg strap. Changing the bag Replace your drainage bag with a clean bag once a month. Replace the bag sooner if it leaks, starts to smell bad, or looks dirty. 1. Wash your hands with soap and water. 2. Detach the dirty drainage bag from your leg. 3. Pinch the catheter with your fingers so that urine does not spill out. 4. Disconnect the catheter tube from the drainage tube at the connection valve. Do not let the tubes touch any surface. 5. Clean the end of the catheter tube with an alcohol wipe. Use a different alcohol wipe to clean the end of the drainage tube. 6. Connect the catheter tube to the drainage tube of the clean bag. 7. Attach the clean bag to your leg with adhesive tape or a leg strap. Avoid attaching the new bag too tightly. 8. Wash your hands with soap and water. General instructions ??? Never pull on your catheter or try to remove it. Pulling can damage your internal tissues. ??? Always wash your hands before and after you handle your catheter or drainage bag. Use a mild, fragrance-free soap. If soap and water are not available, use hand sheet metal apprentice. ??? Always make sure there are no twists or bends (kinks) in the catheter tube. ??? Always make sure there are no leaks in the catheter or drainage bag. ??? Drink enough fluid to keep your urine pale yellow. ??? Do not take baths, swim, or use a hot tub. ??? If you are female, wipe from front to back after having a bowel movement. Contact a health care provider if: ??? Your urine is cloudy. ??? Your urine smells unusually bad. ??? Your catheter gets clogged. ??? Your catheter starts to leak. ??? Your bladder feels full. Get help right away if: ??? You have redness, swelling, or pain where the catheter enters your body. ??? You have fluid, blood, pus, or a bad smell coming from the area where the catheter enters your body. ??? The area where the catheter enters your body feels warm to the touch. ??? You have a fever. ??? You have pain in your abdomen, legs, lower back, or bladder. ??? You see blood in the catheter. ??? Your urine is pink or red. ??? You have nausea, vomiting, or chills. ??? Your urine is not draining into the bag. ??? Your catheter gets pulled out. Summary ??? An indwelling urinary catheter is a thin, flexible, germ-free (sterile) tube that is placed into the bladder to help drain urine out of the body. ??? The catheter is inserted into the part of the body that drains urine from the bladder (urethra). ??? Take good care of your catheter to keep it working properly and help prevent problems from developing. ??? Always wash your hands before and after you handle your catheter or drainage bag. ??? Never pull on your catheter or try to remove it. This information is not intended to replace advice given to you by your health care provider. Make sure you discuss any questions you have with your health care provider. Document Released: 07/08/2006 Document Revised: 12/29/2018 Document Reviewed: 02/21/2018 [employer] Interactive Patient Education ? 2019 [employer] Cervical Fusion, Care After This sheet gives you information about how to care for yourself after your procedure. Your health care provider may also give you more specific instructions. If you have problems or questions, contact your health care provider. What can I expect after the procedure? After the procedure, it is common to have: ??? Incision area pain. ??? Numbness. ??? Weakness. ??? Sore throat. ??? Difficulty swallowing. Follow these instructions at home: Medicines ??? Take xjul-mxi-votyzra and prescription medicines, including pain medicines, only as told by your health care provider. ??? If you were prescribed an antibiotic medicine, take it as told by your health care provider. Do not stop taking the antibiotic even if you start to feel better. If you have a brace: ??? Wear the brace as told by your health care provider. Remove it only as told by your health care provider. ??? Keep the brace clean. Incision care ??? Follow instructions from your health care provider about how to take care of your incision. Make sure you: ? Wash your hands with soap and water before you change your bandage (dressing). If soap and water are not available, use hand sheet metal apprentice. ? Change your dressing as told by your health care provider. ? Leave stitches (sutures), skin glue, or adhesive strips in place. These skin closures may need to be in place for 2 weeks or longer. If adhesive strip edges start to loosen and curl up, you may trim the loose edges. Do not remove adhesive strips completely unless your health care provider tells you to do that. ??? Keep your incision clean and dry. Do not take baths, swim, or use a hot tub until your health care provider approves. ??? Check your incision area every day for signs of infection. Check for: ? More redness, swelling, or pain. ? More fluid or blood. ? Warmth. ? Pus or a bad smell. Activity ??? Rest and protect your back as much as possible. ??? Do not lift anything that is heavier than 10 lb (4.5 kg) or the limit that you are told by your health care provider. ??? Do not twist or bend at the waist until your health care provider approves. ??? Avoid: ? Pushing and pulling motions. ? Lifting anything over your head. ? Sitting or lying down in the same position for long periods of time. ??? Do not exercise until your health care provider approves. Once your health care provider has approved exercise, ask him or her what kinds of exercises you can do to make your back stronger (physical therapy). ??? Do not drive until your health care provider approves. ? Do not drive for 24 hours if you received a medicine to help you relax (sedative). ? Do not drive or use heavy machinery while taking prescription pain medicine. General instructions ??? Have someone assist you to turn in bed frequently by moving your whole body without twisting your back (log rolling technique). ??? Wear compression stockings as told by your health care provider. These stockings help to prevent blood clots and reduce swelling in your legs. ??? Do not use any products that contain nicotine or tobacco, such as cigarettes and e-cigarettes. These can delay bone healing. If you need help quitting, ask your health care provider. ??? To prevent or treat constipation while you are taking prescription pain medicine, your health care provider may recommend that you: ? Drink enough fluid to keep your urine clear or pale yellow. ? Take txrp-apu-efvqbrv or prescription medicines. ? Eat foods that are high in fiber, such as fresh fruits and vegetables, whole grains, and beans. ? Limit foods that are high in fat and processed sugars, such as fried and sweet foods. ??? Keep all follow-up visits as told by your health care provider. This is important. Contact a health care provider if: ??? You have pain that gets worse or does not get better with medicine. ??? You have more redness, swelling, or pain around your incision. ??? You have more fluid or blood coming from your incision. ??? Your incision feels warm to the touch. ??? You have pus or a bad smell coming from your incision. ??? You have a fever. ??? You have weakness or numbness in your legs that is new or getting worse. ??? You have swelling in your calf or leg. ??? The edges of your incision break open. ??? You vomit or feel nauseous. ??? You have trouble controlling urination or bowel movements. Get help right away if: ??? You develop shortness of breath or chest pain. ??? You have trouble swallowing. ??? You have trouble breathing. ??? You develop a cough. This information is not intended to replace advice given to you by your health care provider. Make sure you discuss any questions you have with your health care provider. Document Released: 02/19/2005 Document Revised: 05/05/2018 Document Reviewed: 01/16/2017 [employer] Interactive Patient Education ? 2019 [employer] Cervical Fusion Cervical fusion is a procedure that is done on bones in the neck (cervical spine) to relieve pressure on the spinal cord or one or more nerve roots. There are two types of cervical fusion: ??? Posterior cervical fusion. This surgery is done through the back (posterior) of the neck. The goal of this procedure is to make two or more of the bones in the spinal column (vertebrae) grow together (fuse). This procedure is most commonly used to treat neck fractures and dislocations and to fix deformities in the curve of the neck. ??? Anterior cervical fusion. This surgery is done through the front (anterior) part of the neck. This procedure is most commonly used to treat herniated cervical disk, degenerative cervical disease, and arthritis in the cervical spine. During this type of surgery: ? The affected disk between the two vertebrae (intervertebral disk) is removed, as well as any extra bone on the edges of the vertebrae (bone spurs). This takes pressure off of the nerves or spinal cord (decompression). ? The area where the disk was removed is filled with a bone material (graft) or artificial bone material (implant) and then it fuses over time. In either procedure, hardware such as rods, screws, metal plates, or cages may be inserted to stabilize the vertebrae while they heal. Tell a health care provider about: ??? Any allergies you have. ??? All medicines you are taking, including vitamins, herbs, eye drops, creams, and stns-hae-wdbunzp medicines. ??? Any problems you or family members have had with anesthetic medicines. ??? Any blood disorders you have. ??? Any surgeries you have had. ??? Any medical conditions you have. ??? Whether you are or may be . What are the risks? Generally, this is a safe procedure. However, problems may occur, including: ??? Infection. ??? Bleeding. ??? Allergic reactions to medicines or dyes. ??? Damage to other structures or organs, such as nerves near the spine. ??? Spinal fluid leakage. ??? Blood clots. ??? Trouble controlling urination or bowel movements. ??? Vertebrae not fusing together completely (pseudoarthrosis). ??? Temporary hoarseness of the voice. ??? Difficulty swallowing. What happens before the procedure? Staying hydrated Follow instructions from your health care provider about hydration, which may include: ??? Up to 2 hours before the procedure ? you may continue to drink clear liquids, such as water, clear fruit juice, black coffee, and plain tea. Eating and drinking restrictions Follow instructions from your health care provider about eating and drinking, which may include: ??? 8 hours before the procedure ? stop eating heavy meals or foods such as meat, fried foods, or fatty foods. ??? 6 hours before the procedure ? stop eating light meals or foods, such as toast or cereal. ??? 6 hours before the procedure ? stop drinking milk or drinks that contain milk. ??? 2 hours before the procedure ? stop drinking clear liquids. Medicines ??? Ask your health care provider about: ? Changing or stopping your regular medicines. This is especially important if you are taking diabetes medicines or blood thinners. ? Taking medicines such as aspirin and ibuprofen. These medicines can thin your blood. Do not take these medicines before your procedure if your health care provider instructs you not to. ??? You may be given antibiotic medicine to help prevent infection. General instructions ??? Ask your health care provider how your surgical site will be marked or identified. ??? You will have blood and urine samples taken. ??? You may have tests, such as: ? X-rays. ? CT scan. ? MRI. ??? Plan to have someone take you home from the hospital or clinic. ??? If you will be going home right after the procedure, plan to have someone with you for 24 hours. What happens during the procedure? To reduce your risk of infection: ? Your health care team will wash or sanitize their hands. ? Your skin will be washed with soap. ? Hair may be removed from the surgical area. ??? An IV tube will be inserted into one of your veins. ??? You will be given one or more of the following: ? A medicine to help you relax (sedative). ? A medicine to make you fall asleep (general anesthetic). ??? If you are having a posterior cervical fusion: ? An incision will be made in the back of your neck. ? Two or more vertebrae will be joined into one solid section of bone with a bone graft. ??? If you are having an anterior cervical fusion: ? An incision will be made in the area where the fusion will be placed. This is?usually done at the front of your neck. ? Your neck muscles will be pushed aside. ? The affected disk and bone spurs will be removed (decompression). ? The area where the disk was removed will then be filled with bone graft or bone implants or both. ??? Screws and rods or metal plates may be used to stabilize the vertebrae while they fuse. ??? Your incision may be closed. ??? A bandage (dressing) may be placed over your incision. The procedure may vary among health care providers and hospitals. What happens after the procedure? You will be given medicine to relieve pain as needed. ??? You will continue to receive fluids and medicines through an IV tube. ??? Your blood pressure, heart rate, breathing rate, and blood oxygen level will be monitored until the medicines you were given have worn off. ??? You may be given a brace to wear while you heal. ??? Do not drive until your health care provider approves. ??? You may have to wear compression stockings. These stockings help to prevent blood clots and reduce swelling in your legs. ??? You may be asked to do breathing exercises. This helps prevent a lung infection. ??? You will be encouraged to stand up and walk as soon as you are able. You will be taught how to move correctly and how to stand and walk. ??? You will be assisted to turn in bed frequently by moving your whole body without twisting your back (log rolling technique). This information is not intended to replace advice given to you by your health care provider. Make sure you discuss any questions you have with your health care provider. Document Released: 12/28/2002 Document Revised: 01/30/2017 Document Reviewed: 01/16/2017 [employer] Interactive Patient Education ? 2019 [employer]. documented in this encounter Plan of Treatment Not on file documented as of this encounter Visit Diagnoses Not on filedocumented in this encounter Care Teams Feather Curling Machine Operator Relationship Specialty Start Date End Date Kiko Sanderson MD [address] [facility] [address] [place] [id number] PCP - General Family Medicine 03/10/24 documented as of this encounter
--- OUTSIDE RECORDS SUMMARY | 2024-12-29 08:53 | XMS_ITS | Encounter Summary ---
Author Organization [employer] Address [address] [place] [address] Care Team Providers Care Airline Hostess Name Role Phone Kiko Sanderson MD Primary Care Provider + [phone] Encounter Details Date Type Department Care Team (Late st Contact Info) Description 05/08/2019 Transcribed Document [facility] [place] Family Medicine [facility] [place] [address] ProviderNitish MD [address] [place], [place] [id number] Social History Tobacco Use Types Packs/Day Years Used Date Smoking Tobacco: Never Assessed Comments Unknown Sex and Gender Information Value Date Recorded Sex Assigned at Not on file Legal Sex Female 4:18 PM CDT Gender Identity Not on file Sexual Orientation Not on file documented as of this encounter Miscellaneous Notes * Cerner Conversion Note - Historical ProviderMD - 05/08/2019 11:21 AM CDT Patient: MAGO BULLOCK Age: 63 years Sex: Female : 1955 Associated Diagnoses: None Author: ZENIA GRIMM PA-C Fluoroscopically guided lumbar puncture was perfomed at the L4-L5 level and 10 mls of Isovue M 300 contrast injected. The patient tolerated the procedure well. Cervical myelogram was then performed. CT and report to follow. Electronically signed by Betzaida Montgomery Conversion Radial Drill Press Operator For Plastic Cerner at 11/09/2022 5:20 PM CDT documented in this encounter Plan of Treatment Not on file documented as of this encounter Visit Diagnoses Not on filedocumented in this encounter Care Teams Airline Hostess Relationship Specialty Start Date End Date Kiko Sanderson MD [address] [facility] [address] [place] [phone] PCP - General Family Medicine 03/10/24 documented as of this encounter
--- OUTSIDE RECORDS SUMMARY | 2024-12-29 08:53 | XMS_ITS | Encounter Summary ---
Author Organization [employer] Address [address] [place] [address] Care Team Providers Care Director Distribution Name Role Phone Kiko Sanderson MD Primary Care Provider + [phone] Encounter Details Date Type Department Care Team (Late st Contact Info) Description 10/09/2019 Transcribed Document [facility] [place] Family Medicine [address] [place] [address] ProviderNitish MD [address] [place] [address] Social History Tobacco Use Types Packs/Day Years Used Date Smoking Tobacco: Never Assessed Comments Unknown Sex and Gender Information Value Date Recorded Sex Assigned at Not on file Legal Sex Female 4:18 PM CDT Gender Identity Not on file Sexual Orientation Not on file documented as of this encounter Miscellaneous Notes * Cerner Conversion Note - Historical ProviderMD - 10/09/2019 1:03 PM CDT Nursing Discharge Summary Entered On: 10/09/2019 13:04 EDT Performed On: 10/09/2019 13:03 EDT by TERENCE SAL RN Discharge Documentation Discharge Date/Time : 10/09/2019 13:00 EDT Patient Disposition, General : Discharge Discharge To : Home without planned follow-up Mode Of Departure, General Discharge : Private vehicle Accompanied By, Discharge : Other: sister in law IV Discontinued : Yes Personal Belongings With Patient : Yes Pt's Own Supply of Medications Returned : No Prescriptions Given to Patient : Yes Medications Given to Patient : No Discharge Instructions Reviewed With, Opportunity For Questions Given : Patient, Other: sister in law via phone Patient Education Completed : Yes Number of Prescriptions Given : 2 Teaching Method : Explanation, Printed materials Teaching Evaluation : Verbalizes understanding TERENCE SAL RN - 10/09/2019 13:03 EDT Electronically signed by Valentina [facility] Conversion Industrial Green Systems Designer Cerner at 11/09/2022 5:18 PM CDT documented in this encounter Plan of Treatment Not on file documented as of this encounter Visit Diagnoses Not on filedocumented in this encounter Care Teams Director Distribution Relationship Specialty Start Date End Date Kiko Sanderson MD [address] [facility] [address] [place] [phone] PCP - General Family Medicine 03/10/24 documented as of this encounter
--- OUTSIDE RECORDS SUMMARY | 2024-12-29 08:53 | XMS_ITS | Encounter Summary ---
Author Organization [employer] Address [address] [place] [address] Care Team Providers Care Support Team Member Name Role Phone Kiko Sanderson MD Primary Care Provider + [phone] Encounter Details Date Type Department Care Team (Late st Contact Info) Description 10/09/2019 Transcribed Document [facility] [place] [address] [place] [address] ProviderNitish MD [address] [place] [address] Social History Tobacco Use Types Packs/Day Years Used Date Smoking Tobacco: Never Assessed Comments Unknown Sex and Gender Information Value Date Recorded Sex Assigned at Not on file Legal Sex Female 4:18 PM CDT Gender Identity Not on file Sexual Orientation Not on file documented as of this encounter Miscellaneous Notes * Cerner Conversion Note - Historical ProviderMD - 10/09/2019 11:29 AM CDT [facility] [place] [id number] Visit Date/Time: 10/09/2019 11:29:55 MAOG BULLOCK The above patient was seen in the hospital today and needs to be excused from work/school until Return to Work/School Date: Remain off work until follow up appointment (11-09-19) . documented in this encounter Plan of Treatment Not on file documented as of this encounter Visit Diagnoses Not on filedocumented in this encounter Care Teams Support Team Member Relationship Specialty Start Date End Date Kiko Sanderson MD [address] [place] [facility] [address] [place] [phone] PCP - General Family Medicine 03/10/24 documented as of this encounter
--- OUTSIDE RECORDS SUMMARY | 2024-12-29 08:53 | XMS_ITS | Encounter Summary ---
Author Organization [employer] Address [address] [place] [address] Care Team Providers Care Staple Processing Machine Operator Name Role Phone Kiko Sanderson MD Primary Care Provider + [phone] Encounter Details Date Type Department Care Team (Late st Contact Info) Description 05/08/2019 Transcribed Document [facility] [place] [address] [place] [address] ProviderNitish MD [address] [place], [place] [address] Social History Tobacco Use Types Packs/Day Years Used Date Smoking Tobacco: Never Assessed Comments Unknown Sex and Gender Information Value Date Recorded Sex Assigned at Not on file Legal Sex Female 4:18 PM CDT Gender Identity Not on file Sexual Orientation Not on file documented as of this encounter Miscellaneous Notes * Cerner Conversion Note - Nitish ProviderMD - 05/08/2019 1:05 PM CDT Patient Education Materials Follows: Myelogram A myelogram is an imaging test. [...] 04/16/2009 Document Revised: 11/20/2016 Document Reviewed: 04/19/2016 [employer] Interactive Patient Education ? 2019 [employer] documented in this encounter Plan of Treatment Not on file documented as of this encounter Visit Diagnoses Not on filedocumented in this encounter Care Teams Staple Processing Machine Operator Relationship Specialty Start Date End Date Kiko Sanderson MD [address] [place] [facility] [address] [place] [phone] PCP - General Family Medicine 03/10/24 documented as of this encounter
--- OUTSIDE RECORDS SUMMARY | 2024-12-29 08:53 | XMS_ITS | Encounter Summary ---
Author Organization [employer] Address [address] [place] [address] Care Team Providers Care Steel Rule Inspector Name Role Phone Kiko Sanderson MD Primary Care Provider + [phone] Encounter Details Date Type Department Care Team (Late st Contact Info) Description 10/09/2019 Transcribed Document [facility] Neurology - [facility] [address] [phone] Jone Rodriguez MD [address] [place] [address] Social History Tobacco Use Types Packs/Day Years Used Date Smoking Tobacco: Never Assessed Comments Unknown Sex and Gender Information Value Date Recorded Sex Assigned at Not on file Legal Sex Female 4:18 PM CDT Gender Identity Not on file Sexual Orientation Not on file documented as of this encounter Miscellaneous Notes * Cerner Conversion Note - Jone Rodriguez MD - 10/09/2019 10:54 AM EDT Patient: MAGO BULLOCK Age: 64 Years Sex: Female : 1955 Assessment/Plan POD 2 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 with postop urinary retention - bethanechol 10mg tid,will need urology follow up -dc yobani -pt/ot don collar when up and about -sqh dvt ppx -pain control -dc home today Subjective doing better amendable to dc home Vital Signs T: 36.7 ??C TMIN: 36.7 ??C TMAX: 37.5 ??C HR: 95(Monitored) RR: 17 BP: 116/72 SpO2: 95% Physical Exam nad facially symmetric normal speech nonlabored breathing no edema incision cdi, flat, appropriately tender yobani to suction 45/ serosang josiane gomez appropriate documented in this encounter Plan of Treatment Not on file documented as of this encounter Visit Diagnoses Not on filedocumented in this encounter Care Teams Steel Rule Inspector Relationship Specialty Start Date End Date Kiko Sanderson MD [address] [facility] [address] [place] [phone] PCP - General Family Medicine 03/10/24 documented as of this encounter
--- OUTSIDE RECORDS SUMMARY | 2024-12-29 08:53 | XMS_ITS | Data Portability ---
Author Organization [facility] Loida march, [facility] [place] [facility] Address [address] [place] [address] Care Team Providers Care Ironworker Name Role Phone NATALIE WOODSON Primary Care Provider Assessment Encounter Date Assessment Date Assessment LastModified by Organization Details LastModified Time 07/21/2024 07/21/2024 This is a 68-year-old female seen today for follow-up evaluation and treatment of lumbar radiculopathy and osteoarthritis. She had excellent ongoing benefit from recent L4-5 and L5-S1 TFESI until recently. She endorses low back pain in the left L5/sacral area that started after vomiting secondary to a virus. This is persistent and ongoing She has a known history of severe osteoarthritis of the bilateral knees. She is having some worsening pain right greater than left especially when walking up and down the stairs. She had been previously treated by Dr. Sultana with steroid actions that have no longer provided benefit. We discussed the possibility of injection at previous follow-up but this was deferred secondary to surgery. She would like to discuss this option now. Previously she was seen for cervical radiculopathy and postlaminectomy syndrome and is 4 months status post C2-T3 decompression and fusion with Dr. Rodriguez. PMH: PSHx: C3-6 ACDF, C2-T3 decompression and fusion (Jennifer, 02/2024) 1. EMG upper extremities 11/12/2023 demonstrates chronic mid cervical radiculopathy bilaterally centered around C6 but potentially involving C5 and C7 worse on the right. No active denervation. 2. MRI cervical spine 10/14/2023 demonstrates minimal C2-3 posterior listhesis. Previous C3-7 anterior fusion and discectomy. Moderate right C2-3 foraminal narrowing. There is focal myelomalacia at the right lateral aspect of the spinal cord at C5-6. 3. Cervical x-ray flexion-extension 2023 demonstrates previous C3-7 ACDF satisfactorily placed. No instability. 4. CT cervical spine 10/14/2023 demonstrates previous C3-7 ACDF with moderate right C2-3 foraminal narrowing. 5. MRI lumbar spine performed 07/01/2023 demonstrates Foraminal narrowing L5-S1 The above image findings were discussed with the patient. Previous injection therapy has included: 01/06/2024 left L4-5 and L5-S1 TFESI with 100% benefit x 5 months 12/23/2023 C7-T1 SANTIAGO without relief 12/13/2023 Right C2-3 MBB #1 without relief Tylenol as needed, Cymbalta Presentation is consistent with lumbar radiculopathy and bilateral knee osteoarthritis. I recommend: 1. Left L4-5 and L5-S1 TFESI 2. Obtain x-rays of bilateral knees and lumbar spine 3. Bilateral Zilretta injection 4. Consider updated MRI pending outcome of above I had an in-depth discussion with the patient regarding the risks of the procedure including bleeding, infection, damage to surrounding structures, paralysis and even . We discussed the potential adverse effects of corticosteroid injection including flushing of the face, lipodystrophy, skin discoloration, elevated blood glucose, increased blood pressure. Risks of frequent steroid administration include weight gain, hormonal changes, mood changes, osteoporosis. External records were reviewed and discussed as above, including imaging, clinical notes, and relevant labs. [email or web address] Not available 07/21/2024 08:37:50 10/15/2024 10/15/2024 Mrs. Centeno is doing very well after a C2-T3 fusion. Her x-rays today look great. We discussed the pain between her shoulder blades, and I do suspect that this has up to a year to improve. I think she is getting out of the window to have any complications from her hardware as the x-rays look excellent today. I am fine releasing her from my care, so long as she calls with any questions or concerns. She is comfortable with this plan. [email or web address] Not available 10/15/2024 09:12:38 11/03/2024 11/03/2024 This is a 69-year-old female seen today for follow-up evaluation and treatment of lumbar radiculopathy and osteoarthritis. She presents today after recent Zilretta injection and left L4-5 L5-S1 TFESI that have both provided notable pain relief. PMH: PSHx: C3-6 ACDF, C2-T3 decompression and fusion (Jennifer, 02/2024) 1. EMG upper extremities 11/12/2023 demonstrates chronic mid cervical radiculopathy bilaterally centered around C6 but potentially involving C5 and C7 worse on the right. No active denervation. 2. MRI cervical spine 10/14/2023 demonstrates minimal C2-3 posterior listhesis. Previous C3-7 anterior fusion and discectomy. Moderate right C2-3 foraminal narrowing. There is focal myelomalacia at the right lateral aspect of the spinal cord at C5-6. 3. Cervical x-ray flexion-extension 2023 demonstrates previous C3-7 ACDF satisfactorily placed. No instability. 4. CT cervical spine 10/14/2023 demonstrates previous C3-7 ACDF with moderate right C2-3 foraminal narrowing. 5. MRI lumbar spine performed 07/01/2023 demonstrates Foraminal narrowing L5-S1 The above image findings were discussed with the patient. Previous injection therapy has included: 09/08/2024 left L4-5 and L5-S1 TFESI with 90% ongoing 08/24/2024 Bilateral intra-articular knee injection, Zilretta, with 90% ongoing 01/06/2024 left L4-5 and L5-S1 TFESI with 100% benefit x 5 months 12/23/2023 C7-T1 SANTIAGO without relief 12/13/2023 Right C2-3 MBB #1 without relief Tylenol as needed, Cymbalta Presentation is consistent with lumbar radiculopathy and bilateral knee osteoarthritis. I recommend: 1. Therapeutic left L4-5 and L5-S1 TFESI on or after 12/06/2024 as needed 2. Therapeutic bilateral Zilretta injection on or after 11/21/2024 as needed 3. I recommend the patient engage in a core exercise plan such as yoga or pilates on a snf basis. I had an in-depth discussion with the patient regarding the risks of the procedure including bleeding, infection, damage to surrounding structures, paralysis and even . We discussed the potential adverse effects of corticosteroid injection including flushing of the face, lipodystrophy, skin discoloration, elevated blood glucose, increased blood pressure. Risks of frequent steroid administration include weight gain, hormonal changes, mood changes, osteoporosis. External records were reviewed and discussed as above, including imaging, clinical notes, and relevant labs. [email or web address] Not available 11/03/2024 10:15:26 Plan of Treatment Reminders Order Date Submit Date Provider Last Modified By Organization Details Last Modified Time Details Appointments None recorded. Lab None recorded. Referral None recorded. Procedures injection, transforami nal epidural, lumbar (PROC) 2023 [email or web address] [facility], [address] [place] [address], [phone], 5 12:09:03 Surgeries None recorded. Imaging XR, lumbosacral spine, 4 or more view 2023 024 [email or web address] 9 [facility], [address] [place] [address], [phone], 4 13:44:45 XR, knee, 4 or more view - 07/21/242023 024 [email or web address] 9 [facility], [address] [place], [address], 4 13:44:46 Medication Orders None recorded. Patient TargetsNo targets recorded. Patient InstructionsNo instructions recorded. Reason for Referral None Reported. Results Created Date Observation Date Name Description Value Unit Range Abnormal Flag Note LastModifiedBy Organization Detail LastModifiedTime 07/21/2007/21/2024 XR, knee, 4 or more view [address] [address] Susytomas garcia Name: ANKUSH garcia : [birth year] Andres garcia 7 Orderi [facility]: 2023 EXAM: XR ASIM KNEES COMPLE TE, 4 OR MORE VWS HISTOR Y: Bilate ral knee pain. COMPAR REJI: 024 FINDIN GS: There are modera te to severe osteoa rthrit ic change s. There is modera te margin al osteop hytic spurri ng. There is near comple te loss of joint space in the patell ofemor al compar tment. There is no eviden ce of fractu re. IMPRES JE: 1. There are modera te to severe osteoa rthrit ic change s in both knees. Interp reted By: Neelima valadez MD Electr onical ly Signed By: Neelima valadez MD on 2023 9:00 AM [facility] [address], [phone], 07/21/2024 09:19:44 07/21/20 24 07/21/2024 XR, lumbo sacra l spine , 4 or more view [address] [address] Susytomas garcia Name: ANKUSH garcia : [birth year] Andres garcia 7 Orderi ng Provid er: IVÁN TRONCOSO EXAM DATE: 2023 EXAM: XR LUMBAR SPINE AP/LAT /FLEX/ EXT CLINIC AL INFORM ATION: Back pain. IMAGES PROVID ED: AP, latera l and coned- down views of the lumbar spine with additi onal latera l views in flexio n and extens ion. COMPAR REJI: None. FINDIN GS: Verteb ral body height s are normal . Narrow ing of multip le disc spaces , mild. Grade 1 anteri or listhe sis of L4 relati ve to L5. Mild diffus e degene rative endpla te spurri ng. No instab ility is seen on flexio n or extens ion. No radiog raphic eviden ce of injury is noted. IMPRES JE: Mild to modera te diffus e DDD with grade 1 malali gnment L4-5. No instab ility. Interp reted By: Michael Doshi MD Electr onical ly Signed By: Michael Doshi MD on 2023 9:02 AM [facility] [address] [facility], [place], [address], 07/21/2024 09:19:44 08/13/19 25 08/12/2024 MRI, cervi mimi spine , w/o contr ast No observ ation record ed. [email or web address] Not Available 15:27:04 08/13/19 25 08/12/2024 MRI, thora cic spine , w/o contr ast No observ ation record ed. [email or web address] Not Available 15:27:54 08/13/19 25 08/12/2024 XR, humer us No observ ation record ed. [email or web address] Not Available 15:28:58 08/13/19 25 08/12/2024 XR, elbow No observ ation record ed. [email or web address] Not Available 15:29:39 08/13/19 25 08/12/2024 XR, forea rm No observ ation record ed. [email or web address] Not Available 15:30:38 08/13/19 25 08/12/2024 CT, lumba r spine , w/o contr ast No observ ation record ed. [email or web address] Not Available 2024 08:27:18 08/13/19 25 08/12/2024 CT, thora cic spine , w/o contr ast No observ ation record ed. SHAAN Not Available 2024 13:34:48 08/13/19 25 08/12/2024 CT, cervi mimi spine , w/o contr ast No observ ation record ed. [email or web address] Not Available 09:14:39 08/13/19 25 08/12/2024 CT, angio gram, abdom en + pelvi s, w/wo contr ast No observ ation record ed. [email or web address] Not Available 09:16:17 08/13/19 25 08/12/2024 CT, pelvi s, w/o contr ast No observ ation record ed. [email or web address] Not Available 09:25:50 08/13/19 25 08/12/2024 CT, head + brain , w/o contr ast No observ ation record ed. [email or web address] Not Available 09:27:51 08/13/19 25 08/12/2024 CT, angio gram, head, w/wo contr ast No observ ation record ed. [email or web address] Not Available 09:32:54 08/13/19 25 08/12/2024 CT, angio gram, chest , w/o contr ast No observ ation record ed. [email or web address] Not Available 09:33:38 08/13/19 25 08/12/2024 CT, angio gram, neck, w/wo contr ast No observ ation record ed. [email or web address] Not Available 14:40:53 10/16/19 25 10/15/2024 XR, cervi mimi spine , 2 or [address] [address] Patitomas garcia Name: ANKUSH garcia : [birth year] Patitomas garcia 7 Orderi ng Provid er: LYNNE RODRIGUEZ EXAM DATE: 2024 EXAM: XR CERVIC AL AP/LAT CLINIC AL INFORM ATION: IMAGES PROVID ED: AP, latera l, open mouth and submen christianne views of the cervic al spine COMPAR REJI: None. FINDIN GS: Anteri or fusion noted C3-C7 with content assistant ior fusion C2-T3. No compli cation . No hardwa re loosen ing is noted. The alignm ent is accept able. No prever tebral soft tissue swelli ng. IMPRES JE: Stable uncomp licate d appear ing anteri or and content assistant ior fusion Interp reted By: Michael Doshi MD Electr onical ly Signed By: Michael Doshi MD on 025 8:25 AM [facility] [address] [place] [address], [phone], 10/16/2024 07:39:49 Result Notes None recorded. Problems Name Problem SNOMED Code Status Onset Date Resolution Date Notes Provider Name and Address Organization Details Recorded Time Tension-ty pe headache 930904211 Active 2014 From Automated Load;Provi henrietta: Maci May;Stat us: [facility] 08:[facility]57 Finding of sensation by site 066601651 Active 2014 From Automated Load;Provi henrietta: Maci May;Stat us: [facility] 4 08:01:57 Cervico-oc cipital neuralgia 10985441 Active 2014 From Automated Load;Provi henrietta: Maci May;Stat us: Active [facility] 4 08:01:57 Restless legs 16574183 Active 2014 From Automated Load;Provi henrietta: Maci May;Stat us: Active Richard Workman [facility] 4 08:01:57 Postoperat madelyn retention of urine 299808709 Active 2019 Richard Workman [facility] 4 08:01:57 Urge incontinen ce of urine 81486559 Active 2019 Richard Workman [facility] 4 08:01:57 Problem Notes None recorded. Procedures Surgical History Date Name Laterality Status Provider Name and Address Organization Details Recorded Time 09/08/19 25 Lumbar Transforaminal Epidural Injection - Fariba completed RAMONA MITTAL MD [address] [place] [address] [place], [address], [facility] 09/08/2024 13:54:59 08/24/19 25 Joint Injection, Knee - Fariba completed RAMONA MITTAL MD [facility] [place], [address], [facility] 08/24/2024 15:53:56 01/06/20 24 Lumbar Transforaminal Epidural Injection - Fariba completed RAMONA MITTAL MD [address] [place], [address], [facility] 01/06/2024 15:01:43 12/31/19 24 Trigger Point Injections - Fariba completed IVÁN TRONCOSO PA-C [address] [place], [address], [facility] 12/31/2023 09:52:26 12/23/19 24 Cervical Epidural Steroid Injection - Fariba completed RAMONA MITTAL MD [address] [place] [address], [phone], [facility] 12/23/2023 16:54:06 12/13/19 24 Cervical MBB 2 level - Fariba completed RAMONA MITTAL MD [address] [place] [address], [phone], [facility] 12/13/2023 14:20:14 11/12/19 24 Electromyography (EMG) with Nerve Conduction Study (NCV) completed Emma Fitzgerald (Nicky) [facility] 11/12/2023 16:50:17 09/17/19 24 Lumbar Transforaminal Epidural Injection - [facility] completed RAMONA MITTAL MD [address] [place], [address], [facility] 09/17/2023 16:25:20 09/11/19 24 Marilyn Maneuver completed Emma Mcgarry [facility] 09/11/2023 15:39:59 09/11/19 24 Ragley-Hallpike completed Emma Malgorzata [facility] 09/11/2023 15:40:16 09/11/19 24 Endoscopy Nasal; Biospy, Polypectomy or Debridement completed Emma Malgorzata [facility] 09/11/2023 15:28:27 10/07/19 20 ANTERIOR CERVICAL DISCECTOMY AND FUSION FOR DECOMPRESSION (SURG) completed Richard Workman [facility] 09/05/2023 08:02:06 08/11/19 20 LAMINECTOMY, CERVICAL (SURG) completed Richard Workman [facility] 09/05/2023 08:02:06 05/18/20 19 Interpretation completed MAHSA GALVEZ PA-C [address] [place], [address], [facility] 05/18/2019 16:31:44 hysterectomy completed Richard Ji [facility] 09/05/2023 08:02:03 procedure on urinary bladder completed Richard Ji [facility] 09/05/2023 08:02:03 Cholecystectomy completed Richard Ji [facility] 09/05/2023 08:02:03 Neck Surgery completed Richard Ji [facility] 09/05/2023 08:02:03 procedure on ear completed Richard Ji [facility] 09/05/2023 08:02:03 Imaging Results None recorded. Procedure Notes None recorded. Medical Equipment None Reported. Allergies Allergen ID Allergen Name Allergen Category Reaction Reaction Severity Criticality Documentation Date Start Date Code Code System Note Provider Name and Address Organization Details Recorded Time 541089 hydrocodo ne bitartrat e medicatio n Not available Not available Not available 06/15/20162014 04299 9 RxNorm Comme nt: Creat ed By: Brook hall;Cr eated Date: 2014 1:20: 53 PM; [facility] 4 08:02:01 460572 morphine sulfate medicatio n Not available Not available Not available 06/15/20162013 86482 RxNorm Comme nt: Creat ed By: Brian gresham;Cr eated Date: 2013 9:04: 02 AM; [facility] 4 08:02:01 488842 codeine medicatio n Not available Not available Not available 06/15/20162013 2670 RxNorm Comme nt: Creat ed By: Brian gresham;Cr eated Date: 2013 9:03: 46 AM; [facility] 4 08:02:01 091707 codeine medicatio n Not available Not available Not available 08/16/2023 2670 Rx[facility] 4 13:51:35 924834 morphine medicatio n Not available Not available Not available 08/16/2023 7052 RxNorm Celine Hockensmi surya [facility] 4 13:51:44 898457 prednison e medicatio n Not available Not available Not available 08/16/2023 8640 RxNorm Celine Hockensmi th [facility] 4 13:51:50 820800 acetamino phen / oxycodone medicatio n Not available Not available Not available 2023 14337 3 RxNorm Suzan Fawn [facility] 4 09:39:59 792029 hydrocodo ne Not available Not available Not available Not available 2023 5489 RxNorm Suzan Fawn [facility] 4 09:40:12 358426 Medrol medicatio n Not available Not available Not available 08/30/202311023 2 RxNorm Suzan Fawn [facility] 4 09:41:24 972732 methylpre dnisolone medicatio n Not available Not available Not available 03/16/20242023 6902 RxNorm Other react ions and sever ities : 'Anxi ety'. Sarahi Perdomo [facility] 4 08:21:11 302921 iodine medicatio n rash Not available Not available 03/16/20242023 5933 RxNorm Sarahi Perdomo [facility] 4 08:21:11 Medications Name Sig Start Date Stop Date Status Note LastModified by Organization Details LastModified Time diphenhyd ramine lidocaine nystatin antacid # 1111 suspensio n SWISH AND SPIT WITH 5-10ML EVERY 4-6 HOURS NEEDED 11/03 completed No longer taking Not Available Not Available Not Available cyclobenz aprine 10 mg tablet TAKE 1 TABLET BY MOUTH THREE TIMES DAILY NEEDED 11/03 completed No longer taking Not Available Not Available Not Available amoxicill in 500 mg capsule 11/03 completed Finished Not Available Not Available Not Available atorvasta tin 40 mg tablet Daily active Not Available Not Available Not Available methocarb feli 500 mg tablet TAKE 1 TABLET BY MOUTH EVERY 6 HOURS NEEDED 11/03 completed No longer taking Not Available Not Available Not Available tizanidin e 2 mg tablet TAKE 1 TO 2 TABLETS BY MOUTH THREE TIMES DAILY NEEDED 11/03 completed Not Available Not Available Not Available azithromy claudia 250 mg tablet TAKE 2 TABLETS BY MOUTH ON DAY 1, AND THEN TAKE 1 TABLET BY MOUTH ONCE A DAY ON DAY 2 THROUGH DAY 5 10/13 completed Not Available Not Available Not Available ofloxacin 0.3 % eye drops INSTILL 1 DROP INTO AFFECTED EYE 4 TIMES DAILY 10/13 completed Not Available Not Available Not Available fluconazo le 150 mg tablet TAKE 1 TABLET BY MOUTH ONCE DAILY FOR 3 DAYS 10/13 completed Not Available Not Available Not Available sulfameth oxazole 400 mg-trimet hoprim 80 mg tablet TAKE 1 TABLET BY MOUTH TWICE DAILY FOR 5 DAYS 10/13 completed Not Available Not Available Not Available valacyclo vir 1 gram tablet TAKE 2 TABLETS BY MOUTH TWICE DAILY 10/13 completed Not Available Not Available Not Available promethaz ine 12.5 mg tablet Every six hours 10/11 completed Duration : 30 days;Ins truction s: 1 at onset headache ; may repeat q6h PRN; may cause drowsine ss;Frequ ency: q6h;Alt Frequenc y: prn;Medi cation Descript ion: prometha zine; Dosage:1 ; Route:or al; refills: 6; Quantity :20 tablet Not Available Not Available Not Available Medrol (Jim) 4 mg tablets in a dose pack Take 1 dose pk by oral route as directed . 10/13 completed Not Available Not Available Not Available Neurontin 600 mg tablet Every night at bedtime 10/13 completed Duration : 30 days;Srinivas quency: qhs;Medi cation Descript ion: gabapent in; Dosage:1 ; Route:or al; refills: 6; Quantity :30 tablet Not Available Not Available Not Available metronida zole 500 mg tablet TAKE 1 TABLET BY MOUTH TWICE DAILY FOR 7 DAYS 10/13 completed Not Available Not Available Not Available ciproflox acin 500 mg tablet TAKE 1 TABLET BY MOUTH EVERY 12 HOURS 10/13 completed Not Available Not Available Not Available sulfameth oxazole 800 mg-trimet hoprim 160 mg tablet TAKE 1 TABLET BY MOUTH EVERY 12 HOURS FOR 7 DAYS 07/21 completed Not Available Not Available Not Available omeprazol e 40 mg capsule,d elayed release active Not Available Not Available Not Available bisoprolo l fumarate 5 mg tablet TAKE 1 TABLET BY MOUTH ONCE DAILY active Not Available Not Available No t Available Zofran 4 mg tablet Three times a day 10/13 completed Duration : 30 days;Ins truction s: as alternat madelyn to prometha zine: take 1 at onset of headache ; may repeat q8h PRN;Freq uency: tid;Alt Frequenc y: prn pain;Med ication Descript ion: ondanset jose armando; Dosage:1 ; Route:or al; refills: 11; Quantity :30 tablet Not Available Not Available Not Available citalopra m 20 mg tablet Daily 10/11 completed Frequenc y: daily;Me dication Descript ion: citalopr am; Route:or al; refills: 0 Not Available Not Available Not Available methocarb feli 750 mg tablet 11/03 completed Not Available Not Available Not Available meclizine 25 mg tablet 11/03 completed Not Available Not Available Not Available baclofen 10 mg tablet As Directed 10/13 completed Duration : 90 days;Ins truction s: 1 bid PRN and 1-2 hs PRN;Freq uency: as direct.; Alt Frequenc y: prn pain;Med ication Descript ion: baclofen ; Dosage:a s directed ; Route:or al; refills: 3; Quantity :270 tablet Not Available Not Available Not Available benzonata te 100 mg capsule TAKE 1 CAPSULE BY MOUTH THREE TIMES DAILY NEEDED FOR COUGH 10/13 completed Not Available Not Available Not Available cephalexi n 500 mg capsule TAKE 1 CAPSULE BY MOUTH THREE TIMES DAILY 10/13 completed Not Available Not Available Not Available Acuprin 81 mg tablet,de layed release Two times a day 07/21 completed Frequenc y: bid;Medi cation Descript ion: aspirin; Route:or al; refills: 0; Quantity :30 tablet Not Available Not Available Not Available promethaz ine 25 mg tablet TAKE 1 TABLET BY MOUTH EVERY 6 HOURS NEEDED FOR NAUSEA FOR UP TO 8 DAYS 11/03 completed Finished Not Available Not Available Not Available losartan 25 mg tablet TAKE 1 TABLET BY MOUTH ONCE DAILY active Not Available Not Available No t Available Tylenol 325 mg tablet Take 2 tablets every 6 hours by oral route. 10/13 completed Not Available Not Available Not Available monteluka st 10 mg tablet Take 1 tablet every day by oral route. active Not Available Not Available No t Available mupirocin 2 % topical ointment APPLY OINTMENT TOPICALL Y THREE TIMES DAILY 10/13 completed Not Available Not Available Not Available metoprolo l succinate ER 25 mg tablet,ex tended release 24 hr TAKE 1 TABLET BY MOUTH ONCE DAILY 11/03 completed No longer taking Not Available Not Available Not Available Imitrex 100 mg tablet As Directed 10/13 completed Duration : 30 days;Ins truction s: 1 at onset headache ; may repeat p2h prn; max 2/24h;Fr equency: as direct.; Medicati on Descript ion: sumatrip landin; Dosage:1 ; Route:or al; refills: 6; Quantity :9 tablet Not Available Not Available Not Available ibuprofen 600 mg tablet Daily 10/13 completed Duration : 30 days;Srinivas quency: daily;Me dication Descript ion: ibuprofe n; Dosage:1 ; Route:or al; refills: 0; Quantity :30 tablet Not Available Not Available Not Available oxycodone -acetamin ophen 7.5 mg-325 mg tablet TAKE 1 TABLET BY MOUTH EVERY 6 HOURS 11/03 completed Finished Not Available Not Available Not Available SSD 1 % topical cream APPLY CREAM EXTERNAL LY TO AFFECTED AREA ONCE DAILY 07/21 completed Not Available Not Available Not Available Percocet 5 mg-325 mg tablet Take 1 tablet every 6 hours by oral route as needed. 10/11 completed Not Available Not Available Not Available ondansetr on 4 mg disintegr ating tablet DISSOLVE 1 TABLET IN MOUTH EVERY 8 HOURS NEEDED FOR NAUSEA FOR UP TO 7 DAYS 07/21 completed Not Available Not Available Not Available naproxen 500 mg tablet 11/03 completed Not Available Not Available Not Available amoxicill in 875 mg-potass ium clavulana te 125 mg tablet TAKE 1 TABLET BY MOUTH TWICE DAILY WITH FOOD 10/13 completed Not Available Not Available Not Available Tylenol Extra Strength 500 mg tablet Take 2 tablets every 6 hours by oral route. active PRN Not Available Not Available No t Available nitrofura ntoin monohydra te/macroc rystals 100 mg capsule TAKE 1 CAPSULE BY MOUTH EVERY 12 HOURS WITH FOOD 07/21 completed Not Available Not Available Not Available duloxetin e 60 mg capsule,d elayed release TAKE 2 CAPSULES BY MOUTH ONCE DAILY FOR 15 DAYS active Not Available Not Available No t Available solifenac in 5 mg tablet TAKE 1 TABLET BY MOUTH ONCE DAILY active Not Available Not Available No t Available multivita min with minerals 07/21 completed Not Available Not Available Not Available atorvasta tin active Not Available Not Available Not Available metronida zole 11/03 completed Finished Not Available Not Available Not Available Tylenol-C odeine #3 10/13 completed Not Available Not Available Not Available omeprazol e 11/27 completed Not Available Not Available Not Available methocarb feli 08/30 completed Not Available Not Available Not Available monteluka st active Not Available Not Available Not Available losartan active Not Available Not Avai lable Not Available bethanech ol chloride 10/13 completed Not Available Not Available Not Available Vitamin D3 07/21 completed Not Available Not Available Not Available duloxetin e 60mg 12/30 completed Not Available Not Available Not Available omeprazol e 40 mg-sodium bicarbona te 1.1 gram capsule Daily active Frequenc y: daily;Me dication Descript ion: omeprazo le-sodiu m bicarbon ate; Route:or al; refills: 0 Not Available Not Available Not Available sodium,po tassium,m ag sulfates 17.5 gram-3.13 gram-1.6 gram oral soln 07/21 completed Not Available Not Available Not Available Flonase Allergy Relief 50 mcg/actua tion nasal spray,donald pension Daily 10/13 completed Duration : 30 days;Ins truction s: One spray in each nostril daily;Fr equency: daily;Me dication Descript ion: fluticas one nasal; Dosage:2 sprays; Route:na bashir; refills: 6; Quantity :1 spray Not Available Not Available Not Available Vitamin B12 07/21 completed Not Available Not Available Not Available Vitals Date Recorded Body height Body mass index (BMI) Body weight Systolic blood pressure Diastolic blood pressure Provider Name and Address Organization Details Last Updated DateTime 10/15/2024 160.02 cm 27.6 kg/m2 91295.41 g 120 mm[Hg] 72 mm[Hg] Arlyn Tnoyholz [facility] 5 09:07:15 Date Recorded Body height Body mass index (BMI) Body weight Body temperature Heart rate Oxygen saturation Oxygen saturation in Arterial blood by Pulse oximetry Systolic blood pressure Diastolic blood pressure Provider Name and Address Organization Details Last Updated DateTime 5 160.02 cm 28.6 kg/m2 24682.7 7 g 97.2 [degF] 63 /min 100 % 100 % 118 mm[Hg] 64 mm[Hg] [facility] 5 09:59:15 Date Recorded Body height Body mass index (BMI) Body weight Body temperature Heart rate Oxygen saturation Oxygen saturation in Arterial blood by Pulse oximetry Systolic blood pressure Diastolic blood pressure Provider Name and Address Organization Details Last Updated DateTime 4 160.02 cm 27.6 kg/m2 47145.4 1 g 97.2 [degF] 54 /min 100 % 100 % 118 mm[Hg] 64 mm[Hg] [facility] 4 08:12:54 Social History Question Answer Notes LastModified by [email or web address] Details LastModified Time Tobacco Smoking Status [facility] 13:52:52 How Much Tobacco Do You Chew? None Information not available 10/12/2019 What Was The Date Of Your Most Recent Tobacco Screening? 11/03/2024 Information not available 11/03/2024 What Is Your Relationship Status? Other [email or web address] Information not available 07/21/2024 Sex: Female Functional Status Question Answer Note LastModified by Organizat ion Details LastModified Time What is your level of alcohol consumption? Occasional Information not available 10/12/2019 Are you currently employed? No [email or web address] Information not available 07/21/2024 Mental Status None recorded. Family History Relationship Description Onset Age of this Age Resolved Age Notes LastModified by Organization Details LastModified Time Unspecified Relation Diabetes mellitus [email or web address] Not available 08/22 08:01:54 Unspecified Relation Hypertensive disorder [email or web address] Not available 08/22 08:01:54 Unspecified Relation Myocardial infarction [email or web address] Not available 08:01:54 Unspecified Relation Cerebrovascu lar accident [email or web address] Not available 0 09/05/2023 08:01:54 Medical History Condition Response Kidney Stones N Blood Transfusion N Emphysema N Colon/Rectal Disorders N Sexually Transmitted Disease N Glaucoma N Depression Y COPD N Pneumonia N Measles Y Varicose Veins N Anxiety Disorder Y Attempted Suicide N Arthritis Y Hearing Loss N Blood Clot N Acid Reflux (GERD) Y Cancer Y Stroke N Radiation Therapy N Blood Thinners N High Cholesterol Y Neurologic Disorder N Liver Disease N Fibromyalgia N Headaches N Kidney Disease N Endocrine Disorder N Allergies/Hayfever Y Heart Problems N Skin Problems N Osteoporosis/Osteopenia Y Meningitis N Heart Attack ([place]) N Ulcers N Diabetes N Rheumatic Fever N Bleeding Disorder N Tuberculosis N AIDS/HIV N Asthma N Epilepsy/Seizures N Sleep Apnea Y Thyroid Disorder N Hepatitis N Hypertension Y Gynecological HistoryNo gynecological history recorded. Obstetrics History GPAL:G 0 P 0 0 0 0 Past Encounters Encounter ID Performer Location Encounter Start Date Encounter Closed Date Diagnosis/Indication Diagnosis SNOMED-CT Code Diagnosis ICD10 Code Diagnosis Note [id number] MAHSA GALVEZ PA-C [facility] [address] [place] [address] 04/30/2019 08:57:13 05/05/2019 17:11:16 Cervical radiculopathy 62491013 M54.12 -Patient presents with persistent shooting electric pain with numbness and tingling down her right arm and right sided upper greater than lower extremity weakness immediatel y after placement of a cervical spinal cord stimulator in March 2018. Reportedly , her stimulator has been interrogat ed and adjusted multiple times, and she has had subsequent imaging that shows good placement of the paddle lead. They persist even if the device is turned off. We'll further work this up with a CT myelogram of her neck. In that way, we can assess better for any neurocompr ession potentiall y from the paddle lead itself. Will also allow us to better evaluate the remaining hardware she has left her neck. Ultimately , she will probably have to have removal of the device to see if this improves her symptoms any. She has an appointmen t to go see neurology for the weakness. We'll defer further workup of this to them. I will have her come back and see us after completion of the myelogram. She is happy with this plan. Dr. Pizarro, we will keep you updated on her progress [id number] BRADEN RODRIGUEZ MD [facility] [address] [place] [address] 05/18/2019 14:17:43 05/19/2019 09:12:10 Spinal stenosis in cervical region 42636200 M48.02 -Patient has had persistent shooting electric pain with numbness and tingling down her right arm as well as right sided upper greater than lower extremity weakness since immediatel y after placement of the cervical spinal cord stimulator in March 2018. We reviewed her cervical CT myelogram in the office today. There does appear to be at least moderate if not moderate to severe central stenosis from C4-C6 with a paddle lead is placed. Likely this is contributi ng to her symptoms including her weakness. Other than helping with some chronic axial neck and occipital pain, stimulator appears to be causing more issues than help at this point. Recommend removal of the stimulator at this time. We'll plan to perform a cervical laminectom y, probably around C4-5 to allow for easier removal of the paddle lead. Battery is located in the left flank, and we will also plan on removing this as well. We'll plan to keep her in the hospital overnight for observatio n. Indication s, risks, benefits discussed. Expected postoperat madelyn course discussed. All questions answered. She will meet with our application specialist today to get this scheduled. She is happy with this plan. 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 CT myelogram shows what appears to be a Zero-P cage at this level. We recommend revision surgery at this segment. This is not urgent. We'll plan to perform this approximat sherrie 6 weeks after removal of her cervical stimulator . Tentativel y we'll plan for removal of her prior plates at C3 4 and C5-7, and revision at C4-5 via an anterior approach. We will likely keep her in the hospital overnight for this. We'll further discuss and schedule this operation when we see her back postoperat ively after her stimulator removal. She is happy with this plan. [id number] BRADEN RODRIGUEZ MD [facility] [address] [place] [address] 06/08/2019 08:13:52 06/08/2019 11:44:11 Cervical radiculopathy [id number] M54.12 Time spent reviewing images, discussing the diagnosis and coordinati ng care: 25 min [id number] BRADEN RODRIGUEZ MD SURGERY SCHEDULE [address] [place] [address] 08/17/2019 15:52:19 08/18/2019 16:15:46 [id number] BRADEN RODRIGUEZ MD [facility] CL[facility] [address] [place] [address] 08/24/2019 13:33:29 08/24/2019 13:55:48 [id number] BRADEN RODRIGUEZ MD [facility]G [facility] CLOS[facility] [address] [place] [id number] 09/14/2019 12:41:16 09/17/2019 10:45:22 Postoperative care [id number] Z48.89 [id number] BRADEN RODRIGUEZ MD SURGERY SCHEDULE [address] [place] [address] 10/09/2019 13:44:20 10/09/2019 14:49:47 [id number] DAVID REINA JR, MD [facility] [address] [place] [address] 10/12/2019 10:21:46 10/12/2019 11:08:32 Postoperative retention of urine 718684065 R33.8 Urge incon tinence of urine 18247145 N39.41 [id number] YOBANI TOTH PA-C [facility] [address] [place] [address] 01/11/2020 14:27:11 01/12/2020 14:04:11 Postoperative care [id number] Z48.89 64-year-ol d female with history of removal of spinal cord stimulator via C4-5 laminectom y July 2019 followed by a C4-5 and a corpectomy and C3-C6 anterior plating for C4-5 pseudoarth rosis [address] Rodriguez. We are pleased with patient's progress thus far. She understand s she will likely be left with some residual neck stiffness. Her x-rays are stable and I have given her a copy of these. I have also given her a copy of her operative reports. Moving forward she is a little free of any lifting restrictio ns. She may resume normal activity as she tolerates. She may contact our service with any issues moving forward and may follow up as needed. [id number] ANDER FRENCH PA-C [facility] [address] [place] [address] 08/16/2023 13:43:22 08/17/2023 04:25:38 Lumbar radiculopathy 846929637 M54.16 [id number] RAMONA MITTAL MD [facility] CLOSED [address] [place] [address] 2023 09:03:38 2023 15:50:19 Degeneration of lumbar intervertebral disc 05685063 M51.36 Lumbar radiculopathy 128 175113 M54.16 Cervical spondylosis 387 365695 M47.812 Myofascial pain syndrome of neck 404790790 M54.2 [id number] MD MICHELLE ME[facility] [address] [place] [address] 09/11/2023 14:07:11 09/11/2023 15:35:52 Chronic sinusitis 72399275 J32.9 08/14/23- s/p functional right ESS with right nasal endoscopy and partial ethmoidect anali, right maxillary antrostomy with removal of antral mucosal disease Benign par oxysmal positional vertigo 683330735 H81.11 09/11/23- positive to the right. [id number] RAMONA MITTAL MD [facility] [facility] [address] MIRZA NAL CHARGES [address] [place] [address] 09/17/2023 14:44:40 09/19/2023 15:09:17 Lumbar radiculopathy 858263961 M54.16 [id number] FELIPE KENYON PA-C [facility] [address] [place] [address] 0 10/03/2023 14:18:13 10/04/2023 04:16:07 Cervical radiculopathy 22248581 M54.12 Lumbar radiculopathy 128 457327 M54.16 [id number] IVÁN TRONCOSO PA-C PAIN MEDICINE CLOSED [address] [place] [address] 1 10/14/2023 08:43:04 10/14/2023 16:29:04 Lumbar radiculopathy 126451370 M54.16 Degenerati on of lumbar intervertebral disc 18783806 M51.36 Cervical spondylosis 387 426226 M47.812 Myofascial pain syndrome of neck 711368215 M54.2 [id number] HUMA SANTIAGO MD NEUROLOGY [facility] CLOSED [address] [place] [address] 1 11/12/2023 15:13:41 11/13/2023 04:23:29 Cervical radiculopathy 43599246 M54.12 Paresthesia 13979805 R20 .2 Neck pain 12876761 M54.2 [id number] FELIPE KENYON PA-C [facility] [address] [place] [address] 0 11/25/2023 10:18:24 11/26/2023 04:54:35 Cervical radiculopathy 56992505 M54.12 Cervical spondylosis 387 111164 M47.812 [id number] RAMONA MITTAL MD [facility] CLOSED [address] [place] [address] 1 11/28/2023 13:00:26 11/28/2023 16:19:39 Degeneration of cervical intervertebral disc 60791106 M50.30 Cervical spondylosis 387 257654 M47.812 Cervical post-laminectomy syndrome 031841815 M96.1 [id number] RAMONA MITTAL MD [facility] PROFESSIO NAL CHARGES [address] [place] [address] 1 12/13/2023 13:38:31 12/13/2023 15:11:58 Cervical spondylosis 810980473 M47.812 [id number] RAMONA MITTAL MD [facility] PROFESSIO NAL CHARGES [address] [place] [address] 1 12/23/2023 15:21:59 12/27/2023 10:08:03 Cervical radiculopathy 21832974 M54.12 [id number] IVÁN TRONCOSO PA-C [facility] CLOSED [address] [place] [address] 1 12/31/2023 08:48:28 12/31/2023 15:05:42 Cervical radiculopathy 77861866 M54.12 Cervical spondylosis 387 650222 M47.812 Cervical post-laminectomy syndrome 741476636 M96.1 Myofascial pain syndrome of neck 039238697 M54.2 [id number] RAMONA MITTAL MD [facility] [address] [facility] [address] PROFESSIO NAL CHARGES [address] [place] [address] 1 01/06/2024 13:40:23 01/09/2024 14:59:35 Lumbar radiculopathy 811084173 M54.16 [id number] BRADEN RODRIGUEZ MD [facility] CL[facility] [address] 0 02/06/2024 09:40:45 02/07/2024 04:08:48 Cervical radiculopathy 68016826 M54.12 I am ordering a custom-fit edwin cervical collar to reduce pain by restrictin g mobility of the spine. [id number] IVÁN TRONCOSO PA-C [facility] CLOSED [address] [place] [address] 02/06/2024 14:39:58 02/06/2024 16:03:18 Cervical radiculopathy 52446007 M54.12 Pain of bi lateral knee joints 6464758556 45876 M25.561 M25.562 [id number] BRADEN RODRIGUEZ MD SURGERY SCHEDULE [address] [place] [address] 1 03/17/2024 09:16:38 03/25/2024 13:09:32 [id number] FELIPE KENYON PA-C [facility] [address] [place] [address] 0 03/30/2024 12:24:22 03/31/2024 04:52:11 Postoperative visit 949869339 Z48.89 [id number] BRADEN RODRIGUEZ MD [facility] [address] [place] [address] 0 04/27/2024 13:12:10 04/28/2024 04:18:25 Postoperative care 036312295 Z48.89 [id number] IVÁN TRONCOSO PA-C [facility] CLOSED [address] [place] [address] 1 07/21/2024 07:46:54 07/21/2024 13:44:45 Pain of bilateral knee joints 3363023861 68001 M25.561 M25.562 Lumbar radiculopathy 128 105554 M54.16 Lumbar spondylosis 96184 0009 M47.896 Bilateral osteoarthritis of knees 1773709292 70161 M17.0 Osteoarthr itis of knee 799644769 M17.9 [id number] RAMONA MITTAL MD [facility] [address] [facility] [address] PROFESSIO NAL CHARGES [address] [place] [address] 1 08/24/2024 14:21:28 08/24/2024 15:55:59 Bilateral osteoarthritis of knees 1112988133 68791 M17.0 [id number] RAMONA MITTAL MD [facility] [address] [facility] [address] PROFESSIO NAL CHARGES [address] [address] 1 09/08/2024 12:45:41 09/08/2024 15:09:39 Lumbar radiculopathy 080505777 M54.16 [id number] BRADEN RODRIGUEZ MD [facility] [address] [place] [address] 10/15/2024 08:46:06 10/16/2024 05:22:55 Postoperative care 656042316 Z48.89 [id number] IVÁN TRONCOSO PA-C PA[facility]ICINE CLOSED [address] [place] [address] 11/03/2024 08:58:16 11/03/2024 12:25:50 Lumbar radiculopathy 928036929 M54.16 Bilateral osteoarthritis of knees 2835022918 81628 M17.0 Lumbar spondylosis 32152 0009 M47.896 Health Concerns Section Related Observation LastModified by Organization Detai ls LastModified Time None Recorded Concern Status LastModified by Organization Details LastModified Time None Recorded Advance Directives Directive None Recorded Payers Insurance Date Sequence Insurance Name Policy Number Policy Ford Covered Member ID Ford Member ID Guarantor Name 09/02/2024 1 [place] [id number] Mago Tala [id number] Mago Centeno 11/02/2024 PAYMENT PLAN Mago Centeno 11/02/2024 PAYMENT PLAN Mago Centeno 09/02/2024 3 [employer] (MEDICARE SUPPLEMENT) Mago Edgar [id number] Mago Centeno 09/02/2024 2 [employer] Mago Edgar [id number] Mago Centeno 09/02/2024 1 [place] Mago Edgar [id number] Mago Centeno 10/31/2024 1 [employer] (MEDICARE REPLACEMENT/AD VANTAGE - PPO) Mago Centeno [id number] Mago Centeno 09/02/2024 2 [employer] (MEDICARE SUPPLEMENT) PLAN G Mago Centeno [id number] Mago Centeno 09/02/2024 1 [place] Mago Centeno [id number] Maog Centeno Notes Date Note Type Note Provider Name and Address Organization Details Recorded Time 07/21/2024 text/html Pain Management L-spine GISHReported bypatient.Location :[facility] Quality:sharp Severity:current pain level 7/10; worst pain 10/10;worsening;in terference with sleep;interference with work Duration:intermitt ent Onset/Timing:chron ic; 2 years Context:cannot identify Alleviating Factors:walking Aggravating Factors:getting out of bed; going from sit to stand; sitting; standing; lying down Associated Symptoms:no numbness; no bladder compromise; no bowel compromise;weaknes s Radiation:bilatera l LE Work Related:no ADL (Activities of Daily Living):showering; dressing oneself; improve with medication (Tylenol) Pain Relief with Current Medications:50%; [address] Impairments with Medications:no Prior Imaging:MRI (05/01/2023) Prior EMG:none Previous Surgery:none Previous Injections:SANTIAGO (); did not help Previous PT:Date completed: Physician directed home exercise plan (HEP)Date completed: no Previous Shrimp Cleaner:none Aarti Centeno is a 68 yo female here today for FUP left low back pain and right knee pain. IVÁN TRONCOSO PA-C [address] [place] [address], [phone], [facility] 07/21/2024 08:38:40 10/15/2024 text/html Mago Centeno i s a 68-year-old female with a history of an anterior cervical fusion, who presented with stenosis both above and below and underwent a C2-T3 posterior instrumented fusion by myself on March 10, 2024. She is doing great at this time. She does have some pain and fatigue in the muscles between her shoulders, especially after pushing a shopping cart at a store. Otherwise, she denies any significant issues. BRADEN RODRIGUEZ MD [address] [place] [address], [phone], [facility] 10/15/2024 09:13:17 11/03/2024 text/html Injection follow upReported bypatient.Location :low back; leg (Left knee) Most recent procedures:lumbar TFESI (Lt l4/5-L5/S1 09/08/24); joint injection (Lt knee Zilretta Inj. 08/24/24) % of reliefpain relief 90% Duration of relief:ongoing (90%) Severity:improving ; current pain 0/10; average pain 1/10 Woundinjection site healed well; no fever; no bleeding Aarti Centeno is a 69 yo female here today for FUP Asim Zilretta Knee Inj performed 08/24/24 and Lt L4/5-L5/S1 TFESI on 09/08/24. Pt reports she had no pain relief for 2 wks after the Zilretta Inj, then pain suddenly decreased and she has had 90% pain relief that is ongoing, Pt had 90% pain relief 3 days after the TFESI and is ongoing. IVÁN TRONCOSO PA-C [address] [place], [address], [facility] 11/03/2024 10:15:57 OBGyn Episode No OBEpisode recorded.
--- OUTSIDE RECORDS SUMMARY | 2024-12-29 08:53 | XMS_ITS | Encounter Summary ---
Author Organization [employer] Address [address] [place] [address] Care Team Providers Care Grinder Operator Tool Name Role Phone Kiko Sanderson MD Primary Care Provider + [phone] Encounter Details Date Type Department Care Team (Late st Contact Info) Description 10/09/2019 Transcribed Document [facility] Family Medicine [address] [place] [address] ProviderNitish MD [address] [place], [place] [id number] Social History Tobacco Use Types Packs/Day Years Used Date Smoking Tobacco: Never Assessed Comments Unknown Sex and Gender Information Value Date Recorded Sex Assigned at Not on file Legal Sex Female 4:18 PM CDT Gender Identity Not on file Sexual Orientation Not on file documented as of this encounter Miscellaneous Notes * Cerner Conversion Note - Historical ProviderMD - 10/09/2019 2:00 AM CDT Cooker Pie Filling Details Entered On: 10/09/2019 4:52 EDT Performed On: 10/09/2019 2:00 EDT by Александр Paniagua, RN Order Details Transport Mode Order Detail : Wheelchair Isolation Precautions Order Detail : Standard Precautions Order Detail : 0 IV Order Detail : 1 Oxygen Order Detail : 0 Lift/Transfer : Moderate assist Central Line Order Detail : No Room Service : Appropriate Arterial Line : No Александр Paniagua, RN - 10/09/2019 4:52 EDT Electronically signed by Betzaida Montgomery [employer] Sales Coordinator Cerner at 11/09/2022 5:14 PM CDT documented in this encounter Plan of Treatment Not on file documented as of this encounter Visit Diagnoses Not on filedocumented in this encounter Care Teams Grinder Operator Tool Relationship Specialty Start Date End Date Kiko Sanderson MD [address] [facility] [address] [place] [id number] PCP - General Family Medicine 03/10/24 documented as of this encounter
--- OUTSIDE RECORDS SUMMARY | 2024-12-29 08:53 | XMS_ITS ---
Author Organization Unknown Vital Signs BpStanding BpSitting BpSupine Date Temperature HeartRate Weight Hei ght Spo2 Respiration Bmi HeadCircumference FieldCount TimeRecorded NeckCircumferen ce WaistCircumference Pulse 120/80 08/26 00:00 :00 97.9 69 153,0 5,4 26.2 6 6 12/12/2024 16:00:00 122/80 08/14 00:00 :00 98.0 72 156,0 5,4 26.7 7 6 12/12/2024 11:15:00 122/78 06/05 00:00 :00 98.0 80 153,6.4 0 5,4 26.3 3 6 12/12/2024 09:15:00 124/80 03/05 00:00 :00 97.8 78 161,0 5,4 27.6 3 6 12/12/2024 16:45:00 132/80 01/29 00:00 :00 98.0 74 155,0 5,4 26.6 0 6 12/12/2024 15:45:00
--- OUTSIDE RECORDS SUMMARY | 2024-12-29 08:53 | XMS_ITS | Encounter Summary ---
Author Organization [employer] Address [address] [place] [address] Care Team Providers Care Printing Machine Operator Tape Rules Name Role Phone Kiko Sanderson MD Primary Care Provider + [phone] Encounter Details Date Type Department Care Team (Late st Contact Info) Description 10/09/2019 Transcribed Document [facility] Family Medicine [address] [place] [address] ProviderNitish MD [address], [place] [id number] Social History Tobacco Use Types Packs/Day Years Used Date Smoking Tobacco: Never Assessed Comments Unknown Sex and Gender Information Value Date Recorded Sex Assigned at Not on file Legal Sex Female 4:18 PM CDT Gender Identity Not on file Sexual Orientation Not on file documented as of this encounter Miscellaneous Notes * [employer]ner Conversion Note - Nitish ProviderMD - 10/09/2019 12:49 PM CDT Final Discharge Planning Entered On: 10/09/2019 12:50 EDT Performed On: 10/09/2019 12:49 EDT by YAMILA MCKAY RN-School Guard Final Discharge Planning Discharge Arrangements : Patient Post-Acute Information Patient Name: MAGO BULLOCK Gender: Female : [birth year] Age: 64 Years No Post-Acute Placement(s) Listed No Post-Acute Service(s) Listed No [place] Referral(s) Listed Follow Up Appointment Scheduled : Yes Is Patient High/Moderate Readmission Risk? : No Patient/Family Notified of Plan : Yes Support Person/Pt Rep Notified of Plan : Yes Is Patient Ready for Discharge? : Yes Physician Notified Patient is Ready for Discharge? : Yes Discharge To Care Management : Home/Residential/Shelter or Self Care - YAMILA MCKAY, RN-School Guard - 10/09/2019 12:49 EDT Final Narrative Note Final Narrative Note : Pt dc'd home today to [facility]'s home. Pt declines services. YAMILA MCKAY RN-School Guard - 10/09/2019 12:49 EDT Electronically signed by [facility] Conversion Employee Counselor Cerner at 11/09/2022 5:01 PM CDT documented in this encounter Plan of Treatment Not on file documented as of this encounter Visit Diagnoses Not on filedocumented in this encounter Care Teams Printing Machine Operator Tape Rules Relationship Specialty Start Date End Date Kiko Sanderson MD [address] [facility] [address] [place] [id number] PCP - General Family Medicine 03/10/24 documented as of this encounter
--- OUTSIDE RECORDS SUMMARY | 2024-12-29 08:53 | XMS_ITS | Encounter Summary ---
Author Organization [employer] Address [address] [place] [address] Care Team Providers Care Rail Car Driver Name Role Phone Natalie Sanderson MD Primary Care Provider + [phone] Encounter Details Date Type Department Care Team (Late st Contact Info) Description 10/09/2019 Transcribed Document [facility] Family Medicine [address] [place] [address] ProviderNitish MD [address] [place] [address] Social History Tobacco Use Types Packs/Day Years Used Date Smoking Tobacco: Never Assessed Comments Unknown Sex and Gender Information Value Date Recorded Sex Assigned at Not on file Legal Sex Female 4:18 PM CDT Gender Identity Not on file Sexual Orientation Not on file documented as of this encounter Miscellaneous Notes * Cerner Conversion Note - Nitish ProviderMD - 10/09/2019 10:12 AM CDT [facility] [place] [address] [address] :1955 Visit Time:10/07/2019 Your Visit Summary Your Care Team Admitting Physician - BRADEN SNYDER MD-SNU Attending Physician - BRADEN SNYDER MD-SNU Primary Care Physician - NATALIE SANDERSON (REF)MD-[facility] Referring Physician - PHY, NONE CLAUDIO, BRADEN RAY, MD-SNU Your Diagnosis Radiculopathy of cervical spine, Radiculopathy, cervical region, Radiculopathy, cervical region, Radiculopathy, cervical region Urinary retention Discharge Vitals Temperature 36.7 ??C Heart Rate (Monitored) 95 Respiratory Rate 17 Blood Pressure 116/72 What to do next Instructions From Your Care Team additional instructions per cervical fusion discharge information sheet included Diet after Discharge: Resume usual diet as tolerated, _, _ Activity after Discharge: _, _, No strenuous activity Lifting Restrictions: No heavy lifting over 10 pounds Driving after Discharge: Do not drive Showering/Bathing: May shower, No tub bathing, soaking or swimming Wound/Incision Care after Discharge: Keep operative site/wound site clean and dry, _ Medical Equipment for Home Use: Home Health Services: Community Services: Discharge Activity: don collar when up and about, Discharge Activity: No heavy lifting over 10 lbs Diet: Discharge Diet: Resume usual diet as tolerated Follow-Up Appointments Follow Up with BRADEN SNYDER MD-SNU When 11/09/2019 10:00 AM EDT Comments see claudio, xrays at 10am, appt in office at 10:45 Where: [address] [facility] [address] [place] [address]- Follow Up with WHIT DYER MD-URO When Within 2 to 3 days Comments for joshua removal due to postoperative urinary retention. Call for follow up appointment Where: [address] [place] [address]- Medications What How Much When Instructions Next Dose acetaminophen-oxyCODONE (Percocet 5/ 325 oral tablet) 1 Tablet(s) Oral Every 6 Hours as needed for for pain bethanechol (bethanechol 10 mg oral tablet) 1 Tablet(s) Oral Three Times A Day Printed Prescription 3pm Non Formulary (Non Formulary med) 2 caps Oral Every Day Gelatin usual home schedule Non Formulary (Non Formulary med) 3 tabs Oral Every Day Calcium, Magnesium, Zinc usual home schedule acetaminophen (Tylenol) 1,000 Milligram(s) Oral As needed for as needed for pain not to exceed 3000 mg/ day from ALL Sources atorvastatin (Lipitor) 40 Milligram(s) Oral Every Evening tonight baclofen (baclofen 10 mg oral tablet) 2 Tablet(s) Oral Three Times A Day as needed for as needed for muscle spasm cholecalciferol (Vitamin D3) 2,000 International Units Oral Every Day tomorrow cyanocobalamin (Vitamin B-12) 500 Microgram(s) Oral Every Day tomorrow DULoxetine (Cymbalta 60 mg oral delayed release capsule) 2 Capsule(s) Oral Every Day tomorrow fluticasone nasal (Flonase) 1 Mullens(s) Nostrils Both Every Day usual home schedule gabapentin (gabapentin 300 mg oral capsule) 1 Capsule(s) Oral Three Times A Day 3pm montelukast (Singulair 10 mg oral tablet) 1 Tablet(s) Oral Every Day usual home schedule multivitamin with minerals (Calcium, Magnesium and Zinc oral tablet) 3 Tablet(s) Oral Every Day tomorrow omeprazole (omeprazole 40 mg oral delayed release capsule) 1 Capsule(s) Oral Every Day tomorrow Take your medications faithfully. Do NOT skip [...] Allergies Adhesive Bandage (Rash) HYDROcodone (vomitting, hives) Percocet 5/325 (Nausea and vomiting, Hives) codeine (vomitting, hives) iodine topical (Rash) morphine (Hives, Vomiting, vomitting, hives) Immunizations This Visit No Immunizations Found Education Materials Acute Urinary Retention, Female Acute urinary retention [...] Follow these instructions at home: ??? Take tsui-hfl-lujvbcn and prescription medicines only as told by [...] 07/07/2007 Document Revised: 08/09/2017 Document Reviewed: 08/09/2017 [employer] Interactive Patient Education ?? 2019 [employer] Indwelling Urinary Catheter Care, Adult An [...] on each side. Do this in a lryyy-me-lqbf direction. ? If you are male: ? [...] or your leg bag) when it is ? full, or at least 2???3 times a day. Clean the drainage bag according to the transformer mechanic's instructions or as told by your health [...] and water are not available, use hand small appliance assembly supervisor. ??? Always make sure there are no [...] 07/08/2006 Document Revised: 12/29/2018 Document Reviewed: 02/21/2018 [employer] Interactive Patient Education ?? 2019 [employer] Cervical Fusion, Care After This sheet [...] these instructions at home: Medicines ??? Take jnbs-xkf-utvsicr and prescription medicines, including pain medicines, only [...] and water are not available, use hand small appliance assembly supervisor. ? Change your dressing as told by [...] urine clear or pale yellow. ? Take xfae-zld-dwrwucy or prescription medicines. ? Eat foods that [...] 02/19/2005 Document Revised: 05/05/2018 Document Reviewed: 01/16/2017 [employer] Interactive Patient Education ?? 2019 [employer] Cervical Fusion Cervical fusion is a [...] including vitamins, herbs, eye drops, creams, and fotk-tbo-stfyssv medicines. ??? Any problems you or family [...] Up to 2 hours before the procedure ??? you may continue to drink clear liquids, such as water, clear fruit juice, black coffee, and plain tea. Eating and drinking restrictions Follow instructions from your health care provider about eating and drinking, which may include: ??? 8 hours before the procedure ??? stop eating heavy meals or foods such as meat, fried foods, or fatty foods. ??? 6 hours before the procedure ??? stop eating light meals or foods, such as toast or cereal. ??? 6 hours before the procedure ??? stop drinking milk or drinks that contain milk. ??? 2 hours before the procedure ??? stop drinking clear liquids. Medicines ??? Ask [...] where the fusion will be placed. This is usually done at the front of your neck. [...] 12/28/2002 Document Revised: 01/30/2017 Document Reviewed: 01/16/2017 [employer] Interactive Patient Education ?? 2019 [employer]. bethanechol (be THAN e chol) Duvoid, Urecholine What is the most important information I should know about bethanechol? Take bethanechol on an empty stomach 1 hour before or 2 hours after meals to prevent nausea and vomiting. Bethanechol may cause dizziness or fainting, especially when you rise from a sitting or lying position. Rise slowly to avoid becoming dizzy, falling, or hurting yourself. Use caution when driving, operating machinery, or performing other hazardous activities. Bethanechol may cause dizziness. If you experience dizziness, avoid these activities. What is bethanechol? Bethanechol stimulates your bladder to empty. Bethanechol is used to treat urinary retention (difficulty urinating), which may occur after surgery, after delivering a baby, and in other situations. Bethanechol may also be used for purposes other than those listed in this medication guide. What should I discuss with my healthcare provider before taking bethanechol? Before taking this medication, tell your doctor if you ?? have uncontrolled hyperthyroidism (an overactive thyroid); ?? have stomach ulcers; ?? have asthma; ?? have recently had bladder or intestinal surgery; ?? have a blockage in your intestinal tract; ?? have a slow heart rate or low blood pressure; ?? have a disease or blockage of the arteries in your heart (coronary artery disease); ?? have epilepsy or any other seizure disorder; or ?? have Parkinson's disease. You may not be able to take bethanechol, or you may require a lower dose or special monitoring during treatment if you have any of the conditions listed above. Bethanechol is in the FDA category C. This means that it is not known whether bethanechol will harm an unborn baby. Do not take this medication without first talking to your doctor if you are . It is not known whether bethanechol passes into breast milk. Do not take this medication without first talking to your doctor if you are breast-feeding a baby. How should I take bethanechol? Take bethanechol exactly as directed by your doctor. If you do not understand these directions, ask your pharmacist, nurse, or doctor to explain them to you. Take each dose with a full glass of water. Take bethanechol on an empty stomach 1 hour before or 2 hours after meals to prevent nausea and vomiting. Store bethanechol at room temperature away from moisture and heat. What happens if I miss a dose? Take the missed dose as soon as you remember. However, if it is almost time for your next dose, skip the missed dose and take only your next regularly scheduled dose. Do not take a double dose of this medication. What happens if I overdose? Seek emergency medical attention. Symptoms of a bethanechol overdose include abdominal discomfort, increased salivation or watering mouth, flushing or hot feeling of the skin, sweating, nausea, and vomiting. What should I avoid while taking bethanechol? Bethanechol may cause dizziness or fainting, especially when you rise from a sitting or lying position. Rise slowly to avoid becoming dizzy, falling, or hurting yourself. Use caution when driving, operating machinery, or performing other hazardous activities. Bethanechol may cause dizziness. If you experience dizziness, avoid these activities. What are the possible side effects of bethanechol? If you experience any of the following serious side effects, stop taking bethanechol and seek emergency medical attention: ?? an allergic reaction (difficulty breathing; closing of your throat; swelling of your lips, tongue, or face; or hives); or ?? shortness of breath, wheezing, or tightness in your chest. Other, less serious side effects may be more likely to occur. Continue to take bethanechol and talk to your doctor if you experience ?? dizziness or drowsiness; ?? headache; ?? nausea, vomiting, diarrhea, or abdominal discomfort; ?? slow heartbeats followed by fast heartbeats; ?? flushing or warmth about the face; ?? sweating; or ?? tearing eyes. Side effects other than those listed here may also occur. Talk to your doctor about any side effect that seems unusual or that is especially bothersome. You may report side effects to FDA at [phone]-DJQ-1069. What other drugs will affect bethanechol? Before taking bethanechol, tell your doctor if you are taking any of the following medicines: ?? donepezil (Aricept); ?? tacrine (Cognex); ?? quinidine (Cardioquin, others); or ?? procainamide (Pronestyl, Procan SR). You may not be able to take bethanechol, or you may require a dosage adjustment or special monitoring during treatment if you are taking any of the medicines listed above. Drugs other than those listed here may also interact with bethanechol. Talk to your doctor and pharmacist before taking or using any other prescription or gqfh-dxf-ilvkwct medicines. Where can I get more information? Your pharmacist has more information about bethanechol written for health professionals that you may read. Remember, keep this and all other medicines out of the reach of children, never share your medicines with others, and use this medication only for the indication prescribed. Every effort has been made to ensure that the information provided by [employer] ('[employer]') is accurate, up-to-date, and complete, but no guarantee is made to that effect. Drug information contained herein may be time sensitive. [employer] information has been compiled for use by healthcare practitioners and consumers in the [place] and therefore [employer] does not warrant that uses outside of the [place] are appropriate, unless specifically indicated otherwise. [employer] drug information does not endorse drugs, diagnose patients or recommend therapy. [employer] drug information is an informational resource designed to assist licensed healthcare practitioners in caring for their patients and/or to serve consumers viewing this service as a supplement to, and not a substitute for, the expertise, skill, knowledge and judgment of healthcare practitioners. The absence of a warning for a given drug or drug combination in no way should be construed to indicate that the drug or drug combination is safe, effective or appropriate for any given patient. [employer] does not assume any responsibility for any aspect of healthcare administered with the aid of information [employer] provides. The information contained herein is not intended to cover all possible uses, directions, precautions, warnings, drug interactions, allergic reactions, or adverse effects. If you have questions about the drugs you are taking, check with your doctor, nurse or pharmacist. Copyright 3819-0054 [employer] Version: 2.10. Revision Date: 07/05/2010. acetaminophen and oxycodone (a SEET a MIN oh fen and OX i KOE done) Endocet 10/325, Endocet 2.5/325, Endocet 5/325, Endocet 7.5/325, Nalocet, Percocet 10/325, Percocet 2.5/325, Percocet 5/325, Percocet 7.5/325, Primalev, Primlev, Roxicet, Xartemis XR What is the most important information I should know about acetaminophen and oxycodone? MISUSE OF OPIOID MEDICINE CAN CAUSE ADDICTION, OVERDOSE, OR . Keep the medication in a place where others cannot get to it. An overdose of acetaminophen can damage your liver or cause . Call your doctor at once if you have pain in your upper stomach, loss of appetite, dark urine, or jaundice (yellowing of your skin or eyes). Taking opioid medicine during may cause life-threatening withdrawal symptoms in the . Fatal side effects can occur if you use opioid medicine with alcohol, or with other drugs that cause drowsiness or slow your breathing. Stop taking this medicine and call your doctor right away if you have skin redness or a rash that spreads and causes blistering and peeling. What is acetaminophen and oxycodone? Oxycodone is an opioid pain medication, sometimes called a narcotic. Acetaminophen is a less potent pain reliever that increases the effects of oxycodone. Acetaminophen and oxycodone is a combination medicine used to relieve moderate to severe pain. Acetaminophen and oxycodone may also be used for purposes not listed in this medication guide. What should I discuss with my healthcare provider before taking acetaminophen and oxycodone? You should not use this medicine if you are allergic to acetaminophen or oxycodone, or if you have: ?? severe asthma or breathing problems; or ?? a blockage in your stomach or intestines. Tell your doctor if you have ever had: ?? liver disease; ?? a drug or alcohol addiction; ?? kidney disease; ?? a head injury or seizures; ?? urination problems; or ?? problems with your thyroid, pancreas, or gallbladder. If you use opioid medicine while you are , your baby could become dependent on the drug. This can cause life-threatening withdrawal symptoms in the baby after it is born. Babies born dependent on opioids may need medical treatment for several weeks. Do not breast-feed. This medicine can pass into breast milk and cause drowsiness, breathing problems, or in a nursing baby. How should I take acetaminophen and oxycodone? Follow all directions on your prescription label. Never take this medicine in larger amounts, or for longer than prescribed. An overdose can damage your liver or cause . Tell your doctor if the medicine seems to stop working as well in relieving your pain. Never share this medicine with another person, especially someone with a history of drug abuse or addiction. MISUSE CAN CAUSE ADDICTION, OVERDOSE, OR . Keep the medicine in a place where others cannot get to it. Selling or giving away acetaminophen and oxycodone is against the law. Measure liquid medicine carefully. Use the dosing syringe provided, or use a medicine dose-measuring device (not a kitchen spoon). If you need surgery or medical tests, tell the doctor ahead of time that you are using this medicine. You should not stop using this medicine suddenly. Follow your doctor's instructions about tapering your dose. Store at room temperature away from moisture and heat. Keep track of your medicine. You should be aware if anyone is using it improperly or without a prescription. Do not keep leftover opioid medication. Just one dose can cause in someone using this medicine accidentally or improperly. Ask your pharmacist where to locate a drug take-back disposal program. If there is no take-back program, flush the unused medicine down the toilet. What happens if I miss a dose? Since this medicine is used for pain, you are not likely to miss a dose. Skip any missed dose if it is almost time for your next dose. Do not use two doses at one time. What happens if I overdose? Seek emergency medical attention or call the Poison Help line at . An overdose of acetaminophen and oxycodone can be fatal. The first signs of an acetaminophen overdose include loss of appetite, nausea, vomiting, stomach pain, sweating, and confusion or weakness. Later symptoms may include pain in your upper stomach, dark urine, and yellowing of your skin or the whites of your eyes. Overdose can also cause severe muscle weakness, pinpoint pupils, very slow breathing, extreme drowsiness, or coma. What should I avoid while taking acetaminophen and oxycodone? Avoid driving or operating machinery until you know how this medicine will affect you. Dizziness or drowsiness can cause falls, accidents, or severe injuries. Do not drink alcohol. Dangerous side effects or could occur. Ask a doctor or pharmacist before using any other medicine that may contain acetaminophen (sometimes abbreviated as APAP). Taking certain medications together can lead to a fatal overdose. What are the possible side effects of acetaminophen and oxycodone? Get emergency medical help if you have signs of an allergic reaction: hives; difficulty breathing; swelling of your face, lips, tongue, or throat. Opioid medicine can slow or stop your breathing, and may occur. A person caring for you should seek emergency medical attention if you have slow breathing with long pauses, blue colored lips, or if you are hard to wake up. In rare cases, acetaminophen may cause a severe skin reaction that can be fatal. This could occur even if you have taken acetaminophen in the past and had no reaction. Stop taking this medicine and call your doctor right away if you have skin redness or a rash that spreads and causes blistering and peeling. Call your doctor at once if you have: ?? noisy breathing, sighing, shallow breathing; ?? a light-headed feeling, like you might pass out; ?? weakness, tiredness, fever, unusual bruising or bleeding; ?? confusion, unusual thoughts or behavior; ?? problems with urination; ?? liver problems--nausea, upper stomach pain, tiredness, loss of appetite, dark urine, kwame-colored stools, jaundice (yellowing of the skin or eyes); or ?? low cortisol levels-- nausea, vomiting, loss of appetite, dizziness, worsening tiredness or weakness. Seek medical attention right away if you have symptoms of serotonin syndrome, such as: agitation, hallucinations, fever, sweating, shivering, fast heart rate, muscle stiffness, twitching, loss of coordination, nausea, vomiting, or diarrhea. Serious side effects may be more likely in older adults and those who are overweight, malnourished, or debilitated. Long-term use of opioid medication may affect fertility (ability to have children) in men or women. It is not known whether opioid effects on fertility are permanent. Common side effects include: ?? dizziness, drowsiness, feeling tired; ?? feelings of extreme happiness or sadness; ?? nausea, vomiting, stomach pain; ?? constipation; or ?? headache. This is not a complete list of side effects and others may occur. Call your doctor for medical advice about side effects. You may report side effects to FDA at 3-823-NTE-9117. What other drugs will affect acetaminophen and oxycodone? You may have breathing problems or withdrawal symptoms if you start or stop taking certain other medicines. Tell your doctor if you also use an antibiotic, antifungal medication, heart or blood pressure medication, seizure medication, or medicine to treat HIV or hepatitis C. Opioid medication can interact with many other drugs and cause dangerous side effects or . Be sure your doctor knows if you also use: ?? cold or allergy medicines, bronchodilator asthma/COPD medication, or a diuretic ('water pill'); ?? medicines for motion sickness, irritable bowel syndrome, or overactive bladder; ?? other narcotic medications--opioid pain medicine or prescription cough medicine; ?? a sedative like Valium--diazepam, alprazolam, lorazepam, Xanax, Klonopin, Versed, and others; ?? drugs that make you sleepy or slow your breathing--a sleeping pill, muscle relaxer, medicine to treat mood disorders or mental illness; ?? drugs that affect serotonin levels in your body--a stimulant, or medicine for depression, Parkinson's disease, migraine headaches, serious infections, or nausea and vomiting. This list is not complete. Other drugs may affect acetaminophen and oxycodone, including prescription and qnup-sje-kudaynn medicines, vitamins, and herbal products. Not all possible interactions are listed here. Where can I get more information? Your doctor or pharmacist can provide more information about acetaminophen and oxycodone. Remember, keep this and all other medicines out of the reach of children, never share your medicines with others, and use this medication only for the indication prescribed. Every effort has been made to ensure that the information provided by [employer] ('[employer]') is accurate, up-to-date, and complete, but no guarantee is made to that effect. Drug information contained herein may be time sensitive. [employer] information has been compiled for use by healthcare practitioners and consumers in the [place] and therefore [employer] does not warrant that uses outside of the [place] are appropriate, unless specifically indicated otherwise. [employer] drug information does not endorse drugs, diagnose patients or recommend therapy. [employer] drug information is an informational resource designed to assist licensed healthcare practitioners in caring for their patients and/or to serve consumers viewing this service as a supplement to, and not a substitute for, the expertise, skill, knowledge and judgment of healthcare practitioners. The absence of a warning for a given drug or drug combination in no way should be construed to indicate that the drug or drug combination is safe, effective or appropriate for any given patient. [facility] does not assume any responsibility for any aspect of healthcare administered with the aid of information [employer] provides. The information contained herein is not intended to cover all possible uses, directions, precautions, warnings, drug interactions, allergic reactions, or adverse effects. If you have questions about the drugs you are taking, check with your doctor, nurse or pharmacist. Copyright 5699-8526 [facility] [employer]. Version: 18.02. Revision Date: 06/18/2018. Emergency Awareness and Preventative Care STROKE is [...] Assistance with quitting is available by contacting 6-830-TSRR-NOW. This is a free resource providing counseling, [...] This Visit (last charted value for your 10/07/2019 visit) Hematology 10/07/2019 7:37 AM WBC: 5.2 K/uL -- Normal range between ( 4.5 and 10.5 ) RBC: 3.99 Million/uL -- Normal range between ( 3.93 and 5.22 ) Hct: 40.0 % -- Normal range between ( 34.1 and 44.9 ) Hgb: 13.3 g/dL -- Normal range between ( 11.2 and 15.7 ) Platelet Count: 154 K/uL -- Normal range between ( 163 and 369 ) MCH: 33.3 pg -- Normal range between ( 25.6 and 32.2 ) MCHC: 33.3 Gram/dL -- Normal range between ( 32.2 and 36.5 ) MCV: 100.3 fL -- Normal range between ( 79.0 and 94.8 ) Slide Review: No Eos %: 3.8 % -- Normal range between ( 0.0 and 7.0 ) Pettis #: 0.58 K/uL -- Normal range between ( 0.16 and 1.00 ) Eos #: 0.20 x10(3)/uL -- Normal range between ( 0.00 and 0.80 ) [place]is %: 11.1 % -- Normal range between ( 3.0 and 9.0 ) Baso %: 1.0 % -- Normal range between ( 0.0 and 1.5 ) Baso #: 0.05 x10(3)/uL -- Normal range between ( 0.00 and 0.20 ) RDW: 11.9 % -- Normal range between ( 11.7 and 14.9 ) Neut %: 53.9 % -- Normal range between ( 34.0 and 71.0 ) Neut #: 2.82 K/uL -- Normal range between ( 1.56 and 6.13 ) Lymph %: 30.0 % -- Normal range between ( 19.3 and 53.1 ) Lymph #: 1.57 x10(3)/uL -- Normal range between ( 1.00 and 3.90 ) MPV: 10.7 fL -- Normal range between ( 9.4 and 12.4 ) IG#: 0.01 x10(3)/uL -- Normal range between ( 0.00 and 0.05 ) IG%: 0.20 % -- Normal range between ( 0.00 and 0.60 ) Urinalysis 10/07/2019 7:37 AM Urine Nitrite: Negative Urine Leukocyte Esterase: Large Urine Appearance: Clear Urine Glucose Dipstick: Negative Urine Blood Dipstick: Negative Urine Type: U CleanCatch Urine Urobilinogen Dipstick: 1.0 EU/dL Ur Calcium Oxalate Crystals: Trace Urine Protein Dipstick: Negative Ur Squamous Epithelial Cells: 0-2 /HPF Urine Color: Yellow Ur WBC: 5-10 /HPF Urine Ketones Dipstick: Negative Ur Mucous: Trace Urine pH Dipstick: 6.5 -- Normal range between ( 6.0 and 8.0 ) Urine Bilirubin Dipstick: Negative Urine Specific [place]: 1.017 -- Normal range between ( 1.005 and 1.030 ) General Chemistry 10/08/2019 7:58 PM Glucose POC2: 135 mg/dL -- Normal range between ( 70 and 110 ) Device Comment 1: Device Comment 1 10/07/2019 7:37 AM Creatinine Level: 0.80 mg/dL -- Normal range between ( 0.55 and 1.02 ) Sodium Level: 139 mmol/L -- Normal range between ( 136 and 146 ) Potassium Level: 4.3 mmol/L -- Normal range between ( 3.5 and 5.1 ) Chloride Level: 108 mmol/L -- Normal range between ( 102 and 112 ) Carbon Dioxide Level: 28 mmol/L -- Normal range between ( 21 and 32 ) Anion Gap: 7 -- Normal range between ( 9 and 20 ) Bun/Creatinine: 25.0 -- Normal range between ( 8.0 and 20.0 ) Calcium Level: 9.0 mg/dL -- Normal range between ( 8.4 and 10.1 ) eGFR : >60 mL/min/1.73m2 eGFR NonAfrican: >60 mL/min/1.73m2 Glucose Level: 136 mg/dL -- Normal range between ( 74 and 106 ) Blood Urea Nitrogen: 20 mg/dL -- Normal range between ( 7 and 22 ) Diagnostic Radiology 10/07/2019 10:30 AM CR Fluoro in OR: CR Fluoro in OR Patient Name:MAGO BULLOCK I have received and understand this information and was given the opportunity to ask questions. Patient/Airborne And Air Delivery Specialist Name: Patient/Airborne And Air Delivery Specialist Signature: Relationship to Patient: Clinician/Hospital Airborne And Air Delivery Specialist Signature: Date: documented in this encounter Plan of Treatment Not on file documented as of this encounter Visit Diagnoses Not on filedocumented in this encounter Care Teams Rail Car Driver Relationship Specialty Start Date End Date Natalie Sanderson MD [address] [facility] [address] [place] [address] PCP - General Family Medicine 03/10/24 documented as of this encounter
--- NOTE | 2024-12-29 08:54 | XR_ITS ---
FINAL REPORT TECHNIQUE: Bone densitometry calculations of the lumbar spine and bilateral hips were obtained. CLINICAL HISTORY: SCREENING COMPARISON: None FINDINGS: Using L1-4, the bone mineral density of the spine is 1.0-3 g/cm2, corresponding to T-score of -0.2. Using the left hip, the bone mineral density of the femoral neck is 0.656 g/cm2, corresponding to a T-score of -1.7. Using the right hip, the bone mineral density of the femoral neck is 0.649 g/cm?, corresponding to a T-score of 1.8. NOTE: T-score: Standard deviation compared with peak bone mass of young adult mean. *Following the recommendations of the International Society of Bone densitometry, classification of hip BMD is based on the lower of two T-scores; total hip or femoral neck. IMPRESSION: Diminished bone mineral density of the bilateral hips consistent with osteopenia. Normal bone mineral density of the lumbar spine. Reviewed, Interpreted and Dictated by Jaime Arreguin MD Transcribed by Tala Selby Authenticated and [facility]
--- OUTSIDE RECORDS SUMMARY | 2024-12-29 08:54 | XMS_ITS | Encounter Summary ---
Author Organization [employer] Address [address] [place] [address] Care Team Providers Care Tray Filler Name Role Phone Kiko Sanderson MD Primary Care Provider + [phone] Encounter Details Date Type Department Care Team (Late st Contact Info) Description 10/06/2019 Transcribed Document [facility] [place] Family Medicine [address] [place] [address] ProviderNitish MD [address], [place] [id number] Social History Tobacco Use Types Packs/Day Years Used Date Smoking Tobacco: Never Assessed Comments Unknown Sex and Gender Information Value Date Recorded Sex Assigned at Not on file Legal Sex Female 4:18 PM CDT Gender Identity Not on file Sexual Orientation Not on file documented as of this encounter Miscellaneous Notes * Cerner Conversion Note - Historical ProviderMD - 10/06/2019 3:24 PM CDT PAT Adult Entered On: 10/06/2019 15:36 EDT Performed On: 10/06/2019 15:24 EDT by MADONNA WATERS RN Height and Weight, Clinical Dosing Height Source : Stated Height Entry Format : [place] Height, Feet : 5 ft(Converted to: 152 cm, 60 Inch) Height, Inches : 3 Inch(Converted to: 0 ft 3 Inch, 7.62 cm) Clinical Height : 160.02 cm Weight Source : Standing scale Weight Entry Format : [place] Clinical Dosing Weight : 73.59 kg Weight, Pounds : 161.9 lb Body Surface Area (BSA) : 1.77 m2 Body Mass Index : 28.7 kg/m2 (HI) [place] Body Weight : 52 kg EDWARD SOLANO RN - 10/07/2019 6:44 EDT Health Histories Smoking Status : Never (less than 100 in lifetime; none in last 30 days) Smokeless Tobacco Status : Never Implant/Device Type, Plumbing Designer and Model : neck fusion MADONNA WATERS RN - 10/06/2019 15:24 EDT Social History (As Of: 10/06/2019 15:36:47 EDT) Tobacco: Use in Last 12 Months: No. Second Hand Smoke Exposure: Yes. (Last Updated: 04/28/2014 10:31:38 EDT by SHASHANK GAMBINO RN) Alcohol: Alcohol Use History Yes. Alcohol Use Frequency Socially. (Last Updated: 03/26/2018 12:45:08 EDT by ARTHUR MERIDA RN) Substance Abuse: Drug Use Hx: No. Use in Last 12 Months: No. (Last Updated: 04/28/2014 10:31:45 EDT by SHASHANK GAMBINO RN) Nutrition/Health: Regular (Last Updated: 03/26/2018 12:45:20 EDT by ARTHUR MERIDA RN) Home/Environment: Lives with Spouse. Living situation: Home/Independent. Alcohol abuse in household: No. Substance abuse in household: No. Smoker in household: No. Injuries/Abuse/Neglect in household: No. Feels unsafe at home: No. Family/Friends available for support: Yes. 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 (Last Updated: 03/26/2018 12:45:53 EDT by ARTHUR MERIDA RN) Infectious Disease History COVID19 Screening : No Physical contact outside [place] in the last 30 days : No Infectious Disease History : Chicken pox/Shingles, Influenza, Measles, Mumps, Pertussis (Whooping cough) Tuberculosis Symptoms : None MADONNA WATERS RN - 10/06/2019 15:24 EDT Anesthesia/Transfusion History Family History of Anesthesia Reaction : No prior transfusion(s) Transfusion History : Prior anesthesia reaction Type of Anesthesia Reaction : Excessive nausea/vomiting, Other: has woken up with low blood pressure, shallow breathing, and vomitting, Family History of Anesthesia Reaction : None MADONNA WATERS RN - 10/06/2019 15:24 EDT Functional Assessment Functional ADL Evaluation Index EBN Bathing : Independent (2) Dressing : Independent (2) Toileting : Independent (2) Transferring Bed or Chair : Independent (2) Continence : Independent (2) Feeding : Independent (2) MADONNA WATERS RN - 10/06/2019 15:24 EDT ADL Index Score : 12 MADONNA WATERS RN - 10/06/2019 15:24 EDT Advance Directive Copy Advance Directive Verified/on Chart : No EDWARD SOLANO RN - 10/07/2019 6:44 EDT Patient has Advance Directive *Q : Yes, Advance Directive not with the patient Advance Directive Type : Living will, Medical durable power of criminal defense attorney (proxy) MADONNA WATERS RN - 10/06/2019 15:24 EDT [place] Suicide Severity Rating Scale (C-SSRS) CSSRS Past Month Wish to be : No CSSRS Past Month Suicidal Thoughts : No CSSRS Lifetime Suicide Behavior : No Suicide Severity Rating Score : 0 Suicide Severity Rating : No Additional Care Required at this time MADONNA WATERS RN - 10/06/2019 15:24 EDT Psychosocial History Do You Have a History of the Following? : Anxiety Currently in Unsafe Situation : No MADONNA WATERS RN - 10/06/2019 15:24 EDT Education Topics, Periop Preadmission Perioperative Education Grid Arrival Time/Place : Verbalizes understanding NPO Status/Directions : Verbalizes understanding Responsible Adult : Verbalizes understanding Take/Hold Medications Pre-Procedure : Verbalizes understanding MADONNA WATERS RN - 10/06/2019 15:24 EDT General Info Emergency Contact #2 EDWARD SOLANO RN - 10/07/2019 6:44 EDT Preferred Name : Aarti Support Person/Patient Tyre Builder : Yes Support Person/Pt Rep Name : lai Linda Support Person/Pt Rep Contact Information : [phone] cell Want Family/Rep/Phys Notified of Admit : No Emergency Contact #1 : Ivette Fitzgerald Emergency Contact #1 cell Emergency Contact #1 Relationship : daughter EVELIN CECI PEACOCK - 10/06/2019 15:24 EDT Emergency Contact #2 : lor chahal Emergency Contact #2 Relationship : hivday-r-fujEDWARD DruonCECI - 10/07/2019 6:44 EDT Chief Complaint : neck pain radiating to RUE to elbow Information Obtained From : Patient Primary Language : [place] Islander Preferred Communication Mode : Verbal Communication Barrier : None MADONNA WATERS RN - 10/06/2019 15:24 EDT Fabio Scale Fabio Sensory Perception : No impairment Fabio Moisture : Occasionally moist Fabio Activity : Walks frequently Fabio Mobility : No limitation Fabio Nutrition : Excellent Fabio Friction and Shear : No apparent problem Fabio Score : 22 MADONNA WATERS RN - 10/06/2019 15:24 EDT Sleep Apnea Risk Assmt BiPAP/CPAP Ordered for Home Use : Yes Hx of Obstructive Sleep Apnea Diagnosis : Yes BiPAP/CPAP Used at Home : Yes Age over 50 Years Old : Yes Gender Male : No MADONNA WATERS RN - 10/06/2019 15:24 EDT Electronically signed by Betzaida Montgomery Conversion Antique Jewelry Repairer Cerner at 11/09/2022 5:16 PM CDT documented in this encounter Plan of Treatment Not on file documented as of this encounter Visit Diagnoses Not on filedocumented in this encounter Care Teams Tray Filler Relationship Specialty Start Date End Date Kiko Sanderson MD [address] [facility] [address] [place] [id number] PCP - General Family Medicine 03/10/24 documented as of this encounter
--- OUTSIDE RECORDS SUMMARY | 2024-12-29 08:54 | XMS_ITS | Encounter Summary ---
Author Organization [employer] Address [address] [place] [address] Care Team Providers Care Glassware Maker Name Role Phone Kiko Sanderson MD Primary Care Provider + [phone] Encounter Details Date Type Department Care Team (Late st Contact Info) Description 10/07/2019 Transcribed Document [facility] [place] [address] [place] [address] ProviderNitish MD [address], [place] [address] Social History Tobacco Use Types Packs/Day Years Used Date Smoking Tobacco: Never Assessed Comments Unknown Sex and Gender Information Value Date Recorded Sex Assigned at Not on file Legal Sex Female 4:18 PM CDT Gender Identity Not on file Sexual Orientation Not on file documented as of this encounter Miscellaneous Notes * Cerner Conversion Note - Nitish ProviderMD - 10/07/2019 10:35 AM CDT Pain Assessment Entered On: 10/08/2019 14:35 EDT Performed On: 10/08/2019 11:12 EDT by TUSHAR LOZADA RN Intervention Information: HYDROmorphone Performed by TUSHAR LOZADA RN on 10/08/2019 10:42:00 EDT HYDROmorphone,0.5mg IV Push,Forearm Left,Pain (Severe 7-10) Pain Assessment Pain Assessment : Follow-up assessment Pain Scale Goal : 4 Pain Scale Used : 0-10 Scale TUSHAR LOZADA RN - 10/08/2019 14:35 EDT Pain Scale Intensity : 0 TUSHAR LOZADA RN - 10/08/2019 14:35 EDT Image 4 - Images currently included in the form version of this document have not been included in the text rendition version of the form. Electronically signed by Betzaida Montgomery Conversion Population Health Manager [place] at 11/09/2022 5:17 PM CDT documented in this encounter Plan of Treatment Not on file documented as of this encounter Visit Diagnoses Not on filedocumented in this encounter Care Teams Glassware Maker Relationship Specialty Start Date End Date Kiko Sanderson MD [address] [facility] [address] [place] [id number] PCP - General Family Medicine 03/10/24 documented as of this encounter
--- OUTSIDE RECORDS SUMMARY | 2024-12-29 08:54 | XMS_ITS | Encounter Summary ---
Author Organization [employer] Address [address] [place] [address] Care Team Providers Care Ultrasonic Hand Solderer Name Role Phone Kiko Sanderson MD Primary Care Provider + [phone] Encounter Details Date Type Department Care Team (Late st Contact Info) Description 08/11/2019 Transcribed Document [facility] Neurology - [facility] [address] [address] Jone Rodriguez MD [address] [place] [address] Social History Tobacco Use Types Packs/Day Years Used Date Smoking Tobacco: Never Assessed Comments Unknown Sex and Gender Information Value Date Recorded Sex Assigned at Not on file Legal Sex Female 4:18 PM CDT Gender Identity Not on file Sexual Orientation Not on file documented as of this encounter Miscellaneous Notes * Cerner Conversion Note - Jone Rodriguez MD - 08/11/2019 12:17 PM EST Patient: MAGO BULLOCK Age: 63 years Sex: Female : 1955 Associated Diagnoses: None Author: MADELINE SUGGS APRN Chief Complaint neck pain, R sided pain/weakness Review of Systems ROS reviewed as documented in chart no change since last seen by surgeon Health Status Allergies: Allergic Reactions (Selected) Severity Not Documented Adhesive Bandage- Rash. Codeine- Hives and vomitting. HYDROcodone- Hives and vomitting. Iodine topical- Rash. Morphine- Vomiting, hives, hives and vomitting. Percocet 5/325- Nausea and vomiting and hives., Allergies (6) Active Reaction Adhesive Bandage Rash codeine hives HYDROcodone vomitting iodine topical Rash morphine hives Percocet 5/325 Hives Current medications: (Selected) Inpatient Medications Ordered Ancef: 2 Gram, 100 mL/Hr, IV Piggyback, PREOP Benadryl: 12.5 mg, IV Push, 1-Time Lactated Ringers Injection intravenous solution 1,000 mL: 20 mL/Hr, IntraVENous lidocaine 1% preservative-free injectable solution: 0.5 mL, IntraDermal, 1-Time Documented Medications Documented Calcium, Magnesium and Zinc oral tablet: 3 Tab, Oral, Daily, 90 Tab, 0 Refill(s) Cymbalta 60 mg oral delayed release capsule: 2 Cap, Oral, Daily, 0 Refill(s) Flonase: 1 [place], Nostrils Both, Daily, 0 Refill(s) Lipitor: 40 mg, Oral, QPM, 0 Refill(s) Non Formulary med: 2 caps, Oral, Daily, 0 Refill(s) Non Formulary med: 3 tabs, Oral, Daily, 0 Refill(s) Singulair 10 mg oral tablet: 1 Tab, Oral, Daily, 0 Refill(s) Tylenol: 1,000 mg, Oral, PRN: as needed for pain, 0 Refill(s) Vitamin B-12: 0 Refill(s) Vitamin D3: 2,000 Int Units, Oral, Daily, 0 Refill(s) aspirin 81 mg oral tablet: 1 Tab, Oral, QPM, 30 Tab, 0 Refill(s) baclofen 10 mg oral tablet: 2 Tab, Oral, TID, PRN: as needed for muscle spasm, 90 Tab, 0 Refill(s) gabapentin 300 mg oral capsule: 1 Cap, Oral, TID, 0 Refill(s) ibuprofen: 800 mg, TID, 0 Refill(s) omeprazole 40 mg oral delayed release capsule: 1 Cap, Oral, Daily, 30 Cap, Home Medications (15) Active aspirin 81 mg oral tablet 81 mg = 1 Tab, Oral, QPM baclofen 10 mg oral tablet 20 mg = 2 Tab, PRN, Oral, TID Calcium, Magnesium and Zinc oral tablet 3 Tab, Oral, Daily Cymbalta 60 mg oral delayed release capsule 120 mg = 2 Cap, Oral, Daily Flonase 1 [place], Nostrils Both, Daily gabapentin 300 mg oral capsule 300 mg = 1 Cap, Oral, TID ibuprofen 800 mg, TID Lipitor 40 mg, Oral, QPM Non Formulary med 2 caps, Oral, Daily Non Formulary med 3 tabs, Oral, Daily omeprazole 40 mg oral delayed release capsule 40 mg = 1 Cap, Oral, Daily Singulair 10 mg oral tablet 10 mg = 1 Tab, Oral, Daily Tylenol 1,000 mg, PRN, Oral Vitamin B-12 Vitamin D3 2,000 Int Units, Oral, Daily , Medications (4) Active Scheduled: (3) ceFAZolin 2 Gram, IV Piggyback, PREOP diphenhydrAMINE 50 mg/1 mL inj 12.5 mg 0.25 mL, IV Push, 1-Time lidocaine 1% *PF* inj 2 mL 0.5 mL, IntraDermal, 1-Time Continuous: (1) lactated ringers 1,000 mL 1,000 mL, IntraVENous, 20 mL/Hr PRN: (0) Problem list: All Problems Sleep apnea / SNOMED CT 125280901 / Confirmed Seasonal allergies / SNOMED CT 622979105 / Confirmed Restless legs syndrome / SNOMED CT 89510029 / Confirmed Palpitations / SNOMED CT 625129093 / Confirmed Overactive bladder / SNOMED CT 7759831983 / Confirmed Back/ Neck pain (bilateral shoulders, down into left arm and fingers) / SNOMED CT 770835336 / Confirmed Lymphedema (right breast/right axillary area) / SNOMED CT 415779922 / Confirmed Irritable bowel syndrome / SNOMED CT 84205417 / Confirmed Incontinence / SNOMED CT 11040827 / Confirmed High cholesterol / SNOMED CT 51168311 / Confirmed History of obstructive sleep apnea / IMO 30948188 / Confirmed Hemorrhoids / SNOMED CT 935782168 / Confirmed GERD - Gastro-esophageal reflux disease / SNOMED CT 0346809955 / Confirmed Wears contact lenses / SNOMED CT 561446098 / Confirmed Coronary artery disease - slight blockage/no interventions / SNOMED CT 7120487454 / Confirmed Hx: right breast cancer / SNOMED CT 899271140 / Confirmed At risk for sleep apnea / IMO 40725093 / Confirmed Arthritis / SNOMED CT 8555263 / Confirmed Anxiety / SNOMED CT 87156775 / Confirmed Allergic rhinitis / SNOMED CT 665717985 / Confirmed, Active Problems (20) Allergic rhinitis Anxiety Arthritis At risk for sleep apnea Back/ Neck pain (bilateral shoulders, down into left arm and fingers) R sided weakness Coronary artery disease - slight blockage/no interventions GERD - Gastro-esophageal reflux disease Hemorrhoids High cholesterol History of obstructive sleep apnea Hx: right breast cancer Incontinence Irritable bowel syndrome Lymphedema (right breast/right axillary area) Overactive bladder Palpitations Restless legs syndrome Seasonal allergies Sleep apnea Wears contact lenses Histories Past Medical History: No active or resolved past medical history items have been selected or recorded. Family History: No family history items have been selected or recorded. Procedure history: Salmonella in the month of 11/2018 at 63 Years. Comments: 08/10/2019 10:17 LUIS MURRAY RN hospitalized for 5 days trial neuro stimulator on 01/08/2018 at 62 Years. ACDF C3 , C4 in the month of 06/2017 at 61 Years. bilateral ear tubes in the month of 04/2017 at 61 Years. ACDF C5, C6, C7 in the month of 04/2014 at 58 Years. cholecystectomy in 2012 at 57 Years. A & P repair on 2004 at 49 Years. breast augmentation, left- ruptured on 11/27/2000 at 45 Years. right mastectomy with trans flap reconstruction on 07/30/2000 at 44 Years. PATY / USO in the month of 12/1985 at 30 Years. bloot clot surgically removed from intestine in the month of 12/1969 at 14 Years. colonoscopy. additional right breast reconstruction procedures. vaginal childbirth x 3. lumpectomy right breast x 3 (prior to mastectomy)/ exc 18 right axillary lymph nodes. 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 Physical Examination VS/Measurements Vital Signs/Vital Measures 08/11/2019 10:00 EST Systolic Blood Pressure 153 mmHg HI Diastolic Blood Pressure 81 mmHg Temperature Source Temporal artery scanning Temperature Mode Fahrenheit Temperature, Fahrenheit 97.6 Deg F Heart Rate Monitored 76 bpm Respiratory Rate 20 Breaths/Min Oxygen Saturation 98 % Oxygen Therapy Mode Room air 08/10/2019 10:20 EST Blood Pressure Location Arm, left upper Blood Pressure Source Non-Invasive BP Device Systolic Blood Pressure 130 mmHg Diastolic Blood Pressure 81 mmHg Temperature Source Temporal artery scanning Temperature Mode Fahrenheit Temperature, Fahrenheit 98.6 Deg F Clinical Temperature, C 37 Deg C Peripheral Pulse Rate 72 bpm Respiratory Rate 16 Breaths/Min Oxygen Saturation 100 % Oxygen Therapy Mode Room air , Vitals Signs (last 24 hrs) Last Charted Minimum Maximum Temp 97.6 (AUG 11 10:00) 97.6 (AUG 11 10:00) 97.6 (AUG 11 10:00) Mon HR 76 (AUG 11 10:00) 76 (AUG 11 10:00) 76 (AUG 11 10:00) Resp Rate 20 (AUG 11 10:00) 20 (AUG 11 10:00) 20 (AUG 11 10:00) SBP H 153 (AUG 11 10:00) H 153 (AUG 11 10:00) H 153 (AUG 11 10:00) DBP 81 (AUG 11 10:00) 81 (AUG 11 10:00) 81 (AUG 11 10:00) SpO2 98 (AUG 11 10:00) 98 (AUG 11 10:00) 98 (AUG 11 10:00) , Measurements from flowsheet : Measurements 08/10/2019 10:20 EST Height Source Measured Height Entry Format [place] Height/Length, MARSHALLESE (ft) 0 ft Height/Length MARSHALLESE 63 Inch CLINICALHEIGHT 160.02 cm [place] Body Weight 52 kg Weight Source Standing scale Weight Entry Format [place] Weight [place] lb 160.2 lb CLINICALWEIGHT 72.82 kg Body Surface Area (BSA) 1.76 m2 Body Mass Index 28.4 kg/m2 HI General: Alert and oriented, No acute distress. Eye: Pupils are equal, round and reactive to light, Extraocular movements are intact, glasses, R eye injected and has painful ROM, no exudate, glasses. HENT: Normocephalic, Normal hearing. Neck: Supple, Non-tender. Respiratory: Lungs are clear to auscultation, Respirations are non-labored. Cardiovascular: Normal rate, Regular rhythm, No murmur, No gallop, No edema. Gastrointestinal: Soft, Non-tender. Genitourinary: No costovertebral angle tenderness. Lymphatics: No lymphadenopathy neck, axilla, groin. Musculoskeletal: L lower back SCS POA, painful ROM neck, R sided weakness. Integumentary: Warm, Dry, [place]. Neurologic: Alert, Oriented. Psychiatric: Cooperative, Appropriate mood & affect. Review / Management Results review: Labs (Last four charted values) WBC L 4.3 (AUG 10) HB 13.8 (AUG 10) HCT 40.8 (AUG 10) Plt 247 (AUG 10) Na 141 (AUG 10) K 3.5 (AUG 10) Cl 105 (AUG 10) CO2 32 (AUG 10) BUN 14 (AUG 10) Cr 0.70 (AUG 10) Glu R H 118 (AUG 10) Ca 9.0 (AUG 10) , Lab results 08/10/2019 10:57 EST Sodium Level 141 mmol/L Potassium Level 3.5 mmol/L Chloride Level 105 mmol/L Carbon Dioxide Level 32 mmol/L Anion Gap 8 LOW Glucose Level 118 mg/dL HI Blood Urea Nitrogen 14 mg/dL CREATININE 0.70 mg/dL eGFR >60 mL/min/1.73m2 eGFR NonAfrican >60 mL/min/1.73m2 Bun/Creatinine 20.0 Calcium Level 9.0 mg/dL WBC 4.3 K/uL LOW RBC 4.19 Million/uL Hgb 13.8 g/dL Hct 40.8 % MCV 97.4 fL HI MCH 32.9 pg HI MCHC 33.8 Gram/dL Platelet Count 247 K/uL MPV 11.0 fL RDW 12.1 % Slide Review No Urine Type U CleanCatch Urine Color Yellow Urine Appearance Clear Urine Specific [place] 1.012 Urine pH Dipstick 7.0 Urine Leukocyte Esterase Moderate Urine Nitrite Negative Urine Protein Dipstick Negative Urine Glucose Dipstick Negative Urine Ketones Dipstick Negative Urine Urobilinogen Dipstick 0.2 EU/dL Urine Bilirubin Dipstick Negative Urine Blood Dipstick Negative . Impression and Plan Condition: Stable. documented in this encounter Plan of Treatment Not on file documented as of this encounter Visit Diagnoses Not on filedocumented in this encounter Care Teams Ultrasonic Hand Solderer Relationship Specialty Start Date End Date Kiko Sanderson MD [address] [facility] [address] [place] [id number] PCP - General Family Medicine 03/10/24 documented as of this encounter
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
--- OUTSIDE RECORDS SUMMARY | 2024-12-29 08:54 | XMS_ITS | Encounter Summary ---
Author Organization [employer] Address [address] [place] [address] Care Team Providers Care Retirement Village Manager Name Role Phone Kiko Sanderson MD Primary Care Provider + [phone] Encounter Details Date Type Department Care Team (Late st Contact Info) Description 08/11/2019 Transcribed Document [facility] [place] Family Medicine [address] [place] [address] ProviderNitish MD [address] [place], [place] [address] Social History Tobacco Use Types Packs/Day Years Used Date Smoking Tobacco: Never Assessed Comments Unknown Sex and Gender Information Value Date Recorded Sex Assigned at Not on file Legal Sex Female 4:18 PM CDT Gender Identity Not on file Sexual Orientation Not on file documented as of this encounter Miscellaneous Notes * Cerner Conversion Note - Nitish ProviderMD - 08/11/2019 1:55 PM [employer] [facility] Main OR PostOp Summary Primary Physician: BRADEN SNYDER MD-SNU Finalized Date/Time: 08/12/19 15:44:27 Pt. Name: ARA MAGO BOWMANFAVIOLA Trujillo/Sex: 1955 Female Med Rec #: [id number] Physician: BRADEN SNYDER MD-U Financial #: [id number] Pt. Type: O Room/Bed: Admit/Disch: 08/11/19 07:11:00 - 08/11/19 17:30:00 Institution: [facility] Main OR PostOp Case Times Entry 1 In PACU II 08/11/19 16:34:00 Ready for PACU II 08/11/19 17:05:00 Discharge Discharge from PACU 08/11/19 17:30:00 II Last Modified By: ROSAMARIA HOLLEY RN 08/11/19 17:05:41 [facility] Main OR PostOp Case Times Audit 08/11/19 17:49:46 Delivery Associate: [email or web address] Modifier: [email or web address] <+> 1 Discharge from PACU II Finalized By: JAQUELIN KIRK Document Signatures Signed By: ROSAMARIA HOLLEY RN 08/11/19 17:49 JAQUELIN KIRK 08/12/19 15:44 Unfinalized History Date/Time Username Reason for Unfinalizing Freetext Reason for Unfinalizing 08/12/19 15:44 WATMARY BETHDR Correct Billing Electronically signed by [facility] Conversion Smoking Pipes Cleaner Cerner at 11/09/2022 5:11 PM CDT documented in this encounter Plan of Treatment Not on file documented as of this encounter Visit Diagnoses Not on filedocumented in this encounter Care Teams Retirement Village Manager Relationship Specialty Start Date End Date Kiko Sanderson MD [address] [facility] [address] [place] [id number] PCP - General Family Medicine 03/10/24 documented as of this encounter
--- OUTSIDE RECORDS SUMMARY | 2024-12-29 08:54 | XMS_ITS | Encounter Summary ---
Author Organization [employer] Address [address] [place] [address] Care Team Providers Care Editorial Writer Name Role Phone Kiko Sanderson MD Primary Care Provider + [phone] Encounter Details Date Type Department Care Team (Late st Contact Info) Description 08/11/2019 Transcribed Document [facility] Family Medicine [address] [place] [address] ProviderNitish MD [address], [place] [address] Social History Tobacco Use Types Packs/Day Years Used Date Smoking Tobacco: Never Assessed Comments Unknown Sex and Gender Information Value Date Recorded Sex Assigned at Not on file Legal Sex Female 4:18 PM CDT Gender Identity Not on file Sexual Orientation Not on file documented as of this encounter Miscellaneous Notes * Cerner Conversion Note - Historical ProviderMD - 08/11/2019 1:55 PM PHARMACY TECHNICIAN INPATIENT [facility] Main OR IntraOp Summary Primary Physician: BRADEN SNYDER MD-SNU Finalized Date/Time: 08/12/19 15:45:41 Pt. Name: ARA MAGO BOWMANFAVIOLA Trujillo/Sex: 1955 Female Med Rec #: [id number] Physician: BRADEN SNYDER MD-U Financial #: [id number] Pt. Type: O Room/Bed: Admit/Disch: 08/11/19 07:11:00 - 08/11/19 17:30:00 Institution: [facility] IntraOp Case Attendance Entry 1 Entry 2 Entry 3 Case Attendee BRADEN SNYDER Burdine, Teresa A, RN JEREMI HODGES, BERTHA PITTS-SNMukund Role Performed Surgeon/Proceduralist, Irrigation System Operator, First Scrub, First First Time In 08/11/19 13:12:00 08/11/19 13:12:00 08/11/19 13:12:00 Time Out 08/11/19 14:59:00 08/11/19 14:59:00 08/11/19 14:59:00 Procedure Cervical Laminectomy Cervical Laminectomy Cervical Laminectomy Posterior Posterior Posterior Other Attendee Superficial Wound Closed By: Last Modified By: Elena Horton RN Burdine, Teresa A, Elena Mclaughlin, CECI 08/11/19 15:00:08 08/11/19 15:00:08 08/11/19 15:00:08 Entry 4 Entry 5 Entry 6 Case Attendee USHA NEWMAN PA SHELTON, SURINDER CONN, PALMER Schaefer, AVIONICS SYSTEMS REPAIRER Role Performed Physician assistant professor Dye House Supervisor AVIONICS SYSTEMS REPAIRER/Nurse Assembler Musical Equipment Time In 08/11/19 13:12:00 08/11/19 13:12:00 08/11/19 13:12:00 Time Out 08/11/19 14:59:00 08/11/19 14:59:00 08/11/19 14:59:00 Procedure Cervical Laminectomy Cervical Laminectomy Cervical Laminectomy Posterior Posterior Posterior Other Attendee Superficial Wound Closed By: Last Modified By: Elena Horton RN Burdine, Teresa A, Elena Mclaughlin RN 08/11/19 15:00:08 08/11/19 15:00:08 08/11/19 15:00:08 Entry 7 Entry 8 Entry 9 Case Attendee XIOMARA YEN MD-ANS WORLEY, CYNTHIA LEE, BRADY, CHRISTINA M, RN -ANS Role Performed Anesthesiologist of Anesthesiologist of Irrigation System Operator, Second Record Record Time In 08/11/19 13:33:00 08/11/19 13:12:00 08/11/19 14:16:00 Time Out 08/11/19 14:59:00 08/11/19 13:57:00 08/11/19 14:26:00 Procedure Cervical Laminectomy Cervical Laminectomy Cervical Laminectomy Posterior Posterior Posterior Other Attendee Superficial Wound Closed By: Last Modified By: Elena Horton RN Burdine, Teresa A, RN Burdine, Teresa A, RN 08/11/19 15:00:08 08/11/19 15:00:08 08/11/19 15:00:08 [facility] IntraOp Case Attendance Audit 08/11/19 15:00:08 Lifter: [id number] Modifier: [id number] <+> Time Out 1 <*> Procedure Cervical Laminectomy Posterior 2 <+> Time Out 2 <*> Procedure Cervical Laminectomy Posterior 3 <+> Time Out 3 <*> Procedure Cervical Laminectomy Posterior 4 <+> Time Out 4 <*> Procedure Cervical Laminectomy Posterior 5 <+> Time Out 5 <*> Procedure Cervical Laminectomy Posterior 6 <+> Time Out 6 <*> Procedure Cervical Laminectomy Posterior 7 <+> Time Out 7 <*> Procedure Cervical Laminectomy Posterior 8 <*> Procedure Cervical Laminectomy Posterior 9 <*> Procedure Cervical Laminectomy Posterior 08/11/19 14:32:40 Lifter: [id number] Modifier: [id number] <+> 9 Case Attendee <+> 9 Role Performed <+> 9 Time In <+> 9 Time Out <+> 9 Procedure 08/11/19 14:13:18 Lifter: [id number] Modifier: [id number] <+> 1 Procedure 2 <*> Procedure Cervical Laminectomy Posterior 3 <*> Procedure Cervical Laminectomy Posterior 4 <*> Procedure Cervical Laminectomy Posterior 5 <*> Procedure Cervical Laminectomy Posterior 6 <*> Procedure Cervical Laminectomy Posterior 7 <*> Procedure Cervical Laminectomy Posterior 8 <*> Procedure Cervical Laminectomy Posterior 08/11/19 14:12:28 Lifter: [id number] Modifier: [id number] <*> Procedure Cervical Laminectomy Posterior 3 <+> Time In 3 <*> Procedure Cervical Laminectomy Posterior 4 <+> Time In 4 <*> Procedure Cervical Laminectomy Posterior 5 <+> Time In 5 <*> Procedure Cervical Laminectomy Posterior 6 <+> Time In 6 <*> Procedure Cervical Laminectomy Posterior 7 <*> Procedure Cervical Laminectomy Posterior 8 <+> Time In 8 <*> Procedure Cervical Laminectomy Posterior 08/11/19 13:57:59 Lifter: [id number] Modifier: [id number] <*> Case Attendee BRADEN SNYDER MD-SNU 1 <*> Role Performed Surgeon/Proceduralist, First 1 <+> Time In 2 <*> Case Attendee Elena Horton RN 2 <*> Role Performed Irrigation System Operator, First 2 <+> Time In 2 <*> Procedure Cervical Laminectomy Posterior <+> 3 Case Attendee <+> 3 Role Performed <+> 3 Procedure <+> 4 Case Attendee <+> 4 Role Performed <+> 4 Procedure <+> 5 Case Attendee <+> 5 Role Performed <+> 5 Procedure <+> 6 Case Attendee <+> 6 Role Performed <+> 6 Procedure <+> 7 Case Attendee <+> 7 Role Performed <+> 7 Time In <+> 7 Procedure <+> 8 Case Attendee <+> 8 Role Performed <+> 8 Time Out <+> 8 Procedure [facility] IntraOp Case Times Entry 1 Patient In Room Time 08/11/19 13:12:00 Out Room Time 08/11/19 14:59:00 Anesthesia Start Time 08/11/19 13:12:00 Stop Time 08/11/19 14:59:00 Surgery / Procedure Times Start Time 08/11/19 13:55:00 Stop Time 08/11/19 14:42:00 Last Modified By: Elena Horton RN 08/11/19 14:59:30 [facility] IntraOp Case Times Audit 08/11/19 14:59:30 Lifter: [id number] Modifier: [id number] <+> 1 Out Room Time <+> 1 Stop Time 08/11/19 14:51:44 Lifter: [id number] Modifier: [id number] <+> 1 Stop Time 08/11/19 13:58:04 Lifter: [id number] Modifier: [id number] <+> 1 Start Time [facility] IntraOp Cautery Entry 1 Entry 2 ESU Identification Cautery Type Monopolar ESU BiPolar ESU Cautery Type Comments ID Number [id number] ID Type Hospital Number Hospital Number Cautery Settings Cut Setting 45 8 Coag Setting 45 45 Blend Setting Bipolar Setting Argon Setting Argon Kirk [facility]SU Grounding Pad Ground Pad Type Adult Grounding Pad Type Comment Grounding Pad Site Left thigh Grounding Pad Site Comment Grounding Pad Elena Horton RN Applied By Grounding Pad Site Warm, dry and intact Skin Condition Before Cautery Site Skin Condition Before Comment Grounding Pad Site Unchanged Skin Condition After Cautery Site Skin Condition After Comment Last Modified By: Elena Horton RN Burdine, Teresa A, RN 08/11/19 14:01:57 08/11/19 14:01:57 [facility] IntraOp Communication Entry 1 Entry 2 Communication To Family/Significant other Family/Significant other Comment START CLOSING Communication By Elena Horton RN Burdine, Teresa A, RN Date and Time 08/11/19 13:56:00 08/11/19 14:32:00 Last Modified By: Elena Horton RN Burdine, Teresa A, RN 08/11/19 14:01:09 08/11/19 14:32:55 [facility] IntraOp Communication Audit 08/11/19 14:32:55 Lifter: [id number] Modifier: [id number] <+> 2 Communication By <+> 2 Date and Time <+> 2 Communication To <+> 2 Comment 08/11/19 14:01:09 Lifter: [id number] Modifier: [id number] <+> 1 Date and Time [facility] IntraOp Counts Verification Entry 1 Procedure Cervical Laminectomy Posterior Count Info Count Type Sponge, Sharps, Miscellaneous Counts Verification Baseline/pre-procedure Sequence Counts Performed By Count Performed By JEREMI HODGES, PHARMACY TECHNICIAN INPATIENT (Scrub) Count Performed By Elena Horton RN (RN) Last Modified By: Elena Horton RN 08/11/19 14:02:09 [facility] IntraOp Counts Final Entry 1 Procedure Cervical Laminectomy Posterior Final Count Info Count Type Sponge, Sharps, Miscellaneous Counts Verification Skin Closure/end of Sequence procedure Count Results Correct, surgeon notified Counts Performed By Count Performed By JEREMI HODGES, PHARMACY TECHNICIAN INPATIENT (Scrub) Count Performed By Elena Horton RN (RN) Last Modified By: Elena Horton RN 08/11/19 14:35:58 [facility] IntraOp Cultures and Spec Summary Entry 1 Cultrures and Specimens Specimen Ordered: Yes Test(s) Routine/Path-Lab Requested/Final Disposition Last Modified By: Elena Horton RN 08/11/19 14:34:37 General Comments: EXPLANTED HARDWARE [facility] IntraOp Departure from OR Entry 1 Integumentary Assessment Integumentary WDL Assessment WDL Transfer/Handoff Transfer to PACU Phase I Handoff Method Phone call Post-op Transport Stretcher/Gurney Via Patient Transport USHA NEWMAN PA, Accompanied by PALMER CONN CRNA Last Modified By: Elena Hotron RN 08/11/19 14:05:44 [facility] IntraOp Departure from OR Audit 08/11/19 14:05:44 Lifter: [id number] Modifier: [id number] <+> 1 Post-op Transport Via [facility] IntraOp Dressing and Packing Entry 1 Type Dressing Location OPSITE Wound Dressing Item Occlusive dressing Applied By USHA NEWMAN PA Last Modified By: Elena Horton RN 08/11/19 14:42:44 [facility] IntraOp Dressing and Packing Audit 08/11/19 14:42:44 Lifter: [id number] Modifier: [id number] <*> Wound Dressing Item Steristrip, Skin adhesive, Border [facility] IntraOp Fire Risk Assessment Entry 1 Fire Info Surgical Site or 1- Yes Incision Above the Xyphoid Open O2 Source 0- No (Mask or Cannula) Available Ignition 1- Yes (ESU, Laser, Light Source) Fire Risk 2 Assessment Score Fire Score Fire Risk Yes Assessment Complete Fire Risk Elena Horton RN Assessment Verified By Fire Risk 08/11/19 13:12:00 Assessment Verified Date/Time Fire Risk Standard Fire Yes Safety Precautions Followed Last Modified By: Elena Horton RN 08/11/19 14:06:11 [facility] IntraOp General Case Roll Capper 1 Case Information OR OR 09 [facility] Case Level 1 Room Verified Yes Wound Class I - Clean Specialty SN Neurosurgery Anesthesia Type General ASA Class 3 Diagnosis Preop Diagnosis CERVICAL REDICULOPATHY Postop Same As Preop No Postop Diagnosis SEE MD POST OP NOTE Last Modified By: Elena Horton RN 08/11/19 14:08:12 [facility] IntraOp Implant Log Entry 1 Type Implant (Synthetic) Implant Log Implant Type Other Implant BONE VIVIGEN FORMABLE Identification [facility]-[id number] Description Implant Quantity 1 Implant Site OPSITE Implant [id number] Identification Model Number Implant Lifenet:Lifenet Identification Transplant Srv Detective Bureau Chief Name: Implant [id number] Identification Catalog Number Implant Has an Yes Expiration Date Implant Expiration 07/28/20 Date Tissue Implant Graft Prep Per Yes Detective Bureau Chief Instructions: Detective Bureau Chief Yes Paperwork Completed Last Modified By: Elena Horton RN 08/11/19 14:24:44 [facility] IntraOp Intraoperative Assessment Entry 1 Handoff Reported to Elena Horton RN Handoff Method Bedside/Face to face Valid History / Yes Physical in Chart Preoperative Yes Checklist Reviewed/Evaluated Allergies Reviewed Yes Patient is Latex No Sensitive Isolation Not applicable Precautions Noted Level of WDL Consciousness (WDL = Alert, Oriented to Person, Place, and Time) Skin Assessment No Verified Present Upon IVs Arrival to OR Last Modified By: Elena Horton RN 08/11/19 15:00:03 [facility] IntraOp Intraoperative Assessment Audit 08/11/19 15:00:03 Lifter: [id number] Modifier: [id number] <+> 1 Patient is Latex Sensitive [facility] IntraOp Intraoperative Equipment Entry 1 Type Equipment Equipment Equipment Luis Alberto Suction System ID Number [id number] Setting 200MMHG Intraop Monitoring Electrocardiogram Three lead placement (ECG) Electrode Placement Blood Pressure Non-Invasive BP Device Source Blood Pressure Arm, right upper Location Pulse Oximeter Hand, left Probe Site Antiembolic Devices Antiembolic Devices Sequential compression device, knee high Antiembolic Device Bilateral Location Antiembolic Device [id number] ID Number Scopes Photo/Video Documentation Photo No Video No Last Modified By: Elena Horton RN 08/11/19 14:09:27 [facility] IntraOp Medication Admin Entry 1 Entry 2 Entry 3 Medication/Irrigant Bacitracin 50,00units lidocaine 1% w/ SPNG SURGFOAM powder vial epinephrine 1:100,000 [id number] 30ml vial - [id number] Combo Med List Time Administered Route of MIXED WITH NS IRRIGATION LOCAL TOPICAL Administration Dose Dose 61087 10 1 Unit of Measure units ml pkt Volume Administered By BRADEN SNYDER TUTT, MATTHEW PAIGE, TUTT, MATTHEW PAIGE, MD-SNU MD-SNU MD-AZAEL Procedure Irrigation Irrigant Volume In Irrigant Volume Out Last Modified By: Clifford, CECI Robb Teresa A, RN Burdine, Teresa A, RN 08/11/19 14:10:46 08/11/19 14:10:46 08/11/19 14:10:46 Entry 4 Entry 5 Medication/Irrigant thrombin 5000units Marcaine 0.25% 30ml - topical powder - [id number] Combo Med List Time Administered Route of TOPICAL LOCAL Administration Dose Dose 5000 10 Unit of Measure units ml Volume Administered By BRADEN SNYDER TUTT, MATTHEW PAIGE, MD-SNU MD-SNU Procedure Irrigation Irrigant Volume In Irrigant Volume Out Last Modified By: Elena Horton RN Burdine, Teresa A, RN 08/11/19 14:10:46 08/11/19 14:39:28 [facility] IntraOp Medication Admin Audit 08/11/19 14:39:28 Lifter: [id number] Modifier: [id number] <+> 5 Medication/Irrigant <+> 5 Route of Administration <+> 5 Administered By <+> 5 Dose <+> 5 Unit of Measure [facility] IntraOp Patient Positioning Entry 1 Procedure Cervical Laminectomy Posterior Body Position Prone Left Arm Position Tucked and padded at side Right Arm Position Tucked and padded at side Left Leg Position Uncrossed, parallel Right Leg Position Uncrossed, parallel Feet Uncrossed Yes Pressure Points Yes Checked Positioning Devices Head Rest, Pad, Arm, Pillows, Safety Strap, Thighs, Ramírez w/ Head Pins Positioned By BRADEN SNYDER MD-SNU, Elena Horton RN, JEREMI HODGES, BERTHA, USHA NEWMAN PA, PALMER CONN P, AVIONICS SYSTEMS REPAIRER Position Verified Positioning Yes Verified by Anesthesia Positioning Yes Verified by Surgeon Last Modified By: Elena Horton RN 08/11/19 14:12:06 [facility] IntraOp Sign In Entry 1 Patient, Site, Yes Procedure Identified Surgical Consent Yes Confirmed Relevant Surgical Yes Documents Available Surgical Site Yes Marked by person performing procedure Anesthesia Machine Yes Check Completed Medication Checks Yes Completed Allergies Yes Airway Difficult Yes Airway/Aspiration Risk Difficult Yes Airway/Aspiration Intervention Equipment Available Blood Loss Risk Yes Blood Loss Yes Intervention Equipment Prepared and Ready Blood Identifiers Not applicable Verified Per Policy Hypothermia Risk Yes Warming Measures Yes Taken Last Modified By: Elena Horton RN 08/11/19 14:12:26 [facility] IntraOp Sign Out Entry 1 RN Confirmation Surgical Yes Procedure(s) Identified Instrument, Sponge Yes and Sharps Counts Correct/Documented Equipment Problems N/A Documented Specimen Labeled Yes Correctly Urinary Catheter N/A Documented in IView Abbott Patient Yes Recovery Concerns Reviewed with Anesthesia Provider, Surgeon and RN Safety Checklist Yes Elements Complete? RN Sign Out Elena Horton RN Signature RN Sign Out 08/11/19 14:59:00 Signature Date/Time Plan of Care Outcome - Fire Risk OUTCOME STATEMENT: Goal met Patient is free from injury related to surgical fire Plan of Care Outcome - Pt Positioning OUTCOME STATEMENT: Goal met Absence of signs and symptoms of positioning injury. Plan of Care Outcome - Skin Prep OUTCOME STATEMENT: Goal met Intraoperative care is consistent with measures to prevent infection Plan of Care Outcome - Xray/Images OUTCOME STATEMENT: Goal met Absence of observable signs or symptoms of radiation injury Plan of Care Outcome - Counts OUTCOME STATEMENT: Goal met Absence of signs and symptoms of injury related to extraneous objects Last Modified By: Elena Horton RN 08/11/19 14:59:55 [facility] IntraOp Skin Prep Entry 1 Entry 2 Procedure Cervical Laminectomy Cervical Laminectomy Posterior Posterior Prescribed Yes Yes Pre-Surgical Prep Completed Prep Area OPSITE OPSITE Intraop Prep Integumentary WDL WDL Assessment WDL WDL Patient Exceptions Patients Normal Integumentary Variance(s) Integumentary Assessment Comment Prep Agents Alcohol, Chlorhexadine Chloraprep gluconate Prep by BRADEN SNYDER Burdine, Teresa A, RN MD-SNU Skin Prep Comment Hair Removal Methods Clipper/Scissors Hair Removal nut cracker Hair Removal By BRADEN SNYDER MD-SNU Last Modified By: Elena Horton RN Burdine, Teresa A, RN 08/11/19 14:13:14 08/11/19 14:13:14 [facility] IntraOp Surgical Procedures Entry 1 Procedure Cervical Laminectomy Posterior Additional (C4-5 LAMINECTOMY WITH Procedure REMOVAL OF NEUVECTRA Description CERVICAL SPINAL CORD STIMULATOR) Primary Procedure Yes Primary Surgeon BRADEN SNYDER MD-SNU Start 08/11/19 13:55:00 Stop 08/11/19 14:42:00 Anesthesia Type General Specialty SN Neurosurgery Wound Class I - Clean Last Modified By: Elena Horton RN 08/11/19 15:00:06 [facility] IntraOp Surgical Procedures Audit 08/11/19 15:00:06 Lifter: [id number] Modifier: [id number] <+> 1 Stop [facility] IntraOp Temp Regulation Devices Entry 1 Temp Regulation Temperature Forced Air Warming Regulation Device device, Warm blankets Temperature 36192 Regulation Device Serial/Unit Number Temperature Lower body Regulation Site Temperature Device 43 Setting Temperature COMBWANG, PALMER P, AVIONICS SYSTEMS REPAIRER Regulation Device Applied by Temperature PATIENT'S TEMPERATURE Regulation Comment MONITORED BY ANESTHESIA Last Modified By: Elena Horton RN 08/11/19 14:36:46 [facility] IntraOP Time Out Entry 1 Procedure to be Cervical Laminectomy Performed Posterior Time Out Time Out Pause Time 08/11/19 13:54:00 All activity Yes suspended (unless life threatening emergency) Team Verbally Correct patient Confirms Information identity, Correct side and site are marked, Consent form is present and accurate, Agreement on the procedure to be done, Correct patient position, Relevant images/results properly labeled/appropriately displayed, Confirm antibiotics have been administered, Confirm the skin prep has dried, Confirm prosthesis/implant/devic e is present, Performed in location of procedure after prepped/draped Antibiotic Yes Prophylaxis Administered Or In Progress Within the Last 60 Minutes Beta Rogelio N/A Administered Venous Yes Thromboembolism Prophylaxis Required Anticipated Critical Events Surgeon None expected Anesthesia Provider Patient specific concerns, None expected Nursing Assures Sterility of instruments, Equipment concerns or issues Essential Imaging Yes Labeled and Displayed Last Modified By: Elena Horton RN 08/11/19 13:58:17 [facility] IntraOP Time Out Audit 08/11/19 13:58:17 Lifter: [id number] Modifier: [id number] <+> Time Out Pause Time 1 <*> Procedure to be Performed Cervical Laminectomy Posterior [facility] IntraOp X-Ray and Images Entry 1 X-Ray/Imaging Type Fluoroscopy Fluoroscopy Type C-Arm Site OPSITE Investigation Division Sergeant Name SURINDER LEDBETTER Protective Devices Yes Used Last Modified By: Elena Horton RN 08/11/19 14:38:10 Case Comments <None> Finalized By: JAQUELIN KIRK Document Signatures Signed By: Elena Horton RN 08/11/19 15:00 JAQUELIN KIRK 08/12/19 15:45 Unfinalized History Date/Time Username Reason for Unfinalizing Freetext Reason for Unfinalizing 08/12/19 15:44 [email or web address] Correct Billing Electronically signed by Valentina [facility] Conversion Playground Monitor Cerner at 11/09/2022 5:07 PM CDT documented in this encounter Plan of Treatment Not on file documented as of this encounter Visit Diagnoses Not on filedocumented in this encounter Care Teams Editorial Writer Relationship Specialty Start Date End Date Kiko Sanderson MD [address] [facility] [address] [place] [phone] PCP - General Family Medicine 03/10/24 documented as of this encounter
--- OUTSIDE RECORDS SUMMARY | 2024-12-29 08:54 | XMS_ITS | Encounter Summary ---
Author Organization [employer] Address [address] [place] [address] Care Team Providers Care Policyholder Information Clerk Name Role Phone Kiko Sanderson MD Primary Care Provider + [phone] Encounter Details Date Type Department Care Team (Late st Contact Info) Description 10/07/2019 Transcribed Document [facility] Neurology - [facility] [address] [id number] Jone Rodriguez MD [address] [place] [address] Social History Tobacco Use Types Packs/Day Years Used Date Smoking Tobacco: Never Assessed Comments Unknown Sex and Gender Information Value Date Recorded Sex Assigned at Not on file Legal Sex Female 4:18 PM CDT Gender Identity Not on file Sexual Orientation Not on file documented as of this encounter Miscellaneous Notes * Cerner Conversion Note - Jone Rodriguez MD - 10/07/2019 7:35 AM EDT Patient: MAGO BULLOCK Age: 64 years Sex: Female : 1955 Associated Diagnoses: None Author: MADELINE SUGGS, YAJAIRA Chief Complaint 10/06/2019 15:24 EDT neck pain radiating to RUE to elbow Review of Systems ROS reviewed as documented [...] (Selected) Inpatient Medications Ordered Ancef: 2 Gram, 50 mL, 100 mL/Hr, IV Piggyback, PREOP Bactroban 2% nasal ointment: 1 Application, Nostrils Both, 1-Time Lactated Ringers Injection intravenous solution 1,000 mL: 20 mL/Hr, IntraVENous scopolamine 1.5 mg transdermal film, extended release: 1 Patch, TransDermal, 1-Time Documented Medications Documented Calcium, Magnesium and Zinc oral tablet: 3 Tab, Oral, Daily, 90 Tab, 0 Refill(s) Cymbalta 60 mg oral delayed release capsule: 2 Cap, Oral, Daily, 0 Refill(s) Flonase: 1 [place], Nostrils Both, Daily, 0 Refill(s) Lipitor: 40 mg, Oral, QPM, 0 Refill(s) Non Formulary med: 2 caps, Oral, Daily, 0 Refill(s) Non Formulary med: 3 tabs, Oral, Daily, 0 Refill(s) Singulair 10 mg oral tablet: 1 Tab, Oral, Daily, 0 Refill(s) Tylenol: 1,000 mg, Oral, PRN: as needed for pain, 0 Refill(s) Vitamin B-12: 500 mcg, Oral, Daily, 0 Refill(s) Vitamin D3: 2,000 Int Units, Oral, Daily, 0 Refill(s) baclofen 10 mg oral tablet: 2 Tab, Oral, TID, PRN: as needed for muscle spasm, 90 Tab, 0 Refill(s) gabapentin 300 mg oral capsule: 1 Cap, Oral, TID, 0 Refill(s) omeprazole 40 mg oral delayed release capsule: 1 Cap, Oral, Daily, 30 Cap, Home Medications (13) Active baclofen 10 mg oral tablet 20 mg = 2 Tab, PRN, Oral, TID Calcium, Magnesium and Zinc oral tablet 3 Tab, Oral, Daily Cymbalta 60 mg oral delayed release capsule 120 mg = 2 Cap, Oral, Daily Flonase 1 [place], Nostrils Both, Daily gabapentin 300 mg oral capsule 300 mg = 1 Cap, Oral, TID Lipitor 40 mg, Oral, QPM Non Formulary med 2 caps, Oral, Daily Non Formulary med 3 tabs, Oral, Daily omeprazole 40 mg oral delayed release capsule 40 mg = 1 Cap, Oral, Daily Singulair 10 mg oral tablet 10 mg = 1 Tab, Oral, Daily Tylenol 1,000 mg, PRN, Oral Vitamin B-12 500 mcg, Oral, Daily Vitamin D3 2,000 Int Units, Oral, Daily , Medications (4) Active Scheduled: (3) ceFAZolin/D5w 2 Gram 50 mL, IV Piggyback, PREOP mupirocin 2% nasal oint 1 g 1 Application, Nostrils Both, 1-Time scopolamine 1.5 mg/72 hr patch 1 Patch, TransDermal, 1-Time Continuous: (1) lactated ringers 1,000 mL 1,000 mL, IntraVENous, 20 mL/Hr PRN: (0) Problem list: All Problems Sleep apnea / SNOMED CT 631384356 / Confirmed Seasonal allergies / SNOMED CT 689926221 / Confirmed Restless legs syndrome / SNOMED CT 89230839 / Confirmed Palpitations / SNOMED CT 328878381 / Confirmed Overactive bladder / SNOMED CT 2618459849 / Confirmed Back/ Neck pain (bilateral shoulders, down into left arm and fingers) / SNOMED CT 179091676 / Confirmed Lymphedema (right breast/right axillary area) / SNOMED CT 069142050 / Confirmed Irritable bowel syndrome / SNOMED CT 85894218 / Confirmed Incontinence / SNOMED CT 18273529 / Confirmed High cholesterol / SNOMED CT 58252651 / Confirmed History of obstructive sleep apnea / IMO 76889017 / Confirmed Hemorrhoids / SNOMED CT 441469569 / Confirmed GERD - Gastro-esophageal reflux disease / SNOMED CT 8695929469 / Confirmed Wears contact lenses / SNOMED CT 237354262 / Confirmed Coronary artery disease - slight blockage/no interventions / SNOMED CT 4898149409 / Confirmed Hx: right breast cancer / SNOMED CT 750350944 / Confirmed Arthritis / SNOMED CT 7735593 / Confirmed Anxiety / SNOMED CT 66061274 / Confirmed Allergic rhinitis / SNOMED CT 302464754 / Confirmed, Active Problems (19) Allergic rhinitis Anxiety Arthritis Back/ Neck pain (bilateral shoulders, down into left arm and fingers) Coronary artery disease - slight blockage/no interventions [...] . Physical Examination VS/Measurements Vital Signs/Vital Measures 10/07/2019 7:20 EDT Systolic Blood Pressure 131 mmHg Diastolic Blood Pressure 68 mmHg Temperature Source Oral Temperature Mode Fahrenheit Temperature, Fahrenheit 97.7 Deg F Heart Rate Monitored 78 bpm Respiratory Rate 16 Breaths/Min Oxygen Saturation 97 % Oxygen Therapy Mode Room air , Vitals Signs (last 24 hrs) Last Charted Minimum Maximum Temp 97.7 (OCT 06 07:20) 97.7 (OCT 06:20) 97.7 (OCT 06:20) Mon HR 78 (OCT 06:20) 78 (OCT 06:20) 78 (OCT 06:20) Resp Rate 16 (OCT 06:20) 16 (OCT 06:20) 16 (OCT 06:20) SBP 131 (OCT 06:20) 131 (OCT 06:20) 131 (OCT 06:20) DBP 68 (OCT 06:20) 68 (OCT 06:20) 68 (OCT 06:20) SpO2 97 (OCT 06:20) 97 (OCT 06:20) 97 (OCT 06:20) , Measurements from flowsheet : Measurements 10/06/2019 15:24 EDT Height Source Stated Height Entry Format [place] Height/Length, GEORGIAN (ft) 5 ft Height/Length [place] 3 Inch CLINICALHEIGHT 160.02 cm Theodore Body Weight 52 kg Weight Source Standing scale Weight Entry Format [place] Weight [place] lb 161.9 lb CLINICALWEIGHT 73.59 kg Body Surface Area (BSA) 1.77 m2 Body Mass Index 28.7 kg/m2 HI General: Alert and oriented, No acute distress. Eye: Pupils are equal, round and reactive to light, Extraocular movements are intact, glasses. HENT: Normocephalic, Normal hearing. Neck: Supple, Non-tender. Respiratory: Lungs are clear to auscultation, Respirations are non-labored. Cardiovascular: Normal rate, Regular rhythm, No murmur, No gallop, No edema. Gastrointestinal: Soft, Non-tender. Genitourinary: No costovertebral angle tenderness. Lymphatics: No lymphadenopathy neck, axilla, groin. Musculoskeletal: painful ROM neck, RUE weakness. Integumentary: Warm, Dry, scab posterior neck incision line. Neurologic: Alert, Oriented. Psychiatric: Cooperative, Appropriate mood & affect. Review / Management Results review: No qualifying data available. Impression and Plan Condition: Stable. documented in this encounter Plan of Treatment Not on file documented as of this encounter Visit Diagnoses Not on filedocumented in this encounter Care Teams Policyholder Information Clerk Relationship Specialty Start Date End Date Kiko Sanderson MD [address] [place] [facility] [address] [place] [id number] PCP - General Family Medicine 03/10/24 documented as of this encounter
--- OUTSIDE RECORDS SUMMARY | 2024-12-29 08:54 | XMS_ITS | Encounter Summary ---
Author Organization [employer] Address [address] [place] [address] Care Team Providers Care Channel Cementer Outsole Machine Name Role Phone Kiko Sanderson MD Primary Care Provider + [phone] Encounter Details Date Type Department Care Team (Late st Contact Info) Description 10/07/2019 Transcribed Document [facility] [place] Family Medicine [address] [place] [address] ProviderNitish MD [address] [place], [place] [address] Social History Tobacco Use Types Packs/Day Years Used Date Smoking Tobacco: Never Assessed Comments Unknown Sex and Gender Information Value Date Recorded Sex Assigned at Not on file Legal Sex Female 4:18 PM CDT Gender Identity Not on file Sexual Orientation Not on file documented as of this encounter Miscellaneous Notes * Cerner Conversion Note - Nitish ProviderMD - 10/07/2019 4:18 PM CDT Pain Assessment Entered On: 10/08/2019 14:35 EDT Performed On: 10/08/2019 15:05 EDT by TUSHAR LOZADA RN Intervention Information: acetaminophen-oxyCODONE Performed by TUSHAR LOZADA RN on 10/08/2019 14:05:00 EDT acetaminophen-oxyCODONE,1.5Tab Oral,Pain (Severe 7-10) Pain Assessment Pain Assessment : Follow-up assessment Pain Scale Goal : 4 Pain Scale Used : 0-10 Scale TUSHAR LOZADA RN - 10/08/2019 14:35 EDT Pain Scale Intensity : 3 TUSHAR LOZADA RN - 10/08/2019 14:35 EDT Image 4 - Images currently included in the form version of this document have not been included in the text rendition version of the form. Electronically signed by Betzaida Montgomery Conversion Critical Power Install Technician [place] at 11/09/2022 5:18 PM CDT documented in this encounter Plan of Treatment Not on file documented as of this encounter Visit Diagnoses Not on filedocumented in this encounter Care Teams Channel Cementer Outsole Machine Relationship Specialty Start Date End Date Kiko Sanderson MD [facility] [address] [place] [phone] PCP - General Family Medicine 03/10/24 documented as of this encounter
--- OUTSIDE RECORDS SUMMARY | 2024-12-29 08:54 | XMS_ITS | Encounter Summary ---
Author Organization [email or web address] Address [address] [place] [address] Care Team Providers Care Chief Accountant Name Role Phone Kiko Sanderson MD Primary Care Provider + [phone] Encounter Details Date Type Department Care Team (Late st Contact Info) Description 10/07/2019 Transcribed Document [facility] Family Medicine [address] [place] [address] ProviderNitish MD [address] [place] [address] Social History Tobacco Use Types Packs/Day Years Used Date Smoking Tobacco: Never Assessed Comments Unknown Sex and Gender Information Value Date Recorded Sex Assigned at Not on file Legal Sex Female 4:18 PM CDT Gender Identity Not on file Sexual Orientation Not on file documented as of this encounter Miscellaneous Notes * Cerner Conversion Note - Nitish ProviderMD - 10/07/2019 8:50 AM CDT [facility] Main OR PACU Summary Primary Physician: BRADEN SNYDER MD-SNU Finalized Date/Time: 10/07/19 13:10:57 Pt. Name: ARA MAGOPRIYA CARBAAJL D.O.B./Sex: 1955 Female Med Rec #: [id number] Physician: BRADEN SNYDER MD-SNU Financial #: [id number] Pt. Type: O Room/Bed: /3 Admit/Disch: 10/07/19 06:11:00 - Institution: [facility] Main OR PACU I Case Times Entry 1 In PACU I 10/07/19 10:50:00 Ready for PACU 10/07/19 11:20:00 Discharge Discharge from PACU 10/07/19 13:10:00 I Last Modified By: DOMENICA BRISENO, CECI 10/07/19 13:10:48 [facility] Main OR PACU I Case Times Audit 10/07/19 13:10:48 Media Senior Recruiter: YURI Modifier: [email or web address] <+> 1 Discharge from PACU I 10/07/19 11:18:56 Media Senior Recruiter: YURI Modifier: [email or web address] <+> 1 Ready for PACU Discharge [facility] Main OR PACU Acuity Entry 1 Entry 2 Start Time 10/07/19 10:50:00 10/07/19 11:21:00 Stop Time 10/07/19 11:20:00 10/07/19 13:10:00 Acuity Level [facility] PACU Acuity I Acuity Level II Last Modified By: DOMENICA BRISENO, DOMENICA AMADOR RN 10/07/19 11:19:05 10/07/19 13:10:54 [facility] Main OR PACU Acuity Audit 10/07/19 13:10:54 Media Senior Recruiter: YURI Modifier: [email or web address] <+> 2 Stop Time 10/07/19 12:10:44 Media Senior Recruiter: YURI Modifier: [email or web address] <+> 2 Start Time <+> 2 Acuity Level 10/07/19 11:19:05 Media Senior Recruiter: YURI Modifier: [email or web address] <+> 1 Stop Time Finalized By: DOMENICA BRISENO, RN Document Signatures Signed By: DOMENICA BRISENO RN 10/07/19 13:10 Electronically signed by Valentina [facility] Conversion Military Logistics Specialist Cerner at 11/09/2022 5:16 PM CDT documented in this encounter Plan of Treatment Not on file documented as of this encounter Visit Diagnoses Not on filedocumented in this encounter Care Teams Chief Accountant Relationship Specialty Start Date End Date Kiko Sanderson MD [address] [place] [phone] (work) PCP - General Family Medicine 03/10/24 documented as of this encounter
--- OUTSIDE RECORDS SUMMARY | 2024-12-29 08:54 | XMS_ITS | Encounter Summary ---
Author Organization [employer] Address [address] [place] [address] Care Team Providers Care Service Liaison Representative Name Role Phone Kiko Sanderson MD Primary Care Provider + [phone] Encounter Details Date Type Department Care Team (Late st Contact Info) Description 08/11/2019 Transcribed Document [facility] [place] Family Medicine [address] [place] [address] ProviderNitish MD [address] [place], [place] [address] Social History Tobacco Use Types Packs/Day Years Used Date Smoking Tobacco: Never Assessed Comments Unknown Sex and Gender Information Value Date Recorded Sex Assigned at Not on file Legal Sex Female 4:18 PM CDT Gender Identity Not on file Sexual Orientation Not on file documented as of this encounter Miscellaneous Notes * Cerner Conversion Note - Historical ProviderMD - 08/11/2019 1:55 PM REINFORCING STEEL WORKER [facility] Main OR Preop Summary Primary Physician: BRADEN SNYDER MD-SNU Finalized Date/Time: 08/11/19 16:17:15 Pt. Name: ARA MAGO BOWMANFAVIOLA Trujillo/Sex: 1955 Female Med Rec #: [id number] Physician: BRADEN SNYDER MD-SNU Financial #: [id number] Pt. Type: O Room/Bed: Admit/Disch: 08/11/19 07:11:00 - Institution: [facility] PreOp Case Times Entry 1 In Preop 08/11/19 10:24:00 Ready for Holding n/a Room Patient Ready for 08/11/19 11:25:00 Surgery Patient Out of Preop 08/11/19 13:08:00 Patient Out of n/a Holding Room Last Modified By: Tresa Price RN 08/11/19 16:17:[address] [facility] PreOp Case Times Audit 08/11/19 16:17:13 Class 1 Owner Operator: [email or web address] Modifier: [email or web address] <+> 1 Patient Out of Preop 08/11/19 11:27:01 Class 1 Owner Operator: MCGRANM Modifier: MCGRANM <+> 1 Patient Ready for Surgery Finalized By: Tresa Price, RN Document Signatures Signed By: Tresa Price RN 08/11/19 16:17 Electronically signed by Valentina [facility] Conversion Property Site Manager Cerner at 11/09/2022 5:24 PM CDT documented in this encounter Plan of Treatment Not on file documented as of this encounter Visit Diagnoses Not on filedocumented in this encounter Care Teams Service Liaison Representative Relationship Specialty Start Date End Date Kiko Sanderson MD [address] [facility] [address] [place] [address] PCP - General Family Medicine 03/10/24 documented as of this encounter
--- OUTSIDE RECORDS SUMMARY | 2024-12-29 08:54 | XMS_ITS | Encounter Summary ---
Author Organization [employer] Address [address] [address] Care Team Providers Care Cook Station Name Role Phone Kiko Sanderson MD Primary Care Provider + [phone] Encounter Details Date Type Department Care Team (Late st Contact Info) Description 10/09/2019 Transcribed Document [facility] [place] Family Medicine [address] [place] [address] ProviderNitish MD [address] [place] [address] Social History Tobacco Use Types Packs/Day Years Used Date Smoking Tobacco: Never Assessed Comments Unknown Sex and Gender Information Value Date Recorded Sex Assigned at Not on file Legal Sex Female 4:18 PM CDT Gender Identity Not on file Sexual Orientation Not on file documented as of this encounter Miscellaneous Notes * Cerner Conversion Note - Historical ProviderMD - 10/09/2019 10:17 AM CDT Spiritual Care Assessment Entered On: 10/09/2019 14:23 EDT Performed On: 10/09/2019 10:17 EDT by Osmar De Los Santos Chaplain-Non Cert General Information Referred by : Palliative care Ministry Provided to : Patient Osmar De Los Santos Chaplain-Non Cert - 10/09/2019 14:20 EDT Spiritual Assessment Spiritual Assessment Comment/Summary Points : Spiritual care and support provided to patient. Pt shared that she is being discharged today and that she has strong family support with professional medical experience. Pt also expressed appreciation for visit and prayer that was provided upon request. Spirital Assessment Comment/Summary Report : SPIRITUAL ASSESSMENT COMMENT/SUMMARY No qualifying data available. Osmar De Los Santos Chaplain-Non Cert - 10/09/2019 14:20 EDT Interventions Emotional Support : Empathic/Engaged listening, Feelings expressed, Hope strengths identified, Relationship strengths identified Spiritual and Catholic : Beliefs/Values explored, God/the Spiritual connection/strengths identified, Prayer shared Osmar De Los Santos Chaplain-Non Cert - 10/09/2019 14:23 EDT Electronically signed by Maria [facility] Conversion Legal Coordinator Cerner at 11/09/2022 5:27 PM CDT documented in this encounter Plan of Treatment Not on file documented as of this encounter Visit Diagnoses Not on filedocumented in this encounter Care Teams Cook Station Relationship Specialty Start Date End Date Kiko Sanderson MD [address] [facility] [address] [place] [phone] PCP - General Family Medicine 03/10/24 documented as of this encounter
--- OUTSIDE RECORDS SUMMARY | 2024-12-29 08:54 | XMS_ITS | Encounter Summary ---
Author Organization [employer] Address [address] [place] [address] Care Team Providers Care Organic Extractions Technician Name Role Phone Kiko Sanderson MD Primary Care Provider + [phone] Encounter Details Date Type Department Care Team (Late st Contact Info) Description 08/11/2019 Transcribed Document [facility] [place] [address] [place] [address] ProviderNitish MD [address] [place], [place] [address] Social History Tobacco Use Types Packs/Day Years Used Date Smoking Tobacco: Never Assessed Comments Unknown Sex and Gender Information Value Date Recorded Sex Assigned at Not on file Legal Sex Female 4:18 PM CDT Gender Identity Not on file Sexual Orientation Not on file documented as of this encounter Miscellaneous Notes * Cerner Conversion Note - Historical ProviderMD - 08/11/2019 1:55 PM ENTRY REP [facility] Main OR PACU Summary Primary Physician: BRADEN SNYDER MD-SNU Finalized Date/Time: 08/11/19 16:47:03 Pt. Name: ARA MAGOPRIYA CARBAJAL D.O.B./Sex: 1955 Female Med Rec #: [id number] Physician: BRADEN SNYDER MD-SNU Financial #: [id number] Pt. Type: O Room/Bed: Admit/Disch: 08/11/19 07:11:00 - Institution: [facility] Main OR PACU I Case Times Entry 1 In PACU I 08/11/19 15:01:00 Ready for PACU 08/11/19 16:30:00 Discharge Discharge from PACU 08/11/19 16:30:00 I Last Modified By: Tracey Robins RN 08/11/19 16:46:54 Finalized By: Tracey Robins, RN Document Signatures Signed By: Tracey Robins RN 08/11/19 16:47 Electronically signed by [facility] Conversion Armored Cable Machine Operator Cerner at 11/09/2022 5:14 PM CDT documented in this encounter Plan of Treatment Not on file documented as of this encounter Visit Diagnoses Not on filedocumented in this encounter Care Teams Organic Extractions Technician Relationship Specialty Start Date End Date Kiko Sanderson MD [address] [facility] [address] [place] [phone] PCP - General Family Medicine 03/10/24 documented as of this encounter
--- OUTSIDE RECORDS SUMMARY | 2024-12-29 08:54 | XMS_ITS | Encounter Summary ---
Author Organization [employer] Address [address] [place] [address] Care Team Providers Care Silver Buffer Name Role Phone Kiko Sanderson MD Primary Care Provider + [phone] Encounter Details Date Type Department Care Team (Late st Contact Info) Description 08/11/2019 Transcribed Document [facility] Family Medicine [address] [place] [address] ProviderNitish MD [address] [place] [address] Social History Tobacco Use Types Packs/Day Years Used Date Smoking Tobacco: Never Assessed Comments Unknown Sex and Gender Information Value Date Recorded Sex Assigned at Not on file Legal Sex Female 4:18 PM CDT Gender Identity Not on file Sexual Orientation Not on file documented as of this encounter Miscellaneous Notes * Cerner Conversion Note - Historical ProviderMD - 08/11/2019 4:40 PM MACHINE HAND Event Note Entered On: 08/11/2019 16:43 EST Performed On: 08/11/2019 16:40 EST by Tracey Robins RN Event Note Event Date/Time : 08/11/2019 16:20 EST Description of Event : Spoke to Dr Chandler for Oxycodone orderr. Pt states her pain is a 4 . Pt states oxycodone makes her nauseates. See MAR for Zofran given with Oxycodone. Pt home RX is Percocet , Zofran, Flexeril on chart. Family updated. Pt istates I am so so happy I have had such a great experience with no post op N&V. Tracey Robins, RN - 08/11/2019 16:40 EST Electronically signed by Valentina, [facility] Conversion Air Antisubmarine Officer Cerner at 11/09/2022 5:09 PM CDT documented in this encounter Plan of Treatment Not on file documented as of this encounter Visit Diagnoses Not on filedocumented in this encounter Care Teams Silver Buffer Relationship Specialty Start Date End Date Kiko Sanderson MD [address] [facility] [address] [place] [phone] PCP - General Family Medicine 03/10/24 documented as of this encounter
--- OUTSIDE RECORDS SUMMARY | 2024-12-29 08:54 | XMS_ITS | Encounter Summary ---
Author Organization [employer] Address [address] [place] [address] Care Team Providers Care Apartment Leasing Consultant Name Role Phone Kiko Sanderson MD Primary Care Provider + [phone] Encounter Details Date Type Department Care Team (Late st Contact Info) Description 08/11/2019 Transcribed Document [facility] Neurology - [facility] [address] [phone] Jone Rodriguez MD [address] [place] [address] Social History Tobacco Use Types Packs/Day Years Used Date Smoking Tobacco: Never Assessed Comments Unknown Sex and Gender Information Value Date Recorded Sex Assigned at Not on file Legal Sex Female 4:18 PM CDT Gender Identity Not on file Sexual Orientation Not on file documented as of this encounter Miscellaneous Notes * Cerner Conversion Note - Jone Rodriguez MD - 08/11/2019 3:52 PM EST DATE OF PROCEDURE: 08/11/2019 SURGEON: Jone Rodriguez MD PRIMARY CARE PHYSICIAN: Dr. Kiko Sanderson. PREOPERATIVE DIAGNOSES: 1. Previous anterior cervical fusions. 2. Cervical spinal cord stimulator placement. 3. Severe cervical stenosis. POSTOPERATIVE DIAGNOSES: 1. Previous anterior cervical fusions. 2. Cervical spinal cord stimulator placement. 3. Severe cervical stenosis. INDICATIONS FOR PROCEDURE: Cervical stenosis with myelopathy. PROCEDURES PERFORMED: 1. C4-5 and C5-6 decompressive laminectomy. 2. C4-5 and C5-6 posterolateral fusion. 3. Removal of a spinal cord stimulator electrode paddle. 4. Removal of spinal cord stimulator generator. ANTIQUE COLLECTOR: Felisa Nichols PA-C. TYPE OF ANESTHESIA: GEA. DESCRIPTION OF PROCEDURE IN DETAIL: Once consent was noted to be on chart, Mrs. Edgar was taken to the operating room. She was anesthetized and placed in the prone position with her head rigidly fixated in the Cameron head frame. Her neck was kept in the neutral position. All pressure points were carefully checked and padded. Her body was carefully rested on laminectomy rolls and the elbows were padded. Preoperative antibiotics were given. She was prepped and draped in usual sterile fashion. Fluoroscopy was draped in the field and used throughout the case for radiographic guidance. A time-out was called. A 10 blade was used to make a midline incision from C4-C6. Bovie electrocautery was used to dissect down to and through the median raphae. A Subperiosteal dissection was performed at C4-5 and C5-6. The facets were exposed bilaterally. High-speed drill and #2 Kerrison were used to perform a C4-5 and C5-6 laminectomy. The paddle was visualized and removed further decompressing the spinal cord. The electrode lead was cut posterolateral bone at C4-5 and C5-6 was decorticated, and the allograft and autograft were laid in place bilaterally for a posterolateral fusion. ViviGen was used as the allograft and autograft was recycled lamina and spinous process. Meticulous hemostasis was obtained. The cervical incision was closed with 1 Vicryl, 2-0 Vicryl deeps, and 2-0 Vicryl subcuticularly. Superficially, the skin was stapled. A 10 blade was used to open the incision on the left flank. The battery was removed. 2-0 Vicryl close space and closed the skin subcuticularly. This incision was stapled. Bacitracin and Covaderm, dressing wounds. Felisa Nichols, assisted throughout the surgery and helped with the closure. SPECIMEN SENT: Prior spinal cord stimulator. ESTIMATED BLOOD LOSS: 25 mL. DRAINS: None. COMPLICATIONS: None. /[id number] Jone Rodriguez MD MPT/AQ / MPT / MODL /[id number] CC: Dr. Telly Sanderson documented in this encounter Plan of Treatment Not on file documented as of this encounter Visit Diagnoses Not on filedocumented in this encounter Care Teams Apartment Leasing Consultant Relationship Specialty Start Date End Date Kiko Sanderson MD [address] [place] [facility] [address] [place] [id number] PCP - General Family Medicine 03/10/24 documented as of this encounter
--- OUTSIDE RECORDS SUMMARY | 2024-12-29 08:54 | XMS_ITS | Encounter Summary ---
Author Organization [employer] Address [address] [place] [address] Care Team Providers Care Environmental Protection Officer Name Role Phone Kiko Sanderson MD Primary Care Provider + [phone] Encounter Details Date Type Department Care Team (Late st Contact Info) Description 10/07/2019 Transcribed Document [facility] [address] [place] [address] ProviderNitish MD [address], [place] [id number] Social History Tobacco Use Types Packs/Day Years Used Date Smoking Tobacco: Never Assessed Comments Unknown Sex and Gender Information Value Date Recorded Sex Assigned at Not on file Legal Sex Female 4:18 PM CDT Gender Identity Not on file Sexual Orientation Not on file documented as of this encounter Miscellaneous Notes * Cerner Conversion Note - Nitish ProviderMD - 10/07/2019 8:50 AM CDT [facility] Main OR IntraOp Summary Primary Physician: BRADEN SNYDER MD-SNU Finalized Date/Time: 10/08/19 10:22:17 Pt. Name: ARA MAGO SOLOMON Trujillo.O.B./Sex: 1955 Female Med Rec #: [id number] Physician: BRADEN SNYDER MD-SNU Financial #: [id number] Pt. Type: O Room/Bed: [facility]/ Admit/Disch: 10/07/19 06:11:00 - Institution: [facility] IntraOp Case Attendance Entry 1 Entry 2 Entry 3 Case Attendee BRADEN SNYDER SMITH, MYRIAH L., RN Jakob Quevedo RN -AZAEL Role Performed Surgeon/Proceduralist, Column Precaster, First Column Precaster, First First Time In 10/07/19 08:10:00 10/07/19 08:10:00 10/07/19 08:10:00 Time Out 10/07/19 10:47:00 10/07/19 10:47:00 10/07/19 10:47:00 Procedure Cervical Discectomy Cervical Discectomy Cervical Discectomy Fusion Anterior Fusion Anterior Fusion Anterior Other Attendee ORIENTEE Superficial Wound Closed By: Last Modified By: ISIAH BOJORQUEZ RN SMITH, MYRIAH L., RN SMITH, MYRIAH L., RN 10/07/19 10:47:50 10/07/19 10:47:50 10/07/19 10:47:50 Entry 4 Entry 5 Entry 6 Case Attendee YOBANI TOTH PA-C COMBEST, ASHLEY P, CRNA LONG, PAULA R., ST Role Performed Physician assistant statistician VICE PRESIDENT EDUCATION/Nurse Linecasting Machine Keyboard Operator Scrub, First Time In 10/07/19 08:10:00 10/07/19 08:10:00 10/07/19 08:10:00 Time Out 10/07/19 10:47:00 10/07/19 10:47:00 10/07/19 10:47:00 Procedure Cervical Discectomy Cervical Discectomy Cervical Discectomy Fusion Anterior Fusion Anterior Fusion Anterior Other Attendee Superficial Wound Closed By: Last Modified By: ISIAH BOJORQUEZ RN SMITH, MYRIAH L., RN SMITH, MYRIAH L., RN 10/07/19 10:47:50 10/07/19 10:47:50 10/07/19 10:47:50 Entry 7 Entry 8 Entry 9 Case Attendee SURINDER LEDBETTER OTHER, ATTENDEE #1 FOZIA BOSTON MD-ANS Role Performed Department Operations Manager Vendor Anesthesiologist of Record Time In 10/07/19 08:10:00 10/07/19 08:10:00 10/07/19 08:10:00 Time Out 10/07/19 10:47:00 10/07/19 10:47:00 10/07/19 10:47:00 Procedure Cervical Discectomy Cervical Discectomy Cervical Discectomy Fusion Anterior Fusion Anterior Fusion Anterior Other Attendee JENNIFER GRAHAM Superficial Wound Closed By: Last Modified By: ISIAH BOJORQUEZ, RN ISIAH BOJORQUEZ, RN ISIAH BOJORQUEZ, CECI 10/07/19 10:47:50 10/07/19 10:47:50 10/07/19 10:47:50 [facility] IntraOp Case Attendance Audit 10/07/19 10:47:50 Medical Health Researcher: LUBA Modifier: [email or web address] 1 <+> Time Out 1 <*> Procedure Cervical Discectomy Fusion Anterior 2 <+> Time Out 2 <*> Procedure Cervical Discectomy Fusion Anterior 3 <+> Time Out 3 <*> Procedure Cervical Discectomy Fusion Anterior 4 <+> Time Out 4 <*> Procedure Cervical Discectomy Fusion Anterior 5 <+> Time Out 5 <*> Procedure Cervical Discectomy Fusion Anterior 6 <+> Time Out 6 <*> Procedure Cervical Discectomy Fusion Anterior 7 <+> Time Out 7 <*> Procedure Cervical Discectomy Fusion Anterior 8 <+> Time Out 8 <*> Procedure Cervical Discectomy Fusion Anterior 9 <+> Time Out 9 <*> Procedure Cervical Discectomy Fusion Anterior 10/07/19 08:52:58 Medical Health Researcher: MARYELLENML Modifier: SMITHML 1 <*> Procedure Cervical Discectomy Fusion Anterior 2 <+> Time In 2 <*> Procedure Cervical Discectomy Fusion Anterior 3 <+> Time In 3 <*> Procedure Cervical Discectomy Fusion Anterior 4 <+> Time In 4 <*> Procedure Cervical Discectomy Fusion Anterior 5 <+> Time In 5 <*> Procedure Cervical Discectomy Fusion Anterior 6 <+> Time In 6 <*> Procedure Cervical Discectomy Fusion Anterior 7 <+> Time In 7 <*> Procedure Cervical Discectomy Fusion Anterior 8 <+> Time In 8 <*> Procedure Cervical Discectomy Fusion Anterior 9 <+> Time In 9 <*> Procedure Cervical Discectomy Fusion Anterior [facility] IntraOp Case Times Entry 1 Patient In Room Time 10/07/19 08:10:00 Out Room Time 10/07/19 10:47:00 Anesthesia Start Time 10/07/19 08:10:00 Stop Time 10/07/19 10:47:00 Surgery / Procedure Times Start Time 10/07/19 08:50:00 Stop Time 10/07/19 10:39:00 Last Modified By: ISIAH BOJORQUEZ RN 10/07/19 10:47:49 [facility] IntraOp Case Times Audit 10/07/19 10:47:49 Medical Health Researcher: LUBA Modifier: MARYELLENML <+> 1 Out Room Time <+> 1 Stop Time <+> 1 Stop Time [facility] IntraOp Cautery Entry 1 Entry 2 ESU Identification Cautery Type Monopolar ESU BiPolar ESU Cautery Type Comments ID Number [id number] ID Type Hospital Number Hospital Number Cautery Settings Cut Setting 8 40 Coag Setting 40 40 Blend Setting Bipolar Setting Argon Setting Argon Kirk ESU Grounding Pad Ground Pad Type Adult Grounding Pad Type Comment Grounding Pad Site Right thigh Grounding Pad Site WNL Comment Grounding Pad ISIAH BOJORQUEZ RN Applied By Grounding Pad Site Warm, Dry, Intact Skin Condition Before Cautery Site Skin Condition WDL Before Comment Grounding Pad Site Unchanged Skin Condition After Cautery Site Skin Condition WDL After Comment Last Modified By: ISIAH BOJORQUEZ RN SMITH, MYRIAH L., RN 10/07/19 08:54:16 10/07/19 08:54:16 [facility] IntraOp Communication Entry 1 Entry 2 Entry 3 Communication To Family/Significant other Family/Significant other Family/Significant other Comment START UPDATE CLOSING Communication By ISIAH BOJORQUEZ RN Byrd, Charlie D, RN Byrd, Charlie D, CECI Date and Time 10/07/19 08:51:00 10/07/19 09:57:00 10/07/19 10:23:00 Last Modified By: ISIAH BOJORQUEZ RN SMITH, MYRIAH L., RN SMITH, MYRIAH L., RN 10/07/19 08:52:57 10/07/19 10:03:59 10/07/19 10:24:51 [facility] IntraOp Communication Audit 10/07/19 10:24:51 Medical Health Researcher: LUBA Modifier: MARYELLENML <+> 3 Communication By <+> 3 Date and Time <+> 3 Communication To <+> 3 Comment 10/07/19 10:03:59 Medical Health Researcher: LUBA Modifier: SMITHML <+> 2 Communication By <+> 2 Date and Time <+> 2 Communication To <+> 2 Comment [facility] IntraOp Counts Verification Entry 1 Procedure Cervical Discectomy Fusion Anterior Count Info Count Type Sponge, Sharps, Miscellaneous Counts Verification Baseline/pre-procedure Sequence Count Results Not Applicable Counts Performed By Count Performed By WHITNEY BRICENO ST (Scrub) Count Performed By ISIAH BOJORQUEZ RN (RN) Last Modified By: ISIAH BOJORQUEZ RN 10/07/19 08:54:32 [facility] IntraOp Counts Final Entry 1 Procedure Cervical Discectomy Fusion Anterior Final Count Info Count Type Sponge, Sharps, Miscellaneous Counts Verification Skin Closure/end of Sequence procedure Count Results Correct, surgeon notified Counts Performed By Count Performed By WHITNEY BRICENO ST (Scrub) Count Performed By Jakob Quevedo RN (RN) Last Modified By: ISIAH BOJORQUEZ RN 10/07/19 10:30:08 [facility] IntraOp Cultures and Spec Summary Entry 1 Cultrures and Specimens Specimen Ordered: Yes Test(s) Routine/Path-Lab Requested/Final Disposition Last Modified By: ISIAH BOJORQUEZ RN 10/07/19 09:39:23 [facility] IntraOp Delays Entry 1 Delay Reason Surgeon late - did not call Duration 10 Minute(s) Last Modified By: ISIAH BOJORQUEZ RN 10/07/19 08:54:54 [facility] IntraOp Departure from OR Entry 1 Integumentary Assessment Integumentary WDL Assessment WDL Transfer/Handoff Transfer to PACU Phase I Handoff Method Bedside/Face to face, Phone call Post-op Transport Stretcher/Emil Via Patient Transport YOBANI TOTH PA-C, Accompanied by PALMER CONN CRNA Last Modified By: ISIAH BOJORQUEZ RN 10/07/19 08:55:17 [facility] IntraOp Drains and Tubes Entry 1 Device Type Marcus Drain Size 10 FR Drain/Tube Activity Inserted Drain/Tube Suction Bulb Drain/Tube Drainage Sanguineous Device Location NECK Method of Drainage Compression Last Modified By: ISIAH BOJORQUEZ RN 10/07/19 10:12:13 [facility] IntraOp Dressing and Packing Entry 1 Type Dressing Location OP SITE Wound Dressing Item Steristrip, Other, Occlusive dressing Supplemental Cervical Collar Applications Applied By YOBANI TOTH PA-C Other Comments MASTISOL, STERISTRIPS, COVADERM Last Modified By: ISIAH BOJORQUEZ RN 10/07/19 10:19:35 [facility] IntraOp Dressing and Packing Audit 10/07/19 10:19:35 Medical Health Researcher: LUBA Modifier: MARYELLENML <+> 1 Supplemental Applications [facility] IntraOp Fire Risk Assessment Entry 1 Fire Info Surgical Site or 1- Yes Incision Above the Xyphoid Open O2 Source 0- No (Mask or Cannula) Available Ignition 1- Yes (ESU, Laser, Light Source) Fire Risk 2 Assessment Score Fire Score Fire Risk Yes Assessment Complete Fire Risk Jakob Quevedo RN Assessment Verified By Fire Risk 10/07/19 08:08:00 Assessment Verified Date/Time Fire Risk Standard Fire Yes Safety Precautions Followed Last Modified By: ISIAH BOJORQUEZ RN 10/07/19 08:57:29 [facility] IntraOp Fire Risk Assessment Audit 10/07/19 08:57:29 Medical Health Researcher: LUBA Modifier: LUBA 1 <*> Fire Risk Assessment Verified 10/07/19 08:09:00 Date/Time [facility] IntraOp General Case Principal Planner 1 Case Information OR OR 09 [facility] Case Level 1 Room Verified Yes Wound Class I - Clean Specialty SN Neurosurgery Anesthesia Type General ASA Class 3 Diagnosis Preop Diagnosis CERVICAL STENOSIS Postop Same As Preop No Postop Diagnosis SEE MD POST OP NOTE. Last Modified By: ISIAH BOJORQUEZ RN 10/07/19 09:03:58 [facility] IntraOp General Case Data Audit 10/07/19 09:03:58 Medical Health Researcher: LUBA Modifier: LUBA <+> 1 Preop Diagnosis [facility] IntraOp Implant Log Entry 1 Entry 2 Entry 3 Type Implant (Synthetic) Implant (Synthetic) Implant (Synthetic) Implant Log Implant Type Other Other Other Tissue Implant Type Implant BONE VIVIGEN FORMABLE GRAFT DOWEL CLOWARD GRAFT DOWEL CLOWARD Identification [id number] Description Implant Quantity 1 1 1 Implant Site OPSITE OP SITE OP SITE Implant [id number] Identification Model Number Implant Identification Serial Number Implant Identification Lot Number Implant Lifenet:VIOSOnet Lifenet:Lifenet Lifenet:Lifenet Identification Transplant Srv Transplant Srv Transplant Srv Vehicle Refinisher Name: Implant [id number] Identification Catalog Number Implant Size Implant Has an Yes Expiration Date Implant Expiration 02/24/24 Date Wasted Radioactive Material Time Implanted Tissue Implant Continue for Tissue Implant Documentation Tissue Identification Number Graft Prep Per Yes Vehicle Refinisher Instructions: Tissue Preparation Method: Reconstitution Solution: Reconstitution Solution Lot Number Reconstitution Solution Expiration Date: Thawing Solution Thawing Solution Lot Number Thawing Solution Expiration Date Preparation Materials, Other Preparation Materials, Other Lot Number Preparation Materials, Other Expiration Date Tissue Prepared/Processed By Vehicle Refinisher Yes Paperwork Completed Implant Type Comment Last Modified By: ISIAH BOJORQUEZ RN SMITH, MYRIAH L., RN SMITH, MYRIAH L., RN 10/07/19 09:23:25 10/07/19 09:58:45 10/07/19 09:58:45 Entry 4 Entry 5 Entry 6 Type Implant (Synthetic) Implant (Synthetic) Implant (Synthetic) Implant Log Implant Type Hardware Hardware Hardware Tissue Implant Type Implant PLT ANT SKYLN HYBRD SCR SKYLN VARI SD SCR SKYLN VARI SD Identification [id number] Description Implant Quantity 1 6 2 Implant Site OP SITE OP SITE OP SITE Implant Identification Model Number Implant Identification Serial Number Implant Identification Lot Number Implant J&J:Depuy:Depuy Spine J&J:Depuy:Depuy Spine J&J:Depuy:Depuy Spine Identification Vehicle Refinisher Name: Implant [id number] Identification Catalog Number Implant Size Implant Has an Expiration Date Implant Expiration Date Wasted Radioactive Material Time Implanted Tissue Implant Continue for Tissue Implant Documentation Tissue Identification Number Graft Prep Per Vehicle Refinisher Instructions: Tissue Preparation Method: Reconstitution Solution: Reconstitution Solution Lot Number Reconstitution Solution Expiration Date: Thawing Solution Thawing Solution Lot Number Thawing Solution Expiration Date Preparation Materials, Other Preparation Materials, Other Lot Number Preparation Materials, Other Expiration Date Tissue Prepared/Processed By Vehicle Refinisher Paperwork Completed Implant Type Comment Last Modified By: ISIAH BOJORQUEZ RN SMITH, MYRIAH L., ISIAH BOWER RN 10/07/19 10:21:05 10/07/19 10:21:05 10/07/19 10:21:05 [facility] IntraOp Implant Log Audit 10/07/19 10:21:05 Medical Health Researcher: LUBA Modifier: LUBA <+> 4 Implant Identification Description <+> 4 Implant Identification Vehicle Refinisher Name: <+> 4 Implant Site <+> 4 Implant Quantity <+> 4 Implant Identification Catalog Number <+> 4 Implant Type <+> 4 Type <+> 5 Implant Identification Description <+> 5 Implant Identification Vehicle Refinisher Name: <+> 5 Implant Site <+> 5 Implant Quantity <+> 5 Implant Identification Catalog Number <+> 5 Implant Type <+> 5 Type <+> 6 Implant Identification Description <+> 6 Implant Identification Vehicle Refinisher Name: <+> 6 Implant Site <+> 6 Implant Quantity <+> 6 Implant Identification Catalog Number <+> 6 Implant Type <+> 6 Type 10/07/19 09:58:45 Medical Health Researcher: LUBA Modifier: MARYELLENML <+> 2 Implant Identification Description <+> 2 Implant Identification Vehicle Refinisher Name: <+> 2 Implant Site <+> 2 Implant Quantity <+> 2 Implant Identification Catalog Number <+> 2 Implant Type <+> 2 Implant Identification Model Number <+> 2 Type <+> 3 Implant Identification Description <+> 3 Implant Identification Vehicle Refinisher Name: <+> 3 Implant Site <+> 3 Implant Quantity <+> 3 Implant Identification Catalog Number <+> 3 Implant Type <+> 3 Implant Identification Model Number <+> 3 Type [facility] IntraOp Intraoperative Assessment Entry 1 Handoff Method Online nursing summary Valid History / Yes Physical in Chart Preoperative Yes Checklist Reviewed/Evaluated Allergies Reviewed Yes Patient is Latex No Sensitive Isolation Not applicable Precautions Noted Level of WDL Consciousness (WDL = Alert, Oriented to Person, Place, and Time) Skin Assessment No Verified Present Upon IVs Arrival to OR Prosthetic/Assistive Stimulator Devices Last Modified By: ISIAH BOJORQUEZ RN 10/07/19 09:01:25 [facility] IntraOp Intraoperative Assessment Audit 10/07/19 09:01:25 Medical Health Researcher: LUBA Modifier: LUBA 1 <+> Preoperative Checklist Reviewed/Evaluated 1 <+> Patient is Latex Sensitive 1 <*> Skin Assessment Verified Yes 1 <+> Present Upon Arrival to OR 1 <+> Prosthetic/Assistive Devices 1 <+> Valid History / Physical in Chart 1 <+> Handoff Method [facility] IntraOp Intraoperative Equipment Entry 1 Type Equipment Equipment Equipment Luis Alberto Suction System ID Number [id number] Setting 200 MM HG Intraop Monitoring Electrocardiogram Five lead placement (ECG) Electrode Placement Blood Pressure Non-Invasive BP Device Source Blood Pressure Arm, left upper Location Pulse Oximeter Hand, left Probe Site Antiembolic Devices Antiembolic Devices Sequential compression device, knee high Antiembolic Device Bilateral Location Antiembolic Device [id number] ID Number Scopes Photo/Video Documentation Photo No Video No Last Modified By: ISIAH BOJORQUEZ RN 10/07/19 09:02:29 [facility] IntraOp Medication Admin Entry 1 Entry 2 Entry 3 Medication/Irrigant Bacitracin 50,00units lidocaine 1% w/ SPNG SURGFOAM powder vial epinephrine 1:100,000 [id number] 30ml vial - [id number] Combo Med List Time Administered Route of ADDED TO NS IRRIGATION LOCAL TOPICAL Administration Dose Dose 19780 10 1 Unit of Measure units ml pkt Volume Administered By BRADEN SNYDER TUTT, MATTHEW PAIGE, TUTT, MATTHEW PAIGE, MD-SNU MD-SNU MD-SNU Procedure Irrigation Irrigant Volume In Irrigant Volume Out Last Modified By: ISIAH BOJORQUEZ RN SMITH, MYRIAH L., RN SMITH, MYRIAH L., RN 10/07/19 09:32:34 10/07/19 09:32:34 10/07/19 09:32:34 Entry 4 Entry 5 Medication/Irrigant thrombin 5000units FLSEAL VHSD FULL topical powder - [id number] Combo Med List Time Administered Route of TOPICAL TOPICAL Administration Dose Dose 5000 10 Unit of Measure units ml Volume Administered By BRADEN SNYDER TUTT, MATTHEW PAIGE, MD-SNU MD-SNU Procedure Irrigation Irrigant Volume In Irrigant Volume Out Last Modified By: ISIAH BOJORQUEZ RN SMITH, MYRIAH L., RN 10/07/19 09:32:34 10/07/19 09:32:34 [facility] IntraOp Patient Positioning Entry 1 Procedure Cervical Discectomy Fusion Anterior Body Position Supine Left Arm Position Tucked and padded at side Right Arm Position Tucked and padded at side Left Leg Position Uncrossed, parallel Right Leg Position Uncrossed, parallel Feet Uncrossed Yes Pressure Points Yes Checked Positioning Devices Head Rest, Marcio Table, Pad, Elbow, Pillows, Safety Strap, Thighs, Roll, Shoulder, Traction Devices Device Position MARCIO TABLE WITH TRACTION PER MD REQUEST Positioned By BRADNE SNYDER MD-SNU, ISIAH BOJORQUEZ RN, Jakob Quevedo RN, PALMER CONN, REYNA, YOBANI TOTH PA-C Position Verified Positioning Yes Verified by Anesthesia Positioning Yes Verified by Surgeon Last Modified By: ISIAH BOJORQUEZ RN 10/07/19 09:27:40 [facility] IntraOp Sign In Entry 1 Patient, Site, Yes Procedure Identified Surgical Consent Yes Confirmed Relevant Surgical Yes Documents Available Surgical Site N/A Marked by person performing procedure Anesthesia Machine Yes Check Completed Medication Checks Yes Completed Allergies Yes Airway Difficult Yes Airway/Aspiration Risk Difficult Yes Airway/Aspiration Intervention Equipment Available Blood Loss Risk Yes Blood Loss Yes Intervention Equipment Prepared and Ready Blood Identifiers Not applicable Verified Per Policy Hypothermia Risk Yes Warming Measures Yes Taken Last Modified By: ISIAH BOJORQUEZ RN 10/07/19 09:27:54 [facility] IntraOp Sign Out Entry 1 RN Confirmation Surgical Yes Procedure(s) Identified Instrument, Sponge Yes and Sharps Counts Correct/Documented Equipment Problems Yes Documented Specimen Labeled Yes Correctly Urinary Catheter N/A Documented in IView Abbott Patient Yes Recovery Concerns Reviewed with Anesthesia Provider, Surgeon and RN Abbott Patient Yes Management Concerns Reviewed with Anesthesia Provider, Surgeon and RN Safety Checklist Yes Elements Complete? RN Sign Out ISIAH BOJORQUEZ RN Signature RN Sign Out 10/07/19 10:48:00 Signature Date/Time Plan of Care Outcome - [...] related to extraneous objects Last Modified By: ISIAH BOJORQUEZ RN 10/07/19 10:48:03 [facility] IntraOp Sign Out Audit 10/07/19 10:48:03 Medical Health Researcher: LUBA Modifier: MARYELLENML <+> 1 RN Sign Out Signature Date/Time [facility] IntraOp Skin Prep Entry 1 Entry 2 Procedure Cervical Discectomy Cervical Discectomy Fusion Anterior Fusion Anterior Prescribed Yes Yes Pre-Surgical Prep Completed Prep Area OP SITE OP SITE Intraop Prep Integumentary WDL WDL Assessment WDL WDL Patient Exceptions Patients Normal Integumentary Variance(s) Integumentary Assessment Comment Prep Agents Alcohol, Chlorhexadine Chloraprep gluconate Prep by BRADEN SNYDER Byrd, Charlie D, RN MD-SNU Skin Prep Comment Hair Removal Methods No hair removal No hair removal performed performed Hair Removal Site Hair Removal By Damian Modified By: ISIAH BOJORQUEZ RN SMITH, MYRIAH L., RN 10/07/19 09:28:38 10/07/19 09:28:38 [facility] IntraOp Surgical Procedures Entry 1 Procedure Cervical Discectomy Fusion Anterior Additional (C4-5 ANTERIOR CERVICAL Procedure DISC & FUSION REVISION Description WITH TRACTION) Primary Procedure Yes Primary Surgeon BRADEN SNYDER MD-SNU Start 10/07/19 08:50:00 Stop 10/07/19 10:39:00 Anesthesia Type General Specialty SN Neurosurgery Wound Class I - Clean Last Modified By: ISIAH BOJORQUEZ RN 10/07/19 10:47:54 [facility] IntraOp Surgical Procedures Audit 10/07/19 10:47:54 Medical Health Researcher: LUBA Modifier: LUBA <+> 1 Stop [facility] IntraOp Temp Regulation Devices Entry 1 Temp Regulation Temperature Forced Air Warming Regulation Device device, Room temperature, Warm blankets Temperature 33343 Regulation Device Serial/Unit Number Temperature Lower body Regulation Site Temperature Device 43 C Setting Temperature PALMER CONN, VICE PRESIDENT EDUCATION Regulation Device Applied by Last Modified By: ISIAH BOJORQUEZ RN 10/07/19 09:29:39 [facility] IntraOP Time Out Entry 1 Procedure to be Cervical Discectomy Performed Fusion Anterior Time Out Time Out Pause Time 10/07/19 08:49:00 All activity Yes suspended (unless life threatening [...] Critical Events Surgeon None expected Anesthesia Provider None expected Nursing Assures Sterility of instruments, Equipment concerns or issues, Implant Availability Essential Imaging N/A Labeled and Displayed Last Modified By: ISIAH BOJORQUEZ RN 10/07/19 08:58:08 [facility] IntraOP Time Out Audit 10/07/19 08:58:08 Medical Health Researcher: MARYELLENTATI Modifier: LUBA 1 <*> Time Out Pause Time 10/07/19 08:09:00 1 <*> Procedure to be Performed Cervical Discectomy Fusion Anterior [facility] IntraOp X-Ray and Images Entry 1 X-Ray/Imaging Type Fluoroscopy Fluoroscopy Type C-Arm Site OP SITE Family Living Educator Name SURINDER LEDBETTER Last Modified By: ISIAH BOJORQUEZ RN 10/07/19 09:29:55 Case Comments <None> Finalized By: JAQUELIN KIRK Document Signatures Signed By: ISIAH BOJORQUEZ RN 10/07/19 10:48 JAQUELIN KIRK 10/08/19 10:22 Unfinalized History Date/Time Username Reason for Unfinalizing Freetext Reason for Unfinalizing 10/08/19 10:18 DEX Correct Billing Electronically signed by Valentina [facility] Conversion Community Health Educator Cerner at 11/09/2022 5:09 PM CDT documented in this encounter Plan of Treatment Not on file documented as of this encounter Visit Diagnoses Not on filedocumented in this encounter Care Teams Environmental Protection Officer Relationship Specialty Start Date End Date Kiko Sanderson MD [address] [facility] [address] [place] [phone] PCP - General Family Medicine 03/10/24 documented as of this encounter
--- OUTSIDE RECORDS SUMMARY | 2024-12-29 08:54 | XMS_ITS | Encounter Summary ---
Author Organization [employer] [employer] Address [address] [place] [address] Care Team Providers Care Erp Pm Name Role Phone Kiko Sanderson MD Primary Care Provider + [phone] Encounter Details Date Type Department Care Team (Late st Contact Info) Description 08/11/2019 Transcribed Document [facility] [place] Family Medicine [address] [place] [address] ProviderNitish MD [address], [place] [address] Social History Tobacco Use Types Packs/Day Years Used Date Smoking Tobacco: Never Assessed Comments Unknown Sex and Gender Information Value Date Recorded Sex Assigned at Not on file Legal Sex Female 4:18 PM CDT Gender Identity Not on file Sexual Orientation Not on file documented as of this encounter Miscellaneous Notes * Cerner Conversion Note - Nitish Laguna MD - 08/11/2019 3:11 PM PROFESSIONAL WRESTLER Patient Education Materials Follows: Outpatient Surgery, Adult, Care After These instructions [...] and water are not available, use hand law reporter. ? Change your dressing as told by [...] or a bad smell. Medicines ??? Take euey-bgt-hwciqcx and prescription medicines only as told by [...] 10/28/2016 Document Revised: 02/13/2018 Document Reviewed: 10/28/2016 [employer] Interactive Patient Education ? 2019 [employer] documented in this encounter Plan of Treatment Not on file documented as of this encounter Visit Diagnoses Not on filedocumented in this encounter Care Teams Erp Pm Relationship Specialty Start Date End Date Kiko Sanderson MD [address] [place] [facility] [address] [place] [phone] PCP - General Family Medicine 03/10/24 documented as of this encounter
--- OUTSIDE RECORDS SUMMARY | 2024-12-29 08:54 | XMS_ITS | Encounter Summary ---
Author Organization [employer] Address [address] [place] [address] Care Team Providers Care General Office Clerk Name Role Phone Kiko Sanderson MD Primary Care Provider + [phone] Encounter Details Date Type Department Care Team (Late st Contact Info) Description 10/07/2019 Transcribed Document [facility] Neurology - [facility] [address] [phone] Jone Rodriguez MD [address] [place] [address] Social History Tobacco Use Types Packs/Day Years Used Date Smoking Tobacco: Never Assessed Comments Unknown Sex and Gender Information Value Date Recorded Sex Assigned at Not on file Legal Sex Female 4:18 PM CDT Gender Identity Not on file Sexual Orientation Not on file documented as of this encounter Miscellaneous Notes * Cerner Conversion Note - Jone Rodriguez MD - 10/07/2019 11:45 AM EDT DATE OF PROCEDURE: 10/07/2019 SURGEON: Jone Rodriguez MD PRIMARY CARE PHYSICIAN: Kiko Sanderson MD. PREOPERATIVE DIAGNOSES: 1. Previous C3 through C7 anterior cervical diskectomy and fusion. 2. Previous placement and removal of a cervical spinal cord stimulator. 3. 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 POSTOPERATIVE DIAGNOSES: 1. Previous C3 through C7 anterior cervical diskectomy and fusion. 2. Previous placement and removal of a cervical spinal cord stimulator. 3. 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 INDICATION FOR PROCEDURE: 1. Previous C3 through C7 ACDF. 2. Previous placement and removal of a cervical spinal cord stimulator. 3. 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 PROCEDURES PERFORMED: 1. Removal of anterior hardware from previous cervical fusion. 2. C4-5 jess-corpectomy with removal of greater than 50% of the C4 and C5 vertebral bodies. 3. Structural allograft placement and revision of pseudoarthrosis at C4-5. 4. Placement of anterior cervical plating. RESIDENT DOCTOR: Rik Michael PA-C. TYPE OF ANESTHESIA: GEA with total IV anesthetic. DESCRIPTION OF PROCEDURE IN DETAIL: Once consent was noted to be on chart, Ms. Edgar was taken to the operating room. She was anesthetized and placed into the supine position with a shoulder roll. Quintana-Wells tongs were placed, and 7 pounds of in-line traction was applied. She was prepped and draped in usual sterile fashion. A time-out was called. Fluoroscopy was draped into the field and used throughout the case for radiographic guidance. A carotid style incision was made just medial to the sternocleidomastoid. Cautery was used to dissect down to and through the platysma. Subplatysmal dissection was performed just medial to the carotid sheath. The facial vein was ligated. Full exposure of the anterior spine was accomplished. We removed scar tissue and osteophyte off the previous hardware. A 2-level plate was removed inferiorly, and a 1-level plate was removed superiorly. These were [place] DePuy Synthes plates. A zero-P inner body spacer was removed. Retractors were placed. Full decompression was then performed under microscopic visualization at C4-5 level, all scar tissue removed, and the exiting C5 nerve roots were fully decompressed. A Cloward style M17 drill bit was used to complete jess-corpectomies at C4-5 with removal of 50% of the vertebral body above and below. Two LifeNet structural allografts were placed into the jess-corpectomy site for stabilization. ViviGen was placed around these corpectomy sites to assist in fusion. A 3-level [place] plate was affixed anteriorly with good purchase and good placement of all hardware seen on intraoperative x-ray. Meticulous hemostasis was obtained. A direct PANKAJ drain was left into the post esophageal space. 2-0 Vicryl reapproximated the platysma, 3-0 Vicryl closed the skin subcuticularly. Mastisol and Steri-Strips were applied. A Covaderm was applied. Rik Michael assisted throughout the surgery and helped perform the closure. SPECIMEN SENT: Old hardware. ESTIMATED BLOOD LOSS: 175 mL. DRAINS: Marcio-Quintero. COMPLICATIONS: None. /[id number] Jone Rodriguez MD MPT/AQ / MPT / MODL /[id number] CC: MD Kiko Hager MD documented in this encounter Plan of Treatment Not on file documented as of this encounter Visit Diagnoses Not on filedocumented in this encounter Care Teams General Office Clerk Relationship Specialty Start Date End Date Kiko Sanderson MD [address] [place] [facility] [address] [place] [phone] PCP - General Family Medicine 03/10/24 documented as of this encounter
--- OUTSIDE RECORDS SUMMARY | 2024-12-29 08:54 | XMS_ITS | Referral Summary ---
Author Organization [employer] Address [address] [place] [address] Care Team Providers Care Security Director Name Role Phone Kiko Sanderson MD Primary Care Provider + [phone] Allergies Active Allergy Reactions Criticality Noted Date Comments Adhesive Bandage Rash Low 03/02/2024 2Does not know if the reaction came from the tape or the topical iodine that was also with it. She knows she has a reaction to [id number] causes rash-cannot use paper tape Codeine Nausea And Vomiting 03/02/2024 Hydrocodone Nausea And Vomiting 03/02/2024 Iodine Rash Low 03/02/2024 Methylprednisolone Anxiety Low 03/02/2024 Morphine Hives,Nausea And Vomiting High 03/02/2024 1Widespread hives and itching; said it occurred back in 2000 Oxycodone-Acetaminophen Nausea And Vomiting 06/2024 Medications atorvastatin (LIPITOR) 40 MG tablet Take 1 tablet (40 mg total) by mouth nightly. 01/31/2024 Active DULoxetine (CYMBALTA) 60 MG capsule Take 2 capsules (120 mg total) by mouth daily. 01/31/2024 Active losartan (COZAAR) 25 MG tablet Take 1 tablet (25 mg total) by mouth daily. 02/10/2024 Active metoprolol succinate (TOPROL-XL) 25 MG 24 hr tablet Take 1 tablet (25 mg total) by mouth daily. 02/14/2024 Active montelukast (SINGULAIR) 10 mg tablet Take 1 tablet (10 mg total) by mouth nightly. 12/12/2023 Active omeprazole (PriLOSEC) 40 MG capsule Take 1 capsule (40 mg total) by mouth 2 (two) times daily. 01/31/2024 Active ascorbic acid, vitamin C, (vitamin C) 1000 MG tablet Take 1 tablet (1,000 mg total) by mouth daily. Active cholecalciferol , vitamin D3, 50 mcg (2,000 unit) Cap Take 1 capsule (2,000 Units total) by mouth daily. Active multivitamin per tablet Take 1 tablet by mouth daily. Active TURMERIC ORAL Take 500 mg by mouth daily. Active potassium gluconate 595 mg (99 mg) tab Take 1 tablet by mouth daily. Active mirabegron (Myrbetriq) 25 mg Tb24 ER tablet Take 1 tablet (25 mg total) by mouth daily. Active lidocaine HCl (magic mouthwash, with steroid; no Benadryl,) suspension Take 10 mLs by mouth every 6 (six) hours as needed Swish, don't swallow.. 250 mL 1 03/15/2024 Active Active Problems Problem Noted Date Diagnosed Date Cervical stenosis of spinal canal 03/10/2024 Anxiety 03/02/2024 03/02/2024 Gastroesophageal reflux disease 03/02/2024 03/02/2024 History of obstructive sleep apnea 03/02/2024 03/02/2024 Malignant neoplasm of breast 03/02/202406/2024 Palpitations 03/02/2024 03/02/2024 History of fusion of cervical spine 03/02/2024 Cervical radiculopathy 03/02/2024 Tension-type headache 05/10/2015 03/02/2024 Overview (03/02/2024): From Automated Load;Provider: Maci May;Status: Active Restless leg syndrome 03/22/2015 03/02/2024 Overview (03/02/2024): From Automated Load;Provider: Maci May;Status: Active Social History Tobacco Use Types Packs/Day Years Used Date Smoking Tobacco: Never Smokeless Tobacco: Never Tobacco Cessation:Counseling Given: Not Answered Alcohol Use Standard Drinks/Week Comments Yes 0 (1 standard drink = 0.6 oz pur e alcohol) rare Humiliation, Afraid, Rape, and Kick questionnair e Answer Date Recorded Within the last year, have y ou been afraid of your partner or ex-partner? No 03/02/2024 Within the last year, have y ou been humiliated or emotionally abused in other ways by your partner or ex-partner? No Within the last year, have y ou been kicked, hit, slapped, or otherwise physically hurt by your partner or ex-partner? No 03/02/2024 Within the last year, have y ou been raped or forced to have any kind of sexual activity by your partner or ex-partner? No 03/02/2024 PHQ-2 Answer Date Recorded Patient Health Questionnaire-2 Score 0 03/02/2024 [facility] Intimate Partner Violence Answer Da te Recorded Within the last year, have y ou been afraid of your partner or ex-partner? No 03/02/2024 Within the last year, have y ou been humiliated or emotionally abused in other ways by your partner or ex-partner? No Within the last year, have y ou been kicked, hit, slapped, or otherwise physically hurt by your partner or ex-partner? No 03/02/2024 Within the last year, have y ou been raped or forced to have any kind of sexual activity by your partner or ex-partner? No 03/02/2024 Interpersonal Safety Answer Date Record ed Family or friends hurt you Not on file 03/05 Family or friends insult you Not on file Family or friends threaten you Not on file 0 03/05/2024 Family or friends scream or curse at you Not on file 03/05/2024 Food Insecurity Answer Date Recorded Food run out past 12 months Not on file 02/19 Food did not last past 12 months Not on file 03/05/2024 Employment Answer Date Recorded Help finding and keeping a job Not on file 0 03/05/2024 Family and Community Support Answer Demetri e Recorded Help with Day to Day Activities Not on file 03/05/2024 Feeling Lonely or Isolated Not on file 03/05 Educational Attainment Answer Date Khurram rded Speak language other than Argentine at home Not on file 03/05/2024 Want help with school or training Not on file 03/05/2024 Depression Answer Date Recorded PHQ-2 Risk Not on file 03/05/2024 Disabilities Answer Date Recorded Difficulty concentrating Not on file 024 Difficulty doing errands alone Not on file 0 03/05/2024 Substance Use Answer Date Recorded Used prescription meds for non-medical reasons N ot on file 03/05/2024 Used illegal drugs past 12 months Not on file 03/05/2024 Comments Unknown Sex and Gender Information Value Date Recorded Sex Assigned at Not on file Legal Sex Female 4:18 PM CDT Gender Identity Not on file Sexual Orientation Not on file Last Filed Vital Signs Vital Sign Reading Time Taken Comments Blood Pressure 120/75 03/15/2024 8:58 AM EDT Pulse 88 03/15/2024 8:58 AM EDT Temperature 37 C (98.6 F) 03/15/2024 8:58 AM EDT Respiratory Rate 16 03/15/2024 8:58 AM EDT Oxygen Saturation 95% 03/15/2024 8:58 AM EDT Inhaled Oxygen Concentration - - Weight 71.7 kg (158 lb) 03/10/2024 7:26 AM EDT Height 162.6 cm (5' 4.02 ) 03/10/2024 7:26 AM ED T Body Mass Index 27.11 03/10/2024 7:26 AM EDT Plan of Treatment Not on file Medical Devices Implanted Type Area Cocktail Lounge Manager Device Identifier Shelf Expiration Date Model / Serial / Lot Bone Putty Stimulan [facility] 620-005 - [id number] Implanted:Qty : 1 on 03/10/2024 by Jone Rodriguez MD at [facility] IMPLANTS N/A: Spine Cervical BIOCOMPOSITES 10/19/2026 620-005 / / [id number] Scr 4.0 Ply Cfx 4.5x38 0-45-238 - [id number] Implanted:Qty : 1 on 03/10/2024 by Jone Rodriguez MD at [facility] IMPLANTS N/A: Spine Cervical J &J:DEPUY:DEPUY SPINE 1020-45-2 38 / 1020-45-2 38 / Thaddeus Ti 4.0x240 Str 0-14-240 - [id number] Implanted:Qty : 2 on 03/10/2024 by Jone Rodriguez MD at [facility] IMPLANTS N/A: Spine Cervical J &J:DEPUY:DEPUY SPINE 1020-14-2 40 / 102014-2 40 / Crossconn R2r 32 To 35mm 1020-24-003 - [id number] Implanted:Qty : 1 on 03/10/2024 by Jone Rodriguez MD at [facility] IMPLANTS N/A: Spine Cervical J &J:DEPUY:DEPUY SPINE 1020-24-0 03 / 102024-0 03 / Bone Vivigen Frmble Cell 10cc Bl-1600-003 - [id number] Implanted:Qty : 1 on 03/10/2024 by Jone Rodriguez MD at [facility] IMPLANTS N/A: Spine Cervical LIFENET:LIFENET TRANSPLANT SRV 01/05/2025 BL-1600-0 03 / [id number] / Scr 1020-00-000 - [id number] Implanted:Qty : 14 on 03/10/2024 by Jone Rodriguez MD at [facility] IMPLANTS N/A: Spine Cervical J &J:DEPUY:DEPUY SPINE 1020-00-0 00 / 1020-00-0 00 / Scr 4.0 Ply 3.5x14 1020-35-114 - [id number] Implanted:Qty : 2 on 03/10/2024 by Jone Rodriguez MD at [facility] IMPLANTS N/A: Spine Cervical J &J:DEPUY:DEPUY SPINE 1020-35-1 14 / 1020-35-1 14 / Scr 4.0 Ply 3.5x18 1020-35-118 - [id number] Implanted:Qty : 2 on 03/10/2024 by Jone Rodriguez MD at [facility] IMPLANTS N/A: Spine Cervical J &J:DEPUY:DEPUY SPINE 1020-35-1 18 / 1020-35-1 18 / Scr 4.0 Ply 3.5x30 1020-35-130 - [id number] Implanted:Qty : 4 on 03/10/2024 by Jone Rodriguez MD at [facility] IMPLANTS N/A: Spine Cervical J &J:DEPUY:DEPUY SPINE 1020-35-1 30 / 1020-35-1 30 / Scr 4.0 Ply Cfx 4.5x30 1020-45-230 - [id number] Implanted:Qty : 3 on 03/10/2024 by Jone Rodriguez MD at [facility] IMPLANTS N/A: Spine Cervical J &J:DEPUY:DEPUY SPINE 1020-45-2 30 / 1020-45-2 30 / Scr 4.0 Ply Cfx 4.5x34 1020-45-234 - [id number] Implanted:Qty : 1 on 03/10/2024 by Jone Rodriguez MD at [facility] IMPLANTS N/A: Spine Cervical J &J:DEPUY:DEPUY SPINE 1020-45-2 34 / 1020-45-2 34 / Scr 4.0 Ply Cfx 4.5x36 1020-45-236 - [id number] Implanted:Qty : 1 on 03/10/2024 by Jone Rodriguez MD at [facility] IMPLANTS N/A: Spine Cervical J &J:DEPUY:DEPUY SPINE 1020-45-2 36 / 1020-45-2 36 / [place] [address] MEDICARE PART A B COMMERCIAL Advance Directives For more information, please contact: [phone] Documents on File Type Date Recorded Patient Mechanical Meter Tester Expl anation Advance Directives and Livin g Will 03/02/2024 LIVING WILL Advance Directives and Livin g Will 03/02/2024 POWER OF RN LACTATION * Full Code (Latest Code Status on File) Date Activated Date Inactivated Comments 03/10/2024 3:36 PM 03/15/2024 4:40 PM Care Teams Security Director Relationship Specialty Start Date End Date Kiko Sanderson MD [address] [facility] [address] [place] [phone] PCP - General Family Medicine 03/10/24
--- OUTSIDE RECORDS SUMMARY | 2024-12-29 08:55 | XMS_ITS | Encounter Summary ---
Author Organization [employer] [employer] Address [address] [place] [address] Care Team Providers Care Nutrition Therapist Name Role Phone Kiko Sanderson MD Primary Care Provider + [phone] Encounter Details Date Type Department Care Team (Late st Contact Info) Description 10/07/2019 Transcribed Document [facility] [place] [address] [place] [address] ProviderNitish MD [address] [place], [place] [address] Social History Tobacco Use Types Packs/Day Years Used Date Smoking Tobacco: Never Assessed Comments Unknown Sex and Gender Information Value Date Recorded Sex Assigned at Not on file Legal Sex Female 4:18 PM CDT Gender Identity Not on file Sexual Orientation Not on file documented as of this encounter Miscellaneous Notes * Cerner Conversion Note - Nitish ProviderMD - 10/07/2019 8:50 AM CDT [facility] Main OR Preop Summary Primary Physician: BRADEN SNYDER MD-SNU Finalized Date/Time: 10/07/19 12:25:32 Pt. Name: ARA MAGO SOLOMON Trujillo.O.B./Sex: 1955 Female Med Rec #: [id number] Physician: BRADEN SNYDER MD-SNU Financial #: [id number] Pt. Type: O Room/Bed: /3 Admit/Disch: 10/07/19 06:11:00 - Institution: [facility] PreOp Case Times Entry 1 In Preop 10/07/19 05:45:00 Ready for Holding n/a Room Patient Ready for 10/07/19 08:00:00 Surgery Patient Out of Preop 10/07/19 08:07:00 Patient Out of n/a Holding Room Last Modified By: ROSALVA BROOKS RN 10/07/19 12:25:26 [facility] PreOp Case Times Audit 10/07/19 12:25:26 Insurance Agent: AMOS Modifier: HODANLINC <+> 1 In Preop <+> 1 Patient Ready for Surgery Finalized By: ROSALVA BROOKS, RN Document Signatures Signed By: ROSALVA BROOKS RN 10/07/19 12:25 Electronically signed by Valentina [facility] Conversion Community Health Consultant Cerner at 11/09/2022 5:21 PM CDT documented in this encounter Plan of Treatment Not on file documented as of this encounter Visit Diagnoses Not on filedocumented in this encounter Care Teams Nutrition Therapist Relationship Specialty Start Date End Date Kiko Sanderson MD [address] [facility] [address] [place] [phone] PCP - General Family Medicine 03/10/24 documented as of this encounter
--- OUTSIDE RECORDS SUMMARY | 2024-12-29 08:55 | XMS_ITS | Clinical Summary ---
Author Organization [employer] Address [address] [place] [address] Care Team Providers Care Appointment Coordinator Name Role Phone Kiko Sanderson MD Primary Care Provider + [phone] Allergies Active Allergy Reactions Criticality Noted Date Comments Adhesive Bandage Rash Low 03/02/2024 2Does not know if the reaction came from the tape or the topical iodine that was also with it. She knows she has a reaction to [id number] causes rash-cannot use paper tape Codeine Nausea [...] Date Khurram rded Speak language other than Afghan at home Not on file 03/05/2024 Want [...] 03/10/2024 7:26 AM EDT Plan of Treatment Health Maintenance Due Date Last Done Comments CT Colonography 1955 Colonoscopy 1955 Colorectal Cancer Screening 1955 DXA SCAN 1955 FOBT/FIT 1955 Fit-DNA (Cologuard) 1955 Sigmoidoscopy 1955 Hepatitis C Screening 1971 Breast Cancer Screening 1993 Shingles Vaccine (Zoster) (1 of 2) 2003 Medicare Initial AWV [id number] 08/23/2019 COVID-19 VACCINE ( season) 2024 05/26/2021, 08/24/2020, 07/27/2020 Falls Risk Screening 07/22/2024 Depression Screening (12+) 03/02/2025 03/02/2024 Tobacco Cessation Counseling and Screening (12+) 03/10/2025 03/10/2024 Influenza Vaccine (Season Ended) 2025 04/29/20 Respiratory Syncytial Virus (RSV) Adult or (1 - 1-dose 75+ series) 2028 DTAP/TDAP/TD VACCINES (3 - T d or Tdap) 06/29/2031 06/29/2021, 09/22/1996 Pneumococcal 50+ years Completed 08/20/2022 Medical Devices Implanted Type Area Credit Assistant Device Identifier Shelf Expiration Date Model / Serial / Lot Bone Putty Stimulan 5cc 620-005 - [id number] Implanted:Qty : 1 on 03/10/2024 by Jone Rodriguez MD at [facility] IMPLANTS N/A: Spine Cervical BIOCOMPOSITES 10/19/2026 620-005 / / [id number] Scr 4.0 Ply Cfx 4.5x38 0-45-238 - [id number] Implanted:Qty : 1 on 03/10/2024 by Jone Rodriguez MD at [facility] IMPLANTS N/A: Spine Cervical J &J:DEPUY:DEPUY SPINE 1020-45-2 38 / 102045-2 38 / Thaddeus Ti 4.0x240 Str 1019-14-240 - [id number] Implanted:Qty : 2 on 03/10/2024 by Jone Rodriguez MD at [facility] IMPLANTS N/A: Spine Cervical J &J:DEPUY:DEPUY SPINE 1020-14-2 40 / 1020-14-2 40 / Crossconn R2r 32 To 35mm 0-24-003 - [id number] Implanted:Qty : 1 on 03/10/2024 by Jone Rodriguez MD at [facility] IMPLANTS N/A: Spine Cervical J &J:DEPUY:DEPUY SPINE 1020-24-0 03 / 1020-24-0 03 / Bone Vivigen Frmble Cell 10cc Bl-1600-003 - [id number] Implanted:Qty : 1 on 03/10/2024 by Jone Rodriguez MD at [facility] IMPLANTS N/A: Spine Cervical LIFENET:LIFENET TRANSPLANT SRV 01/05/2025 BL-1600-0 03 / [id number] / St Scr 1020-00-000 - [id number] Implanted:Qty : 14 on 03/10/2024 by Jone Rodriguez MD at [facility] IMPLANTS N/A: Spine Cervical J &J:DEPUY:DEPUY SPINE 1020-00-0 00 / 1020-00-0 00 / Scr 4.0 Ply 3.5x14 1020-35-114 - [id number] Implanted:Qty : 2 on 03/10/2024 by Jone Rodriguez MD at [facility] IMPLANTS N/A: Spine Cervical J &J:DEPUY:DEPUY SPINE 1020-35-1 14 / 1020-35-1 14 / Scr 4.0 Ply 3.5x18 1020-35-118 - [id number] Implanted:Qty : 2 on 03/10/2024 by Jone Rodriguez MD at [facility] IMPLANTS N/A: Spine Cervical J &J:DEPUY:DEPUY SPINE 1020-35-1 18 / 1020-35-1 18 / Scr 4.0 Ply 3.5x30 1020-35-130 - [id number] Implanted:Qty : 4 on 03/10/2024 by Jone Rodriguez MD at [facility] IMPLANTS N/A: Spine Cervical J &J:DEPUY:DEPUY SPINE 1020-35-1 30 / 1020-35-1 30 / Scr 4.0 Ply Cfx 4.5x30 1020-45-230 - [id number] Implanted:Qty : 3 on 03/10/2024 by Jone Rodriguez MD at [facility] IMPLANTS N/A: Spine Cervical J &J:DEPUY:DEPUY SPINE 1020-45-2 30 / 1020-45-2 30 / Scr 4.0 Ply Cfx 4.5x34 1020-45-234 - [id number] Implanted:Qty : 1 on 03/10/2024 by Jone Rodriguez MD at [facility] IMPLANTS N/A: Spine Cervical J &J:DEPUY:DEPUY SPINE 1020-45-2 34 / 1020-45-2 34 / Scr 4.0 Ply Cfx 4.5x36 1020-45-236 - [id number] Implanted:Qty : 1 on 03/10/2024 by Jone Rodriguez MD at [facility] IMPLANTS N/A: Spine Cervical J &J:DEPUY:DEPUY SPINE 1019-45-2 36 / 45-2 36 / Insurance MEDICARE PART A B [employer] COMMERCIAL Advance Directives For more information, please contact: [phone] Documents on File Type Date Recorded Patient Tool Liaison Expl anation Advance Directives and Livin g Will 03/02/2024 LIVING WILL Advance Directives and Livin g Will 03/02/2024 POWER OF HAND BINDERY ASSEMBLY WORKER * Full Code (Latest Code Status on File) Date Activated Date Inactivated Comments 03/10/2024 3:36 PM 03/15/2024 4:40 PM Care Teams Appointment Coordinator Relationship Specialty Start Date End Date Kiko Sanderson MD [address] [place] [facility] [address] [place] [phone] PCP - General Family Medicine 03/10/24
--- OUTSIDE RECORDS SUMMARY | 2024-12-29 08:55 | XMS_ITS | Encounter Summary ---
Author Organization [facility] [employer] Address [address] [place] [address] Care Team Providers Care Geochemist Name Role Phone Kiko Sanderson MD Primary Care Provider + [phone] Encounter Details Date Type Department Care Team (Late st Contact Info) Description 10/07/2019 Transcribed Document [facility] [place] [address] [place] [address] ProviderNitish MD [address] [place] [address] Social History Tobacco Use Types Packs/Day Years Used Date Smoking Tobacco: Never Assessed Comments Unknown Sex and Gender Information Value Date Recorded Sex Assigned at Not on file Legal Sex Female 4:18 PM CDT Gender Identity Not on file Sexual Orientation Not on file documented as of this encounter Miscellaneous Notes * Cerner Conversion Note - Historical ProviderMD - 10/07/2019 6:04 AM CDT Admission History, Adult Entered On: 10/07/2019 20:12 EDT Performed On: 10/07/2019 15:00 EDT by SID KAUR Advance Directive Patient has Advance Directive *Q : Yes, Advance Directive not with the patient Advance Directive Type : Living will, Medical durable power of business attorney (proxy) Copy Advance Directive Verified/on Chart : No SID KAUR - 10/07/2019 20:10 EDT Anesthesia/Transfusion History Family History of Anesthesia Reaction : No prior transfusion(s) Transfusion History : Prior anesthesia reaction Type of Anesthesia Reaction : Excessive nausea/vomiting, Other: has woken up with low blood pressure, shallow breathing, and vomitting, Family History of Anesthesia Reaction : None SID KAUR - 10/07/2019 20:10 EDT Functional Assessment Living Situation : Home Current Home Treatments : CPAP SID KAUR 10/07/2019 20:10 EDT General Info Preferred Name : Aarti Support Person/Patient Elementary Ell Teacher : Yes Support Person/Pt Rep Name : lai Linda Support Person/Pt Rep Contact Information : [phone] cell Want Family/Rep/Phys Notified of Admit : No Emergency Contact #1 : Ivette Fitzgerald Emergency Contact #1 cell Emergency Contact #1 Relationship : daughter Emergency Contact #2 : lorfederico chahal Emergency Contact #2 Emergency Contact #2 Relationship : [id number] Chief Complaint : neck pain radiating to RUE to elbow Information Obtained From : Patient Primary Language : Tanzanian Preferred Communication Mode : Verbal Communication Barrier : None SID KAUR 10/07/2019 20:10 EDT Fall Risk Scales ABCs Fall Injury Risk Identification : Bones, Surgery ABC Fall Injury Risk : Moderate to high injury risk NORWOOD Hx Falls Immediate/Within 3 Months : No [place] Secondary Diagnosis : Yes [place]OD Use of Ambulatory Aid : Bed rest/Nurse assist [place] IV Therapy or IV Access : Yes [place] Gait/Transferring : Normal, bedrest, immobile [place] Mental Status : Oriented to own ability [place] Fall Risk Score : 35 [place]OD Fall Scale Risk Level : 25-45 Medium Risk Semora Fall Interventions : Adequate lighting, Assistive devices within reach, Bed in low position, Call device within reach, Fall prevention handout/education per facility policy, Frequent orientation to call device, Frequent orientation to surroundings, Hourly comfort/safety rounds, Non-slip footwear, Personal items within reach, Reinforced to call for assistance before getting out of bed, Room free of clutter/spills, Upper side-rails up, Wheels locked, Wires/Cords secured, [facility] SID KAUR 10/07/2019 20:10 EDT Health Histories Smoking Status : Never (less than 100 in lifetime; none in last 30 days) Smokeless Tobacco Status : Never Implant/Device Type, Surgical Physician Assistant and Model : neck fusion RUFINA KAURANDRA - 10/07/2019 20:10 EDT Social History (As Of: 10/07/2019 20:12:37 EDT) Tobacco: Use in Last 12 Months: No. Second Hand Smoke Exposure: Yes. (Last Updated: 04/28/2014 10:31:38 EDT by SHASHANK GAMBINO, RN) Alcohol: Alcohol Use History Yes. Alcohol Use Frequency Socially. (Last Updated: 03/26/2018 12:45:08 EDT by ARTHUR MERIDA, RN) Substance Abuse: Drug Use Hx: No. Use in Last 12 Months: No. (Last Updated: 04/28/2014 10:31:45 EDT by SHASHANK GAMBINO, RN) Nutrition/Health: Regular (Last Updated: 03/26/2018 12:45:20 EDT by ARTHUR MERIDA, RN) Home/Environment: Lives with Spouse. Living situation: Home/Independent. Alcohol abuse in household: No. Substance abuse in household: No. Smoker in household: No. Injuries/Abuse/Neglect in household: No. Feels unsafe at home: No. Family/Friends available for support: Yes. 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 (Last Updated: 03/26/2018 12:45:53 EDT by ARTHUR MERIDA, RN) Height and Weight, Clinical Dosing Height Source : Stated Height Entry Format : [place] Height, Feet : 5 ft(Converted to: 152 cm, 60 Inch) Height, Inches : 3 Inch(Converted to: 0 ft 3 Inch, 7.62 cm) Clinical Height : 160.02 cm Weight Source : Standing scale Weight Entry Format : [place] Clinical Dosing Weight : 73.59 kg Weight, Pounds : 161.9 lb Body Surface Area (BSA) : 1.77 m2 Body Mass Index : 28.7 kg/m2 (HI) [place] Body Weight : 52 kg SID KAUR - 10/07/2019 20:10 EDT Infectious Disease History COVID19 Screening : No Physical contact outside US in the last 30 days : No Infectious Disease History : Chicken pox/Shingles, Influenza, Measles, Mumps, Pertussis (Whooping cough) Tuberculosis Symptoms : None SID KAUR 10/07/2019 20:10 EDT Tetanus Immunization Status Previous Tetanus Immunizations : No qualifying data available. SID KAUR 10/07/2019 20:10 EDT Influenza Vaccine Asmt, Adult Previous Vaccines from Immunization Schedule : No qualifying data available. Influenza Immunization, Current Season : Yes SID KAUR 10/07/2019 20:10 EDT Pneumococcal Vaccine Previous Vaccines from Immunization Schedule : No qualifying data available. Pneumonia Immunization Received : Yes SID KAUR 10/07/2019 20:10 EDT Nutrition History Eating Poorly Due to Decreased Appetite : No Unplanned Weight Loss in Past 3-6 Months : No Malnutrition Screening Tool Total(mal) : 0 Malnutrition Screening Tool Risk Level : Patient not at risk SID KAUR 10/07/2019 20:10 EDT [place] Suicide Severity Rating Scale (C-SSRS) CSSRS Past Month Wish to be : No CSSRS Past Month Suicidal Thoughts : No CSSRS Lifetime Suicide Behavior : No Suicide Severity Rating Score : 0 Suicide Severity Rating : No Additional Care Required at this time SID KAUR 10/07/2019 20:10 EDT Psychosocial History Does Someone Depend on You for Care? : No Do You Have a History of the Following? : Anxiety Currently in Unsafe Situation : No SID KAUR 10/07/2019 20:10 EDT Sleep Apnea Risk Assmt BiPAP/CPAP Ordered for Home Use : Yes Hx of Obstructive Sleep Apnea Diagnosis : Yes BiPAP/CPAP Used at Home : Yes Age over 50 Years Old : Yes Gender Male : No SID KAUR 10/07/2019 20:10 EDT Valuables and Belongings Valuables and Belongings : Clothing Clothing : Common streetwear Clothing Disposition : Bedside SID KAUR 10/07/2019 20:10 EDT documented in this encounter Plan of Treatment Not on file documented as of this encounter Visit Diagnoses Not on filedocumented in this encounter Care Teams Geochemist Relationship Specialty Start Date End Date Kiko Sanderson MD [address] [place] [facility] [address] [place] [address] PCP - General Family Medicine 03/10/24 documented as of this encounter
--- OUTSIDE RECORDS SUMMARY | 2024-12-29 08:55 | XMS_ITS | Continuity of Care Document ---
Author Organization [facility] Address [address] [place] [address] Care Team Providers Care Water Resources Business Segment Leader Name Role Phone NATALIE WOODSON Primary Care Provider [phone] Assessment Encounter Date Assessment Date Assessment LastModified by Organization Details LastModified Time 11/03/2024 11/03/2024 This is a 69-year-old female [...] such as yoga or pilates on a fdc basis. I had an in-depth discussion with [...] including imaging, clinical notes, and relevant labs. [email or web address] Not available 11/03/2024 10:15:26 Plan of Treatment Reminders Order Date Submit Date Provider Last Modified By Organization Details Last Modified Time Details Appointments None record ed. Lab None record ed. Referral None record ed. Procedures None record ed. Surgeries None record ed. Imaging None record ed. Medication Orders None record ed. Patient TargetsNo targets recorded. Patient InstructionsNo instructions recorded. Reason for Referral None Reported. Results Created Date Observation Date Name Description Value Unit Range Abnormal Flag Note LastModifiedBy Organization Detail LastModifiedTime 10/16/1910/15/2024 XR, cervi mimi spine , 2 or 3 view [place]ine [place] [address] [place] [address] Andres garcia Name: AKNUSH garcia : [birth year] 52 Andres garcia 7 Orderi ng Provid er: LYNNE SNYDER EXAM DATE: 2024 EXAM: XR CERVIC AL AP/LAT CLINIC AL INFORM ATION: IMAGES PROVID ED: AP, latera l, open mouth and submen christianne views of the cervic al spine COMPAR REJI: None. FINDIN GS: Anteri or fusion noted C3-C7 with animal husbandry manager ior fusion C2-T3. No compli cation . No hardwa re loosen ing is noted. The alignm ent is accept able. No prever tebral soft tissue swelli ng. IMPRES JE: Stable uncomp licate d appear ing anteri or and animal husbandry manager ior fusion Interp reted By: Michael Doshi MD Electr onical ly Signed By: Michael Doshi MD on 025 8:25 AM [facility] Radiology [facility] [address] [place], [address], 10/16/2024 07:39:49 Result Notes None recorded. Problems Name Problem SNOMED Code Status Onset Date Resolution Date Notes Provider Name and Address Organization Details Recorded Time Tension-ty pe headache 282544544 Active 2014 From Automated Load;Provi henrietta: Maci May;Stat us: Active Richard Workman [facility] 4 08:01:57 Finding of sensation by site 231062841 Active 2014 From Automated Load;Provi henrietta: Maci May;Stat us: Active Richard Workman [facility] 4 08:01:57 Cervico-oc cipital neuralgia 05153072 Active 2014 From Automated Load;Provi henrietta: Maci May;Stat us: Active Richard Workman [facility] 4 08:01:57 Restless legs 27236290 Active 2014 From Automated Load;Provi henrietta: Maci May;Stat us: Active Richard Workman [facility] 4 08:01:57 Postoperat madelyn retention of urine 426492219 [facility] 4 08:01:57 Urge incontinen ce of urine 50660478 [facility] 08:[facility]:57 Problem Notes None recorded. Procedures Surgical History Date Name Laterality Status Provider Name and Address Organization Details Recorded Time 09/08/19 25 Lumbar Transforaminal Epidural Injection - Fariba completed RAMONA MITTAL MD [address] [place] [address], [phone], [facility] 09/08/2024 13:54:59 08/24/19 25 Joint Injection, Knee - Fariba completed RAMONA MITTAL MD [address] [place] [address], [phone], [facility] 08/24/2024 15:53:56 01/06/20 24 Lumbar Transforaminal Epidural Injection - Fariba completed RAMONA MITTAL MD [address] [place] [address], [phone], [facility] 01/06/2024 15:01:43 12/31/19 24 Trigger Point Injections - [facility] completed IVÁN TRONCOSO PA-C [address] [place] [address], [phone], [facility] 12/31/2023 09:52:26 12/23/19 24 Cervical Epidural Steroid Injection - [facility] completed RAMONA MITTAL MD [address] [place] [address], [phone], [facility] 12/23/2023 16:54:06 12/13/19 24 Cervical MBB 2 level - Fariba completed RAMONA MITTAL MD [address] [place] [address], [phone], [facility] 12/13/2023 14:20:14 11/12/19 24 Electromyography (EMG) with Nerve Conduction Study (NCV) completed Emma Fitzgerald (Nicky) [facility] 11/12/2023 16:50:17 09/17/19 24 Lumbar Transforaminal Epidural Injection - [facility] completed RAMONA MITTAL MD [address] [place] [address], [phone], [facility] 09/17/2023 16:25:20 09/11/19 24 Marilyn Maneuver completed [facility] 09/11/2023 15:39:59 09/11/19 24 [place] completed [facility] 09/11/2023 15:40:16 09/11/19 24 Endoscopy Nasal; Biospy, Polypectomy or Debridement completed Emma [facility] 09/11/2023 15:28:27 10/07/19 20 ANTERIOR CERVICAL DISCECTOMY AND FUSION FOR DECOMPRESSION (SURG) completed Richard Workman [facility] 09/05/2023 08:02:06 08/11/19 20 LAMINECTOMY, CERVICAL (SURG) completed Richard Workman [facility] 09/05/2023 08:02:06 05/18/20 19 Interpretation completed MAHSA GALVEZ PA-C [address] [place] [address], [phone], [facility] 05/18/2019 16:31:44 hysterectomy completed Richard Workman [facility] 09/05/2023 08:02:03 procedure on urinary bladder completed Richard Workman [facility] 09/05/2023 08:02:03 [facility] 09/05/2023 08:02:03 Neck Surgery completed Richard Workman [facility] 09/05/2023 08:02:03 [facility] ear [facility] 09/05/2023 08:02:03 Imaging Results None recorded. Procedure Notes None recorded. Medical Equipment None Reported. Allergies Allergen ID Allergen Name Allergen Category Reaction Reaction Severity Criticality Documentation Date Start Date Code Code System Note Provider Name and Address Organization Details Recorded Time 069115 hydrocodo ne bitartrat e medicatio n Not available Not available Not available 06/15/20162014 05768 9 RxNorm Comme nt: Creat ed By: Brook hall;Cr eated Date: 2014 1:20: 53 PM; Richard Workman [facility] 08:02:01 902610 morphine sulfate medicatio n Not available Not available Not available 06/15/20162013 47526 RxNorm Comme nt: Creat ed By: Brian Byers ca;Cr eated Date: 2013 9:04: 02 AM; [facility]imberlymelissa [facility] 08:02:01 456090 codeine medicatio n Not available Not available Not available 06/15/20162013 2670 RxNorm Comme nt: Creat ed By: Brian Byers ca;Cr eated Date: 2013 9:03: 46 AM; Richard [facility] 4 08:02:01 432884 codeine medicatio n Not available Not available Not available 08/16/2023 2670 RxNorm Celine Hockensmi th [facility] 4 13:51:35 116274 morphine medicatio n Not available Not available Not available 08/16/2023 7052 RxNorm [facility]eline [facility]mi [facility] 4 13:51:44 709591 prednison e medicatio n Not available Not available Not available 08/16/2023 8640 RxNorm [facility]eline [facility]mi th [facility] 4 13:51:50 988785 acetamino phen / oxycodone medicatio n Not available Not available Not available 2023 11418 3 RxNorm Suzan Fawn [facility], [facility] 4 09:39:59 183630 hydrocodo ne Not available Not available Not available Not available 2023 5489 RxNorm Suzan Fawn null, [facility] 4 09:40:12 317361 Medrol medicatio n Not available Not available Not available 08/30/202357062 2 RxNorm Suzan Fawn [facility], [facility] 4 09:41:24 482359 methylpre dnisolone medicatio n Not available Not available Not available 03/16/20242023 6902 RxNorm Other react ions and sever ities : 'Anxi ety'. [facility]i [facility]dom[facility] 4 08:21:11 936560 iodine medicatio n rash Not available Not available 03/16/20242023 5933 RxNorm Sarahi Perdmoo [facility] 4 08:21:11 Medications Name Sig [...] Updated DateTime 5 160.02 cm 28.6 kg/m2 59950.7 7 g 97.2 [degF] 63 /min 100 % 100 % 118 mm[Hg] 64 mm[Hg] Marianne Mccurdy [facility] 5 09:59:15 Social History Question Answer Notes LastModified by Smile Familyat ion Details LastModified Time Tobacco Smoking Status Never [facility]oker [facility] 08/16/2023 13:52:52 How Much Tobacco Do You Chew? None Information not available 10/12/2019 What Was The Date Of Your Most Recent Tobacco Screening? 11/03/2024 [email or web address] Information not available 11/03/2024 What Is Your Relationship Status? Other [email or web address] Information not available 07/21/2024 Sex: Female Functional Status Question Answer Note LastModified by Organizat ion Details LastModified Time What is your level of alcohol consumption? Occasional Information not available 10/12/2019 Are you currently employed? No [email or web address] Information not available 07/21/2024 Mental Status None recorded. Family History Relationship Description Onset Age of this Age Resolved Age Notes LastModified by Organization Details LastModified Time Unspecified Relation Diabetes mellitus [email or web address] Not available 08/22 08:01:54 Unspecified Relation Hypertensive disorder [email or web address] Not available 08/22 08:01:54 Unspecified Relation Myocardial infarction [email or web address] Not available 08:01:54 Unspecified Relation Cerebrovascu lar accident [email or web address] Not available 0 09/05/2023 08:01:54 Medical History Condition Response Kidney Stones N Blood Transfusion N Emphysema N Sexually Transmitted Disease N Depression Y COPD N Pneumonia N Anxiety Disorder Y Arthritis Y Blood Clot N Acid Reflux (GERD) Y Cancer Y Stroke N Neurologic Disorder N Headaches N Fibromyalgia N Endocrine Disorder N Kidney Disease N Heart Problems N Skin Problems N Meningitis N Ulcers N Rheumatic Fever N Bleeding Disorder N Tuberculosis N AIDS/HIV N Asthma N Thyroid Disorder N Hepatitis N Colon/Rectal Disorders N Glaucoma N Measles Y Attempted Suicide N Varicose Veins N Hearing Loss N Radiation Therapy N Blood Thinners N High Cholesterol Y Liver Disease N Allergies/Hayfever Y Osteoporosis/Osteopenia Y Heart Attack (NH) N Diabetes N Epilepsy/Seizures N Sleep Apnea Y Hypertension Y Gynecological HistoryNo gynecological history recorded. Obstetrics History GPAL:G 0 P 0 0 0 0 Past Encounters Encounter ID Performer Location Encounter Start Date Encounter Closed Date Diagnosis/Indication Diagnosis SNOMED-CT Code Diagnosis ICD10 Code Diagnosis Note [id number] BRADEN SNYDER MD [facility] [address] [place] [address] 10/15/2024 08:46:06 10/16/2024 05:22:55 Postoperative care 796685745 Z48.89 [id number] IVÁN TRONCOSO PA-C [facility] [address] [place] [address] 11/03/2024 08:58:16 11/03/2024 12:25:50 Lumbar radiculopathy 440010474 M54.16 Bilateral osteoarthritis of knees 5928106543 25835 M17.0 Lumbar spondylosis 31627 0009 M47.896 Health Concerns Section Related Observation LastModified by Organization Detai ls LastModified Time None Recorded Concern Status LastModified by Organization Details LastModified Time None Recorded Payers Encounter Date Sequence Insurance Name Policy Number Policy Ford Covered Member ID Ford Member ID Guarantor Name 11/03/2024 1 [employer] (MEDICARE REPLACEMENT/A DVANTAGE - PPO) Magoaddis Centeno [id number] Mago H Jacobo Notes Date Note Type Note Provider Name and Address Organization Details Recorded Time 11/03/2024 text/html Injection follow upReported bypatient.Locatio n:low back; leg (Left knee) Most recent procedures:lumbar TFESI (Lt l4/5-L5/S1 09/08/24); joint injection (Lt knee Zilretta Inj. 08/24/24) % of reliefpain relief 90% Duration of relief:ongoing (90%) Severity:improvin g; current pain 0/10; average pain 1/10 Woundinjection [...] and is ongoing. IVÁN TRONCOSO PA-C [address] [place], [address], [facility] 11/03/2024 10:15:57 OBGyn Episode No OBEpisode recorded.
--- OUTSIDE RECORDS SUMMARY | 2024-12-29 08:55 | XMS_ITS | Encounter Summary ---
Author Organization [employer] Address [address] [place] [address] Care Team Providers Care Transmission Repairer Name Role Phone Kiko Sanderson MD Primary Care Provider + [phone] Encounter Details Date Type Department Care Team (Late st Contact Info) Description 10/08/[address] [facility] [place] [address] [place] [address] ProviderNitish MD [address] [place] [address] Social History Tobacco Use Types Packs/Day Years Used Date Smoking Tobacco: Never Assessed Comments Unknown Sex and Gender Information Value Date Recorded Sex Assigned at Not on file Legal Sex Female 4:18 PM CDT Gender Identity Not on file Sexual Orientation Not on file documented as of this encounter Miscellaneous Notes * Cerner Conversion Note - Historical ProviderMD - 10/08/2019 5:16 PM CDT Initial Discharge Planning Entered On: 10/08/2019 17:18 EDT Performed On: 10/08/2019 17:16 EDT by YAMILA MCKAY RN-Design Printing Machine Setter Initial Assessment I Previously Documented Living Environment : No qualifying data available. Living Situation : Home Patient Lives With : Spouse Is the Patient a Caregiver at Home? : No Emergency Contact #1 : [facility] Emergency Contact #1 cell Emergency Contact #1 Relationship : daughter Emergency Contact #2 : lor chahal Emergency Contact #2 Emergency Contact #2 Relationship : [id number] YAMILA MCKAY RN-Design Printing Machine Setter - 10/08/2019 17:16 EDT Initial Assessment II Sensory and Motor Deficits : None Current Home Treatments and Equipment : Bedside commode, Cane, Shower chair, Walker YAMILA MCKAY RN-Design Printing Machine Setter - 10/08/2019 17:16 EDT Discharge Needs I Anticipated Discharge Date : 10/09/2019 EDT Anticipated Discharge To, CM : Home with family care, Home with home health Current Home Treatment/Equipment : Current Home Treatment/Equipment No qualifying data available. Post Acute/Home Treatments : None Documentation Status Complete : Yes YAMILA MCKAY RN-Design Printing Machine Setter - 10/08/2019 17:16 EDT Discharge Needs II Professional Skilled Services : Professional Skilled Services No qualifying data available. Needs Assistance with Transportation : No Discharge Options Discussed with Patient : Home Health YAMILA MCKAY RN-Design Printing Machine Setter - 10/08/2019 17:16 EDT Narrative Note Narrative Note : 64yo female pt s/p post cerv fusion. Pt also had to have f/c for urinary retention last pm. Met with pt at bedside to discuss DCP. Pt has dme at home. She is agreeable to HH if needed for PT. She will be staying with her ROMAN at time of dc. CM will follow. YAMILA MCKAY RN-Design Printing Machine Setter - 10/08/2019 17:16 EDT Electronically signed by Betzaida Montgomery Conversion Intelligent Systems Engineer Cerner at 11/09/2022 5:11 PM CDT documented in this encounter Plan of Treatment Not on file documented as of this encounter Visit Diagnoses Not on filedocumented in this encounter Care Teams Transmission Repairer Relationship Specialty Start Date End Date Kiko Sanderson MD [address] [facility] [address] [place] [address] PCP - General Family Medicine 03/10/24 documented as of this encounter
--- OUTSIDE RECORDS SUMMARY | 2024-12-29 08:55 | XMS_ITS | Encounter Summary ---
Author Organization [employer] Address [address] [place] [address] Care Team Providers Care Instrument Repairer Helper Name Role Phone Kiko Sanderson MD Primary Care Provider + [phone] Encounter Details Date Type Department Care Team (Late st Contact Info) Description 10/08/[address] [facility] [place] Family Medicine [address] [place] [address] ProviderNitish MD [address], [place] [address] Social History Tobacco Use Types Packs/Day Years Used Date Smoking Tobacco: Never Assessed Comments Unknown Sex and Gender Information Value Date Recorded Sex Assigned at Not on file Legal Sex Female 4:18 PM CDT Gender Identity Not on file Sexual Orientation Not on file documented as of this encounter Miscellaneous Notes * Cerner Conversion Note - Nitish ProviderMD - 10/08/2019 11:20 AM CDT UM Authorization Entered On: 10/08/2019 11:20 EDT Performed On: 10/08/2019 11:20 EDT by Sinai Persaud Rn-Utilization Review Primary Insurance Authorization Authorization and Policy Numbers : Insurance 1 Health Plan: MEDICARE Policy Number: [id number] Authorization Number: NO AUTH REQ Insurance 2 Health Plan: GENERIC COMMERCIAL Policy Number: [id number] Authorization Number: NO AUTH REQ Insurance Primary Name : MEDICARE Authorized Service Begin Date-Primary : 10/07/2019 EDT Historical Authorization Comments-Primary : No Authorization Comments Found Hnug, Sinai L, Rn-Utilization Review - 10/08/2019 11:20 EDT Electronically signed by [facility] Conversion Cardiac Monitor Cerner at 11/09/2022 5:07 PM CDT documented in this encounter Plan of Treatment Not on file documented as of this encounter Visit Diagnoses Not on filedocumented in this encounter Care Teams Instrument Repairer Helper Relationship Specialty Start Date End Date Kiko Sanderson MD [address] [facility] [address] [place] [address] PCP - General Family Medicine 03/10/24 documented as of this encounter
--- OUTSIDE RECORDS SUMMARY | 2024-12-29 08:55 | XMS_ITS | Encounter Summary ---
Author Organization [employer] Address [address] [place] [address] Care Team Providers Care Distance Learning Administrator Name Role Phone Kiko Sanderson MD Primary Care Provider + [phone] Encounter Details Date Type Department Care Team (Late st Contact Info) Description 10/08/2019 Transcribed Document [facility] [place] [address] [place] [address] ProviderNitish MD [address] [place], [place] [id number] Social History Tobacco Use Types Packs/Day Years Used Date Smoking Tobacco: Never Assessed Comments Unknown Sex and Gender Information Value Date Recorded Sex Assigned at Not on file Legal Sex Female 4:18 PM CDT Gender Identity Not on file Sexual Orientation Not on file documented as of this encounter Miscellaneous Notes * Cerner Conversion Note - Historical ProviderMD - 10/08/2019 8:42 AM CDT Evaluation, Physical Therapy Entered On: 10/08/2019 16:31 EDT Performed On: 10/08/2019 16:26 EDT by ROB MIMS, TOMMIE General Information, PT Visit Type, PT : Initial evaluation Patient Orders : Order Date Order Ordering 10/08/2019 08:42 Physical Therapy Eval and Treat Ordered By: YOBANI TOTH PA-C Active Diagnoses : 10/07/2019 12:00 Radiculopathy, cervical region Therapy Diagnosis, PT : decreased functional mobility and activity tolerance Onset of Problem, PT : 10/07/2019 EDT Admission Date : 10/07/2019 06:11 Personal Devices : Personal Devices No Devices Recorded Assistive Devices : Assistive Devices No Devices Recorded Precautions in Place : Fall prevention measures General Information Comment, PT : ACDF revision (10/06) Big Run collar ROB MIMS, PT - 10/08/2019 16:26 EDT General Status Patient Received Status : Supine in bed Treatment Start Time : 10/08/2019 14:04 EDT Patient Left Status : Up in chair, RN/PCT informed, Communication board completed, All needs met and within reach RN/PCT Informed Comment : Luis Treatment End Time : 10/08/2019 14:23 EDT Treatment Time : 19 Minute(s) ROB MIMS PT - 10/08/2019 16:26 EDT History and Environment Living Situation, Therapy : Home Patient Lives With : Spouse Persons Providing Information : Patient ADL Equipment Comment : Does not use AD, however stated that she has BSC, shower chair, Rwx, and cane Home Setup : One story Stairs : Yes Stair Location(s) : Outside Outside Stairs, Number of Steps : 4 Railing Outside : No ROB MIMS PT - 10/08/2019 16:26 EDT Prior Level of Function PT GRID Prior LOF Ambulation, Household : Independent Prior LOF Ambulation, Community : Independent Prior LOF Bed Mobility : Independent Prior LOF Toileting : Independent Prior LOF Transfer : Independent ROB MIMS PT - 10/08/2019 16:26 EDT Functional Mobility Mobility Grid Supine to Sit : Supervision/set-up Sit to Stand : Rehab Minimal assistance (Comment: x2 [ROB MIMS PT - 10/08/2019 16:26 EDT] ) Stand to Sit : Rehab Minimal assistance ROB MIMS PT - 10/08/2019 16:26 EDT Gait Training/Assessment, PT Gait Assistance Level : Supervision Walking Distance : 10' to chair with Big Run collar Ambulatory Devices : Gait belt, Walker, front wheel ROB MIMS PT - 10/08/2019 16:26 EDT Cognition Assessment, PT Orientation : Oriented x 4 ROB MIMS PT - 10/08/2019 16:26 EDT Edu Topics Physical Therapy Education Grid Role of Physical Therapy : Verbalizes understanding ROB MIMS PT - 10/08/2019 16:26 EDT Indication Assesessment, PT Physical Therapy Indicated : Yes PT Problem List : Impaired, activities daily living, Impaired, bed mobility, Impaired, endurance tolerance, Impaired, gait, Impaired, sitting balance, Impaired, stair mobility, Impaired, standing balance, Impaired, strength, Impaired, transfers, Pain limiting function Potential Barriers To Therapy : Pain Rehabilitation Potential : Good ROB MIMS, PT - 10/08/2019 16:26 EDT Plan of Care, PT PT Tx Plan/Goals Established w Patient : Yes PT Frequency Rehab : Five days per week PT Duration Rehab : Fourteen days PT Treatments Planned : Balance training, Bed mobility training, Gait training, Safety education, Stair training, Therapeutic exercises, Transfer training ROB MIMS, PT - 10/08/2019 16:26 EDT Penitentiary Goals Mobility/Bed Mobility LTG PT Grid Goal #1 Goal #2 Activity : Supine to sit Sit to stand Assist : Independent, complete Independent, modified Date to Meet : 10/22/2019 EDT 10/22/2019 EDT Goal Status : Intial Goal Intial Goal ROB MIMS, PT - 10/08/2019 16:26 EDT ROB MIMS PT - 10/08/2019 16:26 EDT Ambulation LTG Grid Goal #1 Device : Walker, front wheel Distance : 300' Assist : Independent, modified Date to Meet : 10/22/2019 EDT Goal Status : Intial ROB Conrad PT - 10/08/2019 16:26 EDT Stairs LTG Grid Goal #1 Number of Steps : 4 Assist : Independent, complete Date to Meet : 10/22/2019 EDT Goal Status : Intial Goal ROB MIMS PT - 10/08/2019 16:26 EDT Treatment Note Subjective Comment : Patient agreed to PTx. RN ok'd PTx. Additional Objective Information : Patient having a lot of pain today limiting mobility. Patient stated that her right leg felt numb and had difficulty advancing R LE during swing phase of gait requiring extended time during ambulation. Patient also had difficulty completing sit to stand due to weakness. Assessment : Patient demonstrates decreased independence and safety with functional mobility, transfers, and gait. Patient also demonstrates decreased activity tolerance and dynamic balance. Patient would benefit from skilled PT services in order to improve in these areas to minimize functional deficits, promote functional independence for safe discharge, and for safety education. Plan for Treatment : Continue POC ROB MIMS, PT - 10/08/2019 16:26 EDT Pain Assessment Pain Scaled Used : 0-10 Pain scale Pain Score Pre-Intervention : 10 Location : Neck Pain Improved by : Medication Pain Improved by Intervention : Yes ROB MIMS PT - 10/08/2019 16:26 EDT Image 1 - Images currently included in the form version of this document have not been included in the text rendition version of the form. Anticipated Discharge Needs, OT/PT Anticipated Discharge to : Home, with home health, Unit, rehabilitation Recommend Continued Therapy at Discharge : Yes ROB MIMS PT - 10/08/2019 16:[address] PT Charges PT Eval Moderate Complexity : 1 ROB MIMS PT - 10/08/2019 16:26 EDT Electronically signed by Betzaida Montgomery Conversion Student Life Coordinator Cerner at 11/09/2022 5:10 PM CDT documented in this encounter Plan of Treatment Not on file documented as of this encounter Visit Diagnoses Not on filedocumented in this encounter Care Teams Distance Learning Administrator Relationship Specialty Start Date End Date Kiko Sanderson MD [address] [place] [facility] [address] [place] [id number] PCP - General Family Medicine 03/10/24 documented as of this encounter
--- OUTSIDE RECORDS SUMMARY | 2024-12-29 08:55 | XMS_ITS | Encounter Summary ---
Author Organization [employer] Address [address] [place] [address] Care Team Providers Care Frame Nailer Name Role Phone Kiko Sanderson MD Primary Care Provider + [phone] Encounter Details Date Type Department Care Team (Late st Contact Info) Description 10/08/2019 Transcribed Document [facility] [place] [address] [place] [address] ProviderNitish MD [address], [place] [address] Social History Tobacco Use Types Packs/Day Years [...] ProviderMD - 10/08/2019 8:42 AM CDT Evaluation, Occupational Therapy Entered On: 10/08/2019 14:32 EDT Performed On: 10/08/2019 14:25 EDT by Terry Toure STUDENT-OCCUPATIONAL THERAPIST General Information, OT Visit Type, OT : Initial evaluation Terry Toure STUDENT-OCCUPATIONAL THERAPIST - 10/08/2019 14:26 EDT Patient Orders : Order Date Order Ordering 10/08/2019 08:42 Occupational Therapy Evaluation and Treatme Ordered By: YOBANI TOTH PA-C Active Diagnoses : 10/07/2019 12:00 Radiculopathy, cervical region [facility]ADY, OTR/L - 10/08/2019 15:00 EDT Therapy Diagnosis, OT : Decreased independence with ADL's due to pain Onset of Problem, OT : 10/08/2019 EDT Terry Toure STUDENT-OCCUPATIONAL THERAPIST - 10/08/2019 14:26 EDT Admission Date : 10/07/2019 06:11 [facility]ADY OTR/Yves - 10/08/2019 15:00 EDT Co-treated by, OT : Physical Therapist Terry Toure STUDENT-OCCUPATIONAL THERAPIST - 10/08/2019 14:26 EDT Personal Devices : Personal Devices No Devices Recorded Assistive Devices : Assistive Devices No Devices Recorded [facility] GRADY OTR/Yves - 10/08/2019 15:[address] : Fall prevention measures General Information Comment, OT : ACDF Revision, UE pain ToureTerry STUDENT-OCCUPATIONAL THERAPIST - 10/08/2019 14:26 EDT General Status Patient Received Status : Supine in bed Treatment Start Time : 10/08/2019 14:05 EDT Patient Left Status : Up in chair, RN/PCT informed, All needs met and within reach RN/PCT Informed Comment : RN: Luis Treatment End Time : 10/08/2019 14:25 EDT Treatment Time : 20 Minute(s) Terry Toure STUDENT-OCCUPATIONAL THERAPIST - 10/08/2019 14:26 EDT History and Environment, OT Patient Lives With : Spouse Home Equipment, Therapy : Cane, Commode, Shower Equipment, Walker Cane : Cane, single point Commode : Commode, bedside Shower Equipment : Shower Chair, with back Walker : Walker, front wheel Home Setup : One story Stairs : Yes Stair Location(s) : Outside Outside Stairs, Number of Steps : 4 Railing Outside : No Terry Toure STUDENT-OCCUPATIONAL THERAPIST - 10/08/2019 14:26 EDT Prior LOF Bathing, OT : Independent Prior LOF Bed Mobility : Independent Prior LOF Upper Body Dressing, OT : Independent Prior LOF Lower Body Dressing, OT : Independent Prior LOF Toileting : Independent Prior LOF Transfer : Independent Prior LOF Grooming, OT : Independent Prior LOF for IADLs, OT : Independent Terry Toure STUDENT-OCCUPATIONAL THERAPIST - 10/08/2019 14:26 EDT Upper Extremity Right UE Active ROM : WFL Right UE Strength : WFL Left UE Active ROM : WFL Left UE Strength : WFL Right UE Strength : WFL Left UE Strength : WFL Terry [facility]re [facility] - 10/08/2019 14:26 EDT Self Care/Home Management, OT Self Feeding Assist Level, OT : Supervision or set-up Grooming Assist Level, OT : Supervision or set-up Bathing Assist Level, OT : Assist, minimal PALMER GRADY OTR/Yves - 10/08/2019 15:00 EDT Upper Body Dressing Assist Level, OT : Supervision or set-up Lower Body Dressing Assist Level, OT : Assist, maximal Toileting Assist Level : Independent, modified Toilet Transfer Assist Level : Assist, minimal Terry Toure [facility] - 10/08/2019 14:26 EDT Functional Mobility Mobility Grid Supine to Sit : Supervision/set-up Sit to Stand : Rehab Minimal assistance Bed to Chair : Supervision/set-up Stand to Sit : Supervision/set-up Terry Toure [facility] - 10/08/2019 14:26 EDT Cognition Assessment, OT Orientation : Oriented x 4 Cognition Assessment, OT : Intact ToureTerry [facility] - 10/08/2019 14:26 EDT Indication Assessment, OT Occupational Therapy Indicated : Yes Problem List, OT : Impaired, activities daily living, Impaired functional mobility, Impaired, joint mobility [place]Terry [facility] - 10/08/2019 14:26 EDT Plan of Care, OT OT Tx Plan/Goals Established w Patient : Yes OT Frequency Rehab : Five days per week OT Duration Rehab : Fourteen days OT Treatments Planned : Activities of daily living, Balance training, Functional mobility training, Pain management, Safety education, Therapeutic activities, Therapeutic exercises [place]Terry [facility] - 10/08/2019 14:26 EDT Custodial Goals, OT Grooming LTG Grid Goal #1 Activity : Grooming Assist : Independent, modified Date to Meet : 10/22/2019 EDT Goal Status : Initial goal PAL[facility] GRADY OTR/Yves - 10/08/2019 15:00 EDT Dressing, Lower Body LTG Grid Goal #1 Activity : Dressing, Lower Body Assist : Independent, modified Equipment : Long Handled Weatherization Director, Sock aid, Long handled shoehorn Date to Meet : 10/22/2019 EDT Goal Status : Initial goal Terry Toure STUDENT-OCCUPATIONAL THERAPIST - 10/08/2019 14:26 EDT Toilet Transfer LTG Grid Goal #1 Activity : Toilet Transfer, Ambulatory Assist : Supervision or set up Date to Meet : 10/22/2019 EDT Goal Status : Initial goal Terry Toure STUDENT-OCCUPATIONAL THERAPIST - 10/08/2019 14:26 EDT Treatment Note Subjective Comment : Pt was agreeable to evaluation Patient's Response to Treatment : Pt tolerated evaluation well Additional Objective Information : Pt was supine upon arrival. Pt SBA supine to sit EOB. UE WFL. Pt Min A x2 sit to stand. Pt ambulated to chair with RWx SBA. Pt exhibits slow movements and has R LE weakness. Pt was left up in chair with all needs met and CL in reach Terry Toure STUDENT-OCCUPATIONAL THERAPIST - 10/08/2019 14:26 EDT Assessment : Pt can benefit from skilled OT. Goals were established OTR/L has reviewed and agrees with documentation PALMER GRADY OTR/L - 10/08/2019 15:00 EDT Plan for Treatment : See goals Terry Toure STUDENT-OCCUPATIONAL THERAPIST - 10/08/2019 14:26 EDT Pain Assessment Pain Scaled Used : 0-10 Pain scale Pain Score Pre-Intervention : 10 Location : Neck Terry Toure STUDENT-OCCUPATIONAL THERAPIST - 10/08/2019 14:26 EDT Image 1 - Images currently included in the form version of this document have not been included in the text rendition version of the form. [facility] OT Charges OT Eval Low Complexity : 1 Terry Toure STUDENT-OCCUPATIONAL THERAPIST - 10/08/2019 14:26 EDT documented in this encounter Plan of Treatment Not on file documented as of this encounter Visit Diagnoses Not on filedocumented in this encounter Care Teams Frame Nailer Relationship Specialty Start Date End Date Kiko Sanderson MD [address] [place] [facility] [address] [place] [address] PCP - General Family Medicine 03/10/24 documented as of this encounter
== END 2024-12-29 23:59 | disposition home or self-care (01) ==
LOC: RAD 08:49
PROVIDERS: PCP Family Medicine; Visit Provider Family Medicine
DX: Z13.820 Encounter for screening for osteoporosis (principal); M85.89 Other specified disorders of bone density and structure, multiple sites
CPT/HCPCS: 77080

== ENCOUNTER 2025-01-15 07:23 | Outpatient (CLI) | payer MEDICARE, SELFPAY ==
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
--- OUTSIDE RECORDS SUMMARY | 2025-01-15 07:27 | XMS_ITS | Data Portability ---
Author Organization MICHELLE Loida march, [facility] Address [address] [facility] [address] [place] [address] Care Team Providers Care Roving Sizer Name Role Phone NATALIE WOODSON Primary Care [...] such as yoga or pilates on a group home basis. I had an in-depth discussion with [...] epidural, lumbar (PROC) 2023 025 [email or web address] 1 [facility] Professional Charges, [address] [place] [address] [address], [address], 5 12:09:03 Surgeries None recorded. Imaging XR, lumbosacral spine, 4 or more view 2023 024 [email or web address] 9 [facility], [address] [place] [address], [address], 4 13:44:45 XR, knee, 4 or more view - 07/21/242023 024 [email or web address] 9 [facility], [address] [place], [address], 4 13:44:46 Medication Orders None recorded. Patient TargetsNo targets recorded. Patient InstructionsNo instructions recorded. Reason for Referral None Reported. Results Created Date Observation Date Name Description Value Unit Range Abnormal Flag Note LastModifiedBy Organization Detail LastModifiedTime 07/21/2007/21/2024 XR, knee, 4 or more view [address] [address] Susytomas garcia Name: ANKUSH garcia : [birth year] 52 Andres garcia 7 Orderi ng Provid er: IVÁN TRONCOSO EXAM DATE: 2023 EXAM: XR ASIM KNEES [...] Neelima valadez MD on 2023 9:00 AM [facility] [address], [address], 07/21/2024 09:19:44 07/21/20 24 07/21/2024 XR, lumbo sacra l spine , 4 or [facility] [address] [place] [address] Andres garcia Name: ANKUSH garcia : [birth year] 52 [...] Michael Doshi MD on 2023 9:[facility] [address] [facility], [place], [address], 07/21/2024 09:19:44 08/13/19 25 08/12/2024 MRI, cervi [...] mimi spine , 2 or [address] [address] [phone] Andres garcia Name: ANKUSH garcia : [birth year] 52 Andres garcia 7 Orderi ng Provid er: LYNNE RODRIGUEZ EXAM DATE: 2024 EXAM: XR CERVIC AL AP/LAT CLINIC AL INFORM ATION: IMAGES PROVID ED: AP, latera l, open mouth and submen christianne views of the cervic al spine COMPAR REJI: None. 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 No compli cation . No hardwa re loosen ing is noted. The alignm ent is accept able. No prever tebral soft tissue swelli ng. 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 COMPARISON: 02/06/2024 FINDINGS: There are moderate to severe osteoarthritic changes. There is moderate marginal osteophytic spurring. There is near complete loss of joint space in the patellofemoral compartment. There is no evidence of fracture. IMPRESSION: 1. There are moderate to severe osteoarthritic changes in both knees. Interpreted By: Yaron Merlos MD ÁN TRONCOSO PA-C [address] [place] [address], [phone], [facility] 07/21/2024 09:19:44 Xr, Lumbosacral Spine, 4 Or More View : [address] [address] Patient Name: MAGO CENTENO Patient : 1955 Patient Ordering Provider: IVÁN TRONCOSO EXAM DATE: 07/21/2024 EXAM: XR LUMBAR SPINE AP/LAT/FLEX/EXT CLINICAL INFORMATION: Back pain. IMAGES PROVIDED: AP, lateral and coned-down views of the lumbar spine with additional lateral views in flexion and extension. COMPARISON: None. FINDINGS: Vertebral body heights are normal. Narrowing of multiple disc spaces, mild. Grade 1 anterior listhesis of L4 relative to L5. Mild diffuse degenerative endplate spurring. No instability is seen on flexion or extension. No radiographic evidence of injury is noted. IMPRESSION: Mild to moderate diffuse DDD with grade 1 malalignment L4-5. No instability. Interpreted By: Michael Doshi MD ÁN TRONCOSO PA-C [address] [place] [address], [phone], [facility] 07/21/2024 09:19:44 Xr, Cervical Spine, 2 Or 3 View : [facility] [address] [place] [address] Patient Name: MAGO CENTENO Patient : 1955 Patient Ordering Provider: BRADEN RODRIGUEZ EXAM DATE: 10/15/2024 EXAM: XR CERVICAL AP/LAT CLINICAL INFORMATION: IMAGES PROVIDED: AP, lateral, open mouth and submental views of the cervical spine COMPARISON: None. FINDINGS: Anterior fusion noted C3-C7 with posterior fusion C2-T3. No complication. No hardware loosening is noted. The alignment is acceptable. No prevertebral soft tissue swelling. IMPRESSION: Stable uncomplicated appearing anterior and posterior fusion Interpreted By: Michael Doshi MD EN RODRIGUEZ MD [address] [place] [address], [phone], [facility] 10/15/2024 15:02:34 Problems Name Problem SNOMED Code Status Onset Date Resolution Date Notes Provider Name and Address Organization Details Recorded Time Tension-ty pe headache 565901132 Active 2014 From Automated Load;Provi henrietta: Maci May;Stat us: Active Richard Workman [facility] 4 08:01:57 Finding of sensation by site 057779535 Active 2014 From Automated Load;Provi henrietta: Maci May;Stat us: Active Richard Workman [facility] 4 08:01:57 Cervico-oc cipital neuralgia 90434395 Active 2014 From Automated Load;Provi henrietta: Maci May;Stat us: Active Richard Workman [facility] 4 08:01:57 Restless legs 28407864 Active 2014 From Automated Load;Provi henrietta: Maci May;Stat us: Active Richard Workman [facility] 4 08:01:57 Postoperat madelyn retention of urine 601635513 Active 2019 [facility] 08:01:57 Urge incontinen ce of urine 54004993 Active 2019 [facility] 4 08:01:57 Problem Notes None recorded. Procedures Surgical History Date Name Laterality Status Provider Name and Address Organization Details Recorded Time 09/08/19 25 Lumbar Transforaminal Epidural Injection - Fariba completed RAMONA MITTAL MD [address] [place] [address], [address], [facility] 09/08/2024 13:54:59 08/24/19 25 Joint Injection, Knee - Fariba completed RAMONA MITTAL MD [address] [place] [address], [address], [facility] 08/24/2024 15:53:56 01/06/20 24 Lumbar Transforaminal Epidural Injection - Fariba completed RAMONA MITTAL MD [address] [place] [address], [address], [facility] 01/06/2024 15:01:43 12/31/19 24 Trigger Point Injections - Fariba completed IVÁN TRONCOSO PA-C [address] [place] [address], [address], [facility] 12/31/2023 09:52:26 12/23/19 24 Cervical Epidural Steroid Injection - Fariba completed RAMONA MITTAL MD [address] [place] [address], [address], [facility] 12/23/2023 16:54:06 12/13/19 24 Cervical MBB 2 level - Fariba completed RAMONA MITTAL MD [address] [place] [address], [address], [facility] 12/13/2023 14:20:14 11/12/19 24 Electromyography (EMG) with Nerve Conduction Study (NCV) completed Emma Fitzgerald (Nicky) [facility] 11/12/2023 16:50:17 09/17/19 24 Lumbar Transforaminal Epidural Injection - Fariba completed RAMONA MITTAL MD [address] [place] [address], [phone], [facility] 09/17/2023 16:25:20 09/11/19 24 Marilyn Maneuver completed [facility] 09/11/2023 15:39:59 09/11/19 24 [place] completed [facility] 09/11/2023 15:40:16 09/11/19 24 Endoscopy Nasal; Biospy, Polypectomy or Debridement completed Emma [facility] 09/11/2023 15:28:27 10/07/19 20 ANTERIOR CERVICAL DISCECTOMY AND FUSION FOR DECOMPRESSION (SURG) completed Richard Workman [facility] 09/05/2023 08:02:06 08/11/19 20 LAMINECTOMY, CERVICAL (SURG) completed Richard Workman [facility] 09/05/2023 08:02:06 05/18/20 19 Interpretation completed MAHSA GALVEZ PA-C [address] [place], [address], [facility] 05/18/2019 16:31:44 hysterectomy completed Richard Workman [facility] 09/05/2023 08:02:03 procedure on urinary bladder completed Richard Workman [facility] 09/05/2023 08:02:03 Cholecystectomy completed Richard Workman [facility] 09/05/2023 08:02:03 Neck Surgery completed Richard Workman [facility] 09/05/2023 08:02:03 [facility] 09/05/2023 08:02:03 Imaging Results None recorded. Procedure Notes None recorded. Medical Equipment None Reported. Allergies Allergen ID Allergen Name Allergen Category Reaction Reaction Severity Criticality Documentation Date Start Date Code Code System Note Provider Name and Address Organization Details Recorded Time 499150 hydrocodo ne bitartrat e medicatio n Not available Not available Not available 06/15/20162014 38402 9 RxNorm Comme nt: Koby ed By: Brook hall;Cr eated Date: 2014 1:20: 53 PM; Richard Workman [facility] 08:02:01 271047 morphine sulfate medicatio n Not available Not available Not available 06/15/20162013 36570 RxNorm Comme nt: Creat ed By: Brian gresham;Cr eated Date: 2013 9:04: 02 AM; Sharonakimberlymelissa Ji null, [facility] 4 08:02:01 389411 codeine medicatio n Not available Not available Not available 06/15/20162013 2670 RxNorm Comme nt: Creat ed By: Brian gresham;Cr eated Date: 2013 9:03: 46 AM; Richard Workman null, [facility] 4 08:02:01 894656 codeine medicatio n Not available Not available Not available 08/16/2023 2670 RxNorm Celine Hockensmi th null, [facility] 4 13:51:35 115473 morphine medicatio n Not available Not available Not available 08/16/2023 7052 RxNorm Celine Hockensmi th null, [facility] 4 13:51:44 667340 prednison e medicatio n Not available Not available Not available 08/16/2023 8640 RxNorm Celine Hockensmi th null, [facility] 4 13:51:50 106260 acetamino phen / oxycodone medicatio n Not available Not available Not available 2023 80903 3 RxNorm Suzan Fawn [facility], [facility] 4 09:39:59 817775 hydrocodo ne Not available Not available Not available Not available 2023 5489 RxNorm Suzan Fawn null, [facility] 4 09:40:12 399278 Medrol medicatio n Not available Not available Not available 08/30/202385306 2 RxNorm Suzan Fawn null, [facility] 4 09:41:24 157632 methylpre dnisolone medicatio n Not available Not available Not available 03/16/20242023 6902 RxNorm Other react ions and sever ities : 'Anxi ety'. Sarahitemo Perdomo [facility] 4 08:21:11 868962 iodine medicatio n rash Not available Not available 03/16/20242023 5933 RxNorm Sarahitemo Perdomo [facility] 4 08:21:11 Medications Name Sig Start [...] Updated DateTime 10/15/2024 160.02 cm 27.6 kg/m2 05578.41 g 120 mm[Hg] 72 mm[Hg] Arlyn Cooper [facility] 5 09:07:15 Date Recorded Body height Body mass index (BMI) Body weight Body temperature Heart rate Oxygen saturation Oxygen saturation in Arterial blood by Pulse oximetry Systolic blood pressure Diastolic blood pressure Provider Name and Address Organization Details Last Updated DateTime 5 160.02 cm 28.6 kg/m2 00021.7 7 g 97.2 [degF] 63 /min 100 % 100 % 118 mm[Hg] 64 mm[Hg] Marianne Mccurdy [facility] 5 09:59:15 Date Recorded Body height Body mass index (BMI) Body weight Body temperature Heart rate Oxygen saturation Oxygen saturation in Arterial blood by Pulse oximetry Systolic blood pressure Diastolic blood pressure Provider Name and Address Organization Details Last Updated DateTime 4 160.02 cm 27.6 kg/m2 31820.4 1 g 97.2 [degF] 54 /min 100 % 100 % 118 mm[Hg] 64 mm[Hg] Marianne Mccurdy [facility] 4 08:12:54 Social History Question Answer Notes LastModified by [employer] Details LastModified Time Tobacco Smoking Status Never Smoker [facility] 08/16/2023 13:52:52 How Much Tobacco Do You Chew? None Information not available 10/12/2019 What Was The Date Of Your Most Recent Tobacco Screening? 11/03/2024 Information not available 11/03/2024 What Is Your Relationship Status? Other [email or web address] Information not available 07/21/2024 Sex: Female Functional Status Question Answer Note LastModified by [employer] Details LastModified Time What is your level of alcohol consumption? Occasional Information not available 10/12/2019 Are you currently employed? No [email or web address] Information not available 07/21/2024 Mental Status None recorded. Family History Relationship Description Onset Age of this Age Resolved Age Notes LastModified by Organization Details LastModified Time Unspecified Relation Diabetes mellitus Not available 08/22 08:01:54 Unspecified Relation Hypertensive disorder [email or web address] Not available 08/22 08:01:54 Unspecified Relation Myocardial infarction [email or web address] Not available 08:01:54 Unspecified Relation Cerebrovascu lar accident [email or web address] Not available 0 09/05/2023 08:01:54 Medical History Condition Response Kidney Stones N Blood Transfusion N Emphysema N Colon/Rectal Disorders N Sexually Transmitted Disease N COPD N Depression Y Glaucoma N Pneumonia N Measles Y Attempted Suicide N Varicose Veins N Anxiety Disorder Y Arthritis Y Hearing Loss N Blood Clot [...] SNOMED-CT Code Diagnosis ICD10 Code Diagnosis Note [id number] MAHSA GALVEZ PA-C [facility] [address] [place] [address] 04/30/2019 08:57:13 05/05/2019 17:11:16 Cervical radiculopathy 60852822 M54.12 -Patient presents with persistent shooting electric [...] will keep you updated on her progress [id number] BRADEN RODRIGUEZ MD [facility] [address] [place] [address] 05/18/2019 14:17:43 05/19/2019 09:12:10 Spinal stenosis in cervical region 35877280 M48.02 -Patient has had persistent shooting electric [...] questions answered. She will meet with our central scheduler today to get this scheduled. She is happy with this plan. 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 She is happy with this plan. [id number] BRADEN RODRIGUEZ MD [facility] [address] [place] [address] 06/08/2019 08:13:52 06/08/2019 11:44:11 Cervical radiculopathy 93240820 M54.12 Time spent reviewing images, discussing the diagnosis and coordinati ng care: 25 min [id number] BRADEN RODRIGUEZ MD SURGERY SCHEDULE [address] [place] [address] 08/17/2019 15:52:19 08/18/2019 16:15:46 [id number] BRADEN RODRIGUEZ MD [facility] [address] [place] [address] 08/24/2019 13:33:29 08/24/2019 13:55:48 [id number] BRADEN RODRIGUEZ MD [facility] [address] [place] [address] 09/14/2019 12:41:16 09/17/2019 10:45:22 Postoperative care 275813851 Z48.89 [id number] BRADEN RODRIGUEZ MD SURGERY SCHEDULE [address] [place] [address] 10/09/2019 13:44:20 10/09/2019 14:49:47 [id number] MD BARRETT CANSECO JR[facility] [address] [place] [address] 10/12/2019 10:21:46 10/12/2019 11:08:32 Postoperative retention of urine 415226046 R33.8 Urge incon tinence of urine 19787636 N39.41 [id number] YOBANI TOTH PA-C [facility] [address] [place] [address] 01/11/2020 14:27:11 01/12/2020 14:04:11 Postoperative care 825578791 Z48.89 64-year-ol d female with history of [...] forward and may follow up as needed. [id number] ANDER FRENCH PA-C [facility] [address] [place] [address] 08/16/2023 13:43:22 08/17/2023 04:25:38 Lumbar radiculopathy 226681446 M54.16 [id number] RAMONA MITTAL MD [facility] [address] [place] [address] 2023 09:03:38 2023 15:50:19 Degeneration of lumbar intervertebral disc 35772701 M51.36 Lumbar radiculopathy 128 258989 M54.16 Cervical spondylosis 387 293207 M47.812 Myofascial pain syndrome of neck 069322316 M54.[id number] [place] [facility] [address] [place] [address] 09/11/2023 14:07:11 09/11/2023 15:35:52 Chronic sinusitis 56170093 J32.9 08/14/23- s/p functional right ESS with right nasal endoscopy and partial ethmoidect anali, right maxillary antrostomy with removal of antral mucosal disease Benign par oxysmal positional vertigo 224856737 H81.11 09/11/23- positive to the right. [id number] RAMONA MITTAL MD [facility] OF SERV[facility] PROFESSIO NAL CHARGES [address] [facility], [address] [place] [address] 09/17/2023 14:44:40 09/19/2023 15:09:17 Lumbar radiculopathy 083169375 M54.16 [id number] FELIPE KENYON PA-C [facility] [address] [place] [address] 10/03/2023 14:18:13 10/04/2023 04:16:07 Cervical radiculopathy 68054554 M54.12 Lumbar radiculopathy 128 154943 M54.16 [id number] IVÁN TRONOCSO PA-C [facility] [address] [place] [address] 10/14/2023 08:43:04 10/14/2023 16:29:04 Lumbar radiculopathy 225870756 M54.16 Degenerati on of lumbar intervertebral disc 76652931 M51.36 Cervical spondylosis 387 762239 M47.812 Myofascial pain syndrome of neck 632010943 M54.2 [id number] HUMA SANTIAGO MD NEUROLOGY [facility] CLOSED [address] [place] [address] 1 11/12/2023 15:13:41 11/13/2023 04:23:29 Cervical radiculopathy 53417206 M54.12 Paresthesia 19507102 R20 .2 Neck pain 82128115 M54.2 [id number] FELIPE KENYON PA-C [facility] [address] [place] [address] 11/25/2023 10:18:24 11/26/2023 04:54:35 Cervical radiculopathy 50411771 M54.12 Cervical spondylosis 387 384849 M47.812 [id number] RAMONA MITTAL MD [facility] CLOSED [address] [place] [address] 1 11/28/2023 13:00:26 11/28/2023 16:19:39 Degeneration of cervical intervertebral disc 30440479 M50.30 Cervical spondylosis 387 489185 M47.812 Cervical post-laminectomy syndrome 398987868 M96.1 [id number] RAMONA MITTAL MD [facility] PROFESSIO NAL CHARGES [address] [place] [address] 1 12/13/2023 13:38:31 12/13/2023 15:11:58 Cervical spondylosis 715984684 M47.812 [id number] RAMONA MITTAL MD [facility] PROFESSIO NAL CHARGES [address] [place] [address] 1 12/23/2023 15:21:59 12/27/2023 10:08:03 Cervical radiculopathy 37118041 M54.12 [id number] IVÁN TRONCOSO PA-C [facility] CL[facility] [address] [place] [address] 1 12/31/2023 08:48:28 12/31/2023 15:05:42 Cervical radiculopathy 31859995 M54.12 Cervical spondylosis 387 794478 M47.812 Cervical post-laminectomy syndrome 666162901 M96.1 Myofascial pain syndrome of neck 008750163 M54.2 [id number] RAMONA MITTAL MD [facility] OF SERVICE MIRZA URIAS CHARGES [address] [facility], [address] [place] [address] 01/06/2024 13:40:23 01/09/2024 14:59:35 Lumbar radiculopathy 543301430 M54.16 [id number] BRADEN RODRIGUEZ MD [facility] CL[facility] [address] [address] 02/06/2024 09:40:45 02/07/2024 04:08:48 Cervical radiculopathy 85623651 M54.12 I am ordering a custom-fit edwin cervical collar to reduce pain by restrictin g mobility of the spine. [id number] IVÁN TRONCOSO PA-C [facility] CLOS[facility] [address] [place] [address] 1 02/06/2024 14:39:58 02/06/2024 16:03:18 Cervical radiculopathy 45801473 M54.12 Pain of bi lateral knee joints 3407551057 6[address]40 M25.561 M25.562 [id number] BRADEN RODRIGUEZ MD SURGERY SCHEDULE [address] [place] [address] 1 03/17/2024 09:16:38 03/25/2024 13:09:32 [id number] FELIPE KENYON PA-C [facility] [address] [facility] [place] [address] 03/30/2024 12:24:22 03/31/2024 04:52:11 Postoperative visit 384072263 Z48.89 [id number] BRADEN RODRIGUEZ MD [facility] CL[facility] [address] [facility] [place] [address] 04/27/2024 13:12:10 04/28/2024 04:18:25 Postoperative care 685031818 Z48.89 [id number] IVÁN TRONCOSO PA-C [facility] CLOSED [address] [place] [address] 07/21/2024 07:46:54 07/21/2024 13:44:45 Pain of bilateral knee joints 3882056723 15399 M25.561 M25.562 Lumbar radiculopathy 128 645644 M54.16 Lumbar spondylosis 33593 0009 M47.896 Bilateral osteoarthritis of knees 2606245488 17431 M17.0 Osteoarthr itis of knee 889884109 M17.9 [id number] RAMONA MITTAL MD [facility] PROFESSIO NAL CHARGES [address] [place] [address], [address] [place] [address] 08/24/2024 14:21:28 08/24/2024 15:55:59 Bilateral osteoarthritis of knees 2188651781 99220 M17.0 [id number] RAMONA MITTAL MD [facility] PROFESSIO NAL CHARGES [address] [place] [address], [facility] [address] [place] [address] 1 09/08/2024 12:45:41 09/08/2024 15:09:39 Lumbar radiculopathy 383531442 M54.16 [id number] BRADEN RODRIGUEZ MD [facility] CLOS[facility] [address] [place] [address] 10/15/2024 08:46:06 10/16/2024 05:22:55 Postoperative care 596529172 Z48.89 [id number] IVÁN TRONCOSO PA-C [facility] CLOSED [address] [place] [address] 1 11/03/2024 08:58:16 11/03/2024 12:25:50 Lumbar radiculopathy 234012952 M54.16 Bilateral osteoarthritis of knees 6713120257 15076 M17.0 Lumbar spondylosis 58109 0009 M47.896 Health Concerns Section Related Observation LastModified by Organization Detai ls LastModified Time None Recorded Concern Status LastModified by Organization Details LastModified Time None Recorded Advance Directives Directive None Recorded Payers Insurance Date Sequence Insurance Name Policy Number Policy Ford Covered Member ID Ford Member ID Guarantor Name 09/02/2024 1 [place] [id number] Mago Edgar [id number] Mago Centeno 11/02/2024 PAYMENT PLAN Mago Centeno 11/02/2024 PAYMENT PLAN Mago Centeno 09/02/2024 3 [employer] (MEDICARE SUPPLEMENT) Mago Edgar [id number] Mago Centeno 09/02/2024 2 [employer] Mago Edgar [id number] Mago Centeno 09/02/2024 1 [place] Mago Edgar [id number] Mago Centeno 10/31/2024 1 [employer] (MEDICARE REPLACEMENT/AD VANTAGE - PPO) Mago Centeno [id number] Mago Centeno 09/02/2024 2 [employer] (MEDICARE SUPPLEMENT) PLAN G Mago Centeno [id number] Mago Centeno 09/02/2024 1 [place] Mago Centeno [id number] Mago Centeno Notes Date Note Type Note Provider [...] home exercise plan (HEP)Date completed: no Previous Theater Manager:none Aarti Centeno is a 68 yo female here today for FUP left low back pain and right knee pain. IVÁN TRONCOSO PA-C [address] [place], [address], [facility] 07/21/2024 08:38:40 10/15/2024 text/html Mago Centeno i [...] denies any significant issues. BRADEN RODRIGUEZ MD [address] [place], [address], [facility] 10/15/2024 09:13:17 11/03/2024 text/html Injection follow upReported [...] and is ongoing. IVÁN TRONCOSO PA-C [address] [place], [address], [facility] 11/03/2024 10:15:57 OBGyn Episode No OBEpisode recorded.
--- NOTE | 2025-01-15 07:30 | CT_ITS ---
FINAL REPORT TECHNIQUE: Thin section axial CT with coronal reconstruction without IV contrast This study was performed with techniques to keep radiation doses as low as reasonably achievable, (ALARA). Individualized dose reduction techniques using automated exposure control or adjustment of mA and/or kV according to the patient''s size were employed. CLINICAL HISTORY: hx of funal infection in the sinus cavity COMPARISON: 08/12/2024 CT head FINDINGS: Very minimal mucosal thickening of the right maxillary sinus measuring 2 mm. There is a mucous retention cyst in the anterior wall of the left maxillary sinus measuring 13 x 5 mm. A smaller cyst is noted along the medial wall of the left maxillary sinus. The remaining paranasal sinuses are clear. There are presumed postoperative changes in the right maxillary sinus. Minimal nasal septal deviation is noted to the left. The [facility] is are clear. IMPRESSION: Mild mucosal inflammatory changes bilateral maxillary sinuses without evidence of fungal sinusitis. Reviewed, Interpreted and Dictated by Marta Moraes MD Transcribed by Dulce Rebollar Authenticated and [facility]
== END 2025-01-15 23:59 | disposition home or self-care (01) ==
LOC: RAD 07:24
PROVIDERS: PCP Family Medicine; Visit Provider Otolaryngology
DX: J32.0 Chronic maxillary sinusitis (principal); Z86.19 Personal history of other infectious and parasitic diseases
CPT/HCPCS: 70486